=== PATIENT | female | born 1955 | race Caucasian/White ===

== ENCOUNTER 2017-08-21 17:52 | Inpatient (IN) | payer OTHER ==
--- NOTE | 2017-08-21 18:31 | ED ---
General Adult HPI - General Chief complaint: Shortness of Breath Stated complaint: Pneumonia Time Seen by Provider: 08/21/17 17:53 Source: patient, EMS, RN notes reviewed, old records reviewed Mode of arrival: EMS Limitations: no limitations - History of Present Illness Initial comments: This is a 61-year-old female to the ER for evaluation today. This patient presents for evaluation regarding shortness of breath severe shortness of breath cough and congestion positive fever. Patient's transfer from [facility] for admission regarding severe sepsis, pneumonia, COPD and hypoxia - Related Data Home Medications Medication Instructions Recorded Confirmed Allopurinol 300 mg PO DAILY 11/25/15 08/21/17 Ergocalciferol [Vitamin D2 50,000 unit PO FR 11/25/15 08/21/17 (DRISDOL)] Fluticasone/Vilanterol [Breo 1 puff INHALATION RT-DAILY 11/25/15 08/21/17 Ellipta 200-25 Mcg INH] Umeclidinium [place] [Incruse 1 puff INHALATION QAM 11/25/15 08/21/17 Ellipta] Budesonide/Formoterol Fumarate 1 puff INHALATION RT-BID 08/21/17 08/21/17 [Symbicort 160-4.5 Mcg Inhaler] Febuxostat [Uloric] 40 mg PO DAILY 08/21/17 08/21/17 Loratadine [Claritin] 10 mg PO DAILY 08/21/17 08/21/17 Omeprazole [PriLOSEC] 40 mg PO DAILY 08/21/17 08/21/17 Previous Rx's Medication Instructions Recorded oxyCODONE-APAP 10-325MG [Percocet 1 each PO Q4H PRN #42 tab 12/13/15 10-325 mg] Allergies Allergy/AdvReac Type Severity Reaction Status Date / Time No Known Allergies Allergy Verified 08/21/17 18:13 Review of Systems ROS Statement: Those systems with pertinent positive or pertinent negative responses have been documented in the HPI. ROS Other: All systems not noted in ROS Statement are negative. 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 History of Any Multi-Drug Resistant Organisms: None Reported Past Surgical History: Appendectomy, Section, Joint Replacement, Orthopedic Surgery Additional Past Surgical History / Comment(s): 12/09/15 Totoal L hip arthroplasty, anterior approach with cell saver. Other surgical hx: ORIF rt arm-pin later removed Past Anesthesia/Blood Transfusion Reactions: No Reported Reaction Past Psychological History: Anxiety Smoking Status: Current every day smoker Past Alcohol Use History: Occasional Past Drug Use History: None Reported - Past Family History Mother Family Medical History: COPD, Diabetes Mellitus Additional Family Medical History / Comment(s): Mother had heart problems. Father Family Medical History: No Reported History Additional Family Medical History / Comment(s): Father had gout and heart problems. General Exam Limitations: no limitations General appearance: alert, anxious, in distress Head exam: Present: atraumatic, normocephalic, normal inspection Eye exam: Present: normal appearance, PERRL, EOMI. Absent: scleral icterus, conjunctival injection, periorbital swelling ENT exam: Present: normal exam, mucous membranes moist Neck exam: Present: normal inspection. Absent: tenderness, meningismus, lymphadenopathy Respiratory exam: Present: respiratory distress, wheezes, accessory muscle use, decreased breath sounds, prolonged expiratory. Absent: rales, rhonchi, stridor Cardiovascular Exam: Present: regular rate, normal rhythm, tachycardia, normal heart sounds. Absent: systolic murmur, diastolic murmur, rubs, gallop, clicks GI/Abdominal exam: Present: soft, normal bowel sounds. Absent: distended, tenderness, guarding, rebound, rigid Extremities exam: Present: normal inspection, full ROM, normal capillary refill. Absent: tenderness, pedal edema, joint swelling, calf tenderness Back exam: Present: normal inspection Neurological exam: Present: alert, oriented X3, CN II-XII intact Psychiatric exam: Present: normal affect, normal mood Skin exam: Present: warm, dry, intact, normal color. Absent: rash Course Vital Signs 08/21/17 17:59 Temperature 101.7 F H Pulse Rate 100 Respiratory 16 Rate Blood Pressure 137/77 O2 Sat by Pulse 93 L Oximetry - Reevaluation(s) Reevaluation #1: 08/21/17 18:52 Transfer paperwork is thoroughly reviewed EKG Findings - EKG Comments: EKG Findings:: EKG shows sinus tachycardia rate 143, ND 1:30, QRS 78, QTC 50 Medical Decision Making - Medical Decision Making 61 female the ER for evaluation severe shortness of breath severe cough and congestion, chest pain. Patient will be admitted for severe pneumonia, fever 103, severe COPD borderline BiPAP. - Radiology Data Radiology results: report reviewed (Chest x-ray positive for pneumonia) Critical Care Time Critical Care Time: Yes Total Critical Care Time: 31 Disposition Clinical Impression: Community acquired pneumonia, Adult respiratory distress syndrome, Acute exacerbation of chronic obstructive airways disease, Hypoxia Disposition: ADMITTED IP TO THIS HOSP Condition: Critical Referrals: Joana Cox DO [Primary Care Provider] - 1-2 days
[2017-08-21] MEDS ORDERED: methylPREDNISolone SOD SUCCI 125 MG/2 ML VIAL IV STA (18:47)
[2017-08-21] MEDS ORDERED: SODIUM CHLORIDE 0.9% 500 ML IV STA (18:49)
[2017-08-21] MEDS ORDERED: ALBUTEROL NEBULIZED 2.5 MG/3 ML INHALATION STA (18:49)
[2017-08-21] MEDS ORDERED: MORPHINE SULFATE 4 MG/ML SYRINGE IVP STA (18:49)
[2017-08-21] MEDS ORDERED: SODIUM CHLORIDE 0.9% 1,000 ML IV STA (18:49)
[2017-08-21] MEDS ORDERED: LEVOFLOXACIN 750MG-D5W PMX 750 MG in DEXTROSE/WATER 1 150ML.BAG IVPB STA (18:49)
[2017-08-21] MEDS ORDERED: LORazepam 2 MG/ML INJ IV STA (18:49)
[2017-08-21] MEDS ORDERED: IPRATROPIUM 0.5 MG/2.5 ML NEBU INHALATION STA (18:49)
[2017-08-21 19:14] LABS: Basophils % (A) 0 %; Eosinophils # (A) 0.1 k/uL (0-0.7); Eosinophils % (A) 0 %; HCT 46.6 % (34.0-46.0); HGB 15.7 gm/dL (11.4-16.0); Lymphocytes # (A) 0.3 k/uL (1.0-4.8); Lymphocytes % (A) 2 %; MCHC 33.7 g/dL (31.0-37.0); MCV 94.9 fL (80.0-100.0); Mean Platelet Volume 7.8; Monocytes # (A) 0.3 k/uL (0-1.0); Monocytes % (A) 2 %; Neutrophils # (A) 17.6 k/uL (1.3-7.7); Neutrophils % (A) 96 %; Platelet Count 215 k/uL (150-450); RBC 4.91 m/uL (3.80-5.40); WBC 18.4 k/uL (3.8-10.6)
[2017-08-21 19:22] LABS: INR 0.9 (<1.2); Partial Thromboplastin Time 22.9 sec (22.0-30.0); Prothrombin Time 9.4 sec (9.0-12.0)
--- NOTE | 2017-08-21 19:23 | XR ---
EXAMINATION TYPE: XR chest 1V portable DATE OF EXAM: 08/21/2017 COMPARISON: 12/11/2015 HISTORY: Short of breath TECHNIQUE: Single frontal view of the chest is obtained. FINDINGS: There is no heart failure nor confluent pneumonic infiltrate. Costophrenic angles are cinthia r. There are chest leads. Bony thorax is intact. IMPRESSION: No active cardiopulmonary disease. Normal heart. No change.
[2017-08-21 19:28] LABS: ALT 27 U/L (9-52); AST 31 U/L (14-36); Albumin 4.2 g/dL (3.5-5.0); Alkaline Phosphatase 101 U/L (38-126); Anion Gap 20 mmol/L; Blood Urea Nitrogen 11 mg/dL (7-17); Carbon Dioxide 21 mmol/L (22-30); Chloride 97 mmol/L (98-107); Glucose 193 mg/dL (74-99); Magnesium 1.4 mg/dL (1.6-2.3); Potassium 3.6 mmol/L (3.5-5.1); Sodium 138 mmol/L (137-145); Total Bilirubin 0.3 mg/dL (0.2-1.3); Total Protein 6.8 g/dL (6.3-8.2)
[2017-08-21] MEDS: SODIUM CHLORIDE 0.9% 1,000 ML IV SCH (19:45)
[2017-08-21] MEDS: DILTIAZEM 50 MG in SODIUM CHLORIDE 0.9% 40 ML IV ONE ×2 (19:50→20:45)
[2017-08-21 19:52] LABS: Creatine Kinase MB 0.8 ng/mL (0.0-2.4)
[2017-08-21 19:56] LABS: Troponin I 0.043 ng/mL (0.000-0.034)
[2017-08-21] MEDS ORDERED: DILTIAZEM 5 MG/ML 5 ML VIAL IV STA (20:35)
[2017-08-21] MEDS: IPRATROPIUM-ALBUTEROL 3 ML NEB INHALATION SCH (20:49)
[2017-08-21] MEDS: MORPHINE SULFATE 4 MG/ML SYRINGE IVP PRN (22:01)
[2017-08-21] MEDS: methylPREDNISolone SOD SUCCI 125 MG/2 ML VIAL IV SCH (23:35)
[2017-08-22] MEDS: MORPHINE SULFATE 4 MG/ML SYRINGE IVP PRN ×2 (04:38→07:33)
[2017-08-22] MEDS: SODIUM CHLORIDE 0.9% 1,000 ML IV SCH ×2 (04:45→17:16)
[2017-08-22 06:07] LABS: Glucose,Whole Blood 155 mg/dL (75-99)
[2017-08-22] MEDS: methylPREDNISolone SOD SUCCI 125 MG/2 ML VIAL IV SCH ×3 (06:23→17:16)
[2017-08-22] MEDS ORDERED: Magnesium Replacement Protocol 1 EACH MISC MISCELLANE PRN (06:45)
[2017-08-22] MEDS: MAGNESIUM SULFATE-D5W PMX 1 GM in DEXTROSE/WATER 1 100ML.BAG IVPB SCH ×3 (07:06→12:02)
[2017-08-22] MEDS: INSULIN ASPART 100 UNIT/ML 1 ML 10 ML VIAL SQ SCH ×4 (07:06→20:54)
[2017-08-22] MEDS: IPRATROPIUM-ALBUTEROL 3 ML NEB INHALATION SCH ×4 (08:10→20:03)
[2017-08-22] MEDS ORDERED: ENOXAPARIN 40 MG/0.4 ML SYRINGE SQ SCH (09:00)
[2017-08-22] MEDS: NICOTINE 21MG/24HR PATCH TRANSDERM SCH ×2 (09:14→10:13)
[2017-08-22 10:11] LABS: Basophils % (A) 0 %; Eosinophils % (A) 0 %; HCT 39.3 % (34.0-46.0); HGB 13.3 gm/dL (11.4-16.0); Lymphocytes # (A) 0.6 k/uL (1.0-4.8); Lymphocytes % (A) 4 %; MCH 32.7 pg (25.0-35.0); MCHC 33.8 g/dL (31.0-37.0); MCV 96.8 fL (80.0-100.0); Mean Platelet Volume 7.5; Monocytes # (A) 0.2 k/uL (0-1.0); Monocytes % (A) 2 %; Neutrophils % (A) 94 %; Platelet Count 155 k/uL (150-450); RBC 4.06 m/uL (3.80-5.40); RDW 14.1 % (11.5-15.5); WBC 14.9 k/uL (3.8-10.6)
[2017-08-22 10:14] LABS: ALT 25 U/L (9-52); AST 24 U/L (14-36); Albumin 3.5 g/dL (3.5-5.0); Alkaline Phosphatase 71 U/L (38-126); Anion Gap 14 mmol/L; Blood Urea Nitrogen 15 mg/dL (7-17); Calcium 7.9 mg/dL (8.4-10.2); Carbon Dioxide 20 mmol/L (22-30); Chloride 103 mmol/L (98-107); Glucose 170 mg/dL (74-99); Magnesium 2.1 mg/dL (1.6-2.3); Potassium 4.3 mmol/L (3.5-5.1); Sodium 137 mmol/L (137-145); Total Bilirubin 0.2 mg/dL (0.2-1.3); Total Protein 5.8 g/dL (6.3-8.2)
[2017-08-22] MEDS ORDERED: HYDROcodone/APAP 5-325MG 1 EACH TAB PO PRN (10:16)
[2017-08-22] MEDS: MORPHINE ORAL SOLN 10 MG/5 ML CUP PO PRN ×3 (10:38→18:50)
[2017-08-22] MEDS: oxyCODONE-APAP 10-325MG 1 EACH TAB PO PRN ×3 (11:17→22:14)
[2017-08-22 11:30] LABS: Glucose,Whole Blood 167 mg/dL (75-99)
--- NOTE | 2017-08-22 11:58 | ECHOF ---
Referral Reason:Elevated trop MEASUREMENTS -------- HEIGHT: 157.5 cm WEIGHT: 68.5 kg BP: 114/65 RVIDd: 2.3 cm (< 3.3) IVSd: 1.9 cm (0.6 - 1.1) LVIDd: 3.8 cm (3.9 - 5.3) LVPWd: 1.6 cm (0.6 - 1.1) IVSs: 2.2 cm LVIDs: 2.6 cm LVPWs: 2.2 cm Ao Diam: 3.1 cm (2.0 - 3.7) AV Cusp: 1.9 cm (1.5 - 2.6) LA Diam: 4.1 cm (2.7 - 3.8) MV EXCURSION: 15.618 mm (> 18.000) MV EF SLOPE: 81 mm/s (70 - 150) EPSS: 1.0 cm MV E Medardo: 0.93 m/s MV DecT: 266 ms MV A Medardo: 0.98 m/s MV E/A Ratio: 0.96 RAP: 5.00 mmHg RVSP: 14.20 mmHg FINDINGS -------- Sinus rhythm. This was a technically difficult study with suboptimal views. Pt. Very Sob The left ventricular size is normal. There is severe concentric left ventricular hypertrophy. Ove rall left ventricular systolic function is normal with, an EF between 60 - 65 %. The right ventricle is normal in size and function. The left atrium is mildly dilated. The right atrium is normal in size. The aortic valve is trileaflet, and appears structurally normal. No aortic stenosis or regurgitation. There is trace mitral regurgitation. Trace tricuspid regurgitation present. The right ventricular systolic pressure, as measured by Dopp ler, is 14.20mmHg. The pulmonic valve was not well visualized. The aortic root size is normal. There is a small, generalized pericardial effusion present. CONCLUSIONS -------- 1. Sinus rhythm. 2. This was a technically difficult study with suboptimal views. 3. Pt. Very Sob 4. The left ventricular size is normal. 5. There is severe concentric left ventricular hypertrophy. 6. Overall left ventricular systolic function is normal with, an EF between 60 - 65 %. 7. The right ventricle is normal in size and function. 8. The left atrium is mildly dilated. 9. The right atrium is normal in size. 10. The aortic valve is trileaflet, and appears structurally normal. No aortic stenosis or regurgitat ion. 11. There is trace mitral regurgitation. 12. Trace tricuspid regurgitation present. 13. The right ventricular systolic pressure, as measured by Doppler, is 14.20mmHg. 14. The pulmonic valve was not well visualized. 15. The aortic root size is normal. 16. There is a small, generalized pericardial effusion present. [employer]: Jesika Braswell RDCS
[2017-08-22] MEDS: APIXABAN 5 MG TAB PO SCH ×2 (12:02→20:54)
[2017-08-22] MEDS: VERAPAMIL 40 MG TAB PO SCH ×3 (12:04→20:54)
[2017-08-22] MEDS ORDERED: LORazepam 2 MG/ML INJ IV PRN ×2 (12:22)
[2017-08-22] MEDS ORDERED: THIAMINE 100 MG/ML 2 ML VIAL IM STA (12:22)
--- NOTE | 2017-08-22 12:42 | P.HPIM ---
History of Present Illness H&P Date: 08/22/17 Chief Complaint: Worsening shortness of breath This is a 61-year-old female, patient of Dr. Cox. This patient has past medical history of COPD, Khan's palsy, alcoholic pancreatitis, and nicotine dependence. Patient initially presented to [facility] due to worsening shortness of breath and cough. They were concerned about sepsis and pneumonia she was also hypoxic requiring a BiPAP. She was then transferred to [facility] for more extensive care and workup. She's found to be atrial fibrillation with a rapid ventricular response heart rate in the 190s. She required Cardizem drip in the ER. She has converted back to normal sinus rhythm around 4:00 this morning. Both pulmonary service and cardiology have been consulted. Cardiology has added Eliquis for anticoagulation. Case was discussed with pulmonary service. Patient is currently requiring a Ventimask at 98%. Patient reports increased shortness of breath is especially with ambulating. Patient also having productive cough with chest discomfort. She denies any nausea or vomiting. She is requesting pain medications for her chest pains. Patient denies current or active alcohol use. However prior history does reveal alcohol use history as well as alcoholic pancreatitis. Nursing staff has notified me that the patient is becoming more anxious throughout the morning it is starting to having some tremors and shakes. The CIWA protocol has been ordered as well as thiamine and multivitamin. Patient reports having fevers and chills. She had a temp of 103 at home and 101.7 on admission. White count elevated at 18.4 and also tachycardic. Patient also had been antibiotics for possible pneumonia and COPD exacerbation. Patient reports she's been having these symptoms of shortness of breath and cough for about 4 weeks with no improvement with antibiotics. She also reports that she' s had a few episodes of diarrhea. Stool for C. diff has been ordered. 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 History of Any Multi-Drug Resistant Organisms: None Reported Past Surgical History: Appendectomy, Section, Joint Replacement, Orthopedic Surgery Additional Past Surgical History / Comment(s): 12/09/15 Totoal L hip arthroplasty, anterior approach with cell saver. Other surgical hx: ORIF rt arm-pin later removed Past Anesthesia/Blood Transfusion Reactions: No Reported Reaction Past Psychological History: Anxiety Additional Psychological History / Comment(s): Pt states she is currently living with a friend in their basement. She has no assistive device. She does not drive, family/friends take her to appts. Smoking Status: Current every day smoker Past Alcohol Use History: Occasional Additional Past Alcohol Use History / Comment(s): smoked for 40 yrs <1ppd Past Drug Use History: None Reported - Past Family History Mother Family Medical History: COPD, Diabetes Mellitus Additional Family Medical History / Comment(s): Mother had heart problems. Father Family Medical History: No Reported History Additional Family Medical History / Comment(s): Father had gout and heart problems. Brother(s) Additional Family Medical History / Comment(s): gout Medications and Allergies Home Medications Medication Instructions Recorded Confirmed Type Allopurinol 300 mg PO DAILY 11/25/15 08/21/17 History Ergocalciferol [Vitamin D2 50,000 unit PO FR 11/25/15 08/21/17 History (DRISDOL)] Fluticasone/Vilanterol [Breo 1 puff INHALATION RT-DAILY 11/25/15 08/21/17 History Ellipta 200-25 Mcg INH] Umeclidinium [place] [Incruse 1 puff INHALATION QAM 11/25/15 08/21/17 History Ellipta] oxyCODONE-APAP 10-325MG [Percocet 1 each PO Q4H PRN #42 tab 12/13/15 08/21/17 Rx 10-325 mg] Budesonide/Formoterol Fumarate 1 puff INHALATION RT-BID 08/21/17 08/21/17 History [Symbicort 160-4.5 Mcg Inhaler] Febuxostat [Uloric] 40 mg PO DAILY 08/21/17 08/21/17 History Loratadine [Claritin] 10 mg PO DAILY 08/21/17 08/21/17 History Omeprazole [PriLOSEC] 40 mg PO DAILY 08/21/17 08/21/17 History Allergies Allergy/AdvReac Type Severity Reaction Status Date / Time No Known Allergies Allergy Verified 08/21/17 18:13 Physical Exam Vitals: Vital Signs Temp Pulse Pulse Resp BP BP Pulse Ox 08/22/17 11:10 84 08/22/17 08:26 88 08/22/17 08:12 80 98 08/22/17 08:00 98 F 82 18 114/65 93 L 08/22/17 06:48 17 96 08/22/17 04:00 97.8 F 81 18 122/80 100 08/22/17 00:00 96.8 F L 118 H 19 108/67 92 L 08/21/17 22:21 97.8 F 148 H 16 108/65 94 L 08/21/17 21:37 97.1 F L 128 H 16 108/65 97 08/21/17 20:49 153 H 16 120/59 97 08/21/17 20:22 160 H 25 H 104/61 97 08/21/17 19:58 99.1 F 152 H 33 H 120/97 94 L 08/21/17 19:17 104 H 08/21/17 19:02 100 169 H 134/74 92 L 08/21/17 19:00 105 H 08/21/17 17:59 101.7 F H 100 16 137/77 93 L Intake and Output 08/21/17 08/22/17 08/22/17 22:59 06:59 14:59 Intake Total 4.583 550 100 Output Total 300 200 Balance 4.583 250 -100 Intake: Intake, IV Titration 4.583 Amount Diltiazem 50 mg In Sodium 4.583 Chloride 0.9% 40 ml @ 5 MG/HR 5 mls/hr IV .Q10H ONE Rx#:[id number] Oral 550 100 Output: Urine 300 200 Other: Voiding Method Bedside Commode Bedside Commode # Voids 1 # Bowel Movements 0 Weight 65.317 kg 68.9 kg Head normocephalic Neck supple Lungs diminished with expiratory wheezing Heart regular rate and rhythm S1-S2, no rub or gallop Abdomen is soft nontender nondistended positive bowel sounds no hepatosplenomegaly Extremities no edema Neuro alert and orientated to 3 Results CBC & Chem 7: 08/22/17 09:30 08/22/17 09:30 Labs: Abnormal Lab Results - Last 24 Hours (Table) 08/21/17 08/21/17 08/21/17 Range/Units 19:00 19:00 19:00 WBC 18.4 H (3.8-10.6) k/uL Hct 46.6 H (34.0-46.0) % Neutrophils # 17.6 H (1.3-7.7) k/uL Lymphocytes # 0.3 L (1.0-4.8) k/uL Chloride 97 L (98-107) mmol/L Carbon Dioxide 21 L (22-30) mmol/L Glucose 193 H (74-99) mg/dL POC Glucose (mg/dL) (75-99) mg/dL Calcium (8.4-10.2) mg/dL Magnesium 1.4 L (1.6-2.3) mg/dL Troponin I 0.043 H* (0.000-0.034) ng/mL Total Protein (6.3-8.2) g/dL 08/22/17 08/22/17 08/22/17 Range/Units 06:05 09:30 09:30 WBC 14.9 H (3.8-10.6) k/uL Hct (34.0-46.0) % Neutrophils # 14.0 H (1.3-7.7) k/uL Lymphocytes # 0.6 L (1.0-4.8) k/uL Chloride (98-107) mmol/L Carbon Dioxide 20 L (22-30) mmol/L Glucose 170 H (74-99) mg/dL POC Glucose (mg/dL) 155 H (75-99) mg/dL Calcium 7.9 L (8.4-10.2) mg/dL Magnesium (1.6-2.3) mg/dL Troponin I (0.000-0.034) ng/mL Total Protein 5.8 L (6.3-8.2) g/dL 08/22/17 Range/Units 11:28 WBC (3.8-10.6) k/uL Hct (34.0-46.0) % Neutrophils # (1.3-7.7) k/uL Lymphocytes # (1.0-4.8) k/uL Chloride (98-107) mmol/L Carbon Dioxide (22-30) mmol/L Glucose (74-99) mg/dL POC Glucose (mg/dL) 167 H (75-99) mg/dL Calcium (8.4-10.2) mg/dL Magnesium (1.6-2.3) mg/dL Troponin I (0.000-0.034) ng/mL Total Protein (6.3-8.2) g/dL Thrombosis Risk Factor Assmnt - Choose All That Apply Any of the Below Risk Factors Present?: Yes Each Factor Represents 1 point: Abnormal pulmonary function (COPD), Obesity ( BMI >25) Each Risk Factor Represents 2 Points: Age 61-74 years Other congenital or acquired thrombophilia - If yes, enter type in comment: No Thrombosis Risk Factor Assessment Total Risk Factor Score: 4 Thrombosis Risk Factor Assessment Level: Moderate Risk Assessment and Plan Assessment: 1. Acute hypoxic respiratory failure secondary to acute COPD exacerbation, bronchitis and atrial fibrillation with rapid ventricular response. Patient has required BiPAP and is currently on Ventimask 2. Acute COPD exacerbation: Continue IV Solu-Medrol and bronchodilators. Pulmonary service has added Pulmicort and Perforomist nebulizer treatments 3. Acute tracheobronchitis no evidence of pneumonia so far on chest x-ray. Continue with Levaquin 4. Atrial fibrillation with rapid ventricular response present on admission requiring Cardizem drip. Converted to normal sinus rhythm. Cardiology started Eliquis for anticoagulation 5. History of alcohol abuse and evidence of some withdrawal symptoms with anxiety and tremors. CIWA protocol with thiamine and multivitamin ordered 6. Sepsis present on admission likely related to bronchitis 7. Diarrhea check stool for C. diff 8. History of COPD 9. History of Khan's palsy 10. History of alcoholic pancreatitis 11. Nicotine dependence: Patient started on a nicotine patch DVT prophylaxis on Eliquis Time with Patient: Greater than 30 (Greater than 50% of the total time spent in counseling and coordination of care.I performed an examination of the patient and discussed their management with the physician Network Support. I have reviewed the Physician Network Support's notes and agree with the documented findings and plan of care)
[2017-08-22] MEDS: LORazepam 2 MG/ML INJ IV PRN (13:56)
[2017-08-22 14:14] LABS: Hemoglobin A1C 5.3 % (4.0-6.0)
--- NOTE | 2017-08-22 14:29 | P.CRDCN ---
History of Present Illness Consult date: 08/22/17 Requesting physician: Mariama Mantilla Consult reason: atrial fibrillation Chief complaint: Shortness of breath History of present illness: This is a 61-year-old female with known history of COPD, alcoholic pancreatitis, nicotine dependence, prior Khan's palsy. She presented to the hospital with symptoms of shortness of breath and productive cough. Patient was requiring a BiPAP, she was quite hypoxic. Transferred to [facility] because of possible sepsis. Patient was found to be in atrial fibrillation, or atrial tachycardia, requiring Cardizem to decrease the heart rate. We were asked to see the patient because of her arrhythmia and the need for possible anticoagulation. Patient states she does drink alcohol but very minimal amounts , however her history does suggest significant alcohol use and alcoholic pancreatitis. Patient is quite anxious at the time of my examination today, short of breath. Patient did have a temperature prior to going to the hospital of 103, and had a temp of 101 on admission. White blood cell count was also elevated at 18.4. She is currently on antibiotics for possible pneumonia, and treatment for COPD exacerbation. Patient also has had a few episodes of diarrhea and for this reason stool for C. diff was requested. EKG on presentation here showed a sinus tachycardia with frequent PACs and occasional PVCs. Subsequent EKG appears to be in atrial fibrillation with rapid ventricular response. Test x-ray does not reveal any active cardiopulmonary disease. Echocardiogram with Doppler study was performed which revealed an ejection fraction of 60-65%. Small generalized pericardial effusion is present. Temperature on arrival 101.7, blood pressure 137/70, heart rate in the 1 teens, 93% on 4 L of oxygen. Blood pressure this afternoon 114/60 with a heart rate in the 80s, 93% on 4 L of oxygen currently in a normal sinus rhythm. 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 History of Any Multi-Drug Resistant Organisms: None Reported Past Surgical History: Appendectomy, Section, Joint Replacement, Orthopedic Surgery Additional Past Surgical History / Comment(s): 12/09/15 Totoal L hip arthroplasty, anterior approach with cell saver. Other surgical hx: ORIF rt arm-pin later removed Past Anesthesia/Blood Transfusion Reactions: No Reported Reaction Past Psychological History: Anxiety Additional Psychological History / Comment(s): Pt states she is currently living with a friend in their basement. She has no assistive device. She does not drive, family/friends take her to appts. Smoking Status: Current every day smoker Past Alcohol Use History: Occasional Additional Past Alcohol Use History / Comment(s): smoked for 40 yrs <1ppd Past Drug Use History: None Reported - Past Family History Mother Family Medical History: COPD, Diabetes Mellitus Additional Family Medical History / Comment(s): Mother had heart problems. Father Family Medical History: No Reported History Additional Family Medical History / Comment(s): Father had gout and heart problems. Brother(s) Additional Family Medical History / Comment(s): gout Medications and Allergies Home Medications Medication Instructions Recorded Confirmed Type Allopurinol 300 mg PO DAILY 11/25/15 08/21/17 History Ergocalciferol [Vitamin D2 50,000 unit PO FR 11/25/15 08/21/17 History (DRISDOL)] Fluticasone/Vilanterol [Breo 1 puff INHALATION RT-DAILY 11/25/15 08/21/17 History Ellipta 200-25 Mcg INH] Umeclidinium [place] [Incruse 1 puff INHALATION QAM 11/25/15 08/21/17 History Ellipta] oxyCODONE-APAP 10-325MG [Percocet 1 each PO Q4H PRN #42 tab 12/13/15 08/21/17 Rx 10-325 mg] Budesonide/Formoterol Fumarate 1 puff INHALATION RT-BID 08/21/17 08/21/17 History [Symbicort 160-4.5 Mcg Inhaler] Febuxostat [Uloric] 40 mg PO DAILY 08/21/17 08/21/17 History Loratadine [Claritin] 10 mg PO DAILY 08/21/17 08/21/17 History Omeprazole [PriLOSEC] 40 mg PO DAILY 08/21/17 08/21/17 History Allergies Allergy/AdvReac Type Severity Reaction Status Date / Time No Known Allergies Allergy Verified 08/21/17 18:13 Physical Exam Vitals: Vital Signs Temp Pulse Pulse Resp BP BP Pulse Ox 08/22/17 11:10 84 08/22/17 08:26 88 08/22/17 08:12 80 98 08/22/17 08:00 98 F 82 18 114/65 93 L 08/22/17 06:48 17 96 08/22/17 04:00 97.8 F 81 18 122/80 100 08/22/17 00:00 96.8 F L 118 H 19 108/67 92 L 08/21/17 22:21 97.8 F 148 H 16 108/65 94 L 08/21/17 21:37 97.1 F L 128 H 16 108/65 97 08/21/17 20:49 153 H 16 120/59 97 08/21/17 20:22 160 H 25 H 104/61 97 08/21/17 19:58 99.1 F 152 H 33 H 120/97 94 L 08/21/17 19:17 104 H 08/21/17 19:02 100 169 H 134/74 92 L 08/21/17 19:00 105 H 08/21/17 17:59 101.7 F H 100 16 137/77 93 L Intake and Output 08/21/17 08/22/17 08/22/17 22:59 06:59 14:59 Intake Total 4.583 550 100 Output Total 300 200 Balance 4.583 250 -100 Intake: Intake, IV Titration 4.583 Amount Diltiazem 50 mg In Sodium 4.583 Chloride 0.9% 40 ml @ 5 MG/HR 5 mls/hr IV .Q10H ONE Rx#:[id number] Oral 550 100 Output: Urine 300 200 Other: Voiding Method Bedside Commode Bedside Commode # Voids 1 # Bowel Movements 0 Weight 65.317 kg 68.9 kg PHYSICAL EXAMINATION: HEENT: Head is atraumatic, normocephalic. Pupils equal, round. Neck is supple. There is no elevated jugular venous pressure. HEART EXAMINATION: Heart S1, S2 normal. No murmur or gallop heard. CHEST EXAMINATION: His reveal decreased air exchange throughout with scattered expiratory wheezing throughout. ABDOMEN: Soft, nontender. Bowel sounds are heard. No organomegaly noted. EXTREMITIES: 2+ peripheral pulses with no evidence of peripheral edema and no calf tenderness noted. NEUROLOGIC patient is awake, alert and oriented -3. Mildly agitated. . Results 08/22/17 09:30 08/22/17 09:30 Cardiac Enzymes 08/21/17 08/21/17 08/22/17 Range/Units 19:00 19:00 09:30 AST 31 24 (14-36) U/L CK-MB (CK-2) 0.8 (0.0-2.4) ng/mL Troponin I 0.043 H* (0.000-0.034) ng/mL Coagulation 08/21/17 Range/Units 19:00 PT 9.4 (9.0-12.0) sec APTT 22.9 (22.0-30.0) sec CBC 08/21/17 08/22/17 Range/Units 19:00 09:30 WBC 18.4 H 14.9 H (3.8-10.6) k/uL RBC 4.91 4.06 (3.80-5.40) m/uL Hgb 15.7 13.3 (11.4-16.0) gm/dL Hct 46.6 H 39.3 (34.0-46.0) % Plt Count 215 155 (150-450) k/uL Comprehensive Metabolic Panel 08/21/17 08/22/17 Range/Units 19:00 09:30 Sodium 138 137 (137-145) mmol/L Potassium 3.6 4.3 (3.5-5.1) mmol/L Chloride 97 L 103 (98-107) mmol/L Carbon Dioxide 21 L 20 L (22-30) mmol/L BUN 11 15 (7-17) mg/dL Creatinine 0.80 0.64 (0.52-1.04) mg/dL Glucose 193 H 170 H (74-99) mg/dL Calcium 9.0 7.9 L (8.4-10.2) mg/dL AST 31 24 (14-36) U/L ALT 27 25 (9-52) U/L Alkaline Phosphatase 101 71 (38-126) U/L Total Protein 6.8 5.8 L (6.3-8.2) g/dL Albumin 4.2 3.5 (3.5-5.0) g/dL Current Medications Generic Name Dose Route Start Last Admin Trade Name Freq PRN Reason Stop Dose Admin Albuterol/Ipratropium 3 ml 08/21/17 20:00 08/22/17 11:08 Duoneb 0.5 Mg-3 Mg/3 Ml Soln INHALATION 3 ml RT-QID LACEY Administration Apixaban 5 mg 08/22/17 11:45 08/22/17 12:02 Eliquis PO 5 mg BID LACEY Administration Budesonide 1 mg 08/22/17 20:00 Pulmicort INHALATION RT-BID REPLACED BY [facility] Formoterol Fumarate 20 mcg 08/22/17 20:00 Perforomist INHALATION RT-BID REPLACED BY [facility] Guaifenesin/Dextromethorphan 10 ml 08/22/17 10:15 Robitussin Dm PO Q6H PRN Cough Levofloxacin 750 mg/ IV 150 mls @ 100 mls/hr 08/22/17 20:00 Solution IVPB Q24H LACEY Sodium Chloride 1,000 mls @ 100 mls/hr 08/21/17 19:00 08/22/17 04:45 Saline 0.9% IV 100 mls/hr .Q10H LACEY Administration Insulin Aspart 0 unit 08/22/17 07:30 08/22/17 12:11 Novolog SQ 3 unit ACHS LACEY Administration Protocol Lorazepam 1 mg 08/22/17 12:22 08/22/17 13:56 Ativan IV 1 mg Q2HR PRN Administration CIWA 8 or 9 Lorazepam 1 mg 08/22/17 12:22 08/22/17 12:34 Ativan IV 1 mg Q1HR PRN Administration CIWA 10 to 15 Lorazepam 2 mg 08/22/17 12:22 Ativan IV 08/24/17 12:22 Q10M PRN CIWA 16 or higher Methylprednisolone Sodium Succinate 60 mg 08/22/17 00:00 08/22/17 12:04 Solu-Medrol IV 60 mg Q6HR LACEY Administration Miscellaneous Information 1 each 08/22/17 06:45 Magnesium Per Protocol MISCELLANE DAILY PRN Per Protocol Protocol Morphine Sulfate 12 mg 08/22/17 09:09 08/22/17 13:55 Morphine Oral Adrianna 2mg/Ml PO 12 mg Q4HR PRN Administration Severe Pain Multivitamins 1 each 08/23/17 12:00 Theragran PO DAILY@1200 REPLACED BY [facility] Nicotine 1 patch 08/22/17 09:00 08/22/17 10:13 Habitrol 21mg/24hr Patch TRANSDERM Not Given DAILY REPLACED BY [facility] Oxycodone/Acetaminophen 1 each 08/22/17 10:35 08/22/17 11:17 Percocet 10-325 PO 1 each Q6H PRN Administration Pain Thiamine HCl 100 mg 08/22/17 17:00 Vitamin B-1 PO BID@1200,1700 LACEY Verapamil HCl 60 mg 08/22/17 11:45 08/22/17 12:04 Isoptin PO 60 mg TID LACEY Administration Intake and Output 08/21/17 08/22/17 08/22/17 22:59 06:59 14:59 Intake Total 4.583 550 100 Output Total 300 200 Balance 4.583 250 -100 Intake: Intake, IV Titration 4.583 Amount Diltiazem 50 mg In Sodium 4.583 Chloride 0.9% 40 ml @ 5 MG/HR 5 mls/hr IV .Q10H ONE Rx#:[id number] Oral 550 100 Output: Urine 300 200 Other: Voiding Method Bedside Commode Bedside Commode # Voids 1 # Bowel Movements 0 Weight 65.317 kg 68.9 kg 08/22/17 09:30 08/22/17 09:30 EKG Interpretations (text) Initial EKG shows sinus tachycardia with PACs and PVCs subsequent EKG shows atrial fibrillation with rapid ventricular response. EKG today shows normal sinus rhythm. Assessment and Plan Plan: Assessment and plan #1 acute possible respiratory failure secondary to acute COPD exacerbation, bronchitis. #2 possible acute tracheobronchitis, on antibiotics #3 atrial arrhythmia in the form of atrial tachycardia and atrial fibrillation. I did have a discussion with the patient regarding anticoagulation for stroke prevention, we will check on Eliquis. We will also start the patient on verapamil today. #4 history of alcohol abuse and alcoholic pancreatitis # 5 sepsis #6 diarrhea #7 history of COPD #8 history of Khan's palsy #9 nicotine dependence Plan Echocardiogram with Doppler study was performed which revealed a normal left ventricular systolic function. We'll start the patient on verapamil. Also start the patient on Eliquis and check to see if the patient has coverage. Further recommendations to follow. DNP note has been reviewed, I agree with a documented findings and plan of care. Patient was seen and examined.
--- NOTE | 2017-08-22 15:37 | P.CNPUL ---
History of Present Illness Consult date: 08/22/17 Reason for consult: dyspnea, COPD History of present illness: A 61-year-old female patient, a chronic smoker, known history of COPD whereas been a good state of health and she was under the care of her private care physician. She has been a chronic smoker. She has also history of alcoholism and previous history of pancreatitis. The patient presented yesterday to the emergency department at [facility] because of increased dyspnea, recurrent cough, chest wall pain due to vigorous coughing, chest congestion with limited sputum production, bronchospasm and wheeze. In the emergency department the patient was quite short of breath. She was placed on BiPAP. She also had a brief episode of atrial fibrillation with rapid ventricular response where she was placed on Cardizem drip. The patient converted back to normal sinus rhythm at around 4:00 this morning. She is currently off the BiPAP. She is using a simple Ventimask. She is able to complete full sentences. She has however very uncomfortable with breathing and she has frequent coughing episodes pressure when she takes a deep breath. There is a first aspiration for COPD exacerbation. Her chest x-ray is clear and there is no evidence of any acute pulmonary infiltration or pneumonia. No evidence of any pneumothorax. She had a temperature of 103.0 at home and subsequently 11.7 during the time of admission and currently she is afebrile. Her white cell count of 18.4. Clinically better yet not recovered. No hemoptysis. No pleurisy. Some limited diarrhea the patient is being checked for C. diff. Note patient about treatments. No recent antibiotic or steroid treatment. No history of childhood asthma. No history of DVT or pulmonary embolism. No cardiac history. Review of Systems Constitutional: Reports fatigue Eyes: denies blurred vision, denies bulging eye, denies decreased vision Ears: deny: decreased hearing, ear discharge, earache, tinnitus Ears, nose, mouth and throat: Denies headache, Denies sore throat Cardiovascular: Reports chest pain, Reports decreased exercise tolerance, Reports dyspnea on exertion, Reports irregular heart beat, Reports rapid heart beat, Reports shortness of breath Respiratory: Reports cough, Reports cough with sputum, Reports dyspnea, Reports wheezing Gastrointestinal: Denies abdominal pain, Denies diarrhea, Denies nausea, Denies vomiting Genitourinary: Reports as per HPI Menstruation: Reports as per HPI Musculoskeletal: Denies myalgias Musculoskeletal: absent: ankle pain, ankle stiffness, ankle swelling Integumentary: Denies pruritus, Denies rash Neurological: Denies numbness, Denies weakness Psychiatric: Denies anxiety, Denies depression Endocrine: Denies fatigue, Denies weight change Allergic/Immunologic: Reports as per HPI Past Medical History Past Medical History: COPD, GERD/Reflux, Osteoarthritis (OA) Additional Past Medical History / Comment(s): COPD, bells palsy, history of alcoholism and previous history of pancreatitis, 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 History of Any Multi-Drug Resistant Organisms: None Reported Past Surgical History: Appendectomy, Section, Joint Replacement, Orthopedic Surgery Additional Past Surgical History / Comment(s): 12/09/15 Totoal L hip arthroplasty, anterior approach with cell saver. Other surgical hx: ORIF rt arm-pin later removed Past Anesthesia/Blood Transfusion Reactions: No Reported Reaction Past Psychological History: Anxiety Additional Psychological History / Comment(s): Pt states she is currently living with a friend in their basement. She has no assistive device. She does not drive, family[place] [employer] [employer]. Smoking Status: Current every day smoker Past Alcohol Use History: Occasional Additional Past Alcohol Use History / Comment(s): smoked for 40 yrs <1ppd Past Drug Use History: None Reported - Past Family History Mother Family Medical History: COPD, Diabetes Mellitus Additional Family Medical History / Comment(s): Mother had heart problems. Father Family Medical History: No Reported History Additional Family Medical History / Comment(s): Father had gout and heart problems. Brother(s) Additional Family Medical History / Comment(s): gout Medications and Allergies Home Medications Medication Instructions Recorded Confirmed Type Allopurinol 300 mg PO DAILY 11/25/15 08/21/17 History Ergocalciferol [Vitamin D2 50,000 unit PO FR 11/25/15 08/21/17 History (DRISDOL)] Fluticasone/Vilanterol [Breo 1 puff INHALATION RT-DAILY 11/25/15 08/21/17 History Ellipta 200-25 Mcg INH] Umeclidinium [place] [Incruse 1 puff INHALATION QAM 11/25/15 08/21/17 History Ellipta] oxyCODONE-APAP 10-325MG [Percocet 1 each PO Q4H PRN #42 tab 12/13/15 08/21/17 Rx 10-325 mg] Budesonide/Formoterol Fumarate 1 puff INHALATION RT-BID 08/21/17 08/21/17 History [Symbicort 160-4.5 Mcg Inhaler] Febuxostat [Uloric] 40 mg PO DAILY 08/21/17 08/21/17 History Loratadine [Claritin] 10 mg PO DAILY 08/21/17 08/21/17 History Omeprazole [PriLOSEC] 40 mg PO DAILY 08/21/17 08/21/17 History Allergies Allergy/AdvReac Type Severity Reaction Status Date / Time No Known Allergies Allergy Verified 08/21/17 18:13 Physical Exam Vitals: Vital Signs Temp Pulse Pulse Resp BP BP Pulse Ox 08/22/17 11:10 84 08/22/17 08:26 88 08/22/17 08:12 80 98 08/22/17 08:00 98 F 82 18 114/65 93 L 08/22/17 06:48 17 96 08/22/17 04:00 97.8 F 81 18 122/80 100 08/22/17 00:00 96.8 F L 118 H 19 108/67 92 L 08/21/17 22:21 97.8 F 148 H 16 108/65 94 L 08/21/17 21:37 97.1 F L 128 H 16 108/65 97 08/21/17 20:49 153 H 16 120/59 97 08/21/17 20:22 160 H 25 H 104/61 97 08/21/17 19:58 99.1 F 152 H 33 H 120/97 94 L 08/21/17 19:17 104 H 08/21/17 19:02 100 169 H 134/74 92 L 08/21/17 19:00 105 H 08/21/17 17:59 101.7 F H 100 16 137/77 93 L Intake and Output 08/22/17 08/22/17 08/22/17 06:59 14:59 22:59 Intake Total 550 580 Output Total 300 200 Balance 250 380 Intake: Oral 550 580 Output: Urine 300 200 Other: Voiding Method Bedside Commode Bedside Commode # Voids 1 # Bowel Movements 0 Weight 68.9 kg Gen. appearance the patient is quite uncomfortable and she is having frequent coughing episodes. She has labored breathing and she is able to complete full sentences. Head exam was generally normal. There was no scleral icterus or corneal arcus. Mucous membranes were moist. Neck was supple and without jugular venous distension, thyromegaly, or carotid bruits. Carotids were easily palpable bilaterally. There was no adenopathy. Lungs sounds are diminished bilaterally along with prolongation of expiratory phase of breathing and diffuse expiratory wheezes throughout the lung hoffman bilaterally. Cardiac exam revealed the PMI to be normally situated and sized. The rhythm was regular and no extrasystoles were noted during several minutes of auscultation. The first and second heart sounds were normal and physiologic splitting of the second heart sound was noted. There were no murmurs, rubs, clicks, or gallops. Abdomen abdomenAbdominal exam revealed normal bowel sounds. The abdomen was soft , non-tender, and without masses, organomegaly, or appreciable enlargement of the abdominal aorta. Examination of the extremities revealed easily palpable radial, femoral and pedal pulses. There was no cyanosis, clubbing or edema. Examination of the skin revealed no evidence of significant rashes, suspicious appearing nevi or other concerning lesions. Neurologically the patient is awake and alert and there is no focal neurological deficit Results - Laboratory Findings CBC and BMP: 08/22/17 09:30 08/22/17 09:30 PT/INR, D-dimer PT 9.4 sec (9.0-12.0) 08/21/17 19:00 INR 0.9 (<1.2) 08/21/17 19:00 Abnormal lab findings: Abnormal Labs 08/21/17 08/21/17 08/21/17 19:00 19:00 19:00 WBC 18.4 H Hct 46.6 H Neutrophils # 17.6 H Lymphocytes # 0.3 L Chloride 97 L Carbon Dioxide 21 L Glucose 193 H POC Glucose (mg/dL) Calcium Magnesium 1.4 L Troponin I 0.043 H* Total Protein 08/22/17 08/22/17 08/22/17 06:05 09:30 09:30 WBC 14.9 H Hct Neutrophils # 14.0 H Lymphocytes # 0.6 L Chloride Carbon Dioxide 20 L Glucose 170 H POC Glucose (mg/dL) 155 H Calcium 7.9 L Magnesium Troponin I Total Protein 5.8 L 08/22/17 11:28 WBC Hct Neutrophils # Lymphocytes # Chloride Carbon Dioxide Glucose POC Glucose (mg/dL) 167 H Calcium Magnesium Troponin I Total Protein - Diagnostic Findings Chest x-ray: image reviewed Assessment and Plan Plan: Assessment 1 acute COPD exacerbation with secondary shortness of breath. The patient was quite febrile at a time of admission with a temperature of 101.7 and her temperature was as high as 103. Rule out underlying viral tracheal bronchitis. Rule out underlying influenza rest or checked infection. 2 chronic dyspnea related to COPD with interval exacerbation 3 acute febrile illness, currently under investigation 4 skeletal chest wall pain related to cough and 5 smoker 6 atrial fibrillation with rapid ventricular response and current rhythm is back to sinus 7 gout 8 history of alcoholism with previous history of pancreatitis 9 chronic back pain 10 acid reflux Plan Smoking cessation counseling was done. Would optimize COPD exacerbation with a combination of Perforomist and Pulmicort neb last 2 minutes twice a day, DuoNeb the bite seems on the clock, IV Solu-Medrol and would also add no cough or pain control and Robitussin-DM for cough and congestion. Smoking cessation counseling was done. Chest x-ray was reviewed. We'll send influenza screen through a nasal swab. We'll continue to follow. Current rhythm is sinus and the patient is having an echocardiogram to assess LV function. Management of atrial fibrillation per cardiology. May need anticoagulation this will be left to cardiology services. Outpatient pulmonary function test assess severity of her COPD. Nicotine patches for now.
[2017-08-22] MEDS ORDERED: HYDROcodone/APAP 7.5-325MG 1 EACH TAB PO PRN (16:20)
[2017-08-22 16:38] LABS: Glucose,Whole Blood 146 mg/dL (75-99)
[2017-08-22] MEDS: THIAMINE 100 MG TAB PO SCH (17:15)
[2017-08-22] MEDS ORDERED: LEVOFLOXACIN 750MG-D5W PMX 750 MG in DEXTROSE/WATER 1 150ML.BAG IVPB SCH (20:00)
[2017-08-22] MEDS: BUDESONIDE 1 MG/2 ML NEBU INHALATION SCH (20:03)
[2017-08-22] MEDS: FORMOTEROL FUMARATE 20 MCG/2 ML NEBU INHALATION SCH (20:03)
[2017-08-22 20:19] LABS: Glucose,Whole Blood 185 mg/dL (75-99)
[2017-08-23] MEDS: methylPREDNISolone SOD SUCCI 125 MG/2 ML VIAL IV SCH ×4 (00:04→16:39)
[2017-08-23] MEDS: MORPHINE ORAL SOLN 10 MG/5 ML CUP PO PRN ×3 (00:04→16:40)
[2017-08-23] MEDS: SODIUM CHLORIDE 0.9% 1,000 ML IV SCH ×3 (00:20→19:56)
[2017-08-23] MEDS: LORazepam 2 MG/ML INJ IV PRN (03:10)
[2017-08-23] MEDS: oxyCODONE-APAP 10-325MG 1 EACH TAB PO PRN ×4 (03:13→21:02)
[2017-08-23 06:21] LABS: Glucose,Whole Blood 136 mg/dL (75-99)
[2017-08-23] MEDS: INSULIN ASPART 100 UNIT/ML 1 ML 10 ML VIAL SQ SCH ×3 (06:26→18:13)
[2017-08-23 06:45] LABS: Basophils % (A) 0 %; Eosinophils % (A) 0 %; HCT 38.4 % (34.0-46.0); HGB 13.1 gm/dL (11.4-16.0); Lymphocytes # (A) 0.5 k/uL (1.0-4.8); Lymphocytes % (A) 3 %; MCH 33.1 pg (25.0-35.0); MCV 97.4 fL (80.0-100.0); Monocytes # (A) 0.3 k/uL (0-1.0); Monocytes % (A) 2 %; Neutrophils # (A) 17.8 k/uL (1.3-7.7); Neutrophils % (A) 95 %; Platelet Count 171 k/uL (150-450); RBC 3.94 m/uL (3.80-5.40); RDW 13.9 % (11.5-15.5); WBC 18.8 k/uL (3.8-10.6)
[2017-08-23] MEDS: BUDESONIDE 1 MG/2 ML NEBU INHALATION SCH ×2 (06:53→19:41)
[2017-08-23] MEDS: FORMOTEROL FUMARATE 20 MCG/2 ML NEBU INHALATION SCH ×2 (06:53→19:41)
[2017-08-23] MEDS: IPRATROPIUM-ALBUTEROL 3 ML NEB INHALATION SCH ×4 (06:53→19:41)
[2017-08-23 06:56] LABS: ALT 27 U/L (9-52); AST 23 U/L (14-36); Albumin 3.9 g/dL (3.5-5.0); Alkaline Phosphatase 76 U/L (38-126); Anion Gap 15 mmol/L; Blood Urea Nitrogen 20 mg/dL (7-17); Carbon Dioxide 21 mmol/L (22-30); Chloride 102 mmol/L (98-107); Glucose 137 mg/dL (74-99); Magnesium 2.6 mg/dL (1.6-2.3); Potassium 4.2 mmol/L (3.5-5.1); Sodium 138 mmol/L (137-145); Total Bilirubin 0.2 mg/dL (0.2-1.3); Total Protein 6.3 g/dL (6.3-8.2)
[2017-08-23] MEDS: VERAPAMIL 40 MG TAB PO SCH ×3 (07:40→19:52)
[2017-08-23] MEDS: APIXABAN 5 MG TAB PO SCH ×2 (07:40→19:52)
[2017-08-23] MEDS: NICOTINE 21MG/24HR PATCH TRANSDERM SCH (07:48)
[2017-08-23] MEDS: OSELTAMIVIR 75 MG CAP PO SCH ×2 (09:00→19:52)
[2017-08-23] MEDS: THIAMINE 100 MG TAB PO SCH ×2 (11:43→16:40)
[2017-08-23] MEDS: MULTIVITAMINS, THERA 1 EACH TAB PO SCH (11:43)
[2017-08-23 11:59] LABS: Glucose,Whole Blood 192 mg/dL (75-99)
--- NOTE | 2017-08-23 12:44 | P.PN ---
Subjective Progress Note Date: 08/23/17 This is a 61-year-old female, patient of Dr. Cox. This patient has past medical history of COPD, Khan's palsy, alcoholic pancreatitis, and nicotine dependence. Patient initially presented to [facility] due to worsening shortness of breath and cough. They were concerned about sepsis and pneumonia she was also hypoxic requiring a BiPAP. She was then transferred to [facility] for more extensive care and workup. She's found to be atrial fibrillation with a rapid ventricular response heart rate in the 190s. She required Cardizem drip in the ER. She has converted back to normal sinus rhythm around 4:00 this morning. Both pulmonary service and cardiology have been consulted. Cardiology has added Eliquis for anticoagulation. Case was discussed with pulmonary service. Patient is currently requiring a Ventimask at 98%. Patient reports increased shortness of breath is especially with ambulating. Patient also having productive cough with chest discomfort. She denies any nausea or vomiting. She is requesting pain medications for her chest pains. Patient denies current or active alcohol use. However prior history does reveal alcohol use history as well as alcoholic pancreatitis. Nursing staff has notified me that the patient is becoming more anxious throughout the morning it is starting to having some tremors and shakes. The CIWA protocol has been ordered as well as thiamine and multivitamin. Patient reports having fevers and chills. She had a temp of 103 at home and 101.7 on admission. White count elevated at 18.4 and also tachycardic. Patient also had been antibiotics for possible pneumonia and COPD exacerbation. Patient reports she's been having these symptoms of shortness of breath and cough for about 4 weeks with no improvement with antibiotics. She also reports that she' s had a few episodes of diarrhea. Stool for C. diff has been ordered. 08/23/2017 patient is influenza be positive and started on Tamiflu this morning. Cardiology has evaluated patient and added verapamil and Eliquis for her atrial fibrillation. Patient remains in normal sinus rhythm. Oxygen saturation is at 96% on 4 L. Patient is requiring a lot of pain medication due to chest discomfort from her cough. Patient has been educated that we need to cut back on her pain medications due to her respiratory status. Her morphine will be cut down to 6 mg by mouth every 8 hours as needed and she can continue with her Percocets. Patient followed by both pulmonary and cardiology service. Echo shows an EF of 60-65% with severe left ventricle hypertrophy and small pericardial effusion. Objective - Vital Signs Vital signs: Vital Signs Temp 96.9 F L 08/23/17 08:00 Pulse 84 08/23/17 11:23 Resp 18 08/23/17 08:00 BP 118/74 08/23/17 08:00 Pulse Ox 96 08/23/17 08:00 Intake & Output 08/22/17 08/23/17 08/23/17 18:59 06:59 18:59 Intake Total 820 650 222 Output Total 300 400 Balance 520 650 -178 Weight 72.2 kg Intake: IV 650 Levofloxacin 750Mg-D5w 150 Pmx 750 mg In Dextrose/ Water 1 150ml.bag @ 100 mls/hr IVPB Q24H [facility] Rx#: [id number] Sodium Chloride 0.9% 1, 500 000 ml @ 100 mls/hr IV . Q10H [facility] Rx#:[id number] Oral 820 222 Output: Urine 300 400 Other: Voiding Method Bedside Commode Bedside Commode Bedside Commode # Voids 1 1 # Bowel Movements 0 - Exam Head normocephalic Neck supple Lungs rhonchi bilaterally Heart regular rate and rhythm S1-S2, no rub or gallop Abdomen is soft nontender nondistended positive bowel sounds no hepatosplenomegaly Extremities no edema Neuro alert and orientated to 3 - Labs CBC & Chem 7: 08/23/17 06:12 08/23/17 06:12 Labs: Abnormal Lab Results - Last 24 Hours (Table) 08/22/17 08/22/17 08/22/17 Range/Units 16:36 20:17 22:18 WBC (3.8-10.6) k/uL Neutrophils # (1.3-7.7) k/uL Lymphocytes # (1.0-4.8) k/uL Carbon Dioxide (22-30) mmol/L BUN (7-17) mg/dL Glucose (74-99) mg/dL POC Glucose (mg/dL) 146 H 185 H (75-99) mg/dL Magnesium (1.6-2.3) mg/dL Influenza Type B (PCR) Detected H (Not Detectd) 08/23/17 08/23/17 08/23/17 Range/Units 06:12 06:12 06:19 WBC 18.8 H (3.8-10.6) k/uL Neutrophils # 17.8 H (1.3-7.7) k/uL Lymphocytes # 0.5 L (1.0-4.8) k/uL Carbon Dioxide 21 L (22-30) mmol/L BUN 20 H (7-17) mg/dL Glucose 137 H (74-99) mg/dL POC Glucose (mg/dL) 136 H (75-99) mg/dL Magnesium 2.6 H (1.6-2.3) mg/dL Influenza Type B (PCR) (Not Detectd) 08/23/17 Range/Units 11:27 WBC (3.8-10.6) k/uL Neutrophils # (1.3-7.7) k/uL Lymphocytes # (1.0-4.8) k/uL Carbon Dioxide (22-30) mmol/L BUN (7-17) mg/dL Glucose (74-99) mg/dL POC Glucose (mg/dL) 192 H (75-99) mg/dL Magnesium (1.6-2.3) mg/dL Influenza Type B (PCR) (Not Detectd) Microbiology - Last 24 Hours (Table) 08/21/17 19:00 Blood Culture - Preliminary Blood No Growth after 24 hours Assessment and Plan Assessment: 1. Acute hypoxic respiratory failure secondary to acute COPD exacerbation, bronchitis and atrial fibrillation with rapid ventricular response. Patient has required BiPAP and Ventimask. She isn't currently requiring 4 L nasal cannula 2. Acute COPD exacerbation: Continue IV Solu-Medrol and bronchodilators. Pulmonary service has added Pulmicort and Perforomist nebulizer treatments 3. Acute tracheobronchitis no evidence of pneumonia so far on chest x-ray. Continue with Levaquin 4. Atrial fibrillation with rapid ventricular response present on admission requiring Cardizem drip. Converted to normal sinus rhythm. Cardiology started Eliquis for anticoagulation and verapamil. 5. History of alcohol abuse and evidence of some withdrawal symptoms with anxiety and tremors. [facility] protocol with thiamine and multivitamin ordered 6. Sepsis present on admission likely related to bronchitis 7. Diarrhea check stool for C. diff . Diarrhea appears to resolved 8. History of COPD 9. History of Khan's palsy 10. History of alcoholic pancreatitis 11. Nicotine dependence: Patient started on a nicotine patch Pain medications morphine dose has been decreased to 6 mg by mouth every 8 hours as needed. H&H remains on Percocet. We'll continue to taper her off the morphine DVT prophylaxis on Eliquis I performed an examination of the patient and discussed their management with the physician Accredited Legal Secretary. I have reviewed the Physician Accredited Legal Secretary's notes and agree with the documented findings and plan of care
--- NOTE | 2017-08-23 13:58 | CDI ---
Last Revision, March 2017 Documentation Clarification Form Date: 08/23/2017 1:55:00 AM From: Shilpa ArreolaMARIA TERESA, CCDS Admit Date: 08/21/2017 6:47:00 PM Patient Name: Shilpa Hathaway Visit Number: [id number] Discharge Date: ATTENTION: The Clinical Documentation Specialists (CDI) and [facility] Coding Staff appreciate your assistance in clarifying documentation. Please respond to the clarification below the line at the bottom and electronically sign. The CDI & [facility] Coding staff will review the response and follow-up if needed. Please note: Queries are made part of the Legal Health Record. If you have any questions, please contact the author of this message via ITS. Dr. Luis Mary: Atrial fibrillation is documented in the H/P as Atrial fibrillation with RVR and in the Cardiology Consult as: "...atrial arrhythmia in the form of atrial tachycardia and atrial fibrillation." History/Risk Factors: COPD, Nicotine dependence, History of alcohol dependence. Clinical Indicators: Presented to ED with SOB, required BiPAP, pt transferred from [facility] to [facility]. EKG/telemetry: R 143 Sinus tachycardia w/occasional PVCs Treatment: IV Cardizam drip, IV fluid boluses x2, IV Ativan. Cardiology consult , Telemetry. In your professional opinion, can you please clarify the type of atrial fibrillation, if known? Chronic/Permanent Paroxysmal Persistent Other, please specify Unable to determine Please continue to document in your progress notes and discharge summary in order to capture severity of illness and risk of mortality. Include clinical findings that support your diagnosis. MTDD
--- NOTE | 2017-08-23 14:23 | P.PN ---
Subjective Progress Note Date: 08/23/17 Principal diagnosis: A 61-year-old female patient, a chronic smoker, known history of COPD whereas been a good state of health and she was under the care of her private care physician. She has been a chronic smoker. She has also history of alcoholism and previous history of pancreatitis. The patient presented yesterday to the emergency department at [facility] because of increased dyspnea, recurrent cough, chest wall pain due to vigorous coughing, chest congestion with limited sputum production, bronchospasm and wheeze. In the emergency department the patient was quite short of breath. She was placed on BiPAP. She also had a brief episode of atrial fibrillation with rapid ventricular response where she was placed on Cardizem drip. The patient converted back to normal sinus rhythm at around 4:00 this morning. She is currently off the BiPAP. She is using a simple Ventimask. She is able to complete full sentences. She has however very uncomfortable with breathing and she has frequent coughing episodes pressure when she takes a deep breath. There is a first aspiration for COPD exacerbation. Her chest x-ray is clear and there is no evidence of any acute pulmonary infiltration or pneumonia. No evidence of any pneumothorax. She had a temperature of 103.0 at home and subsequently 11.7 during the time of admission and currently she is afebrile. Her white cell count of 18.4. Clinically better yet not recovered. No hemoptysis. No pleurisy. Some limited diarrhea the patient is being checked for C. diff. Note patient about treatments. No recent antibiotic or steroid treatment. No history of childhood asthma. No history of DVT or pulmonary embolism. No cardiac history. On 08/23/2017 the patient is essentially the same condition. Slightly better in terms of her cough and congestion. She is afebrile. She was diagnosed having an influenza be taken bronchitis which was suspected the time of admission and the influenza screen clearly showed that. The patient is is utilizing Percocet for cough and chest pain. The patient is also on Robitussin- DM. She is on bronchodilators and systemic steroids. Tamiflu was also added. No nausea. No vomiting. No altered mentation. No other complaints otherwise for the past 24 hours. Her recovery is essentially slow. She was given a nicotine patch. Objective - Vital Signs Vital signs: Vital Signs Temp 96.9 F L 08/23/17 08:00 Pulse 80 08/23/17 12:00 Resp 18 08/23/17 12:00 BP 118/74 08/23/17 08:00 Pulse Ox 96 08/23/17 08:00 Intake & Output 08/22/17 08/23/17 08/23/17 18:59 06:59 18:59 Intake Total 820 650 222 Output Total 300 400 Balance 520 650 -178 Weight 72.2 kg Intake: IV 650 Levofloxacin 750Mg-D5w 150 Pmx 750 mg In Dextrose/ Water 1 150ml.bag @ 100 mls/hr IVPB Q24H [facility] Rx#: [id number] Sodium Chloride 0.9% 1, 500 000 ml @ 100 mls/hr IV . Q10H [facility] Rx#:[id number] Oral 820 222 Output: Urine 300 400 Other: Voiding Method Bedside Commode Bedside Commode Bedside Commode # Voids 1 1 # Bowel Movements 0 - Exam Gen. appearance the patient is quite uncomfortable and she is having frequent coughing episodes. She has labored breathing and she is able to complete full sentences. Head exam was generally normal. There was no scleral icterus or corneal arcus. Mucous membranes were moist. Neck was supple and without jugular venous distension, thyromegaly, or carotid bruits. Carotids were easily palpable bilaterally. There was no adenopathy. Lungs sounds are diminished bilaterally along with prolongation of expiratory phase of breathing and diffuse expiratory wheezes throughout the lung hoffman bilaterally. Cardiac exam revealed the PMI to be normally situated and sized. The rhythm was regular and no extrasystoles were noted during several minutes of auscultation. The first and second heart sounds were normal and physiologic splitting of the second heart sound was noted. There were no murmurs, rubs, clicks, or gallops. Abdomen abdomenAbdominal exam revealed normal bowel sounds. The abdomen was soft , non-tender, and without masses, organomegaly, or appreciable enlargement of the abdominal aorta. Examination of the extremities revealed easily palpable radial, femoral and pedal pulses. There was no cyanosis, clubbing or edema. Examination of the skin revealed no evidence of significant rashes, suspicious appearing nevi or other concerning lesions. Neurologically the patient is awake and alert and there is no focal neurological deficit - Labs CBC & Chem 7: 08/23/17 06:12 08/23/17 06:12 Labs: Abnormal Lab Results - Last 24 Hours (Table) 08/22/17 08/22/17 08/22/17 Range/Units 16:36 20:17 22:18 WBC (3.8-10.6) k/uL Neutrophils # (1.3-7.7) k/uL Lymphocytes # (1.0-4.8) k/uL Carbon Dioxide (22-30) mmol/L BUN (7-17) mg/dL Glucose (74-99) mg/dL POC Glucose (mg/dL) 146 H 185 H (75-99) mg/dL Magnesium (1.6-2.3) mg/dL Influenza Type B (PCR) Detected H (Not Detectd) 08/23/17 08/23/17 08/23/17 Range/Units 06:12 06:12 06:19 WBC 18.8 H (3.8-10.6) k/uL Neutrophils # 17.8 H (1.3-7.7) k/uL Lymphocytes # 0.5 L (1.0-4.8) k/uL Carbon Dioxide 21 L (22-30) mmol/L BUN 20 H (7-17) mg/dL Glucose 137 H (74-99) mg/dL POC Glucose (mg/dL) 136 H (75-99) mg/dL Magnesium 2.6 H (1.6-2.3) mg/dL Influenza Type B (PCR) (Not Detectd) 08/23/17 Range/Units 11:27 WBC (3.8-10.6) k/uL Neutrophils # (1.3-7.7) k/uL Lymphocytes # (1.0-4.8) k/uL Carbon Dioxide (22-30) mmol/L BUN (7-17) mg/dL Glucose (74-99) mg/dL POC Glucose (mg/dL) 192 H (75-99) mg/dL Magnesium (1.6-2.3) mg/dL Influenza Type B (PCR) (Not Detectd) Microbiology - Last 24 Hours (Table) 08/21/17 19:00 Blood Culture - Preliminary Blood No Growth after 24 hours Assessment and Plan Plan: Assessment 1 acute COPD exacerbation with secondary shortness of breath. The patient had acute tracheal bronchitis that influenza B infection and this was confirmed by an influenza nasal swab screen. Currently she is on Tamiflu. Afebrile over the past 24 hours. 2 chronic dyspnea related to COPD with interval exacerbation 3 acute febrile illness, currently under investigation 4 skeletal chest wall pain related to cough and 5 smoker 6 atrial fibrillation with rapid ventricular response and current rhythm is back to sinus 7 gout 8 history of alcoholism with previous history of pancreatitis 9 chronic back pain 10 acid reflux Plan Diagnosis and this was a be taken bronchitis was confirmed. Continue Tamiflu. Continue bronchodilators. Continue steroids. Improvement is limited and minimal since yesterday. We'll stay the course and will continue with the same treatment for now. We'll follow.
[2017-08-23 16:26] LABS: Glucose,Whole Blood 110 mg/dL (75-99)
[2017-08-23] MEDS: LEVOFLOXACIN 750 MG TAB PO SCH (19:54)
[2017-08-23 21:16] LABS: Glucose,Whole Blood 156 mg/dL (75-99)
[2017-08-24] MEDS: MORPHINE ORAL SOLN 10 MG/5 ML CUP PO PRN ×3 (00:15→15:10)
[2017-08-24] MEDS: methylPREDNISolone SOD SUCCI 125 MG/2 ML VIAL IV SCH ×3 (00:21→12:18)
[2017-08-24] MEDS: INSULIN ASPART 100 UNIT/ML 1 ML 10 ML VIAL SQ SCH ×5 (00:22→21:04)
[2017-08-24] MEDS: oxyCODONE-APAP 10-325MG 1 EACH TAB PO PRN ×4 (02:40→21:40)
[2017-08-24 06:01] LABS: Glucose,Whole Blood 116 mg/dL (75-99)
[2017-08-24 06:29] LABS: Basophils % (A) 0 %; Eosinophils % (A) 0 %; HGB 12.3 gm/dL (11.4-16.0); Lymphocytes # (A) 0.5 k/uL (1.0-4.8); Lymphocytes % (A) 3 %; MCH 32.7 pg (25.0-35.0); MCHC 33.3 g/dL (31.0-37.0); MCV 98.1 fL (80.0-100.0); Monocytes # (A) 0.3 k/uL (0-1.0); Monocytes % (A) 2 %; Neutrophils # (A) 16.5 k/uL (1.3-7.7); Neutrophils % (A) 95 %; Platelet Count 187 k/uL (150-450); RBC 3.77 m/uL (3.80-5.40); RDW 14.2 % (11.5-15.5); WBC 17.5 k/uL (3.8-10.6)
[2017-08-24 06:36] LABS: ALT 36 U/L (9-52); AST 30 U/L (14-36); Albumin 3.5 g/dL (3.5-5.0); Alkaline Phosphatase 63 U/L (38-126); Anion Gap 11 mmol/L; Blood Urea Nitrogen 28 mg/dL (7-17); Calcium 9.7 mg/dL (8.4-10.2); Carbon Dioxide 22 mmol/L (22-30); Chloride 105 mmol/L (98-107); Glucose 119 mg/dL (74-99); Potassium 5.2 mmol/L (3.5-5.1); Sodium 138 mmol/L (137-145); Total Bilirubin 0.2 mg/dL (0.2-1.3); Total Protein 5.9 g/dL (6.3-8.2)
[2017-08-24] MEDS: SODIUM CHLORIDE 0.9% 1,000 ML IV SCH (07:20)
[2017-08-24] MEDS: FORMOTEROL FUMARATE 20 MCG/2 ML NEBU INHALATION SCH ×2 (07:32→20:22)
[2017-08-24] MEDS: BUDESONIDE 1 MG/2 ML NEBU INHALATION SCH ×2 (07:32→20:22)
[2017-08-24] MEDS: IPRATROPIUM-ALBUTEROL 3 ML NEB INHALATION SCH ×4 (07:32→20:26)
[2017-08-24] MEDS: APIXABAN 5 MG TAB PO SCH ×2 (09:35→20:44)
[2017-08-24] MEDS: OSELTAMIVIR 75 MG CAP PO SCH ×2 (09:35→20:44)
[2017-08-24] MEDS: VERAPAMIL 40 MG TAB PO SCH ×3 (09:35→21:04)
[2017-08-24] MEDS: NICOTINE 21MG/24HR PATCH TRANSDERM SCH (09:36)
[2017-08-24 12:05] LABS: Glucose,Whole Blood 151 mg/dL (75-99)
[2017-08-24] MEDS: THIAMINE 100 MG TAB PO SCH ×2 (12:18→15:55)
[2017-08-24] MEDS: PANTOPRAZOLE 40 MG TABLET PO SCH (12:18)
[2017-08-24] MEDS: MULTIVITAMINS, THERA 1 EACH TAB PO SCH (12:19)
--- NOTE | 2017-08-24 13:09 | P.PN ---
Subjective Progress Note Date: 08/24/17 This is a 61-year-old female with known history of COPD, alcoholic pancreatitis, nicotine dependence, prior Khan's palsy. She presented to the hospital with symptoms of shortness of breath and productive cough. Patient was requiring a BiPAP, she was quite hypoxic. Transferred to [facility] because of possible sepsis. Patient was found to be in atrial fibrillation, or atrial tachycardia, requiring Cardizem to decrease the heart rate. We were asked to see the patient because of her arrhythmia and the need for possible anticoagulation. Patient states she does drink alcohol but very minimal amounts , however her history does suggest significant alcohol use and alcoholic pancreatitis. Patient is quite anxious at the time of my examination today, short of breath. Patient did have a temperature prior to going to the hospital of 103, and had a temp of 101 on admission. White blood cell count was also elevated at 18.4. She is currently on antibiotics for possible pneumonia, and treatment for COPD exacerbation. Patient also has had a few episodes of diarrhea and for this reason stool for C. diff was requested. EKG on presentation here showed a sinus tachycardia with frequent PACs and occasional PVCs. Subsequent EKG appears to be in atrial fibrillation with rapid ventricular response. Test x-ray does not reveal any active cardiopulmonary disease. Echocardiogram with Doppler study was performed which revealed an ejection fraction of 60-65%. Small generalized pericardial effusion is present. Temperature on arrival 101.7, blood pressure 137/70, heart rate in the 1 teens, 93% on 4 L of oxygen. Blood pressure this afternoon 114/60 with a heart rate in the 80s, 93% on 4 L of oxygen currently in a normal sinus rhythm. 08/24/2017 Patient was seen and examined this morning, continues to have a nonrebreather on , continues to feel short of breath. In a normal sinus rhythm at this time. She is on Eliquis for anticoagulation. Blood pressure 140/70 with a heart rate in 80s. Objective - Vital Signs Vital signs: Vital Signs Temp 97.5 F L 08/24/17 08:00 Pulse 92 08/24/17 11:28 Resp 18 08/24/17 08:00 BP 140/78 08/24/17 08:00 Pulse Ox 95 08/24/17 08:00 Intake & Output 08/23/17 08/24/17 08/24/17 18:59 06:59 18:59 Intake Total 222 360 Output Total 400 Balance -178 360 Weight 72 kg Intake: Oral 222 360 Output: Urine 400 Other: Voiding Method Bedside Commode Bedside Commode Bedside Commode # Voids 3 1 # Bowel Movements 0 - Exam PHYSICAL EXAMINATION: HEENT: Head is atraumatic, normocephalic. Pupils equal, round. Neck is supple. There is no elevated jugular venous pressure. HEART EXAMINATION: Heart S1, S2 normal. No murmur or gallop heard. CHEST EXAMINATION: His reveal decreased air exchange throughout with scattered expiratory wheezing throughout. ABDOMEN: Soft, nontender. Bowel sounds are heard. No organomegaly noted. EXTREMITIES: 2+ peripheral pulses with no evidence of peripheral edema and no calf tenderness noted. NEUROLOGIC patient is awake, alert and oriented -3. Mildly agitated. - Labs CBC & Chem 7: 08/24/17 05:48 08/24/17 05:48 Labs: Abnormal Lab Results - Last 24 Hours (Table) 08/23/17 08/23/17 08/24/17 Range/Units 16:22 21:14 05:48 WBC 17.5 H (3.8-10.6) k/uL RBC 3.77 L (3.80-5.40) m/uL Neutrophils # 16.5 H (1.3-7.7) k/uL Lymphocytes # 0.5 L (1.0-4.8) k/uL Potassium (3.5-5.1) mmol/L BUN (7-17) mg/dL Glucose (74-99) mg/dL POC Glucose (mg/dL) 110 H 156 H (75-99) mg/dL Total Protein (6.3-8.2) g/dL 08/24/1718 08/24/17 Range/Units 05:48 05:59 12:01 WBC (3.8-10.6) k/uL RBC (3.80-5.40) m/uL Neutrophils # (1.3-7.7) k/uL Lymphocytes # (1.0-4.8) k/uL Potassium 5.2 H (3.5-5.1) mmol/L BUN 28 H (7-17) mg/dL Glucose 119 H (74-99) mg/dL POC Glucose (mg/dL) 116 H 151 H (75-99) mg/dL Total Protein 5.9 L (6.3-8.2) g/dL Microbiology - Last 24 Hours (Table) 08/21/17 19:00 Blood Culture - Preliminary Blood No Growth after 48 hours Assessment and Plan Plan: Assessment and plan #1 acute possible respiratory failure secondary to acute COPD exacerbation, bronchitis. #2 possible acute tracheobronchitis, on antibiotics #3 atrial arrhythmia in the form of atrial tachycardia and atrial fibrillation. I did have a discussion with the patient regarding anticoagulation for stroke prevention, we will check on Eliquis. We will also start the patient on verapamil today. #4 history of alcohol abuse and alcoholic pancreatitis # 5 sepsis #6 diarrhea #7 history of COPD #8 history of Khan's palsy #9 nicotine dependence Plan Echocardiogram with Doppler study was performed which revealed a normal left ventricular systolic function. We'll continue the patient on verapamil along with Eliquis. We will follow this patient with you now on an as-needed basis only, please don't hesitate to call with any questions. DNP note has been reviewed, I agree with a documented findings and plan of care. Patient was seen and examined.
[2017-08-24] MEDS ORDERED: RX INFO: IV CONTRAST WAS GIVEN 1 EACH MISC MISCELLANE PRN (13:18)
--- NOTE | 2017-08-24 13:21 | P.PN ---
Subjective Progress Note Date: 08/24/17 Principal diagnosis: A 61-year-old female patient, a chronic smoker, known history of COPD whereas been a good state of health and she was under the care of her private care physician. She has been a chronic smoker. She has also history of alcoholism and previous history of pancreatitis. The patient presented yesterday to the emergency department at [facility] because of increased dyspnea, recurrent cough, chest wall pain due to vigorous coughing, chest congestion with limited sputum production, bronchospasm and wheeze. In the emergency department the patient was quite short of breath. She was placed on BiPAP. She also had a brief episode of atrial fibrillation with rapid ventricular response where she was placed on Cardizem drip. The patient converted back to normal sinus rhythm at around 4:00 this morning. She is currently off the BiPAP. She is using a simple Ventimask. She is able to complete full sentences. She has however very uncomfortable with breathing and she has frequent coughing episodes pressure when she takes a deep breath. There is a first aspiration for COPD exacerbation. Her chest x-ray is clear and there is no evidence of any acute pulmonary infiltration or pneumonia. No evidence of any pneumothorax. She had a temperature of 103.0 at home and subsequently 11.7 during the time of admission and currently she is afebrile. Her white cell count of 18.4. Clinically better yet not recovered. No hemoptysis. No pleurisy. Some limited diarrhea the patient is being checked for C. diff. Note patient about treatments. No recent antibiotic or steroid treatment. No history of childhood asthma. No history of DVT or pulmonary embolism. No cardiac history. On 08/23/2017 the patient is essentially the same condition. Slightly better in terms of her cough and congestion. She is afebrile. She was diagnosed having an influenza be taken bronchitis which was suspected the time of admission and the influenza screen clearly showed that. The patient is is utilizing Percocet for cough and chest pain. The patient is also on Robitussin- DM. She is on bronchodilators and systemic steroids. Tamiflu was also added. No nausea. No vomiting. No altered mentation. No other complaints otherwise for the past 24 hours. Her recovery is essentially slow. She was given a nicotine patch. On 08/24/2017, the patient is improving slowly. She is less short of breath. Her cough is gradually subsiding. Nevertheless pain is an ongoing issue as the patient is having pain across the right chest area. The right upper quadrant is slightly swollen compared to the left and the area is quite tender especially the rib cage area. I'm concerned of a rib fracture versus a hematoma within the same area. Overlying skin is within normal and there is no ecchymosis of the skin. She is a bit anxious. Her pain level is quite high and the patient is receiving IV morphine 6 g every 8 hours in addition to Percocet. She is also on combination of bronchodilators and steroids and antibiotics. No other complaints otherwise for now. Objective - Vital Signs Vital signs: Vital Signs Temp 97.5 F L 08/24/17 08:00 Pulse 92 08/24/17 11:28 Resp 18 08/24/17 08:00 BP 140/78 08/24/17 08:00 Pulse Ox 95 08/24/17 08:00 Intake & Output 08/23/17 08/24/17 08/24/17 18:59 06:59 18:59 Intake Total 222 360 Output Total 400 Balance -178 360 Weight 72 kg Intake: Oral 222 360 Output: Urine 400 Other: Voiding Method Bedside Commode Bedside Commode Bedside Commode # Voids 3 1 # Bowel Movements 0 - Exam Gen. appearance the patient is quite uncomfortable and she is having frequent coughing episodes. She has labored breathing and she is able to complete full sentences. Head exam was generally normal. There was no scleral icterus or corneal arcus. Mucous membranes were moist. Neck was supple and without jugular venous distension, thyromegaly, or carotid bruits. Carotids were easily palpable bilaterally. There was no adenopathy. Lungs sounds are diminished bilaterally along with prolongation of expiratory phase of breathing and diffuse expiratory wheezes throughout the lung hoffman bilaterally. Cardiac exam revealed the PMI to be normally situated and sized. The rhythm was regular and no extrasystoles were noted during several minutes of auscultation. The first and second heart sounds were normal and physiologic splitting of the second heart sound was noted. There were no murmurs, rubs, clicks, or gallops. Abdomen abdomenAbdominal exam revealed normal bowel sounds. The abdomen was soft , non-tender, and without masses, organomegaly, or appreciable enlargement of the abdominal aorta. Examination of the extremities revealed easily palpable radial, femoral and pedal pulses. There was no cyanosis, clubbing or edema. Examination of the skin revealed no evidence of significant rashes, suspicious appearing nevi or other concerning lesions. Neurologically the patient is awake and alert and there is no focal neurological deficit - Labs CBC & Chem 7: 08/24/17 05:48 08/24/17 05:48 Labs: Abnormal Lab Results - Last 24 Hours (Table) 08/23/17 08/23/17 08/24/17 Range/Units 16:22 21:14 05:48 WBC 17.5 H (3.8-10.6) k/uL RBC 3.77 L (3.80-5.40) m/uL Neutrophils # 16.5 H (1.3-7.7) k/uL Lymphocytes # 0.5 L (1.0-4.8) k/uL Potassium (3.5-5.1) mmol/L BUN (7-17) mg/dL Glucose (74-99) mg/dL POC Glucose (mg/dL) 110 H 156 H (75-99) mg/dL Total Protein (6.3-8.2) g/dL 08/24/17 08/24/17 08/24/17 Range/Units 05:48 05:59 12:01 WBC (3.8-10.6) k/uL RBC (3.80-5.40) m/uL Neutrophils # (1.3-7.7) k/uL Lymphocytes # (1.0-4.8) k/uL Potassium 5.2 H (3.5-5.1) mmol/L BUN 28 H (7-17) mg/dL Glucose 119 H (74-99) mg/dL POC Glucose (mg/dL) 116 H 151 H (75-99) mg/dL Total Protein 5.9 L (6.3-8.2) g/dL Microbiology - Last 24 Hours (Table) 08/21/17 19:00 Blood Culture - Preliminary Blood No Growth after 48 hours Assessment and Plan Plan: Assessment 1 acute COPD exacerbation with secondary shortness of breath. The patient had acute tracheal bronchitis that influenza B infection and this was confirmed by an influenza nasal swab screen. Currently she is on Tamiflu. Afebrile over the past 24 hours. The patient has developed significant amount of chest wall pain in addition to some swelling and bulging within the right lateral chest area. The patient may have an underlying hematoma, likely contusion, rib fractures contributing to her pain. For that reason a CAT scan of the chest will be done. 2 chronic dyspnea related to COPD with interval exacerbation 3 acute febrile illness, currently under investigation 4 skeletal chest wall pain related to cough and 5 smoker 6 atrial fibrillation with rapid ventricular response and current rhythm is back to sinus 7 gout 8 history of alcoholism with previous history of pancreatitis 9 chronic back pain 10 acid reflux Plan Proceed with a CAT scan of the chest with contrast. Continue the antibiotics and bronchodilators and steroids. Continue the Ativan for anxiety. Continue pain control per medicine. We'll continue to follow.
--- NOTE | 2017-08-24 15:01 | P.PN ---
Subjective Progress Note Date: 08/24/17 Patient is complaining of severe abdominal pain mostly concentrated in the right upper quadrant. She is very tender to touch and would not let me examine her abdomen. Her abdomen appeared distended with questionable organomegaly in the right upper quadrant. Patient is jumping out of pain as soon as I touch her abdomen. She does not appear icteric otherwise. Lab work within acceptable range. She is scheduled for a computed tomography scan this afternoon. Objective - Vital Signs Vital signs: Vital Signs Temp 97.5 F L 08/24/17 08:00 Pulse 90 08/24/17 12:00 Resp 16 08/24/17 12:00 BP 155/71 08/24/17 12:00 Pulse Ox 97 08/24/17 12:00 Intake & Output 08/23/17 08/24/17 08/24/17 18:59 06:59 18:59 Intake Total 222 360 Output Total 400 Balance -178 360 Weight 72 kg Intake: Oral 222 360 Output: Urine 400 Other: Voiding Method Bedside Commode Bedside Commode Bedside Commode # Voids 3 1 # Bowel Movements 0 - Exam General: The patient is awake and alert, in no distress Eye: there is normal conjunctiva bilaterally. Neck: The neck is supple, there is no JVD. Cardiovascular: Normal S1-S2, no S3-S4, no murmurs. Respiratory: Lungs clear to auscultation bilaterally Gastrointestinal: Negative to examine her abdomen secondary to severe pain Musculoskeletal: There is no pedal edema. Neurological:. Speech is normal. Skin: Skin is warm and dry - Labs CBC & Chem 7: 08/24/17 05:48 08/24/17 05:48 Labs: Abnormal Lab Results - Last 24 Hours (Table) 08/23/17 08/23/17 08/24/17 Range/Units 16:22 21:14 05:48 WBC 17.5 H (3.8-10.6) k/uL RBC 3.77 L (3.80-5.40) m/uL Neutrophils # 16.5 H (1.3-7.7) k/uL Lymphocytes # 0.5 L (1.0-4.8) k/uL Potassium (3.5-5.1) mmol/L BUN (7-17) mg/dL Glucose (74-99) mg/dL POC Glucose (mg/dL) 110 H 156 H (75-99) mg/dL Total Protein (6.3-8.2) g/dL 08/24/17 08/24/17 08/24/17 Range/Units 05:48 05:59 12:01 WBC (3.8-10.6) k/uL RBC (3.80-5.40) m/uL Neutrophils # (1.3-7.7) k/uL Lymphocytes # (1.0-4.8) k/uL Potassium 5.2 H (3.5-5.1) mmol/L BUN 28 H (7-17) mg/dL Glucose 119 H (74-99) mg/dL POC Glucose (mg/dL) 116 H 151 H (75-99) mg/dL Total Protein 5.9 L (6.3-8.2) g/dL Microbiology - Last 24 Hours (Table) 08/21/17 19:00 Blood Culture - Preliminary Blood No Growth after 48 hours Assessment and Plan Assessment: 1. Acute hypoxic respiratory failure secondary to acute COPD exacerbation, bronchitis and atrial fibrillation with rapid ventricular response. Patient has required BiPAP and Ventimask. She is on oxygen via nasal cannula 2. Acute COPD exacerbation: Continue steroid and bronchodilators. Pulmonary service has added Pulmicort and Perforomist nebulizer treatments 3. Acute tracheobronchitis no evidence of pneumonia so far on chest x-ray. Continue with Levaquin 4. Atrial fibrillation with rapid ventricular response present on admission requiring Cardizem drip. Converted to normal sinus rhythm. Cardiology started Eliquis for anticoagulation and verapamil. 5. History of alcohol abuse and evidence of some withdrawal symptoms with anxiety and tremors. [facility] protocol with thiamine and multivitamin ordered 6. Sepsis present on admission likely related to bronchitis 7. Severe abdominal pain of unclear etiology awaiting computed tomography scan of the abdomen for further evaluation. 8. History of COPD 9. History of Khan's palsy 10. History of alcoholic pancreatitis 11. Nicotine dependence: Patient started on a nicotine patch DVT prophylaxis on Eliquis
--- NOTE | 2017-08-24 15:01 | CT ---
EXAMINATION TYPE: CT chest w con DATE OF EXAM: 08/24/2017 COMPARISON: NONE HISTORY: Hypoxia and chest pain CT DLP: 509.9 mGycm Automated exposure control for dose reduction was used. CONTRAST: CT scan of the chest is performed with IV Contrast, patient injected with 100ml mL of Isovue 300. FINDINGS: : There is patchy groundglass interstitial infiltrate in the periphery of both lungs and more in the lingula left upper lobe. There is no evidence of a pulmonary mass. There is no pleural effusion. The re are some linear density at the lung bases consistent with subsegmental atelectasis. There is no pe ricardial effusion. There is no mediastinal adenopathy. There are no hilar masses. Heart size appears normal. There is spurring in the thoracic spine. IMPRESSION: Subpleural interstitial infiltrates are likely related to pulmonary interstitial fibrosi s. No evidence of a pulmonary mass.
[2017-08-24 17:05] LABS: Glucose,Whole Blood 177 mg/dL (75-99)
[2017-08-24] MEDS: LEVOFLOXACIN 750 MG TAB PO SCH (20:44)
[2017-08-24 20:55] LABS: Glucose,Whole Blood 217 mg/dL (75-99)
[2017-08-25] MEDS: MORPHINE ORAL SOLN 10 MG/5 ML CUP PO PRN ×2 (03:44→11:28)
[2017-08-25 05:38] LABS: Glucose,Whole Blood 137 mg/dL (75-99)
[2017-08-25 06:16] LABS: Basophils % (A) 0 %; Eosinophils % (A) 0 %; HCT 24.7 % (34.0-46.0); HGB 8.5 gm/dL (11.4-16.0); Lymphocytes # (A) 0.8 k/uL (1.0-4.8); Lymphocytes % (A) 5 %; MCH 33.3 pg (25.0-35.0); MCHC 34.5 g/dL (31.0-37.0); MCV 96.6 fL (80.0-100.0); Mean Platelet Volume 7.7; Monocytes # (A) 0.6 k/uL (0-1.0); Monocytes % (A) 4 %; Neutrophils % (A) 89 %; Platelet Count 191 k/uL (150-450); RBC 2.56 m/uL (3.80-5.40); RDW 14.2 % (11.5-15.5); WBC 14.6 k/uL (3.8-10.6)
[2017-08-25 06:22] LABS: ALT 41 U/L (9-52); AST 24 U/L (14-36); Albumin 2.7 g/dL (3.5-5.0); Alkaline Phosphatase 49 U/L (38-126); Anion Gap 8 mmol/L; Blood Urea Nitrogen 30 mg/dL (7-17); Calcium 9.2 mg/dL (8.4-10.2); Carbon Dioxide 26 mmol/L (22-30); Chloride 104 mmol/L (98-107); Glucose 121 mg/dL (74-99); Potassium 5.2 mmol/L (3.5-5.1); Sodium 138 mmol/L (137-145); Total Bilirubin 0.1 mg/dL (0.2-1.3); Total Protein 4.7 g/dL (6.3-8.2)
[2017-08-25] MEDS: INSULIN ASPART 100 UNIT/ML 1 ML 10 ML VIAL SQ SCH ×4 (06:36→21:31)
[2017-08-25] MEDS: PANTOPRAZOLE 40 MG TABLET PO SCH (06:36)
[2017-08-25] MEDS: oxyCODONE-APAP 10-325MG 1 EACH TAB PO PRN ×4 (06:39→20:20)
[2017-08-25] MEDS: predniSONE 20 MG TAB PO SCH (08:30)
[2017-08-25] MEDS: VERAPAMIL 40 MG TAB PO SCH ×3 (08:31→20:19)
[2017-08-25] MEDS: NICOTINE 21MG/24HR PATCH TRANSDERM SCH (08:31)
[2017-08-25] MEDS: APIXABAN 5 MG TAB PO SCH (08:31)
[2017-08-25] MEDS: OSELTAMIVIR 75 MG CAP PO SCH ×2 (08:31→20:19)
[2017-08-25] MEDS: FORMOTEROL FUMARATE 20 MCG/2 ML NEBU INHALATION SCH ×2 (09:23→19:36)
[2017-08-25] MEDS: IPRATROPIUM-ALBUTEROL 3 ML NEB INHALATION SCH ×4 (09:23→19:36)
[2017-08-25] MEDS: BUDESONIDE 1 MG/2 ML NEBU INHALATION SCH ×2 (09:23→19:36)
[2017-08-25] MEDS: THIAMINE 100 MG TAB PO SCH ×2 (11:29→16:46)
[2017-08-25] MEDS: MULTIVITAMINS, THERA 1 EACH TAB PO SCH (11:29)
--- NOTE | 2017-08-25 12:05 | P.PN ---
Subjective Progress Note Date: 08/25/17 This is 62-year-old female with history of pulmonary fibrosis and COPD who was admitted to the hospital with increasing shortness of breath and suspected tracheobronchitis. We are involved for the management of atrial fibrillation. Patient is getting the proper medical. She is in and out of atrial fibrillation but controlled ventricular response. Her computed tomography scan showed evidence of pulmonary fibrosis. From Cardec standpoint we'll continue with verapamil. Prognosis is guarded Objective - Vital Signs Vital signs: Vital Signs Temp 97.1 F L 08/25/17 11:42 Pulse 84 08/25/17 11:44 Resp 16 08/25/17 11:44 BP 137/68 08/25/17 11:42 Pulse Ox 100 08/25/17 11:42 Intake & Output 08/24/17 08/25/17 08/25/17 18:59 06:59 18:59 Intake Total 840 20 Output Total 300 Balance 540 20 Weight 72 kg Intake: IV 20 Sodium Chloride 0.9% 1, 20 000 ml @ 100 mls/hr IV . Q10H LACEY Rx#:[id number] Oral 840 Output: Urine 300 Other: Voiding Method Bedside Commode Bedside Commode Bedside Commode # Voids 1 - Exam GENERAL EXAM: Patient is alert and oriented and doesn't appear to be in any acute distress HEENT: Normocephalic. Normal reaction of pupils, equal size, normal range of extraocular motion. No erythema or exudates in the throat. NECK: No masses, no nuchal rigidity. CHEST: No chest wall deformity. LUNGS: Fine crackles at both bases HEART: Distant heart sounds ABDOMEN: No hepatosplenomegaly, normal bowel sounds, no guarding or rigidity. SKIN: No rashes CENTRAL NERVOUS SYSTEM: No focal deficits. EXTREMITIES: No cyanosis, clubbing or edema. - Labs CBC & Chem 7: 08/25/17 05:24 08/25/17 05:24 Labs: Abnormal Lab Results - Last 24 Hours (Table) 08/24/17 08/24/17 08/24/17 Range/Units 12:01 16:53 20:54 WBC (3.8-10.6) k/uL RBC (3.80-5.40) m/uL Hgb (11.4-16.0) gm/dL Hct (34.0-46.0) % Neutrophils # (1.3-7.7) k/uL Lymphocytes # (1.0-4.8) k/uL Potassium (3.5-5.1) mmol/L BUN (7-17) mg/dL Glucose (74-99) mg/dL POC Glucose (mg/dL) 151 H 177 H 217 H (75-99) mg/dL Total Bilirubin (0.2-1.3) mg/dL Total Protein (6.3-8.2) g/dL Albumin (3.5-5.0) g/dL 08/25/17 08/25/17 08/25/17 Range/Units 05:24 05:24 05:37 WBC 14.6 H (3.8-10.6) k/uL RBC 2.56 L (3.80-5.40) m/uL Hgb 8.5 L D (11.4-16.0) gm/dL Hct 24.7 L (34.0-46.0) % Neutrophils # 13.0 H (1.3-7.7) k/uL Lymphocytes # 0.8 L (1.0-4.8) k/uL Potassium 5.2 H (3.5-5.1) mmol/L BUN 30 H (7-17) mg/dL Glucose 121 H (74-99) mg/dL POC Glucose (mg/dL) 137 H (75-99) mg/dL Total Bilirubin 0.1 L (0.2-1.3) mg/dL Total Protein 4.7 L (6.3-8.2) g/dL Albumin 2.7 L (3.5-5.0) g/dL Microbiology - Last 24 Hours (Table) 08/21/17 19:00 Blood Culture - Preliminary Blood No Growth after 72 hours Assessment and Plan (1) Acute exacerbation of chronic obstructive airways disease Current Visit: Yes Status: Acute Code(s): J44.1 - CHRONIC OBSTRUCTIVE PULMONARY DISEASE W (ACUTE) EXACERBATION SNOMED Code(s): 533207290 (2) Atrial fibrillation with RVR Current Visit: Yes Status: Acute Code(s): I48.91 - UNSPECIFIED ATRIAL FIBRILLATION SNOMED Code(s): 242821492796676 Plan: We will continue with verapamil. Her echocardiogram showed a normal LV function. 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
[2017-08-25 12:07] LABS: Glucose,Whole Blood 145 mg/dL (75-99)
--- NOTE | 2017-08-25 12:24 | P.PN ---
Subjective Progress Note Date: 08/25/17 Principal diagnosis: A 61-year-old female patient, a chronic smoker, known history of COPD whereas been a good state of health and she was under the care of her private care physician. She has been a chronic smoker. She has also history of alcoholism and previous history of pancreatitis. The patient presented yesterday to the emergency department at [facility] because of increased dyspnea, recurrent cough, chest wall pain due to vigorous coughing, chest congestion with limited sputum production, bronchospasm and wheeze. In the emergency department the patient was quite short of breath. She was placed on BiPAP. She also had a brief episode of atrial fibrillation with rapid ventricular response where she was placed on Cardizem drip. The patient converted back to normal sinus rhythm at around 4:00 this morning. She is currently off the BiPAP. She is using a simple Ventimask. She is able to complete full sentences. She has however very uncomfortable with breathing and she has frequent coughing episodes pressure when she takes a deep breath. There is a first aspiration for COPD exacerbation. Her chest x-ray is clear and there is no evidence of any acute pulmonary infiltration or pneumonia. No evidence of any pneumothorax. She had a temperature of 103.0 at home and subsequently 11.7 during the time of admission and currently she is afebrile. Her white cell count of 18.4. Clinically better yet not recovered. No hemoptysis. No pleurisy. Some limited diarrhea the patient is being checked for C. diff. Note patient about treatments. No recent antibiotic or steroid treatment. No history of childhood asthma. No history of DVT or pulmonary embolism. No cardiac history. On 08/23/2017 the patient is essentially the same condition. Slightly better in terms of her cough and congestion. She is afebrile. She was diagnosed having an influenza be taken bronchitis which was suspected the time of admission and the influenza screen clearly showed that. The patient is is utilizing Percocet for cough and chest pain. The patient is also on Robitussin- DM. She is on bronchodilators and systemic steroids. Tamiflu was also added. No nausea. No vomiting. No altered mentation. No other complaints otherwise for the past 24 hours. Her recovery is essentially slow. She was given a nicotine patch. On 08/24/2017, the patient is improving slowly. She is less short of breath. Her cough is gradually subsiding. Nevertheless pain is an ongoing issue as the patient is having pain across the right chest area. The right upper quadrant is slightly swollen compared to the left and the area is quite tender especially the rib cage area. I'm concerned of a rib fracture versus a hematoma within the same area. Overlying skin is within normal and there is no ecchymosis of the skin. She is a bit anxious. Her pain level is quite high and the patient is receiving IV morphine 6 g every 8 hours in addition to Percocet. She is also on combination of bronchodilators and steroids and antibiotics. No other complaints otherwise for now. On 08/25/2017 the patient continues to improve. Her main issue is pain which I think is somewhat exaggerated. She is on a combination of IV morphine and oral Percocet. There was a concern of a skeletal injury to her rib cage and based on that a CAT scan of the chest was ordered and upon review, there is some limited interstitial infiltrates/scarring in lung bases. No evidence of any pulmonary masses or lesions or malignancy. No mediastinal lymphadenopathy. The patient is doing better. She is quite uncomfortable when she coughs and she continues to have pain across the right lateral chest area. She is on a prednisone burst taper. She is on Levaquin. Bronchodilators remain unchanged. Objective - Vital Signs Vital signs: Vital Signs Temp 97.1 F L 08/25/17 11:42 Pulse 84 08/25/17 11:44 Resp 16 08/25/17 11:44 BP 137/68 08/25/17 11:42 Pulse Ox 100 08/25/17 11:42 Intake & Output 08/24/17 08/25/17 08/25/17 18:59 06:59 18:59 Intake Total 840 20 Output Total 300 Balance 540 20 Weight 72 kg Intake: IV 20 Sodium Chloride 0.9% 1, 20 000 ml @ 100 mls/hr IV . Q10H LACEY Rx#:[id number] Oral 840 Output: Urine 300 Other: Voiding Method Bedside Commode Bedside Commode Bedside Commode # Voids 1 - Exam Gen. appearance the patient is quite uncomfortable and she is having frequent coughing episodes. She has labored breathing and she is able to complete full sentences. Head exam was generally normal. There was no scleral icterus or corneal arcus. Mucous membranes were moist. Neck was supple and without jugular venous distension, thyromegaly, or carotid bruits. Carotids were easily palpable bilaterally. There was no adenopathy. Lungs sounds are diminished bilaterally along with prolongation of expiratory phase of breathing and diffuse expiratory wheezes throughout the lung hoffman bilaterally. Cardiac exam revealed the PMI to be normally situated and sized. The rhythm was regular and no extrasystoles were noted during several minutes of auscultation. The first and second heart sounds were normal and physiologic splitting of the second heart sound was noted. There were no murmurs, rubs, clicks, or gallops. Abdomen abdomenAbdominal exam revealed normal bowel sounds. The abdomen was soft , non-tender, and without masses, organomegaly, or appreciable enlargement of the abdominal aorta. Examination of the extremities revealed easily palpable radial, femoral and pedal pulses. There was no cyanosis, clubbing or edema. Examination of the skin revealed no evidence of significant rashes, suspicious appearing nevi or other concerning lesions. Neurologically the patient is awake and alert and there is no focal neurological deficit - Labs CBC & Chem 7: 08/25/17 05:24 08/25/17 05:24 Labs: Abnormal Lab Results - Last 24 Hours (Table) 08/24/17 08/24/17 08/25/17 Range/Units 16:53 20:54 05:24 WBC 14.6 H (3.8-10.6) k/uL RBC 2.56 L (3.80-5.40) m/uL Hgb 8.5 L D (11.4-16.0) gm/dL Hct 24.7 L (34.0-46.0) % Neutrophils # 13.0 H (1.3-7.7) k/uL Lymphocytes # 0.8 L (1.0-4.8) k/uL Potassium (3.5-5.1) mmol/L BUN (7-17) mg/dL Glucose (74-99) mg/dL POC Glucose (mg/dL) 177 H 217 H (75-99) mg/dL Total Bilirubin (0.2-1.3) mg/dL Total Protein (6.3-8.2) g/dL Albumin (3.5-5.0) g/dL 08/25/17 08/25/17 08/25/17 Range/Units 05:24 05:37 12:02 WBC (3.8-10.6) k/uL RBC (3.80-5.40) m/uL Hgb (11.4-16.0) gm/dL Hct (34.0-46.0) % Neutrophils # (1.3-7.7) k/uL Lymphocytes # (1.0-4.8) k/uL Potassium 5.2 H (3.5-5.1) mmol/L BUN 30 H (7-17) mg/dL Glucose 121 H (74-99) mg/dL POC Glucose (mg/dL) 137 H 145 H (75-99) mg/dL Total Bilirubin 0.1 L (0.2-1.3) mg/dL Total Protein 4.7 L (6.3-8.2) g/dL Albumin 2.7 L (3.5-5.0) g/dL Microbiology - Last 24 Hours (Table) 08/21/17 19:00 Blood Culture - Preliminary Blood No Growth after 72 hours Assessment and Plan Plan: Assessment 1 acute COPD exacerbation with secondary shortness of breath. The patient had acute tracheal bronchitis that influenza B infection and this was confirmed by an influenza nasal swab screen. Currently she is on Tamiflu. The patient continues to have extensive skeletal chest for pain for which she is on a combination of morphine and Percocet. CAT scan of the chest showed no evidence of any hematoma or rib fracture. 2 chronic dyspnea related to COPD with interval exacerbation [place] improving and the patient is currently on a prednisone burst taper 3 acute febrile illness, currently under investigation 4 skeletal chest wall pain related to cough and 5 smoker 6 atrial fibrillation with rapid ventricular response and current rhythm is back to sinus 7 gout 8 history of alcoholism with previous history of pancreatitis 9 chronic back pain 10 acid reflux Plan CAT scan of the chest was reviewed and there is no skeletal injuries, rib fracture or evidence of any pulmonary contusion or hematoma. Continue prednisone burst taper. Continue pain control. Continue Tamiflu. Encourage increasing level of activity as tolerated. We'll continue to follow.
--- NOTE | 2017-08-25 14:54 | P.PN ---
Subjective Progress Note Date: 08/25/17 Patient is complaining of severe abdominal pain mostly concentrated in the right upper quadrant. No other issues overnight. She is having normal bowel movement. Objective - Vital Signs Vital signs: Vital Signs Temp 97.1 F L 08/25/17 11:42 Pulse 84 08/25/17 11:44 Resp 16 08/25/17 11:44 BP 137/68 08/25/17 11:42 Pulse Ox 100 08/25/17 11:42 Intake & Output 08/24/17 08/25/17 08/25/17 18:59 06:59 18:59 Intake Total 840 20 360 Output Total 300 Balance 540 20 360 Weight 72 kg Intake: IV 20 Sodium Chloride 0.9% 1, 20 000 ml @ 100 mls/hr IV . Q10H LACEY Rx#:[id number] Oral 840 360 Output: Urine 300 Other: Voiding Method Bedside Commode Bedside Commode Bedside Commode # Voids 1 - Exam General: The patient is awake and alert, in no distress Eye: there is normal conjunctiva bilaterally. Neck: The neck is supple, there is no JVD. Cardiovascular: Normal S1-S2, no S3-S4, no murmurs. Respiratory: Lungs clear to auscultation bilaterally Gastrointestinal: Tenderness to right upper quadrant Musculoskeletal: There is no pedal edema. Neurological:. Speech is normal. Skin: Skin is warm and dry - Labs CBC & Chem 7: 08/25/17 05:24 08/25/17 05:24 Labs: Abnormal Lab Results - Last 24 Hours (Table) 08/24/17 08/24/17 08/25/17 Range/Units 16:53 20:54 05:24 WBC 14.6 H (3.8-10.6) k/uL RBC 2.56 L (3.80-5.40) m/uL Hgb 8.5 L D (11.4-16.0) gm/dL Hct 24.7 L (34.0-46.0) % Neutrophils # 13.0 H (1.3-7.7) k/uL Lymphocytes # 0.8 L (1.0-4.8) k/uL Potassium (3.5-5.1) mmol/L BUN (7-17) mg/dL Glucose (74-99) mg/dL POC Glucose (mg/dL) 177 H 217 H (75-99) mg/dL Total Bilirubin (0.2-1.3) mg/dL Total Protein (6.3-8.2) g/dL Albumin (3.5-5.0) g/dL 08/25/17 08/25/17 08/25/17 Range/Units 05:24 05:37 12:02 WBC (3.8-10.6) k/uL RBC (3.80-5.40) m/uL Hgb (11.4-16.0) gm/dL Hct (34.0-46.0) % Neutrophils # (1.3-7.7) k/uL Lymphocytes # (1.0-4.8) k/uL Potassium 5.2 H (3.5-5.1) mmol/L BUN 30 H (7-17) mg/dL Glucose 121 H (74-99) mg/dL POC Glucose (mg/dL) 137 H 145 H (75-99) mg/dL Total Bilirubin 0.1 L (0.2-1.3) mg/dL Total Protein 4.7 L (6.3-8.2) g/dL Albumin 2.7 L (3.5-5.0) g/dL Microbiology - Last 24 Hours (Table) 08/21/17 19:00 Blood Culture - Preliminary Blood No Growth after 72 hours Assessment and Plan Assessment: 1. Acute hypoxic respiratory failure secondary to acute COPD exacerbation, bronchitis and atrial fibrillation with rapid ventricular response. Patient has required BiPAP and Ventimask. She is on oxygen via nasal cannula 2. Acute COPD exacerbation: Continue steroid and bronchodilators. Pulmonary service has added Pulmicort and Perforomist nebulizer treatments 3. Acute tracheobronchitis no evidence of pneumonia so far on chest x-ray. Continue with Levaquin. 4. Atrial fibrillation with rapid ventricular response present on admission requiring Cardizem drip. Converted to normal sinus rhythm. Cardiology started Eliquis for anticoagulation and verapamil. 5. History of alcohol abuse and evidence of some withdrawal symptoms with anxiety and tremors. [facility] protocol with thiamine and multivitamin ordered 6. Sepsis present on admission likely related to bronchitis 7. Severe abdominal pain of unclear etiology awaiting computed tomography scan of the abdomen for further evaluation. 8. History of COPD 9. History of Khan's palsy 10. History of alcoholic pancreatitis 11. Nicotine dependence: Patient started on a nicotine patch DVT prophylaxis on Eliquis
--- NOTE | 2017-08-25 16:03 | CT ---
EXAMINATION TYPE: CT abdomen wo con DATE OF EXAM: 08/25/2017 COMPARISON: NONE HISTORY: RUQ abd pain CT DLP: 636.9 mGycm Automated exposure control for dose reduction was used. TECHNIQUE: Helical acquisition of images was performed from the lung bases through the top of iliac crest to include entire abdomen. CONTRAST: Performed without Oral Contrast and without IV contrast. FINDINGS: LUNG BASES: There is bibasilar subsegmental atelectasis. LIVER/GB: No significant abnormality is appreciated within the liver. Gallbladder is contracted and s uboptimally evaluated. PANCREAS: Unenhanced pancreas is of unremarkable morphology although shifted to the left of midline. SPLEEN: Unremarkable morphology ADRENALS: No significant abnormality is seen. KIDNEYS: No nephrolithiasis or hydronephrosis BOWEL: No dilation of the visualized bowel. LYMPH NODES: No gross evidence of greater than 1 cm short axis lymph node within the abdomen. OSSEOUS STRUCTURES: Mild multilevel degenerative change of the visualized thoracic spine. OTHER: There is a large mixed density right intramuscular heterogenous mass measuring at least 11.2 x 7.0 x 13.0 cm involving the rectus abdominis and right flank abdominal musculature with extensive fa t stranding in the subcutaneous soft tissues and thickening of the abdominal wall musculature up to 5 .5 cm in thickness as opposed to 1.4 cm the left. No foci of punctate hyperintensity are seen to [place] [facility] site of active hemorrhage. There is impression upon the intra-abdominal structures. Changes exte nd from the inferior chest wall to the most inferior aspect of the [id number] and the entirety of the structure is not imaged. IMPRESSION: LARGE ABDOMINAL WALL INTRAMUSCULAR HETEROGENOUS MASS WITHIN THE RECTUS ABDOMINIS EXTENDING INTO THE R IGHT FLANK MUSCULATURE MEASURING AT LEAST 11.2 X 7.0 X 13.0 CM WITH SUBCUTANEOUS INFLAMMATORY FAT STR ANDING, INCOMPLETELY VISUALIZED IN CRANIOCAUDAL DIMENSION. CONSIDERATIONS ARE FOR LARGE RECTUS SHEATH HEMATOMA, INFECTED HEMATOMA/EARLY ABSCESS, OR LESS LIKELY ABDOMINAL WALL NEOPLASM GIVEN THE INFLAMMA TORY FAT STRANDING. Findings were communicated to the ordering physician Dr. Santo by Dr. Leary at 1559 on 08/25/17.
[2017-08-25 17:11] LABS: Glucose,Whole Blood 147 mg/dL (75-99)
[2017-08-25] MEDS: LEVOFLOXACIN 750 MG TAB PO SCH (20:19)
[2017-08-25 20:39] LABS: Glucose,Whole Blood 128 mg/dL (75-99)
[2017-08-26] MEDS: oxyCODONE-APAP 10-325MG 1 EACH TAB PO PRN ×6 (00:22→22:07)
[2017-08-26 06:04] LABS: Glucose,Whole Blood 127 mg/dL (75-99)
[2017-08-26] MEDS: INSULIN ASPART 100 UNIT/ML 1 ML 10 ML VIAL SQ SCH ×4 (06:30→21:22)
[2017-08-26] MEDS: PANTOPRAZOLE 40 MG TABLET PO SCH (06:30)
[2017-08-26 07:05] LABS: Basophils % (A) 0 %; Eosinophils % (A) 0 %; Lymphocytes # (A) 1.3 k/uL (1.0-4.8); Lymphocytes % (A) 10 %; MCH 32.9 pg (25.0-35.0); MCHC 34.3 g/dL (31.0-37.0); MCV 95.8 fL (80.0-100.0); Mean Platelet Volume 7.9; Monocytes % (A) 7 %; Neutrophils # (A) 11.4 k/uL (1.3-7.7); Neutrophils % (A) 82 %; Platelet Count 248 k/uL (150-450); RBC 1.99 m/uL (3.80-5.40); RDW 14.3 % (11.5-15.5)
[2017-08-26 07:15] LABS: Albumin 2.9 g/dL (3.5-5.0); Potassium 5.1 mmol/L (3.5-5.1); Total Bilirubin 0.2 mg/dL (0.2-1.3); Total Protein 4.8 g/dL (6.3-8.2)
[2017-08-26 07:27] LABS: HGB 6.6 gm/dL (11.4-16.0)
[2017-08-26 07:29] LABS: HCT 19.1 % (34.0-46.0)
[2017-08-26] MEDS: NICOTINE 21MG/24HR PATCH TRANSDERM SCH (08:38)
[2017-08-26] MEDS: THIAMINE 100 MG TAB PO SCH ×2 (08:39→16:35)
[2017-08-26] MEDS: VERAPAMIL 40 MG TAB PO SCH ×3 (08:39→19:43)
[2017-08-26] MEDS: MULTIVITAMINS, THERA 1 EACH TAB PO SCH (08:39)
[2017-08-26] MEDS: OSELTAMIVIR 75 MG CAP PO SCH (08:39)
[2017-08-26] MEDS: predniSONE 20 MG TAB PO SCH (08:39)
[2017-08-26] MEDS: IPRATROPIUM-ALBUTEROL 3 ML NEB INHALATION SCH ×4 (08:42→19:29)
[2017-08-26] MEDS: BUDESONIDE 1 MG/2 ML NEBU INHALATION SCH ×2 (08:42→19:29)
[2017-08-26] MEDS: FORMOTEROL FUMARATE 20 MCG/2 ML NEBU INHALATION SCH ×2 (08:42→19:29)
[2017-08-26 09:59] LABS: Prothrombin Time 10.2 sec (9.0-12.0)
[2017-08-26 10:13] LABS: Partial Thromboplastin Time 18.2 sec (22.0-30.0)
--- NOTE | 2017-08-26 10:55 | P.GSCN ---
History of Present Illness Consult date: 08/26/17 Reason for Consult: Anemia, abdominal wall hematoma History of present illness: The patient is a 62 year old female admitted with respiratory complaints. She is found to be influenza positive. She's been complaining of some pain in the right upper quadrant that's getting progressively worse. She had a CT scan showing a hematoma. She has been on Eliquis. Denies any falling or fractured ribs on the right side. She has been coughing very hard. 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 History of Any Multi-Drug Resistant Organisms: None Reported Past Surgical History: Appendectomy, Section, Joint Replacement, Orthopedic Surgery Additional Past Surgical History / Comment(s): 12/09/15 Totoal L hip arthroplasty, anterior approach with cell saver. Other surgical hx: ORIF rt arm-pin later removed Past Anesthesia/Blood Transfusion Reactions: No Reported Reaction Past Psychological History: Anxiety Additional Psychological History / Comment(s): Pt states she is currently living with a friend in their basement. She has no assistive device. She does not drive, family/friends take her to [employer]. Smoking Status: Current every day smoker Past Alcohol Use History: Occasional Additional Past Alcohol Use History / Comment(s): smoked for 40 yrs <1ppd Past Drug Use History: None Reported - Past Family History Mother Family Medical History: COPD, Diabetes Mellitus Additional Family Medical History / Comment(s): Mother had heart problems. Father Family Medical History: No Reported History Additional Family Medical History / Comment(s): Father had gout and heart problems. Brother(s) Additional Family Medical History / Comment(s): gout Medications and Allergies Home Medications Medication Instructions Recorded Confirmed Type Allopurinol 300 mg PO DAILY 11/25/15 08/21/17 History Ergocalciferol [Vitamin D2 50,000 unit PO FR 11/25/15 08/21/17 History (DRISDOL)] Fluticasone/Vilanterol [Breo 1 puff INHALATION RT-DAILY 11/25/15 08/21/17 History Ellipta 200-25 Mcg INH] Umeclidinium [place] [Incruse 1 puff INHALATION QAM 11/25/15 08/21/17 History Ellipta] oxyCODONE-APAP 10-325MG [Percocet 1 each PO Q4H PRN #42 tab 12/13/15 08/21/17 Rx 10-325 mg] Budesonide/Formoterol Fumarate 1 puff INHALATION RT-BID 08/21/17 08/21/17 History [Symbicort 160-4.5 Mcg Inhaler] Febuxostat [Uloric] 40 mg PO DAILY 08/21/17 08/21/17 History Loratadine [Claritin] 10 mg PO DAILY 08/21/17 08/21/17 History Omeprazole [PriLOSEC] 40 mg PO DAILY 08/21/17 08/21/17 History Allergies Allergy/AdvReac Type Severity Reaction Status Date / Time No Known Allergies Allergy Verified 08/21/17 18:13 Surgical - Exam Osteopathic Statement: *. No significant issues noted on an osteopathic structural exam other than those noted in the History and Physical/Consult. Vital Signs Temp Pulse Resp BP Pulse Ox 101.7 F H 100 16 137/77 93 L 08/21/17 17:59 08/21/17 17:59 08/21/17 17:59 08/21/17 17:59 08/21/17 17:59 - General Mild distress, moves slowly with some mild dyspnea well developed, well nourished - Eyes normal ocular movement - ENT normal mucosa - Neck trachea midline - Respiratory normal expansion, clear to auscultation, other (Little dyspneic with some occasional rhonchi) - Cardiovascular Rhythm: regular - Abdomen A little ecchymosis in the mid abdomen Abdomen: tender (Right upper quadrant tenderness and voluntary guarding.), bowel sounds Results - Labs 08/26/17 06:30 08/26/17 06:30 Abnormal Lab Results - Last 24 Hours (Table) 08/25/17 08/25/17 08/25/17 Range/Units 12:02 17:05 20:37 WBC (3.8-10.6) k/uL RBC (3.80-5.40) m/uL Hgb (11.4-16.0) gm/dL Hct (34.0-46.0) % Neutrophils # (1.3-7.7) k/uL APTT (22.0-30.0) sec BUN (7-17) mg/dL Glucose (74-99) mg/dL POC Glucose (mg/dL) 145 H 147 H 128 H (75-99) mg/dL Total Protein (6.3-8.2) g/dL Albumin (3.5-5.0) g/dL Crossmatch 08/26/17 08/26/17 08/26/17 Range/Units 06:02 06:30 06:30 WBC 14.0 H (3.8-10.6) k/uL RBC 1.99 L (3.80-5.40) m/uL Hgb 6.6 L* D (11.4-16.0) gm/dL Hct 19.1 L* (34.0-46.0) % Neutrophils # 11.4 H (1.3-7.7) k/uL APTT (22.0-30.0) sec BUN 41 H (7-17) mg/dL Glucose 103 H (74-99) mg/dL POC Glucose (mg/dL) 127 H (75-99) mg/dL Total Protein 4.8 L (6.3-8.2) g/dL Albumin 2.9 L (3.5-5.0) g/dL Crossmatch 08/26/17 08/26/17 Range/Units 09:30 09:30 WBC (3.8-10.6) k/uL RBC (3.80-5.40) m/uL Hgb (11.4-16.0) gm/dL Hct (34.0-46.0) % Neutrophils # (1.3-7.7) k/uL APTT 18.2 L (22.0-30.0) sec BUN (7-17) mg/dL Glucose (74-99) mg/dL POC Glucose (mg/dL) (75-99) mg/dL Total Protein (6.3-8.2) g/dL Albumin (3.5-5.0) g/dL Crossmatch See Detail Microbiology - Last 24 Hours (Table) 08/21/17 19:00 Blood Culture - Preliminary Blood No Growth after 96 hours Diabetes panel 08/26/17 Range/Units 06:30 Sodium 139 (137-145) mmol/L Potassium 5.1 (3.5-5.1) mmol/L Chloride 103 (98-107) mmol/L Carbon Dioxide 28 (22-30) mmol/L BUN 41 H (7-17) mg/dL Creatinine 0.84 (0.52-1.04) mg/dL Glucose 103 H (74-99) mg/dL Calcium 9.0 (8.4-10.2) mg/dL AST 30 (14-36) U/L ALT 49 (9-52) U/L Alkaline Phosphatase 44 (38-126) U/L Total Protein 4.8 L (6.3-8.2) g/dL Albumin 2.9 L (3.5-5.0) g/dL Calcium panel 08/26/17 Range/Units 06:30 Calcium 9.0 (8.4-10.2) mg/dL Albumin 2.9 L (3.5-5.0) g/dL Pituitary panel 08/26/17 Range/Units 06:30 Sodium 139 (137-145) mmol/L Potassium 5.1 (3.5-5.1) mmol/L Chloride 103 (98-107) mmol/L Carbon Dioxide 28 (22-30) mmol/L BUN 41 H (7-17) mg/dL Creatinine 0.84 (0.52-1.04) mg/dL Glucose 103 H (74-99) mg/dL Calcium 9.0 (8.4-10.2) mg/dL Adrenal panel 08/26/17 Range/Units 06:30 Sodium 139 (137-145) mmol/L Potassium 5.1 (3.5-5.1) mmol/L Chloride 103 (98-107) mmol/L Carbon Dioxide 28 (22-30) mmol/L BUN 41 H (7-17) mg/dL Creatinine 0.84 (0.52-1.04) mg/dL Glucose 103 H (74-99) mg/dL Calcium 9.0 (8.4-10.2) mg/dL Total Bilirubin 0.2 (0.2-1.3) mg/dL AST 30 (14-36) U/L ALT 49 (9-52) U/L Alkaline Phosphatase 44 (38-126) U/L Total Protein 4.8 L (6.3-8.2) g/dL Albumin 2.9 L (3.5-5.0) g/dL - Imaging CT scan - abdomen: report reviewed, image reviewed (Rectus sheath hematoma is seen.) CT scan - chest: report reviewed, image reviewed (The rectus sheath hematoma on the right side is seen on this exam however it's not reported by the radiologist ) Assessment and Plan (1) Rectus sheath hematoma Current Visit: Yes Status: Acute Code(s): S30.1XXA - CONTUSION OF ABDOMINAL WALL, INITIAL ENCOUNTER SNOMED Code(s): 608136852 (2) Acute blood loss anemia Current Visit: Yes Status: Acute Code(s): D62 - ACUTE POSTHEMORRHAGIC ANEMIA SNOMED Code(s): 373731834 (3) Adult respiratory distress syndrome Current Visit: Yes Status: Acute Code(s): J80 - ACUTE RESPIRATORY DISTRESS SYNDROME SNOMED Code(s): 12239862 (4) Atrial fibrillation with RVR Current Visit: Yes Status: Acute Code(s): I48.91 - UNSPECIFIED ATRIAL FIBRILLATION SNOMED Code(s): 660763842257865 (5) Hypoxia Current Visit: Yes Status: Acute Code(s): R09.02 - HYPOXEMIA SNOMED Code(s ): 557241156 Plan: A PT and PTT were ordered. These are within normal limits. The Eliquis was just discontinued. The patient is being transfused due to the anemia. I spoke with primary service and recommended a dual-lumen Henry due to difficulty with blood draws and continued need for IV fluids. Warm pack or ice can be used for discomfort in the right upper quadrant. Typically these hematomas do not require surgery. The hematomas typically occur due to some rubbing of the muscle and the rectus sheath. The Eliquis will need to be held due to the active bleeding.
--- NOTE | 2017-08-26 11:18 | P.PN ---
Subjective Progress Note Date: 08/26/17 This is a 61-year-old female, patient of Dr. Cox. This patient has past medical history of COPD, Khan's palsy, alcoholic pancreatitis, and nicotine dependence. Patient initially presented to [facility] due to worsening shortness of breath and cough. They were concerned about sepsis and pneumonia she was also hypoxic requiring a BiPAP. She was then transferred to [facility] for more extensive care and workup. She's found to be atrial fibrillation with a rapid ventricular response heart rate in the 190s. She required Cardizem drip in the ER. She has converted back to normal sinus rhythm around 4:00 this morning. Both pulmonary service and cardiology have been consulted. Cardiology has added Eliquis for anticoagulation. Case was discussed with pulmonary service. Patient is currently requiring a Ventimask at 98%. Patient reports increased shortness of breath is especially with ambulating. Patient also having productive cough with chest discomfort. She denies any nausea or vomiting. She is requesting pain medications for her chest pains. Patient denies current or active alcohol use. However prior history does reveal alcohol use history as well as alcoholic pancreatitis. Nursing staff has notified me that the patient is becoming more anxious throughout the morning it is starting to having some tremors and shakes. The [facility] protocol has been ordered as well as thiamine and multivitamin. Patient reports having fevers and chills. She had a temp of 103 at home and 101.7 on admission. White count elevated at 18.4 and also tachycardic. Patient also had been antibiotics for possible pneumonia and COPD exacerbation. Patient reports she's been having these symptoms of shortness of breath and cough for about 4 weeks with no improvement with antibiotics. She also reports that she' s had a few episodes of diarrhea. Stool for C. diff has been ordered. 08/23/2017 patient is influenza be positive and started on Tamiflu this morning. Cardiology has evaluated patient and added verapamil and Eliquis for her atrial fibrillation. Patient remains in normal sinus rhythm. Oxygen saturation is at 96% on 4 L. Patient is requiring a lot of pain medication due to chest discomfort from her cough. Patient has been educated that we need to cut back on her pain medications due to her respiratory status. Her morphine will be cut down to 6 mg by mouth every 8 hours as needed and she can continue with her Percocets. Patient followed by both pulmonary and cardiology service. Echo shows an EF of 60-65% with severe left ventricle hypertrophy and small pericardial effusion. 08/26/2017 patient is still complaining of some shortness of breath and not feeling well. She had a drop in her hemoglobin from 8.5-6.6. Eliquis was discontinued over the weekend due to an initial drop in hemoglobin from 12 to around 8. She had a computed tomography scan of the abdomen and pelvis completed. Results show large abdominal wall intramuscular heterogenous mass within the rectus abdominis extending into the right flank musculature measuring at least 11.2 x 7.0 x 13.0 cm. Radiologist reports considerations are for a large rectus sheath hematoma, infected hematoma/early abscess. Hemoglobin 6.6 to receive 1 unit of blood. Surgical service has been notified and infectious disease has been consulted. Objective - Vital Signs Vital signs: Vital Signs Temp 97.6 F 08/26/17 08:43 Pulse 91 08/26/17 08:43 Resp 18 08/26/17 08:43 BP 131/62 08/26/17 08:43 Pulse Ox 99 08/26/17 08:43 Intake & Output 08/25/17 08/26/17 08/26/17 18:59 06:59 18:59 Intake Total 480 0 Output Total 302 1 Balance 480 -302 -1 Weight 72.4 kg Intake: Oral 480 0 Output: Urine 300 Stool 2 1 Other: Voiding Method Bedside Commode Bedside Commode Bedside Commode # Voids 1 2 - Exam Head normocephalic Neck supple Lungs rhonchi and coarse breath sounds Heart regular rate and rhythm S1-S2, no rub or gallop Abdomen is more firm with palpation along the right side of the abdomen and right flank. No discoloration. Positive bowel sounds Extremities no edema Neuro alert and orientated to 3 - Labs CBC & Chem 7: 08/26/17 06:30 08/26/17 06:30 Labs: Abnormal Lab Results - Last 24 Hours (Table) 08/25/17 08/25/17 08/25/17 Range/Units 12:02 17:05 20:37 WBC (3.8-10.6) k/uL RBC (3.80-5.40) m/uL Hgb (11.4-16.0) gm/dL Hct (34.0-46.0) % Neutrophils # (1.3-7.7) k/uL APTT (22.0-30.0) sec BUN (7-17) mg/dL Glucose (74-99) mg/dL POC Glucose (mg/dL) 145 H 147 H 128 H (75-99) mg/dL Total Protein (6.3-8.2) g/dL Albumin (3.5-5.0) g/dL Crossmatch 08/26/17 08/26/17 08/26/17 Range/Units 06:02 06:30 06:30 WBC 14.0 H (3.8-10.6) k/uL RBC 1.99 L (3.80-5.40) m/uL Hgb 6.6 L* D (11.4-16.0) gm/dL Hct 19.1 L* (34.0-46.0) % Neutrophils # 11.4 H (1.3-7.7) k/uL APTT (22.0-30.0) sec BUN 41 H (7-17) mg/dL Glucose 103 H (74-99) mg/dL POC Glucose (mg/dL) 127 H (75-99) mg/dL Total Protein 4.8 L (6.3-8.2) g/dL Albumin 2.9 L (3.5-5.0) g/dL Crossmatch 08/26/17 08/26/17 Range/Units 09:30 09:30 WBC (3.8-10.6) k/uL RBC (3.80-5.40) m/uL Hgb (11.4-16.0) gm/dL Hct (34.0-46.0) % Neutrophils # (1.3-7.7) k/uL APTT 18.2 L (22.0-30.0) sec BUN (7-17) mg/dL Glucose (74-99) mg/dL POC Glucose (mg/dL) (75-99) mg/dL Total Protein (6.3-8.2) g/dL Albumin (3.5-5.0) g/dL Crossmatch See Detail Microbiology - Last 24 Hours (Table) 08/21/17 19:00 Blood Culture - Preliminary Blood No Growth after 96 hours Assessment and Plan Assessment: 1. Acute hypoxic respiratory failure secondary to acute COPD exacerbation, bronchitis and atrial fibrillation with rapid ventricular response. Patient has required BiPAP and Ventimask. She is on 2 L oxygen 2. Acute COPD exacerbation: Patient started on prednisone over the weekend. Continue nebulizer treatments 3. Acute tracheobronchitis no evidence of pneumonia so far on chest x-ray. Continue with Levaquin 4. Atrial fibrillation with rapid ventricular response present on admission requiring Cardizem drip. Converted to normal sinus rhythm. Cardiology started Eliquis for anticoagulation and verapamil. Eliquis discontinued due to rectus sheath hematoma 5. History of alcohol abuse and evidence of some withdrawal symptoms with anxiety and tremors. [facility] protocol with thiamine and multivitamin ordered 6. Sepsis present on admission likely related to bronchitis 7. Diarrhea check stool for C. diff . Diarrhea appears to resolved 8. History of COPD 9. History of Khan's palsy 10. History of alcoholic pancreatitis 11. Nicotine dependence: Patient started on a nicotine patch 12. Rectus sheath hematoma with acute blood loss anemia. Hemoglobin 6.6. She will receive a unit of blood. Case discussed with surgical service. No surgical intervention. Possibly hematoma due to Eliquis and coughing. Also note concerns for possible infected hematoma or early abscess. Infectious disease will be consulted Consult physical therapy DVT prophylaxis SCDs I performed an examination of the patient and discussed their management with the physician Sanitation Director. I have reviewed the Physician Sanitation Director's notes and agree with the documented findings and plan of care
[2017-08-26 11:35] LABS: Glucose,Whole Blood 151 mg/dL (75-99)
--- NOTE | 2017-08-26 11:46 | P.PN ---
Subjective Progress Note Date: 08/26/17 Principal diagnosis: Acute exacerbation of chronic obstructive pulmonary disease, complicated by acute tracheobronchitis with influenza B infection. A 61-year-old female patient, a chronic smoker, known history of COPD whereas been a good state of health and she was under the care of her private care physician. She has been a chronic smoker. She has also history of alcoholism and previous history of pancreatitis. The patient presented yesterday to the emergency department at [facility] because of increased dyspnea, recurrent cough, chest wall pain due to vigorous coughing, chest congestion with limited sputum production, bronchospasm and wheeze. In the emergency department the patient was quite short of breath. She was placed on BiPAP. She also had a brief episode of atrial fibrillation with rapid ventricular response where she was placed on Cardizem drip. The patient converted back to normal sinus rhythm at around 4:00 this morning. She is currently off the BiPAP. She is using a simple Ventimask. She is able to complete full sentences. She has however very uncomfortable with breathing and she has frequent coughing episodes pressure when she takes a deep breath. There is a first aspiration for COPD exacerbation. Her chest x-ray is clear and there is no evidence of any acute pulmonary infiltration or pneumonia. No evidence of any pneumothorax. She had a temperature of 103.0 at home and subsequently 11.7 during the time of admission and currently she is afebrile. Her white cell count of 18.4. Clinically better yet not recovered. No hemoptysis. No pleurisy. Some limited diarrhea the patient is being checked for C. diff. Note patient about treatments. No recent antibiotic or steroid treatment. No history of childhood asthma. No history of DVT or pulmonary embolism. No cardiac history. On 08/23/2017 the patient is essentially the same condition. Slightly better in terms of her cough and congestion. She is afebrile. She was diagnosed having an influenza be taken bronchitis which was suspected the time of admission and the influenza screen clearly showed that. The patient is is utilizing Percocet for cough and chest pain. The patient is also on Robitussin- DM. She is on bronchodilators and systemic steroids. Tamiflu was also added. No nausea. No vomiting. No altered mentation. No other complaints otherwise for the past 24 hours. Her recovery is essentially slow. She was given a nicotine patch. On 08/24/2017, the patient is improving slowly. She is less short of breath. Her cough is gradually subsiding. Nevertheless pain is an ongoing issue as the patient is having pain across the right chest area. The right upper quadrant is slightly swollen compared to the left and the area is quite tender especially the rib cage area. I'm concerned of a rib fracture versus a hematoma within the same area. Overlying skin is within normal and there is no ecchymosis of the skin. She is a bit anxious. Her pain level is quite high and the patient is receiving IV morphine 6 g every 8 hours in addition to Percocet. She is also on combination of bronchodilators and steroids and antibiotics. No other complaints otherwise for now. On 08/25/2017 the patient continues to improve. Her main issue is pain which I think is somewhat exaggerated. She is on a combination of IV morphine and oral Percocet. There was a concern of a skeletal injury to her rib cage and based on that a CAT scan of the chest was ordered and upon review, there is some limited interstitial infiltrates/scarring in lung bases. No evidence of any pulmonary masses or lesions or malignancy. No mediastinal lymphadenopathy. The patient is doing better. She is quite uncomfortable when she coughs and she continues to have pain across the right lateral chest area. She is on a prednisone burst taper. She is on Levaquin. Bronchodilators remain unchanged. The patient is seen again today 08/26/2017 in follow-up on the selective care unit. She is awake and alert in no acute distress. She is breathing easier today as compared to yesterday. She is maintaining good O2 saturations in the 90s on 2 L/m per nasal cannula. She's been afebrile. Computed tomography scan of the abdomen did reveal a large abdominal wall intramuscular heterogenous mass within the rectus abdominis extending into the right flank musculature measuring at least 11.2 x 7.0 x 13.0 cm width subcutaneous inflammatory fat stranding. Considerations are for large rectus sheath hematoma, infected hematoma/early abscess or less likely abdominal wall neoplasm based on the inflammatory fat stranding. She has had a further drop in hemoglobin to 6.6 today. surgical services have been consulted.the patient's Eliquis is on hold. Receiving packed red blood cell transfusion. No plans for surgical intervention at this point. Objective - Vital Signs Vital signs: Vital Signs Temp 98.8 F 08/26/17 11:21 Pulse 91 08/26/17 11:21 Resp 16 08/26/17 11:21 BP 125/62 08/26/17 11:21 Pulse Ox 97 08/26/17 11:21 Intake & Output 08/25/17 08/26/17 08/26/17 18:59 06:59 18:59 Intake Total 480 0 0 Output Total 302 1 Balance 480 -302 -1 Weight 72.4 kg Intake: Oral 480 0 Blood Product 0 Rc As-1 Unit 0 [id number] Output: Urine 300 Stool 2 1 Other: Voiding Method Bedside Commode Bedside Commode Bedside Commode # Voids 1 2 - Exam Gen. appearance the patient is quite uncomfortable and she is having frequent coughing episodes. She has labored breathing and she is able to complete full sentences. Head exam was generally normal. There was no scleral icterus or corneal arcus. Mucous membranes were moist. Neck was supple and without jugular venous distension, thyromegaly, or carotid bruits. Carotids were easily palpable bilaterally. There was no adenopathy. Lungs sounds are diminished bilaterally along with prolongation of expiratory phase of breathing and diffuse expiratory wheezes throughout the lung hoffman bilaterally. Cardiac exam revealed the PMI to be normally situated and sized. The rhythm was regular and no extrasystoles were noted during several minutes of auscultation. The first and second heart sounds were normal and physiologic splitting of the second heart sound was noted. There were no murmurs, rubs, clicks, or gallops. Abdominal exam revealed normal bowel sounds. The abdomen is tender right upper quadrant, palpable mass, ecchymosis. Large rectus abdominis hematoma per computed tomography scan Examination of the extremities revealed easily palpable radial, femoral and pedal pulses. There was no cyanosis, clubbing or edema. Examination of the skin revealed no evidence of significant rashes, suspicious appearing nevi or other concerning lesions. Neurologically the patient is awake and alert and there is no focal neurological deficit - Labs CBC & Chem 7: 08/26/17 06:30 08/26/17 06:30 Labs: Abnormal Lab Results - Last 24 Hours (Table) 08/25/17 08/25/17 08/25/17 Range/Units 12:02 17:05 20:37 WBC (3.8-10.6) k/uL RBC (3.80-5.40) m/uL Hgb (11.4-16.0) gm/dL Hct (34.0-46.0) % Neutrophils # (1.3-7.7) k/uL APTT (22.0-30.0) sec BUN (7-17) mg/dL Glucose (74-99) mg/dL POC Glucose (mg/dL) 145 H 147 H 128 H (75-99) mg/dL Total Protein (6.3-8.2) g/dL Albumin (3.5-5.0) g/dL Crossmatch 08/26/17 08/26/17 08/26/17 Range/Units 06:02 06:30 06:30 WBC 14.0 H (3.8-10.6) k/uL RBC 1.99 L (3.80-5.40) m/uL Hgb 6.6 L* D (11.4-16.0) gm/dL Hct 19.1 L* (34.0-46.0) % Neutrophils # 11.4 H (1.3-7.7) k/uL APTT (22.0-30.0) sec BUN 41 H (7-17) mg/dL Glucose 103 H (74-99) mg/dL POC Glucose (mg/dL) 127 H (75-99) mg/dL Total Protein 4.8 L (6.3-8.2) g/dL Albumin 2.9 L (3.5-5.0) g/dL Crossmatch 08/26/17 08/26/17 Range/Units 09:30 09:30 WBC (3.8-10.6) k/uL RBC (3.80-5.40) m/uL Hgb (11.4-16.0) gm/dL Hct (34.0-46.0) % Neutrophils # (1.3-7.7) k/uL APTT 18.2 L (22.0-30.0) sec BUN (7-17) mg/dL Glucose (74-99) mg/dL POC Glucose (mg/dL) (75-99) mg/dL Total Protein (6.3-8.2) g/dL Albumin (3.5-5.0) g/dL Crossmatch See Detail Microbiology - Last 24 Hours (Table) 08/21/17 19:00 Blood Culture - Preliminary Blood No Growth after 96 hours Assessment and Plan Assessment: Assessment 1 acute COPD exacerbation with secondary shortness of breath. The patient had acute tracheal bronchitis that influenza B infection and this was confirmed by an influenza nasal swab screen. Currently she is on Tamiflu. The patient continues to have extensive skeletal chest for pain for which she is on a combination of morphine and Percocet. CAT scan of the chest showed no evidence of any hematoma or rib fracture. 2 chronic dyspnea related to COPD with interval exacerbation VT improving and the patient is currently on a prednisone burst taper 3 acute febrile illness, currently under investigation 4 right upper quadrant pain and tenderness found to have a large rectus abdominis hematoma. Eliquis is on hold. 5 acute anemia secondary to blood loss into rectus abdominis. Hemoglobin 6.6. One unit packed red blood cells initiated. 6 atrial fibrillation with rapid ventricular response and current rhythm is back to sinus 7 gout 8 history of alcoholism with previous history of pancreatitis 9 chronic back pain 10 acid reflux 11 smoker Plan: The patient was seen and evaluated by Dr. Barnes. she is currently stable from the pulmonary standpoint. She remains on a prednisone taper. She is again educated regarding the process importance of complete smoking cessation. Habitrol patch remains in place. Continue Tamiflu. She is receiving 1 unit of packed red blood cell transfusion for hemoglobin was 6.6. Large rectus abdominis hematoma noted. Eliquis is on hold. No surgical intervention planned per surgical services. We will continue to follow and make further recommendations based on her clinical status. I, the cosigning physician, performed a history & physical examination of the patient. Lungs sounds with faint crackles in the bilateral posterior bases. Diminished. Maintaining good O2 saturations in the 90s on 2 L/m per nasal cannula. I discussed the assessment and plan of care with my nurse practitioner , Libby Toledo. I attest to the above note as dictated by her.
--- NOTE | 2017-08-26 13:09 | PN ---
PROGRESS NOTE This patient is admitted with acute respiratory distress and the patient was having intermittent episodes of supraventricular tachycardia and atrial fibrillation. She is doing fairly well. Respiratory distress has improved. Blood pressure is 130/80 mmHg. First and second heart sounds are normal. Lungs are clinically clear to auscultation and percussion, bilateral diminished air entry. We will continue the current medications. MMODL / IJN: [id number] /
[2017-08-26] MEDS: MORPHINE SULFATE 4 MG/ML SYRINGE IVP PRN ×2 (14:26→19:41)
--- NOTE | 2017-08-26 15:36 | P.PN ---
Progress Note - Text Progress Note Date: 08/26/17 This is an addendum to the cardiology progress note dictated. Patient has paroxysmal atrial fibrillation DNP note has been reviewed, I agree with a documented findings and plan of care. Patient was seen and examined.
[2017-08-26 16:42] LABS: Glucose,Whole Blood 168 mg/dL (75-99)
[2017-08-26] MEDS: OSELTAMIVIR 60 MG/10 ML ORAL SYRINGE PO SCH (19:42)
[2017-08-26] MEDS: LEVOFLOXACIN 750 MG TAB PO SCH (19:43)
[2017-08-26 20:46] LABS: Glucose,Whole Blood 138 mg/dL (75-99)
[2017-08-27] MEDS: MORPHINE SULFATE 4 MG/ML SYRINGE IVP PRN ×6 (00:08→21:30)
[2017-08-27] MEDS: oxyCODONE-APAP 10-325MG 1 EACH TAB PO PRN ×5 (02:53→19:44)
[2017-08-27] MEDS: INSULIN ASPART 100 UNIT/ML 1 ML 10 ML VIAL SQ SCH ×4 (05:47→21:32)
[2017-08-27 05:51] LABS: Glucose,Whole Blood 100 mg/dL (75-99)
[2017-08-27] MEDS: PANTOPRAZOLE 40 MG TABLET PO SCH (06:32)
[2017-08-27 06:47] LABS: ALT 38 U/L (9-52); AST 23 U/L (14-36); Albumin 2.8 g/dL (3.5-5.0); Alkaline Phosphatase 42 U/L (38-126); Anion Gap 9 mmol/L; Blood Urea Nitrogen 29 mg/dL (7-17); Calcium 8.9 mg/dL (8.4-10.2); Carbon Dioxide 29 mmol/L (22-30); Chloride 100 mmol/L (98-107); Glucose 84 mg/dL (74-99); Potassium 4.4 mmol/L (3.5-5.1); Sodium 138 mmol/L (137-145); Total Bilirubin 0.3 mg/dL (0.2-1.3); Total Protein 4.7 g/dL (6.3-8.2)
[2017-08-27 07:10] LABS: Basophils # (A) 0.1 k/uL (0-0.2); Basophils % (A) 1 %; Eosinophils % (A) 0 %; Lymphocytes % (A) 15 %; MCH 32.7 pg (25.0-35.0); MCHC 33.8 g/dL (31.0-37.0); MCV 96.7 fL (80.0-100.0); Mean Platelet Volume 7.3; Monocytes # (A) 0.8 k/uL (0-1.0); Monocytes % (A) 6 %; Neutrophils # (A) 9.8 k/uL (1.3-7.7); Neutrophils % (A) 77 %; Platelet Count 223 k/uL (150-450); RBC 2.06 m/uL (3.80-5.40); RDW 14.6 % (11.5-15.5); WBC 12.8 k/uL (3.8-10.6)
[2017-08-27 07:11] LABS: HCT 19.9 % (34.0-46.0); HGB 6.7 gm/dL (11.4-16.0)
--- NOTE | 2017-08-27 07:30 | CONS ---
CONSULTATION DATE OF SERVICE: 08/26/2017. REASON FOR CONSULTATION: Abdominal wall hematoma versus abscess. HISTORY OF PRESENT ILLNESS: The patient is a 62-year-old female who presented to the [facility] ER on 08/21/2017 with chief complaint of increasing shortness of breath. Her symptoms have been going on for a few days prior to presentation to hospital. The patient initially presented to [facility] where she was diagnosed with possible severe sepsis, pneumonia, hypoxemia. On arrival to the ER, the patient did have a fever of 101.7 degrees Fahrenheit. The patient did have elevated white count 18.4. The chest x-ray on admission did show no acute cardiopulmonary disease and no acute change. Patient did have influenza B serology positive diagnosed with acute influenza B and has been treated with Tamiflu. The patient's fever subsequently has resolved; however, over the last few days the patient was having pain in the right lower abdominal area. The pain described to be throbbing with intensity of 7 to 8/10 and no radiation. There is no overall swelling or any redness. The patient did not recall receiving any heparin shots or any other intravascular injection of the abdominal wall. The patient did have a CT of abdomen and pelvis, which did show large abdominal wall intramuscular heterogenous mass within the rectus abdominis extending into the right flank musculature measuring 11.2 x7 x 13 cm with some subcutaneous inflammatory fat stranding. Also a large rectus sheath hematoma, infected hematoma or early abscess or less likely abdominal wall neoplasm. Hence, I was asked to see the patient for further recommendation and possible use of antibiotic therapy. The patient has been afebrile for the last 4 to 5 days and her breathing has improved. The patient continued to have cough, but not bringing up any sputum. No diarrhea. REVIEW OF SYSTEMS: CONSTITUTIONAL: Positive for weakness and a fever that since has resolved. EYES: No complaint. ENT: No complaint. RESPIRATORY: As per HPI. CARDIOVASCULAR: No complaint. GENITOURINARY: No complaint. GASTROINTESTINAL: As per HPI. MUSCULOSKELETAL: No complaint. INTEGUMENTARY: No complaint. PSYCHOLOGICAL: No complaint. ENDOCRINE: No complaint. NEUROLOGIC: No complaint. PAST MEDICAL HISTORY: COPD, gastroesophageal reflux disease, osteoarthritis, pancreatitis, gout, Khan's palsy, chronic back pain. PAST SURGICAL HISTORY: Appendectomy, , joint total left hip replacement, anterior approach, ORIF right arm pin which was later removed. SOCIAL HISTORY: Current everyday smoker. Rarely drinks. No drug use. FAMILY HISTORY: Mother with history of COPD, diabetes mellitus. Father had heart problem. ALLERGIES: No known drug allergies. MEDICATIONS: Medications include the patient is currently on Ativan, morphine sulfate, Theragran, nicotine patch, Tamiflu 30 mg p.o. 12 hours, Percocet Protonix, prednisone vitamin B1, verapamil, Levaquin, NovoLog, Robitussin, Pulmicort. PHYSICAL EXAMINATION: On examination, blood pressure 136/69, pulse of 89, temperature of 98.4. She is 93% on 2 L nasal cannula. General description is a middle aged female lying in bed in no distress. No tachypnea or accessory muscle of respiration use. HEENT examination shows pallor, no scleral icterus. Oral mucous membrane is moist with evidence of oral thrush. NECK: Trachea is central. No thyromegaly. LUNGS: Unlabored breathing, decreased breath sounds. No wheeze or crackle. HEART: S1, S2. Regular rate and rhythm. ABDOMEN: Soft. No swelling, redness or discomfort abdominal wall, however, the patient tender on the right side of the abdominal area with slight guarding and no rigidity. EXTREMITIES: No edema of feet. SKIN EXAMINATION: No rash or mass palpable. NEUROLOGICAL: Patient is awake, alert, oriented x3. Mood and affect normal. LABS: Hemoglobin 6.6, white count 14,000 with a BUN of 41, creatinine 0.84. Electrolytes have been normal. Liver enzymes are normal. The patient did have blood culture that has been negative so far. No sputum collected during this admission. DIAGNOSTIC IMPRESSION AND PLAN: 1. Patient admitted to hospital with increasing shortness of breath, did have a cough diagnosed with acute influenza B with a CT suggestive of some infiltrate in the left lingula with question of possible secondary pneumonia could be more likely community-acquired as the patient's fever responded to the Levaquin. 2. Patient with abdominal pain. The patient noticed to have significant drop in hemoglobin from 15 to 6.6 during this admission likely suspicion for large abdominal wall/rectus sheath hematoma. Clinically doubt abscess in a patient currently with no fever, no redness was noticed on the abdominal wall and patient does not look toxic. PLAN: 1. The patient will continue Tamiflu, to finish a 5-day course of therapy for influenza B. 2. The patient to continue with Levaquin for underlying possible community-acquired pneumonia. 3. No need for any systemic antibiotic therapy for abdominal wall hematoma as clinically doubt abscess. However, the patient hemoglobin and the area of induration needs to be monitored closely for signs and symptoms of worsening hematoma that may need surgical drainage. 4. We will follow up on the clinical condition to further adjust medication if needed. Thank you for this consultation. Will follow this patient along with you. MMODL / IJN: [id number] /
--- NOTE | 2017-08-27 08:24 | P.PN ---
Subjective Progress Note Date: 08/27/17 Principal diagnosis: Rectus sheath hematoma and influenza The patient states she just does not feel well. Continues to have pain in the right upper quadrant. No nausea or vomiting. Objective - Vital Signs Vital signs: Vital Signs Temp 98.3 F 08/27/17 04:00 Pulse 92 08/27/17 04:00 Resp 18 08/27/17 04:00 BP 139/66 08/27/17 04:00 Pulse Ox 93 L 08/27/17 04:00 Intake & Output 08/26/17 08/27/17 08/27/17 18:59 06:59 18:59 Intake Total 600 240 Output Total 3 3 Balance 597 237 Weight 73.4 kg Intake: Oral 290 240 Blood Product 310 Rc As-1 Unit 310 [id number] Output: Stool 3 3 Other: Voiding Method Bedside Commode Bedside Commode # Voids 3 2 1 # Bowel Movements 1 - Constitutional General appearance: Present: cooperative - Gastrointestinal Localized gastrointestinal: mass: RUQ (She has right upper quadrant fullness and tenderness consistent with a hematoma. Minimal ecchymosis on the abdominal wall at present) - Labs CBC & Chem 7: 08/27/17 06:08 08/27/17 06:08 Labs: Abnormal Lab Results - Last 24 Hours (Table) 08/26/17 08/26/17 08/26/17 Range/Units 09:30 09:30 11:30 WBC (3.8-10.6) k/uL RBC (3.80-5.40) m/uL Hgb (11.4-16.0) gm/dL Hct (34.0-46.0) % Neutrophils # (1.3-7.7) k/uL APTT 18.2 L (22.0-30.0) sec BUN (7-17) mg/dL POC Glucose (mg/dL) 151 H (75-99) mg/dL Total Protein (6.3-8.2) g/dL Albumin (3.5-5.0) g/dL Crossmatch See Detail 08/26/17 08/26/17 08/27/17 Range/Units 16:39 20:44 05:46 WBC (3.8-10.6) k/uL RBC (3.80-5.40) m/uL Hgb (11.4-16.0) gm/dL Hct (34.0-46.0) % Neutrophils # (1.3-7.7) k/uL APTT (22.0-30.0) sec BUN (7-17) mg/dL POC Glucose (mg/dL) 168 H 138 H 100 H (75-99) mg/dL Total Protein (6.3-8.2) g/dL Albumin (3.5-5.0) g/dL Crossmatch 08/27/17 08/27/17 Range/Units 06:08 06:08 WBC 12.8 H (3.8-10.6) k/uL RBC 2.06 L (3.80-5.40) m/uL Hgb 6.7 L* (11.4-16.0) gm/dL Hct 19.9 L* (34.0-46.0) % Neutrophils # 9.8 H (1.3-7.7) k/uL APTT (22.0-30.0) sec BUN 29 H (7-17) mg/dL POC Glucose (mg/dL) (75-99) mg/dL Total Protein 4.7 L (6.3-8.2) g/dL Albumin 2.8 L (3.5-5.0) g/dL Crossmatch Microbiology - Last 24 Hours (Table) 08/21/17 19:00 Blood Culture - Preliminary Blood No Growth after 120 hours Assessment and Plan (1) Rectus sheath hematoma Current Visit: Yes Status: Acute Code(s): S30.1XXA - CONTUSION OF ABDOMINAL WALL, INITIAL ENCOUNTER SNOMED Code(s): 968974012 (2) Acute blood loss anemia Current Visit: Yes Status: Acute Code(s): D62 - ACUTE POSTHEMORRHAGIC ANEMIA SNOMED Code(s): 494917996 (3) Adult respiratory distress syndrome Current Visit: Yes Status: Acute Code(s): J80 - ACUTE RESPIRATORY DISTRESS SYNDROME SNOMED Code(s): 86101233 (4) Atrial fibrillation with RVR Current Visit: Yes Status: Acute Code(s): I48.91 - UNSPECIFIED ATRIAL FIBRILLATION SNOMED Code(s): 833465094212342 (5) Hypoxia Current Visit: Yes Status: Acute Code(s): R09.02 - HYPOXEMIA SNOMED Code(s ): 032648408 Plan: Her hemoglobin did not significantly increase with 1 unit of packed red blood cells. We'll give her another unit. Continue to monitor her. Hold anticoagulants and antiplatelet agents. Currently nonsurgical
[2017-08-27] MEDS: BUDESONIDE 1 MG/2 ML NEBU INHALATION SCH ×2 (08:56→20:08)
[2017-08-27] MEDS: FORMOTEROL FUMARATE 20 MCG/2 ML NEBU INHALATION SCH ×2 (08:56→20:08)
[2017-08-27] MEDS: IPRATROPIUM-ALBUTEROL 3 ML NEB INHALATION SCH ×4 (08:56→20:08)
[2017-08-27] MEDS: NICOTINE 21MG/24HR PATCH TRANSDERM SCH (09:05)
[2017-08-27] MEDS: predniSONE 20 MG TAB PO SCH (09:07)
[2017-08-27] MEDS: VERAPAMIL 40 MG TAB PO SCH ×3 (09:07→21:31)
[2017-08-27] MEDS ORDERED: FUROSEMIDE 10 MG/ML 2 ML VIAL IV ONE (09:11)
--- NOTE | 2017-08-27 10:05 | P.PN ---
Subjective Progress Note Date: 08/27/17 This is a 61-year-old female, patient of Dr. Cox. This patient has past medical history of COPD, Khan's palsy, alcoholic pancreatitis, and nicotine dependence. Patient initially presented to [facility] due to worsening shortness of breath and cough. They were concerned about sepsis and pneumonia she was also hypoxic requiring a BiPAP. She was then transferred to [facility] for more extensive care and workup. She's found to be atrial fibrillation with a rapid ventricular response heart rate in the 190s. She required Cardizem drip in the ER. She has converted back to normal sinus rhythm around 4:00 this morning. Both pulmonary service and cardiology have been consulted. Cardiology has added Eliquis for anticoagulation. Case was discussed with pulmonary service. Patient is currently requiring a Ventimask at 98%. Patient reports increased shortness of breath is especially with ambulating. Patient also having productive cough with chest discomfort. She denies any nausea or vomiting. She is requesting pain medications for her chest pains. Patient denies current or active alcohol use. However prior history does reveal alcohol use history as well as alcoholic pancreatitis. Nursing staff has notified me that the patient is becoming more anxious throughout the morning it is starting to having some tremors and shakes. The CIWA protocol has been ordered as well as thiamine and multivitamin. Patient reports having fevers and chills. She had a temp of 103 at home and 101.7 on admission. White count elevated at 18.4 and also tachycardic. Patient also had been antibiotics for possible pneumonia and COPD exacerbation. Patient reports she's been having these symptoms of shortness of breath and cough for about 4 weeks with no improvement with antibiotics. She also reports that she' s had a few episodes of diarrhea. Stool for C. diff has been ordered. 08/23/2017 patient is influenza be positive and started on Tamiflu this morning. Cardiology has evaluated patient and added verapamil and Eliquis for her atrial fibrillation. Patient remains in normal sinus rhythm. Oxygen saturation is at 96% on 4 L. Patient is requiring a lot of pain medication due to chest discomfort from her cough. Patient has been educated that we need to cut back on her pain medications due to her respiratory status. Her morphine will be cut down to 6 mg by mouth every 8 hours as needed and she can continue with her Percocets. Patient followed by both pulmonary and cardiology service. Echo shows an EF of 60-65% with severe left ventricle hypertrophy and small pericardial effusion. 08/26/2017 patient is still complaining of some shortness of breath and not feeling well. She had a drop in her hemoglobin from 8.5-6.6. Eliquis was discontinued over the weekend due to an initial drop in hemoglobin from 12 to around 8. She had a computed tomography scan of the abdomen and pelvis completed. Results show large abdominal wall intramuscular heterogenous mass within the rectus abdominis extending into the right flank musculature measuring at least 11.2 x 7.0 x 13.0 cm. Radiologist reports considerations are for a large rectus sheath hematoma, infected hematoma/early abscess. Hemoglobin 6.6 to receive 1 unit of blood. Surgical service has been notified and infectious disease has been consulted. 08/27/2017 patient is complaining of right-sided abdominal pain. She is now having some bruising around the umbilicus and her right side. Hemoglobin is 6.7 even after 1 unit of blood. She'll receive another unit of blood today. She's followed by surgical service. They are able to draw her blood without difficulty at this time. She denies any chest pain. Shortness of breath and cough are showing improvement. Denies any nausea or vomiting. Reports having bowel movements. Denies any blood in the stool or urine Objective - Vital Signs Vital signs: Vital Signs Temp 98.3 F 08/27/17 04:00 Pulse 92 08/27/17 04:00 Resp 18 08/27/17 04:00 BP 139/66 08/27/17 04:00 Pulse Ox 93 L 08/27/17 04:00 Intake & Output 08/26/17 08/27/17 08/27/17 18:59 06:59 18:59 Intake Total 600 240 Output Total 3 3 Balance 597 237 Weight 73.4 kg Intake: Oral 290 240 Blood Product 310 Rc As-1 Unit 310 [id number] Output: Stool 3 3 Other: Voiding Method Bedside Commode Bedside Commode # Voids 3 2 1 # Bowel Movements 1 - Exam Head normocephalic Neck supple Lungs rhonchi and coarse breath sounds Heart regular rate and rhythm S1-S2, no rub or gallop Abdomen is more firm with palpation along the right side of the abdomen and right flank. Patient now having bruising along the right flank and around the umbilicus a dark blue color Extremities +1 edema bilaterally Neuro alert and orientated to 3 - Labs CBC & Chem 7: 08/27/17 06:08 08/27/17 06:08 Labs: Abnormal Lab Results - Last 24 Hours (Table) 08/26/17 08/26/17 08/26/17 Range/Units 09:30 09:30 11:30 WBC (3.8-10.6) k/uL RBC (3.80-5.40) m/uL Hgb (11.4-16.0) gm/dL Hct (34.0-46.0) % Neutrophils # (1.3-7.7) k/uL APTT 18.2 L (22.0-30.0) sec BUN (7-17) mg/dL POC Glucose (mg/dL) 151 H (75-99) mg/dL Total Protein (6.3-8.2) g/dL Albumin (3.5-5.0) g/dL Crossmatch See Detail 08/26/17 08/26/17 08/27/17 Range/Units 16:39 20:44 05:46 WBC (3.8-10.6) k/uL RBC (3.80-5.40) m/uL Hgb (11.4-16.0) gm/dL Hct (34.0-46.0) % Neutrophils # (1.3-7.7) k/uL APTT (22.0-30.0) sec BUN (7-17) mg/dL POC Glucose (mg/dL) 168 H 138 H 100 H (75-99) mg/dL Total Protein (6.3-8.2) g/dL Albumin (3.5-5.0) g/dL Crossmatch 08/27/17 08/27/17 Range/Units 06:08 06:08 WBC 12.8 H (3.8-10.6) k/uL RBC 2.06 L (3.80-5.40) m/uL Hgb 6.7 L* (11.4-16.0) gm/dL Hct 19.9 L* (34.0-46.0) % Neutrophils # 9.8 H (1.3-7.7) k/uL APTT (22.0-30.0) sec BUN 29 H (7-17) mg/dL POC Glucose (mg/dL) (75-99) mg/dL Total Protein 4.7 L (6.3-8.2) g/dL Albumin 2.8 L (3.5-5.0) g/dL Crossmatch Microbiology - Last 24 Hours (Table) 08/21/17 19:00 Blood Culture - Preliminary Blood No Growth after 120 hours Assessment and Plan Assessment: 1. Acute hypoxic respiratory failure secondary to acute COPD exacerbation, bronchitis and atrial fibrillation with rapid ventricular response. Patient has required BiPAP and Ventimask. She is now off of oxygen and on room air 2. Acute COPD exacerbation: Patient started on prednisone over the weekend. Continue nebulizer treatments 3. Acute tracheobronchitis with possible community-acquired pneumonia per infectious disease. Continue with Levaquin. 4. Atrial fibrillation with rapid ventricular response present on admission requiring Cardizem drip. Converted to normal sinus rhythm. Cardiology started Eliquis for anticoagulation and verapamil. Eliquis discontinued due to rectus sheath hematoma 5. History of alcohol abuse and evidence of some withdrawal symptoms with anxiety and tremors. [facility] protocol with thiamine and multivitamin ordered 6. Sepsis present on admission likely related to bronchitis 7. Diarrhea check stool for C. diff . Diarrhea appears to resolved 8. History of COPD 9. History of Khan's palsy 10. History of alcoholic pancreatitis 11. Nicotine dependence: Patient started on a nicotine patch 12. Rectus sheath hematoma with acute blood loss anemia. Case discussed with surgical service. No surgical intervention. Possibly hematoma due to Eliquis and coughing. Patient's is followed by surgical service. Also seen by infectious disease and they doubted that there is an abscess. Hemoglobin is only at 6.7 after a unit of blood. Patient will receive another unit of blood with Lasix 20 mg IV push after Consult physical therapy DVT prophylaxis SCDs I performed an examination of the patient and discussed their management with the physician Test Clerk. I have reviewed the Physician Test Clerk's notes and agree with the documented findings and plan of care
[2017-08-27] MEDS: OSELTAMIVIR 60 MG/10 ML ORAL SYRINGE PO SCH (10:23)
[2017-08-27 11:48] LABS: Glucose,Whole Blood 137 mg/dL (75-99)
[2017-08-27] MEDS: THIAMINE 100 MG TAB PO SCH ×2 (12:03→17:22)
[2017-08-27] MEDS: MULTIVITAMINS, THERA 1 EACH TAB PO SCH (12:03)
--- NOTE | 2017-08-27 13:13 | P.PN ---
Subjective Progress Note Date: 08/27/17 Principal diagnosis: Acute exacerbation of chronic obstructive pulmonary disease, complicated by acute tracheobronchitis with influenza B infection. A 61-year-old female patient, a chronic smoker, known history of COPD whereas been a good state of health and she was under the care of her private care physician. She has been a chronic smoker. She has also history of alcoholism and previous history of pancreatitis. The patient presented yesterday to the emergency department at [facility] because of increased dyspnea, recurrent cough, chest wall pain due to vigorous coughing, chest congestion with limited sputum production, bronchospasm and wheeze. In the emergency department the patient was quite short of breath. She was placed on BiPAP. She also had a brief episode of atrial fibrillation with rapid ventricular response where she was placed on Cardizem drip. The patient converted back to normal sinus rhythm at around 4:00 this morning. She is currently off the BiPAP. She is using a simple Ventimask. She is able to complete full sentences. She has however very uncomfortable with breathing and she has frequent coughing episodes pressure when she takes a deep breath. There is a first aspiration for COPD exacerbation. Her chest x-ray is clear and there is no evidence of any acute pulmonary infiltration or pneumonia. No evidence of any pneumothorax. She had a temperature of 103.0 at home and subsequently 11.7 during the time of admission and currently she is afebrile. Her white cell count of 18.4. Clinically better yet not recovered. No hemoptysis. No pleurisy. Some limited diarrhea the patient is being checked for C. diff. Note patient about treatments. No recent antibiotic or steroid treatment. No history of childhood asthma. No history of DVT or pulmonary embolism. No cardiac history. On 08/23/2017 the patient is essentially the same condition. Slightly better in terms of her cough and congestion. She is afebrile. She was diagnosed having an influenza be taken bronchitis which was suspected the time of admission and the influenza screen clearly showed that. The patient is is utilizing Percocet for cough and chest pain. The patient is also on Robitussin- DM. She is on bronchodilators and systemic steroids. Tamiflu was also added. No nausea. No vomiting. No altered mentation. No other complaints otherwise for the past 24 hours. Her recovery is essentially slow. She was given a nicotine patch. On 08/24/2017, the patient is improving slowly. She is less short of breath. Her cough is gradually subsiding. Nevertheless pain is an ongoing issue as the patient is having pain across the right chest area. The right upper quadrant is slightly swollen compared to the left and the area is quite tender especially the rib cage area. I'm concerned of a rib fracture versus a hematoma within the same area. Overlying skin is within normal and there is no ecchymosis of the skin. She is a bit anxious. Her pain level is quite high and the patient is receiving IV morphine 6 g every 8 hours in addition to Percocet. She is also on combination of bronchodilators and steroids and antibiotics. No other complaints otherwise for now. On 08/25/2017 the patient continues to improve. Her main issue is pain which I think is somewhat exaggerated. She is on a combination of IV morphine and oral Percocet. There was a concern of a skeletal injury to her rib cage and based on that a CAT scan of the chest was ordered and upon review, there is some limited interstitial infiltrates/scarring in lung bases. No evidence of any pulmonary masses or lesions or malignancy. No mediastinal lymphadenopathy. The patient is doing better. She is quite uncomfortable when she coughs and she continues to have pain across the right lateral chest area. She is on a prednisone burst taper. She is on Levaquin. Bronchodilators remain unchanged. The patient is seen again today 08/26/2017 in follow-up on the selective care unit. She is awake and alert in no acute distress. She is breathing easier today as compared to yesterday. She is maintaining good O2 saturations in the 90s on 2 L/m per nasal cannula. She's been afebrile. Computed tomography scan of the abdomen did reveal a large abdominal wall intramuscular heterogenous mass within the rectus abdominis extending into the right flank musculature measuring at least 11.2 x 7.0 x 13.0 cm width subcutaneous inflammatory fat stranding. Considerations are for large rectus sheath hematoma, infected hematoma/early abscess or less likely abdominal wall neoplasm based on the inflammatory fat stranding. She has had a further drop in hemoglobin to 6.6 today. surgical services have been consulted.the patient's Eliquis is on hold. Receiving packed red blood cell transfusion. No plans for surgical intervention at this point. The patient is seen again today 08/27/2017 in follow-up on the selective care unit. She is sitting up and at the bedside. Her pain is fairly well controlled. She has ongoing issues with the right-sided abdominal hematoma. The area has been marked. No significant change. However the patient did drop her hemoglobin again to 6.7 is receiving a second unit of packed red blood cells. She denies any worsening shortness of breath, cough or congestion. Her breathing is improved. No tachypnea. She's been afebrile. Hemodynamically stable. Objective - Vital Signs Vital signs: Vital Signs Temp 97.7 F 08/27/17 11:50 Pulse 82 08/27/17 11:50 Resp 18 08/27/17 11:50 BP 121/62 08/27/17 11:50 Pulse Ox 98 08/27/17 11:50 Intake & Output 08/26/17 08/27/17 08/27/17 18:59 06:59 18:59 Intake Total 600 240 50 Output Total 3 3 Balance 597 237 50 Weight 73.4 kg Intake: Oral 290 240 50 Blood Product 310 0 Rc As-1 Unit 310 [id number] Rc As-3 Unit 0 [id number] Output: Stool 3 3 Other: Voiding Method Bedside Commode Bedside Commode # Voids 3 2 1 # Bowel Movements 1 - Exam Gen. appearance the patient is quite uncomfortable and she is having frequent coughing episodes. She has labored breathing and she is able to complete full sentences. Head exam was generally normal. There was no scleral icterus or corneal arcus. Mucous membranes were moist. Neck was supple and without jugular venous distension, thyromegaly, or carotid bruits. Carotids were easily palpable bilaterally. There was no adenopathy. Lungs sounds are diminished bilaterally along with prolongation of expiratory phase of breathing and diffuse expiratory wheezes throughout the lung hoffman bilaterally. Cardiac exam revealed the PMI to be normally situated and sized. The rhythm was regular and no extrasystoles were noted during several minutes of auscultation. The first and second heart sounds were normal and physiologic splitting of the second heart sound was noted. There were no murmurs, rubs, clicks, or gallops. Abdominal exam revealed normal bowel sounds. The abdomen is tender right upper quadrant, palpable hematoma, ecchymosis. Large rectus abdominis hematoma per computed tomography scan Examination of the extremities revealed easily palpable radial, femoral and pedal pulses. There was no cyanosis, clubbing or edema. Examination of the skin revealed no evidence of significant rashes, suspicious appearing nevi or other concerning lesions. Neurologically the patient is awake and alert and there is no focal neurological deficit - Labs CBC & Chem 7: 08/27/17 06:08 08/27/17 06:08 Labs: Abnormal Lab Results - Last 24 Hours (Table) 08/26/17 08/26/17 08/26/17 Range/Units 09:30 16:39 20:44 WBC (3.8-10.6) k/uL RBC (3.80-5.40) m/uL Hgb (11.4-16.0) gm/dL Hct (34.0-46.0) % Neutrophils # (1.3-7.7) k/uL BUN (7-17) mg/dL POC Glucose (mg/dL) 168 H 138 H (75-99) mg/dL Total Protein (6.3-8.2) g/dL Albumin (3.5-5.0) g/dL Crossmatch See Detail 08/27/17 08/27/17 08/27/17 Range/Units 05:46 06:08 06:08 WBC 12.8 H (3.8-10.6) k/uL RBC 2.06 L (3.80-5.40) m/uL Hgb 6.7 L* (11.4-16.0) gm/dL Hct 19.9 L* (34.0-46.0) % Neutrophils # 9.8 H (1.3-7.7) k/uL BUN 29 H (7-17) mg/dL POC Glucose (mg/dL) 100 H (75-99) mg/dL Total Protein 4.7 L (6.3-8.2) g/dL Albumin 2.8 L (3.5-5.0) g/dL Crossmatch 08/27/17 Range/Units 11:40 WBC (3.8-10.6) k/uL RBC (3.80-5.40) m/uL Hgb (11.4-16.0) gm/dL Hct (34.0-46.0) % Neutrophils # (1.3-7.7) k/uL BUN (7-17) mg/dL POC Glucose (mg/dL) 137 H (75-99) mg/dL Total Protein (6.3-8.2) g/dL Albumin (3.5-5.0) g/dL Crossmatch Microbiology - Last 24 Hours (Table) 08/21/17 19:00 Blood Culture - Preliminary Blood No Growth after 120 hours Assessment and Plan Assessment: Assessment 1 acute COPD exacerbation with secondary shortness of breath. The patient had acute tracheal bronchitis that influenza B infection and this was confirmed by an influenza nasal swab screen. Currently she is on Tamiflu. The patient continues to have extensive skeletal chest for pain for which she is on a combination of morphine and Percocet. CAT scan of the chest showed no evidence of any hematoma or rib fracture. Abdominal CT revealed evidence of a large rectus abdominis hematoma. Eliquis remains on hold. 2 chronic dyspnea related to COPD with interval exacerbation MN improving and the patient is currently on a prednisone burst taper 3 acute febrile illness, currently under investigation 4 right upper quadrant pain and tenderness found to have a large rectus abdominis hematoma. Eliquis is on hold. 5 acute anemia secondary to blood loss into rectus abdominis. Hemoglobin 6.6. One unit packed red blood cells initiated. 6 atrial fibrillation with rapid ventricular response and current rhythm is back to sinus 7 gout 8 history of alcoholism with previous history of pancreatitis 9 chronic back pain 10 acid reflux 11 smoker Plan: The patient was seen and evaluated by Dr. Barnes. she is currently stable from the pulmonary standpoint. She remains on a prednisone taper. She is again educated regarding the process importance of complete smoking cessation. Habitrol patch remains in place. Continue Tamiflu. She is receiving a second unit of packed red blood cell transfusion for hemoglobin was 6.7 again today. Large rectus abdominis hematoma noted. Eliquis is on hold. No surgical intervention planned per surgical services. We will continue to follow and make further recommendations based on her clinical status. I, the cosigning physician, performed a history & physical examination of the patient. Lungs sounds with faint crackles in the bilateral posterior bases. Diminished. Maintaining good O2 saturations in the 90s on 2 L/m per nasal cannula. I discussed the assessment and plan of care with my nurse practitioner , Libby Toledo. I attest to the above note as dictated by her.
[2017-08-27] MEDS: guaiFENesin-DM 100-10MG/5ML 10 ML CUP PO PRN (15:30)
--- NOTE | 2017-08-27 15:49 | PN ---
PROGRESS NOTE DATE OF SERVICE: 08/27/2017. REASON FOR FOLLOWUP: 1. Acute influenza B. 2. Right rectus sheath hematoma. INTERVAL HISTORY: The patient is afebrile. She is complaining of significant pain to the right lower abdominal area. Some relief with pain medication. No nausea, vomiting. No diarrhea. EXAMINATION: Blood pressure 132/68 with a pulse of 95, temperature 98.2. She is 95% on room air. General description is a middle-aged female up in the bed in no distress. Respiratory system unlabored breathing, decreased intensity of breath sounds. No wheeze. Heart S1, S2. Regular rate and rhythm. ABDOMEN: Soft. She is tender right lower quadrant area with bruise formation, but no redness. LABS: Hemoglobin 6.7, despite 1 L of blood transfusion yesterday. White count of 12.8. BUN of 29, creatinine 0.70. DIAGNOSTIC IMPRESSION AND PLAN: 1. Patient with acute influenza for which the patient continue on to finish a 5- day course of therapy. 2. Patient with right rectus sheath hematoma, need to monitored closely for persistent bleeding as the patient did have a drop in hemoglobin. Clinically doubt cellulitis. No need for systemic antibiotic therapy. Continue supportive care. MMODL / IJN: [id number] /
[2017-08-27 16:59] LABS: Glucose,Whole Blood 182 mg/dL (75-99)
[2017-08-27] MEDS: ALPRAZolam 0.25 MG TAB PO PRN (19:07)
[2017-08-27 21:01] LABS: Glucose,Whole Blood 173 mg/dL (75-99)
[2017-08-27] MEDS: LEVOFLOXACIN 750 MG TAB PO SCH (21:32)
[2017-08-27] MEDS: OSELTAMIVIR 75 MG CAP PO SCH (21:32)
[2017-08-27 23:05] LABS: Glucose,Whole Blood 147 mg/dL (75-99)
[2017-08-28] MEDS: oxyCODONE-APAP 10-325MG 1 EACH TAB PO PRN ×5 (00:02→22:49)
[2017-08-28] MEDS: MORPHINE SULFATE 4 MG/ML SYRINGE IVP PRN ×6 (01:01→21:15)
[2017-08-28] MEDS: IPRATROPIUM-ALBUTEROL 3 ML NEB INHALATION SCH ×4 (07:22→19:17)
[2017-08-28] MEDS: FORMOTEROL FUMARATE 20 MCG/2 ML NEBU INHALATION SCH ×2 (07:22→19:17)
[2017-08-28] MEDS: BUDESONIDE 1 MG/2 ML NEBU INHALATION SCH ×2 (07:22→19:17)
[2017-08-28 07:30] LABS: Glucose,Whole Blood 95 mg/dL (75-99)
[2017-08-28 07:44] LABS: Anisocytosis Slight; Basophils # (A) 0.1 k/uL (0-0.2); Basophils % (A) 0 %; Eosinophils % (A) 0 %; HCT 23.2 % (34.0-46.0); Lymphocytes # (A) 1.9 k/uL (1.0-4.8); Lymphocytes % (A) 15 %; MCH 32.8 pg (25.0-35.0); MCHC 34.4 g/dL (31.0-37.0); MCV 95.6 fL (80.0-100.0); Mean Platelet Volume 7.4; Monocytes # (A) 0.7 k/uL (0-1.0); Monocytes % (A) 6 %; Neutrophils # (A) 9.7 k/uL (1.3-7.7); Neutrophils % (A) 77 %; Platelet Count 247 k/uL (150-450); RBC 2.42 m/uL (3.80-5.40); WBC 12.6 k/uL (3.8-10.6)
[2017-08-28 07:46] LABS: ALT 35 U/L (9-52); AST 25 U/L (14-36); Albumin 3.1 g/dL (3.5-5.0); Alkaline Phosphatase 41 U/L (38-126); Anion Gap 8 mmol/L; Blood Urea Nitrogen 30 mg/dL (7-17); Carbon Dioxide 31 mmol/L (22-30); Chloride 99 mmol/L (98-107); Glucose 84 mg/dL (74-99); Potassium 4.6 mmol/L (3.5-5.1); Sodium 138 mmol/L (137-145); Total Bilirubin 0.5 mg/dL (0.2-1.3); Total Protein 5.1 g/dL (6.3-8.2)
[2017-08-28] MEDS: INSULIN ASPART 100 UNIT/ML 1 ML 10 ML VIAL SQ SCH ×4 (07:48→21:14)
[2017-08-28] MEDS: PANTOPRAZOLE 40 MG TABLET PO SCH (08:27)
[2017-08-28] MEDS: VERAPAMIL 40 MG TAB PO SCH ×3 (08:27→21:16)
[2017-08-28] MEDS: predniSONE 20 MG TAB PO SCH (08:27)
[2017-08-28] MEDS: NICOTINE 21MG/24HR PATCH TRANSDERM SCH (08:27)
[2017-08-28] MEDS: OSELTAMIVIR 75 MG CAP PO SCH (08:27)
--- NOTE | 2017-08-28 10:22 | P.PN ---
Subjective Progress Note Date: 08/28/17 This is a 61-year-old female, patient of Dr. Cox. This patient has past medical history of COPD, Khan's palsy, alcoholic pancreatitis, and nicotine dependence. Patient initially presented to [facility] due to worsening shortness of breath and cough. They were concerned about sepsis and pneumonia she was also hypoxic requiring a BiPAP. She was then transferred to [facility] for more extensive care and workup. She's found to be atrial fibrillation with a rapid ventricular response heart rate in the 190s. She required Cardizem drip in the ER. She has converted back to normal sinus rhythm around 4:00 this morning. Both pulmonary service and cardiology have been consulted. Cardiology has added Eliquis for anticoagulation. Case was discussed with pulmonary service. Patient is currently requiring a Ventimask at 98%. Patient reports increased shortness of breath is especially with ambulating. Patient also having productive cough with chest discomfort. She denies any nausea or vomiting. She is requesting pain medications for her chest pains. Patient denies current or active alcohol use. However prior history does reveal alcohol use history as well as alcoholic pancreatitis. Nursing staff has notified me that the patient is becoming more anxious throughout the morning it is starting to having some tremors and shakes. The CIWA protocol has been ordered as well as thiamine and multivitamin. Patient reports having fevers and chills. She had a temp of 103 at home and 101.7 on admission. White count elevated at 18.4 and also tachycardic. Patient also had been antibiotics for possible pneumonia and COPD exacerbation. Patient reports she's been having these symptoms of shortness of breath and cough for about 4 weeks with no improvement with antibiotics. She also reports that she' s had a few episodes of diarrhea. Stool for C. diff has been ordered. 08/23/2017 patient is influenza be positive and started on Tamiflu this morning. Cardiology has evaluated patient and added verapamil and Eliquis for her atrial fibrillation. Patient remains in normal sinus rhythm. Oxygen saturation is at 96% on 4 L. Patient is requiring a lot of pain medication due to chest discomfort from her cough. Patient has been educated that we need to cut back on her pain medications due to her respiratory status. Her morphine will be cut down to 6 mg by mouth every 8 hours as needed and she can continue with her Percocets. Patient followed by both pulmonary and cardiology service. Echo shows an EF of 60-65% with severe left ventricle hypertrophy and small pericardial effusion. 08/26/2017 patient is still complaining of some shortness of breath and not feeling well. She had a drop in her hemoglobin from 8.5-6.6. Eliquis was discontinued over the weekend due to an initial drop in hemoglobin from 12 to around 8. She had a computed tomography scan of the abdomen and pelvis completed. Results show large abdominal wall intramuscular heterogenous mass within the rectus abdominis extending into the right flank musculature measuring at least 11.2 x 7.0 x 13.0 cm. Radiologist reports considerations are for a large rectus sheath hematoma, infected hematoma/early abscess. Hemoglobin 6.6 to receive 1 unit of blood. Surgical service has been notified and infectious disease has been consulted. 08/27/2017 patient is complaining of right-sided abdominal pain. She is now having some bruising around the umbilicus and her right side. Hemoglobin is 6.7 even after 1 unit of blood. She'll receive another unit of blood today. She's followed by surgical service. They are able to draw her blood without difficulty at this time. She denies any chest pain. Shortness of breath and cough are showing improvement. Denies any nausea or vomiting. Reports having bowel movements. Denies any blood in the stool or urine. On 08/28/2017 patient is alert and oriented 3 she is complaining of right sided abdominal pain site of large hematoma and bruising, she is continuously asking about pain medications, hemoglobin is stable up to 8.0 today. Patient is off liquids and there is no evidence of any further bleeding. Patient is having severe debility she is only able to walk a few steps with assistance, she will need to be transferred to a skilled nursing for rehab when medically cleared. Objective - Vital Signs Vital signs: Vital Signs Temp 97.1 F L 08/28/17 07:29 Pulse 80 08/28/17 07:43 Resp 16 08/28/17 07:29 BP 138/77 08/28/17 07:29 Pulse Ox 99 08/28/17 07:29 Intake & Output 08/27/17 08/28/17 08/28/17 18:59 06:59 18:59 Intake Total 410 1200 Output Total 1250 1 Balance -840 1199 Intake: Oral 410 1200 Blood Product 0 Rc As-3 Unit 0 [id number] Output: Urine 1250 Stool 1 Other: Voiding Method Bedside Commode Toilet # Voids 1 1 - Exam Head normocephalic and atraumatic Neck supple no JVD no goiter Lungs rhonchi and coarse breath sounds Heart regular rate and rhythm S1-S2, no rub or gallop Abdomen is more firm with palpation along the right side of the abdomen and right flank. Patient now having bruising along the right flank and around the umbilicus a dark blue color Extremities +1 edema bilaterally Neuro alert and orientated to 3 - Labs CBC & Chem 7: 08/28/17 07:09 08/28/17 07:09 Labs: Abnormal Lab Results - Last 24 Hours (Table) 08/26/17 08/27/17 08/27/17 Range/Units 09:30 11:40 16:54 WBC (3.8-10.6) k/uL RBC (3.80-5.40) m/uL Hgb (11.4-16.0) gm/dL Hct (34.0-46.0) % RDW (11.5-15.5) % Neutrophils # (1.3-7.7) k/uL Carbon Dioxide (22-30) mmol/L BUN (7-17) mg/dL POC Glucose (mg/dL) 137 H 182 H (75-99) mg/dL Total Protein (6.3-8.2) g/dL Albumin (3.5-5.0) g/dL Crossmatch See Detail 08/27/17 08/27/17 08/28/17 Range/Units 20:59 23:04 07:09 WBC 12.6 H (3.8-10.6) k/uL RBC 2.42 L (3.80-5.40) m/uL Hgb 8.0 L (11.4-16.0) gm/dL Hct 23.2 L (34.0-46.0) % RDW 17.0 H (11.5-15.5) % Neutrophils # 9.7 H (1.3-7.7) k/uL Carbon Dioxide (22-30) mmol/L BUN (7-17) mg/dL POC Glucose (mg/dL) 173 H 147 H (75-99) mg/dL Total Protein (6.3-8.2) g/dL Albumin (3.5-5.0) g/dL Crossmatch 08/28/17 Range/Units 07:09 WBC (3.8-10.6) k/uL RBC (3.80-5.40) m/uL Hgb (11.4-16.0) gm/dL Hct (34.0-46.0) % RDW (11.5-15.5) % Neutrophils # (1.3-7.7) k/uL Carbon Dioxide 31 H (22-30) mmol/L BUN 30 H (7-17) mg/dL POC Glucose (mg/dL) (75-99) mg/dL Total Protein 5.1 L (6.3-8.2) g/dL Albumin 3.1 L (3.5-5.0) g/dL Crossmatch Microbiology - Last 24 Hours (Table) 08/21/17 19:00 Blood Culture - Final Blood No Growth after 144 hours Assessment and Plan Plan: 1. Acute hypoxic respiratory failure secondary to acute COPD exacerbation, bronchitis and atrial fibrillation with rapid ventricular response. Patient has required BiPAP and Ventimask. She is now off of oxygen and on room air 2. Acute COPD exacerbation: Patient started on prednisone over the weekend. Continue nebulizer treatments 3. Acute tracheobronchitis with possible community-acquired pneumonia per infectious disease. Discontinue Levaquin, patient received 6 doses of Levaquin 750 mg by mouth, no need for antibiotics per infectious disease. 4. Atrial fibrillation with rapid ventricular response present on admission requiring Cardizem drip. Converted to normal sinus rhythm. Cardiology started Eliquis for anticoagulation and verapamil. Eliquis discontinued due to rectus sheath hematoma 5. History of alcohol abuse and evidence of some withdrawal symptoms with anxiety and tremors. [facility] protocol with thiamine and multivitamin ordered 6. Sepsis present on admission likely related to bronchitis 7. Diarrhea check stool for C. diff . Diarrhea appears to resolved 8. History of COPD 9. History of Khan's palsy 10. History of alcoholic pancreatitis 11. Nicotine dependence: Patient started on a nicotine patch 12. Rectus sheath hematoma with acute blood loss anemia. Case discussed with surgical service. No surgical intervention. Possibly hematoma due to Eliquis and coughing. Patient's is followed by surgical service. Also seen by infectious disease and they doubted that there is an abscess. Hemoglobin is only at 6.7 after a unit of blood. Patient will receive another unit of blood with Lasix 20 mg IV push after. 13. Acute on chronic pain, patient was maintained on Percocet 4 times daily, IV morphine was added to her regimen due to severe pain related to her hematoma , at this time will decrease IV morphine dose to 1 mg every 4 hours when necessary continue was Percocet, hopefully tomorrow we can discontinue IV morphine. 14. Physical debility patient needs assistance to walk a few steps she will need to go to a skilled nursing for rehab. Consult physical therapy DVT prophylaxis SCDs
[2017-08-28 10:46] VITALS: BMI 29.5
--- NOTE | 2017-08-28 11:35 | P.PN ---
Subjective Progress Note Date: 08/28/17 Principal diagnosis: Acute exacerbation of chronic obstructive pulmonary disease, complicated by acute tracheobronchitis with influenza B infection. A 61-year-old female patient, a chronic smoker, known history of COPD whereas been a good state of health and she was under the care of her private care physician. She has been a chronic smoker. She has also history of alcoholism and previous history of pancreatitis. The patient presented yesterday to the emergency department at [facility] because of increased dyspnea, recurrent cough, chest wall pain due to vigorous coughing, chest congestion with limited sputum production, bronchospasm and wheeze. In the emergency department the patient was quite short of breath. She was placed on BiPAP. She also had a brief episode of atrial fibrillation with rapid ventricular response where she was placed on Cardizem drip. The patient converted back to normal sinus rhythm at around 4:00 this morning. She is currently off the BiPAP. She is using a simple Ventimask. She is able to complete full sentences. She has however very uncomfortable with breathing and she has frequent coughing episodes pressure when she takes a deep breath. There is a first aspiration for COPD exacerbation. Her chest x-ray is clear and there is no evidence of any acute pulmonary infiltration or pneumonia. No evidence of any pneumothorax. She had a temperature of 103.0 at home and subsequently 11.7 during the time of admission and currently she is afebrile. Her white cell count of 18.4. Clinically better yet not recovered. No hemoptysis. No pleurisy. Some limited diarrhea the patient is being checked for C. diff. Note patient about treatments. No recent antibiotic or steroid treatment. No history of childhood asthma. No history of DVT or pulmonary embolism. No cardiac history. On 08/23/2017 the patient is essentially the same condition. Slightly better in terms of her cough and congestion. She is afebrile. She was diagnosed having an influenza be taken bronchitis which was suspected the time of admission and the influenza screen clearly showed that. The patient is is utilizing Percocet for cough and chest pain. The patient is also on Robitussin- DM. She is on bronchodilators and systemic steroids. Tamiflu was also added. No nausea. No vomiting. No altered mentation. No other complaints otherwise for the past 24 hours. Her recovery is essentially slow. She was given a nicotine patch. On 08/24/2017, the patient is improving slowly. She is less short of breath. Her cough is gradually subsiding. Nevertheless pain is an ongoing issue as the patient is having pain across the right chest area. The right upper quadrant is slightly swollen compared to the left and the area is quite tender especially the rib cage area. I'm concerned of a rib fracture versus a hematoma within the same area. Overlying skin is within normal and there is no ecchymosis of the skin. She is a bit anxious. Her pain level is quite high and the patient is receiving IV morphine 6 g every 8 hours in addition to Percocet. She is also on combination of bronchodilators and steroids and antibiotics. No other complaints otherwise for now. On 08/25/2017 the patient continues to improve. Her main issue is pain which I think is somewhat exaggerated. She is on a combination of IV morphine and oral Percocet. There was a concern of a skeletal injury to her rib cage and based on that a CAT scan of the chest was ordered and upon review, there is some limited interstitial infiltrates/scarring in lung bases. No evidence of any pulmonary masses or lesions or malignancy. No mediastinal lymphadenopathy. The patient is doing better. She is quite uncomfortable when she coughs and she continues to have pain across the right lateral chest area. She is on a prednisone burst taper. She is on Levaquin. Bronchodilators remain unchanged. The patient is seen again today 08/26/2017 in follow-up on the selective care unit. She is awake and alert in no acute distress. She is breathing easier today as compared to yesterday. She is maintaining good O2 saturations in the 90s on 2 L/m per nasal cannula. She's been afebrile. Computed tomography scan of the abdomen did reveal a large abdominal wall intramuscular heterogenous mass within the rectus abdominis extending into the right flank musculature measuring at least 11.2 x 7.0 x 13.0 cm width subcutaneous inflammatory fat stranding. Considerations are for large rectus sheath hematoma, infected hematoma/early abscess or less likely abdominal wall neoplasm based on the inflammatory fat stranding. She has had a further drop in hemoglobin to 6.6 today. surgical services have been consulted.the patient's Eliquis is on hold. Receiving packed red blood cell transfusion. No plans for surgical intervention at this point. The patient is seen again today 08/27/2017 in follow-up on the selective care unit. She is sitting up and at the bedside. Her pain is fairly well controlled. She has ongoing issues with the right-sided abdominal hematoma. The area has been marked. No significant change. However the patient did drop her hemoglobin again to 6.7 is receiving a second unit of packed red blood cells. She denies any worsening shortness of breath, cough or congestion. Her breathing is improved. No tachypnea. She's been afebrile. Hemodynamically stable. The patient is seen again today 08/28/2017 in follow-up on the regular medical floor. She is currently awake and alert in no acute distress. She is breathing easier today as compared to yesterday. She has a loose nonproductive cough currently. She is maintaining good O2 saturations in the 90s on room air. She's been afebrile. Right-sided abdominal hematoma reveals no further extension outside of marked areas. Hemoglobin stable today at 8.0. Hemodynamically stable. Objective - Vital Signs Vital signs: Vital Signs Temp 97.1 F L 08/28/17 07:29 Pulse 76 08/28/17 11:23 Resp 16 08/28/17 07:29 BP 138/77 08/28/17 07:29 Pulse Ox 99 08/28/17 07:29 Intake & Output 08/27/17 08/28/17 08/28/17 18:59 06:59 18:59 Intake Total 410 1200 Output Total 1250 1 Balance -840 1199 Weight 73.4 kg Intake: Oral 410 1200 Blood Product 0 Rc As-3 Unit 0 [id number] Output: Urine 1250 Stool 1 Other: Voiding Method Bedside Commode Toilet # Voids 1 1 - Exam Gen. appearance the patient is quite uncomfortable and she is having frequent coughing episodes. She has labored breathing and she is able to complete full sentences. Head exam was generally normal. There was no scleral icterus or corneal arcus. Mucous membranes were moist. Neck was supple and without jugular venous distension, thyromegaly, or carotid bruits. Carotids were easily palpable bilaterally. There was no adenopathy. Lungs sounds are diminished bilaterally along with prolongation of expiratory phase of breathing and diffuse expiratory wheezes throughout the lung hoffman bilaterally. Cardiac exam revealed the PMI to be normally situated and sized. The rhythm was regular and no extrasystoles were noted during several minutes of auscultation. The first and second heart sounds were normal and physiologic splitting of the second heart sound was noted. There were no murmurs, rubs, clicks, or gallops. Abdominal exam revealed normal bowel sounds. The abdomen is tender right upper quadrant, palpable hematoma, ecchymosis. Large rectus abdominis hematoma per computed tomography scan Examination of the extremities revealed easily palpable radial, femoral and pedal pulses. There was no cyanosis, clubbing or edema. Examination of the skin revealed no evidence of significant rashes, suspicious appearing nevi or other concerning lesions. Neurologically the patient is awake and alert and there is no focal neurological deficit - Labs CBC & Chem 7: 08/28/17 07:09 08/28/17 07:09 Labs: Abnormal Lab Results - Last 24 Hours (Table) 08/26/17 08/27/17 08/27/17 Range/Units 09:30 11:40 16:54 WBC (3.8-10.6) k/uL RBC (3.80-5.40) m/uL Hgb (11.4-16.0) gm/dL Hct (34.0-46.0) % RDW (11.5-15.5) % Neutrophils # (1.3-7.7) k/uL Carbon Dioxide (22-30) mmol/L BUN (7-17) mg/dL POC Glucose (mg/dL) 137 H 182 H (75-99) mg/dL Total Protein (6.3-8.2) g/dL Albumin (3.5-5.0) g/dL Crossmatch See Detail 08/27/17 08/27/17 08/28/17 Range/Units 20:59 23:04 07:09 WBC 12.6 H (3.8-10.6) k/uL RBC 2.42 L (3.80-5.40) m/uL Hgb 8.0 L (11.4-16.0) gm/dL Hct 23.2 L (34.0-46.0) % RDW 17.0 H (11.5-15.5) % Neutrophils # 9.7 H (1.3-7.7) k/uL Carbon Dioxide (22-30) mmol/L BUN (7-17) mg/dL POC Glucose (mg/dL) 173 H 147 H (75-99) mg/dL Total Protein (6.3-8.2) g/dL Albumin (3.5-5.0) g/dL Crossmatch 08/28/17 Range/Units 07:09 WBC (3.8-10.6) k/uL RBC (3.80-5.40) m/uL Hgb (11.4-16.0) gm/dL Hct (34.0-46.0) % RDW (11.5-15.5) % Neutrophils # (1.3-7.7) k/uL Carbon Dioxide 31 H (22-30) mmol/L BUN 30 H (7-17) mg/dL POC Glucose (mg/dL) (75-99) mg/dL Total Protein 5.1 L (6.3-8.2) g/dL Albumin 3.1 L (3.5-5.0) g/dL Crossmatch Microbiology - Last 24 Hours (Table) 08/21/17 19:00 Blood Culture - Final Blood No Growth after 144 hours Assessment and Plan Assessment: Assessment 1 acute COPD exacerbation with secondary shortness of breath. The patient had acute tracheal bronchitis that influenza B infection and this was confirmed by an influenza nasal swab screen. Completed Tamiflu. CAT scan of the chest showed no evidence of any hematoma or rib fracture. Abdominal CT revealed evidence of a large rectus abdominis hematoma. Eliquis remains on hold. 2 chronic dyspnea related to COPD with interval exacerbation ID improving and the patient is currently on a prednisone burst taper 3 acute febrile illness, currently under investigation 4 right upper quadrant pain and tenderness found to have a large rectus abdominis hematoma. Eliquis is on hold. 5 acute anemia secondary to blood loss into rectus abdominis. Hemoglobin 6.6. One unit packed red blood cells initiated. 6 atrial fibrillation with rapid ventricular response and current rhythm is back to sinus 7 gout 8 history of alcoholism with previous history of pancreatitis 9 chronic back pain 10 acid reflux 11 smoker Plan: The patient was seen and evaluated by Dr. Barnes. Hemoglobin stable today. No further blood transfusions required. Eliquis is on hold. She is stable from the pulmonary standpoint. She remains on a prednisone taper. She is again educated regarding the process importance of complete smoking cessation. Habitrol patch remains in place. We will continue to follow and make further recommendations based on her clinical status. I, the cosigning physician, performed a history & physical examination of the patient. Lungs sounds with faint crackles in the bilateral posterior bases. Diminished. Maintaining good O2 saturations in the 90s on 2 L/m per nasal cannula. I discussed the assessment and plan of care with my nurse practitioner , Libby Toledo. I attest to the above note as dictated by her.
[2017-08-28 11:36] LABS: Glucose,Whole Blood 130 mg/dL (75-99)
[2017-08-28] MEDS: MULTIVITAMINS, THERA 1 EACH TAB PO SCH (12:22)
[2017-08-28] MEDS: THIAMINE 100 MG TAB PO SCH ×2 (12:22→17:54)
[2017-08-28] MEDS: ALPRAZolam 0.25 MG TAB PO PRN (14:49)
[2017-08-28 17:01] LABS: Glucose,Whole Blood 204 mg/dL (75-99)
[2017-08-28 20:01] LABS: Glucose,Whole Blood 180 mg/dL (75-99)
--- NOTE | 2017-08-28 21:38 | PN ---
PROGRESS NOTE DATE OF SERVICE: 08/28/2017 REASON FOR FOLLOWUP: 1. Acute influenza B. 2. Possible pneumonia. 3. Abdominal wall hematoma. INTERVAL HISTORY: The patient is afebrile. She is breathing slightly comfortably. Denies having any chest pain. Minimal cough, just drainage. Still complaining of abdominal pain with a bruise more evident now. No redness. Denies having any diarrhea. EXAMINATION: Her blood pressure is 152/80 with a pulse of 73, temperature 97.9. She is 92% on room air. General description is a middle-aged female up in the bed in no distress. HEENT: Oral thrush. LUNGS: Unlabored breathing. Decreased breath sounds. No wheeze. HEART: S1, S2. Regular rate and rhythm. ABDOMEN: Soft. She did have a bruise yesterday. LABS: Hemoglobin 8 with a white count of 12.6. BUN of 30, creatinine 0.57. DIAGNOSTIC IMPRESSION AND PLAN: 1. Patient with abdominal wall bruise, likely a rectus sheath hematoma. Clinically doubt cellulitis. No need for any systemic antibiotic therapy. 2. Oral thrush. We will add nystatin swish and swallow. 3. Acute influenza B for which the patient has completed her 5-day course of Tamiflu. MMODL / IJN: [id number] /
[2017-08-29] MEDS: oxyCODONE-APAP 10-325MG 1 EACH TAB PO PRN ×5 (03:42→21:29)
[2017-08-29] MEDS: MORPHINE SULFATE 4 MG/ML SYRINGE IVP PRN ×3 (03:43→11:46)
[2017-08-29 06:58] LABS: Glucose,Whole Blood 105 mg/dL (75-99)
[2017-08-29] MEDS: INSULIN ASPART 100 UNIT/ML 1 ML 10 ML VIAL SQ SCH ×4 (06:59→19:56)
[2017-08-29] MEDS: BUDESONIDE 1 MG/2 ML NEBU INHALATION SCH ×2 (07:23→19:11)
[2017-08-29] MEDS: IPRATROPIUM-ALBUTEROL 3 ML NEB INHALATION SCH ×4 (07:26→19:10)
[2017-08-29] MEDS: FORMOTEROL FUMARATE 20 MCG/2 ML NEBU INHALATION SCH ×2 (07:26→19:10)
[2017-08-29] MEDS: NICOTINE 21MG/24HR PATCH TRANSDERM SCH (07:56)
[2017-08-29] MEDS: VERAPAMIL 40 MG TAB PO SCH ×3 (07:57→21:30)
[2017-08-29] MEDS: PANTOPRAZOLE 40 MG TABLET PO SCH (07:58)
[2017-08-29] MEDS: predniSONE 20 MG TAB PO SCH (07:58)
[2017-08-29 08:44] LABS: Anisocytosis Slight; Basophils # (A) 0.1 k/uL (0-0.2); Basophils % (A) 0 %; Eosinophils % (A) 0 %; HCT 23.6 % (34.0-46.0); Lymphocytes # (A) 1.9 k/uL (1.0-4.8); Lymphocytes % (A) 14 %; MCH 32.2 pg (25.0-35.0); MCV 94.7 fL (80.0-100.0); Mean Platelet Volume 9.3; Monocytes # (A) 0.6 k/uL (0-1.0); Monocytes % (A) 5 %; Neutrophils # (A) 10.5 k/uL (1.3-7.7); Neutrophils % (A) 80 %; Platelet Count 239 k/uL (150-450); RBC 2.49 m/uL (3.80-5.40); RDW 16.7 % (11.5-15.5); WBC 13.3 k/uL (3.8-10.6)
[2017-08-29 08:50] LABS: ALT 37 U/L (9-52); AST 31 U/L (14-36); Albumin 3.2 g/dL (3.5-5.0); Alkaline Phosphatase 46 U/L (38-126); Anion Gap 9 mmol/L; Blood Urea Nitrogen 29 mg/dL (7-17); Calcium 9.4 mg/dL (8.4-10.2); Carbon Dioxide 33 mmol/L (22-30); Chloride 99 mmol/L (98-107); Glucose 87 mg/dL (74-99); Sodium 141 mmol/L (137-145); Total Bilirubin 0.7 mg/dL (0.2-1.3); Total Protein 5.4 g/dL (6.3-8.2)
--- NOTE | 2017-08-29 10:35 | P.PN ---
Subjective Progress Note Date: 08/29/17 Principal diagnosis: Acute exacerbation of chronic obstructive pulmonary disease, complicated by acute tracheobronchitis with influenza B infection. A 61-year-old female patient, a chronic smoker, known history of COPD whereas been a good state of health and she was under the care of her private care physician. She has been a chronic smoker. She has also history of alcoholism and previous history of pancreatitis. The patient presented yesterday to the emergency department at [facility] because of increased dyspnea, recurrent cough, chest wall pain due to vigorous coughing, chest congestion with limited sputum production, bronchospasm and wheeze. In the emergency department the patient was quite short of breath. She was placed on BiPAP. She also had a brief episode of atrial fibrillation with rapid ventricular response where she was placed on Cardizem drip. The patient converted back to normal sinus rhythm at around 4:00 this morning. She is currently off the BiPAP. She is using a simple Ventimask. She is able to complete full sentences. She has however very uncomfortable with breathing and she has frequent coughing episodes pressure when she takes a deep breath. There is a first aspiration for COPD exacerbation. Her chest x-ray is clear and there is no evidence of any acute pulmonary infiltration or pneumonia. No evidence of any pneumothorax. She had a temperature of 103.0 at home and subsequently 11.7 during the time of admission and currently she is afebrile. Her white cell count of 18.4. Clinically better yet not recovered. No hemoptysis. No pleurisy. Some limited diarrhea the patient is being checked for C. diff. Note patient about treatments. No recent antibiotic or steroid treatment. No history of childhood asthma. No history of DVT or pulmonary embolism. No cardiac history. On 08/23/2017 the patient is essentially the same condition. Slightly better in terms of her cough and congestion. She is afebrile. She was diagnosed having an influenza be taken bronchitis which was suspected the time of admission and the influenza screen clearly showed that. The patient is is utilizing Percocet for cough and chest pain. The patient is also on Robitussin- DM. She is on bronchodilators and systemic steroids. Tamiflu was also added. No nausea. No vomiting. No altered mentation. No other complaints otherwise for the past 24 hours. Her recovery is essentially slow. She was given a nicotine patch. On 08/24/2017, the patient is improving slowly. She is less short of breath. Her cough is gradually subsiding. Nevertheless pain is an ongoing issue as the patient is having pain across the right chest area. The right upper quadrant is slightly swollen compared to the left and the area is quite tender especially the rib cage area. I'm concerned of a rib fracture versus a hematoma within the same area. Overlying skin is within normal and there is no ecchymosis of the skin. She is a bit anxious. Her pain level is quite high and the patient is receiving IV morphine 6 g every 8 hours in addition to Percocet. She is also on combination of bronchodilators and steroids and antibiotics. No other complaints otherwise for now. On 08/25/2017 the patient continues to improve. Her main issue is pain which I think is somewhat exaggerated. She is on a combination of IV morphine and oral Percocet. There was a concern of a skeletal injury to her rib cage and based on that a CAT scan of the chest was ordered and upon review, there is some limited interstitial infiltrates/scarring in lung bases. No evidence of any pulmonary masses or lesions or malignancy. No mediastinal lymphadenopathy. The patient is doing better. She is quite uncomfortable when she coughs and she continues to have pain across the right lateral chest area. She is on a prednisone burst taper. She is on Levaquin. Bronchodilators remain unchanged. The patient is seen again today 08/26/2017 in follow-up on the selective care unit. She is awake and alert in no acute distress. She is breathing easier today as compared to yesterday. She is maintaining good O2 saturations in the 90s on 2 L/m per nasal cannula. She's been afebrile. Computed tomography scan of the abdomen did reveal a large abdominal wall intramuscular heterogenous mass within the rectus abdominis extending into the right flank musculature measuring at least 11.2 x 7.0 x 13.0 cm width subcutaneous inflammatory fat stranding. Considerations are for large rectus sheath hematoma, infected hematoma/early abscess or less likely abdominal wall neoplasm based on the inflammatory fat stranding. She has had a further drop in hemoglobin to 6.6 today. surgical services have been consulted.the patient's Eliquis is on hold. Receiving packed red blood cell transfusion. No plans for surgical intervention at this point. The patient is seen again today 08/27/2017 in follow-up on the selective care unit. She is sitting up and at the bedside. Her pain is fairly well controlled. She has ongoing issues with the right-sided abdominal hematoma. The area has been marked. No significant change. However the patient did drop her hemoglobin again to 6.7 is receiving a second unit of packed red blood cells. She denies any worsening shortness of breath, cough or congestion. Her breathing is improved. No tachypnea. She's been afebrile. Hemodynamically stable. The patient is seen again today 08/28/2017 in follow-up on the regular medical floor. She is currently awake and alert in no acute distress. She is breathing easier today as compared to yesterday. She has a loose nonproductive cough currently. She is maintaining good O2 saturations in the 90s on room air. She's been afebrile. Right-sided abdominal hematoma reveals no further extension outside of marked areas. Hemoglobin stable today at 8.0. Hemodynamically stable. Patient is seen again today 08/29/2017 in follow-up on the regular medical floor. She is awake and alert in no acute distress. She denies any worsening shortness of breath, cough or congestion. Continues to maintain good O2 saturations in the 90s on room air. Hemoglobin remain stable at 8.0. Less pain in the right flank area. The plan is for transfer to [facility] today. Objective - Vital Signs Vital signs: Vital Signs Temp 98.8 F 08/29/17 07:24 Pulse 95 08/29/17 08:00 Resp 16 08/29/17 08:00 BP 132/62 08/29/17 07:24 Pulse Ox 100 08/29/17 07:26 Intake & Output 08/28/17 08/29/17 08/29/17 18:59 06:59 18:59 Intake Total 480 Output Total 1 1 Balance -1 479 Weight 73.4 kg 73.4 kg Intake: Oral 480 Output: Stool 1 1 Other: Voiding Method Toilet Toilet Toilet # Voids 4 2 1 - Exam Gen. appearance the patient is quite uncomfortable and she is having frequent coughing episodes. She has labored breathing and she is able to complete full sentences. Head exam was generally normal. There was no scleral icterus or corneal arcus. Mucous membranes were moist. Neck was supple and without jugular venous distension, thyromegaly, or carotid bruits. Carotids were easily palpable bilaterally. There was no adenopathy. Lungs sounds are diminished bilaterally along with prolongation of expiratory phase of breathing and diffuse expiratory wheezes throughout the lung hoffman bilaterally. Cardiac exam revealed the PMI to be normally situated and sized. The rhythm was regular and no extrasystoles were noted during several minutes of auscultation. The first and second heart sounds were normal and physiologic splitting of the second heart sound was noted. There were no murmurs, rubs, clicks, or gallops. Abdominal exam revealed normal bowel sounds. The abdomen is tender right upper quadrant, palpable hematoma, ecchymosis. Large rectus abdominis hematoma per computed tomography scan Examination of the extremities revealed easily palpable radial, femoral and pedal pulses. There was no cyanosis, clubbing or edema. Examination of the skin revealed no evidence of significant rashes, suspicious appearing nevi or other concerning lesions. Neurologically the patient is awake and alert and there is no focal neurological deficit - Labs CBC & Chem 7: 08/29/17 07:02 08/29/17 07:02 Labs: Abnormal Lab Results - Last 24 Hours (Table) 08/28/17 08/28/17 08/28/17 Range/Units 11:32 16:59 20:00 WBC (3.8-10.6) k/uL RBC (3.80-5.40) m/uL Hgb (11.4-16.0) gm/dL Hct (34.0-46.0) % RDW (11.5-15.5) % Neutrophils # (1.3-7.7) k/uL Carbon Dioxide (22-30) mmol/L BUN (7-17) mg/dL POC Glucose (mg/dL) 130 H 204 H 180 H (75-99) mg/dL Total Protein (6.3-8.2) g/dL Albumin (3.5-5.0) g/dL 08/29/17 08/29/17 08/29/17 Range/Units 06:56 07:02 07:02 WBC 13.3 H (3.8-10.6) k/uL RBC 2.49 L (3.80-5.40) m/uL Hgb 8.0 L (11.4-16.0) gm/dL Hct 23.6 L (34.0-46.0) % RDW 16.7 H (11.5-15.5) % Neutrophils # 10.5 H (1.3-7.7) k/uL Carbon Dioxide 33 H (22-30) mmol/L BUN 29 H (7-17) mg/dL POC Glucose (mg/dL) 105 H (75-99) mg/dL Total Protein 5.4 L (6.3-8.2) g/dL Albumin 3.2 L (3.5-5.0) g/dL Assessment and Plan Assessment: Assessment 1 acute COPD exacerbation with secondary shortness of breath. The patient had acute tracheal bronchitis that influenza B infection and this was confirmed by an influenza nasal swab screen. Completed Tamiflu. CAT scan of the chest showed no evidence of any hematoma or rib fracture. Abdominal CT revealed evidence of a large rectus abdominis hematoma. 2 chronic dyspnea related to COPD with interval exacerbation RI improving and the patient is currently on a prednisone burst taper 3 acute febrile illness, currently under investigation 4 right upper quadrant pain and tenderness found to have a large rectus abdominis hematoma. Eliquis is on hold. 5 acute anemia secondary to blood loss into rectus abdominis. Hemoglobin 8.0. Status post 2 units packed red blood cells. 6 atrial fibrillation with rapid ventricular response and current rhythm is back to sinus. Eliquis on hold. 7 gout 8 history of alcoholism with previous history of pancreatitis 9 chronic back pain 10 acid reflux 11 smoker Plan: The patient was seen and evaluated by Dr. Barnes. Hemoglobin stable today. No further blood transfusions required. She is stable from the pulmonary standpoint. She remains on a prednisone taper. She is again educated regarding the process importance of complete smoking cessation. Habitrol patch remains in place. She could follow-up in our office in 1-2 weeks' time. I, the cosigning physician, performed a history & physical examination of the patient. Lungs sounds clear.. Diminished. Maintaining good O2 saturations in the 90s on 2 L/m per nasal cannula. I discussed the assessment and plan of care with my nurse practitioner, Libby Toledo. I attest to the above note as dictated by her.
--- NOTE | 2017-08-29 11:31 | P.PN ---
Subjective Progress Note Date: 08/29/17 Principal diagnosis: Rectus sheath hematoma and influenza The patient seen on rounds. She continues to have some right-sided abdominal pain. Breathing is improved. Objective - Vital Signs Vital signs: Vital Signs Temp 98.8 F 08/29/17 07:24 Pulse 84 08/29/17 11:15 Resp 16 08/29/17 08:00 BP 132/62 08/29/17 07:24 Pulse Ox 100 08/29/17 07:26 Intake & Output 08/28/17 08/29/17 08/29/17 18:59 06:59 18:59 Intake Total 480 Output Total 1 1 Balance -1 479 Weight 73.4 kg 73.4 kg Intake: Oral 480 Output: Stool 1 1 Other: Voiding Method Toilet Toilet Toilet # Voids 4 2 1 - Constitutional General appearance: Present: cooperative, no acute distress - Gastrointestinal Gastrointestinal Comment(s): Continues to have pain and discomfort on the right side of the abdomen. The ecchymosis is increasing. No cellulitis. - Labs CBC & Chem 7: 08/29/17 07:02 08/29/17 07:02 Labs: Abnormal Lab Results - Last 24 Hours (Table) 08/28/17 08/28/17 08/28/17 Range/Units 11:32 16:59 20:00 WBC (3.8-10.6) k/uL RBC (3.80-5.40) m/uL Hgb (11.4-16.0) gm/dL Hct (34.0-46.0) % RDW (11.5-15.5) % Neutrophils # (1.3-7.7) k/uL Carbon Dioxide (22-30) mmol/L BUN (7-17) mg/dL POC Glucose (mg/dL) 130 H 204 H 180 H (75-99) mg/dL Total Protein (6.3-8.2) g/dL Albumin (3.5-5.0) g/dL 08/29/17 08/29/17 08/29/17 Range/Units 06:56 07:02 07:02 WBC 13.3 H (3.8-10.6) k/uL RBC 2.49 L (3.80-5.40) m/uL Hgb 8.0 L (11.4-16.0) gm/dL Hct 23.6 L (34.0-46.0) % RDW 16.7 H (11.5-15.5) % Neutrophils # 10.5 H (1.3-7.7) k/uL Carbon Dioxide 33 H (22-30) mmol/L BUN 29 H (7-17) mg/dL POC Glucose (mg/dL) 105 H (75-99) mg/dL Total Protein 5.4 L (6.3-8.2) g/dL Albumin 3.2 L (3.5-5.0) g/dL Assessment and Plan (1) Rectus sheath hematoma Current Visit: Yes Status: Acute Code(s): S30.1XXA - CONTUSION OF ABDOMINAL WALL, INITIAL ENCOUNTER SNOMED Code(s): 629860144 (2) Acute blood loss anemia Current Visit: Yes Status: Acute Code(s): D62 - ACUTE POSTHEMORRHAGIC ANEMIA SNOMED Code(s): 069504065 (3) Adult respiratory distress syndrome Current Visit: Yes Status: Acute Code(s): J80 - ACUTE RESPIRATORY DISTRESS SYNDROME SNOMED Code(s): 06337987 (4) Atrial fibrillation with RVR Current Visit: Yes Status: Acute Code(s): I48.91 - UNSPECIFIED ATRIAL FIBRILLATION SNOMED Code(s): 540332359440324 (5) Hypoxia Current Visit: Yes Status: Acute Code(s): R09.02 - HYPOXEMIA SNOMED Code(s ): 746956979 Plan: Surgically she stable. The bleeding has discontinued. The Superficial ecchymosis will continue to progress and may go down to her lower abdomen and thigh. Her body should resorb this without difficulty. Although unlikely watch for development of infected hematoma which would present as high fevers or worsening pain in the right upper quadrant. We'll follow up as needed.
[2017-08-29 11:33] LABS: Glucose,Whole Blood 137 mg/dL (75-99)
[2017-08-29] MEDS: MULTIVITAMINS, THERA 1 EACH TAB PO SCH (11:48)
[2017-08-29] MEDS: THIAMINE 100 MG TAB PO SCH ×2 (11:48→17:38)
--- NOTE | 2017-08-29 14:18 | PN ---
PROGRESS NOTE DATE OF SERVICE: 08/29/2017. REASON FOR FOLLOWUP: 1. Abdominal wall hematoma, no cellulitis. 2. Acute influenza B adequately treated. INTERVAL HISTORY: The patient is afebrile. She is feeling slightly better, breathing comfortably. Abdominal pain has slightly improved. No nausea, vomiting, or any diarrhea. EXAMINATION: Blood pressure 132/62 with a pulse of 83, temperature 98.8. She is 99% on room air. General description is a middle-aged female up in the bed in no distress. Respiratory system: Unlabored breathing. Clear to auscultation. No wheeze. Heart is S1, S2. Regular rate and rhythm. Abdomen soft. No guarding or rigidity. LABS: Hemoglobin 8, white count 13.3, BUN of 29, creatinine 0.52. DIAGNOSTIC IMPRESSION AND PLAN: 1. Patient acute influenza B adequately treated. 2. Abdominal wall hematoma. No evidence of any cellulitis. No need for any systemic antibiotic therapy on discharge. Continue supportive care. MMODL / IJN: [id number] /
--- NOTE | 2017-08-29 14:21 | P.PN ---
Subjective Progress Note Date: 08/29/17 This is a 61-year-old female, patient of Dr. Cox. This patient has past medical history of COPD, Khan's palsy, alcoholic pancreatitis, and nicotine dependence. Patient initially presented to [facility] due to worsening shortness of breath and cough. They were concerned about sepsis and pneumonia she was also hypoxic requiring a BiPAP. She was then transferred to [facility] for more extensive care and workup. She's found to be atrial fibrillation with a rapid ventricular response heart rate in the 190s. She required Cardizem drip in the ER. She has converted back to normal sinus rhythm around 4:00 this morning. Both pulmonary service and cardiology have been consulted. Cardiology has added Eliquis for anticoagulation. Case was discussed with pulmonary service. Patient is currently requiring a Ventimask at 98%. Patient reports increased shortness of breath is especially with ambulating. Patient also having productive cough with chest discomfort. She denies any nausea or vomiting. She is requesting pain medications for her chest pains. Patient denies current or active alcohol use. However prior history does reveal alcohol use history as well as alcoholic pancreatitis. Nursing staff has notified me that the patient is becoming more anxious throughout the morning it is starting to having some tremors and shakes. The CIWA protocol has been ordered as well as thiamine and multivitamin. Patient reports having fevers and chills. She had a temp of 103 at home and 101.7 on admission. White count elevated at 18.4 and also tachycardic. Patient also had been antibiotics for possible pneumonia and COPD exacerbation. Patient reports she's been having these symptoms of shortness of breath and cough for about 4 weeks with no improvement with antibiotics. She also reports that she' s had a few episodes of diarrhea. Stool for C. diff has been ordered. 08/23/2017 patient is influenza be positive and started on Tamiflu this morning. Cardiology has evaluated patient and added verapamil and Eliquis for her atrial fibrillation. Patient remains in normal sinus rhythm. Oxygen saturation is at 96% on 4 L. Patient is requiring a lot of pain medication due to chest discomfort from her cough. Patient has been educated that we need to cut back on her pain medications due to her respiratory status. Her morphine will be cut down to 6 mg by mouth every 8 hours as needed and she can continue with her Percocets. Patient followed by both pulmonary and cardiology service. Echo shows an EF of 60-65% with severe left ventricle hypertrophy and small pericardial effusion. 08/26/2017 patient is still complaining of some shortness of breath and not feeling well. She had a drop in her hemoglobin from 8.5-6.6. Eliquis was discontinued over the weekend due to an initial drop in hemoglobin from 12 to around 8. She had a computed tomography scan of the abdomen and pelvis completed. Results show large abdominal wall intramuscular heterogenous mass within the rectus abdominis extending into the right flank musculature measuring at least 11.2 x 7.0 x 13.0 cm. Radiologist reports considerations are for a large rectus sheath hematoma, infected hematoma/early abscess. Hemoglobin 6.6 to receive 1 unit of blood. Surgical service has been notified and infectious disease has been consulted. 08/27/2017 patient is complaining of right-sided abdominal pain. She is now having some bruising around the umbilicus and her right side. Hemoglobin is 6.7 even after 1 unit of blood. She'll receive another unit of blood today. She's followed by surgical service. They are able to draw her blood without difficulty at this time. She denies any chest pain. Shortness of breath and cough are showing improvement. Denies any nausea or vomiting. Reports having bowel movements. Denies any blood in the stool or urine 08/29/2017 patient is still complaining of right-sided abdominal pain. It is tolerable with current pain medications. She denies any chest pain. Shortness of breath has improved cough is improving. She completed the Tamiflu treatment. Consulting physicians have cleared her for discharge. Patient will be discharged to [facility]. We are awaiting insurance authorization Objective - Vital Signs Vital signs: Vital Signs Temp 98.8 F 08/29/17 07:24 Pulse 84 08/29/17 11:15 Resp 16 08/29/17 08:00 BP 132/62 08/29/17 07:24 Pulse Ox 100 08/29/17 07:26 Intake & Output 08/28/17 08/29/17 08/29/17 18:59 06:59 18:59 Intake Total 480 Output Total 1 1 Balance -1 479 Weight 73.4 kg 73.4 kg Intake: Oral 480 Output: Stool 1 1 Other: Voiding Method Toilet Toilet Toilet # Voids 4 2 1 - Exam Head normocephalic Neck supple Lungs slightly diminished with some coarse breath sounds Heart regular rate and rhythm S1-S2, no rub or gallop Abdomen is more firm with palpation along the right side of the abdomen and right flank. Patient has had increase in her bruising along the right abdominal wall and umbilicus Extremities +1 edema bilaterally Neuro alert and orientated to 3 - Labs CBC & Chem 7: 08/29/17 07:02 08/29/17 07:02 Labs: Abnormal Lab Results - Last 24 Hours (Table) 08/28/17 08/28/17 08/29/17 Range/Units 16:59 20:00 06:56 WBC (3.8-10.6) k/uL RBC (3.80-5.40) m/uL Hgb (11.4-16.0) gm/dL Hct (34.0-46.0) % RDW (11.5-15.5) % Neutrophils # (1.3-7.7) k/uL Carbon Dioxide (22-30) mmol/L BUN (7-17) mg/dL POC Glucose (mg/dL) 204 H 180 H 105 H (75-99) mg/dL Total Protein (6.3-8.2) g/dL Albumin (3.5-5.0) g/dL 08/29/17 08/29/17 08/29/17 Range/Units 07:02 07:02 11:32 WBC 13.3 H (3.8-10.6) k/uL RBC 2.49 L (3.80-5.40) m/uL Hgb 8.0 L (11.4-16.0) gm/dL Hct 23.6 L (34.0-46.0) % RDW 16.7 H (11.5-15.5) % Neutrophils # 10.5 H (1.3-7.7) k/uL Carbon Dioxide 33 H (22-30) mmol/L BUN 29 H (7-17) mg/dL POC Glucose (mg/dL) 137 H (75-99) mg/dL Total Protein 5.4 L (6.3-8.2) g/dL Albumin 3.2 L (3.5-5.0) g/dL Assessment and Plan Assessment: 1. Acute hypoxic respiratory failure secondary to acute COPD exacerbation, bronchitis and atrial fibrillation with rapid ventricular response. Patient has required BiPAP and Ventimask. She is now off of oxygen and on room air 2. Acute COPD exacerbation: Patient started on prednisone over the weekend. Continue nebulizer treatments 3. Acute tracheobronchitis with possible community-acquired pneumonia per infectious disease. Currently off of antibiotics. Patient completed antibiotic treatment during her hospitalization 4. Atrial fibrillation with rapid ventricular response present on admission requiring Cardizem drip. Converted to normal sinus rhythm. Cardiology started Eliquis for anticoagulation and verapamil. Eliquis discontinued due to rectus sheath hematoma 5. History of alcohol abuse and evidence of some withdrawal symptoms with anxiety and tremors. CINE protocol with thiamine and multivitamin ordered 6. Sepsis present on admission likely related to bronchitis 7. Diarrhea check stool for C. diff . Diarrhea appears to resolved 8. History of COPD 9. History of Khan's palsy 10. History of alcoholic pancreatitis 11. Nicotine dependence: Patient started on a nicotine patch 12. Rectus sheath hematoma with acute blood loss anemia. Case discussed with surgical service. No surgical intervention. Possibly hematoma due to Eliquis and coughing. Patient's is followed by surgical service. Also seen by infectious disease and they doubted that there is an abscess. Hemoglobin 8 again today. Surgical service has cleared patient for discharge. Appreciate their input Consult physical therapy DVT prophylaxis SCDs Patient is medically stable for discharge. She will be discharged to [facility]. We are awaiting insurance authorization. I performed an examination of the patient and discussed their management with the physician [employer] Process Operator. I have reviewed the Physician Al[employer] Process Operator's notes and agree with the documented findings and plan of care
[2017-08-29] MEDS: NYSTATIN 100,000 UNIT/ML SUSP 500,000 UNIT/5 ML CUP PO SCH ×3 (14:36→21:29)
[2017-08-29] MEDS: MORPHINE ORAL SOLN 10 MG/5 ML CUP PO PRN ×2 (15:37→19:52)
[2017-08-29 17:26] LABS: Glucose,Whole Blood 175 mg/dL (75-99)
[2017-08-29] MEDS: ALPRAZolam 0.25 MG TAB PO PRN (19:52)
[2017-08-29 19:56] LABS: Glucose,Whole Blood 128 mg/dL (75-99)
[2017-08-29] MEDS: guaiFENesin-DM 100-10MG/5ML 10 ML CUP PO PRN (21:30)
[2017-08-30] MEDS: MORPHINE ORAL SOLN 10 MG/5 ML CUP PO PRN ×3 (00:17→09:32)
[2017-08-30] MEDS: oxyCODONE-APAP 10-325MG 1 EACH TAB PO PRN ×4 (02:44→15:20)
[2017-08-30] MEDS: ALPRAZolam 0.25 MG TAB PO PRN ×2 (04:50→11:49)
[2017-08-30] MEDS: BUDESONIDE 1 MG/2 ML NEBU INHALATION SCH (07:27)
[2017-08-30] MEDS: FORMOTEROL FUMARATE 20 MCG/2 ML NEBU INHALATION SCH (07:27)
[2017-08-30] MEDS: IPRATROPIUM-ALBUTEROL 3 ML NEB INHALATION SCH ×3 (07:29→15:55)
[2017-08-30] MEDS: PANTOPRAZOLE 40 MG TABLET PO SCH (07:31)
[2017-08-30] MEDS: INSULIN ASPART 100 UNIT/ML 1 ML 10 ML VIAL SQ SCH ×2 (07:32→12:03)
[2017-08-30] MEDS: NICOTINE 21MG/24HR PATCH TRANSDERM SCH (07:32)
[2017-08-30 08:00] LABS: Glucose,Whole Blood 125 mg/dL (75-99)
[2017-08-30 08:12] LABS: Albumin 3.3 g/dL (3.5-5.0); Calcium 9.5 mg/dL (8.4-10.2); Potassium 4.8 mmol/L (3.5-5.1); Total Bilirubin 0.7 mg/dL (0.2-1.3); Total Protein 5.3 g/dL (6.3-8.2)
[2017-08-30 08:16] LABS: Anisocytosis Slight; Basophils # (A) 0.1 k/uL (0-0.2); Basophils % (A) 0 %; Eosinophils % (A) 0 %; HCT 25.1 % (34.0-46.0); HGB 7.7 gm/dL (11.4-16.0); Lymphocytes # (A) 2.1 k/uL (1.0-4.8); Lymphocytes % (A) 13 %; MCH 31.1 pg (25.0-35.0); MCHC 30.7 g/dL (31.0-37.0); Macrocytosis Slight; Mean Platelet Volume 7.2; Monocytes # (A) 0.4 k/uL (0-1.0); Monocytes % (A) 3 %; Neutrophils % (A) 82 %; Platelet Count 287 k/uL (150-450); RBC 2.48 m/uL (3.80-5.40); RDW 17.3 % (11.5-15.5); WBC 15.8 k/uL (3.8-10.6)
[2017-08-30 08:20] LABS: MCV 101.3 fL (80.0-100.0)
[2017-08-30 08:30] VITALS: RESP 16
[2017-08-30] MEDS: predniSONE 20 MG TAB PO SCH (09:33)
[2017-08-30] MEDS: VERAPAMIL 40 MG TAB PO SCH (09:33)
[2017-08-30] MEDS: NYSTATIN 100,000 UNIT/ML SUSP 500,000 UNIT/5 ML CUP PO SCH ×2 (09:33→12:37)
[2017-08-30] MEDS ORDERED: FUROSEMIDE 10 MG/ML 2 ML VIAL IV ONE (11:23)
--- NOTE | 2017-08-30 11:26 | P.PN ---
Subjective Progress Note Date: 08/30/17 This is a 61-year-old female, patient of Dr. Cox. This patient has past medical history of COPD, Khan's palsy, alcoholic pancreatitis, and nicotine dependence. Patient initially presented to [facility] due to worsening shortness of breath and cough. They were concerned about sepsis and pneumonia she was also hypoxic requiring a BiPAP. She was then transferred to [facility] for more extensive care and workup. She's found to be atrial fibrillation with a rapid ventricular response heart rate in the 190s. She required Cardizem drip in the ER. She has converted back to normal sinus rhythm around 4:00 this morning. Both pulmonary service and cardiology have been consulted. Cardiology has added Eliquis for anticoagulation. Case was discussed with pulmonary service. Patient is currently requiring a Ventimask at 98%. Patient reports increased shortness of breath is especially with ambulating. Patient also having productive cough with chest discomfort. She denies any nausea or vomiting. She is requesting pain medications for her chest pains. Patient denies current or active alcohol use. However prior history does reveal alcohol use history as well as alcoholic pancreatitis. Nursing staff has notified me that the patient is becoming more anxious throughout the morning it is starting to having some tremors and shakes. The CIWA protocol has been ordered as well as thiamine and multivitamin. Patient reports having fevers and chills. She had a temp of 103 at home and 101.7 on admission. White count elevated at 18.4 and also tachycardic. Patient also had been antibiotics for possible pneumonia and COPD exacerbation. Patient reports she's been having these symptoms of shortness of breath and cough for about 4 weeks with no improvement with antibiotics. She also reports that she' s had a few episodes of diarrhea. Stool for C. diff has been ordered. 08/23/2017 patient is influenza be positive and started on Tamiflu this morning. Cardiology has evaluated patient and added verapamil and Eliquis for her atrial fibrillation. Patient remains in normal sinus rhythm. Oxygen saturation is at 96% on 4 L. Patient is requiring a lot of pain medication due to chest discomfort from her cough. Patient has been educated that we need to cut back on her pain medications due to her respiratory status. Her morphine will be cut down to 6 mg by mouth every 8 hours as needed and she can continue with her Percocets. Patient followed by both pulmonary and cardiology service. Echo shows an EF of 60-65% with severe left ventricle hypertrophy and small pericardial effusion. 08/26/2017 patient is still complaining of some shortness of breath and not feeling well. She had a drop in her hemoglobin from 8.5-6.6. Eliquis was discontinued over the weekend due to an initial drop in hemoglobin from 12 to around 8. She had a computed tomography scan of the abdomen and pelvis completed. Results show large abdominal wall intramuscular heterogenous mass within the rectus abdominis extending into the right flank musculature measuring at least 11.2 x 7.0 x 13.0 cm. Radiologist reports considerations are for a large rectus sheath hematoma, infected hematoma/early abscess. Hemoglobin 6.6 to receive 1 unit of blood. Surgical service has been notified and infectious disease has been consulted. 08/27/2017 patient is complaining of right-sided abdominal pain. She is now having some bruising around the umbilicus and her right side. Hemoglobin is 6.7 even after 1 unit of blood. She'll receive another unit of blood today. She's followed by surgical service. They are able to draw her blood without difficulty at this time. She denies any chest pain. Shortness of breath and cough are showing improvement. Denies any nausea or vomiting. Reports having bowel movements. Denies any blood in the stool or urine 08/29/2017 patient is still complaining of right-sided abdominal pain. It is tolerable with current pain medications. She denies any chest pain. Shortness of breath has improved cough is improving. She completed the Tamiflu treatment. Consulting physicians have cleared her for discharge. Patient will be discharged to [facility]. We are awaiting insurance authorization 08/30/2017 patient still complaining of right-sided abdominal pain. I insurance has given authorization for transfer to [facility]. Unfortunately patient's hemoglobin has dropped again to 7.7 likely related to her hematoma. I will patient will receive a unit of blood. CBC will be ordered in the morning Objective - Vital Signs Vital signs: Vital Signs Temp 98.3 F 08/30/17 07:41 Pulse 92 08/30/17 11:21 Resp 16 08/30/17 08:00 BP 133/70 08/30/17 07:41 Pulse Ox 98 08/30/17 07:41 Intake & Output 08/29/17 08/30/17 08/30/17 18:59 06:59 18:59 Intake Total 980 120 Output Total 3 1 1 Balance 977 119 -1 Weight 73.4 kg Intake: Oral 980 120 Output: Stool 3 1 1 Other: Voiding Method Toilet Toilet Toilet # Voids 2 1 - Exam Head normocephalic Neck supple Lungs slightly diminished with some coarse breath sounds Heart regular rate and rhythm S1-S2, no rub or gallop Abdomen is more firm with palpation along the right side of the abdomen and right flank. Patient has had increase in her bruising along the right abdominal wall and umbilicus Extremities +1 edema bilaterally Neuro alert and orientated to 3 - Labs CBC & Chem 7: 08/30/17 07:12 08/30/17 07:12 Labs: Abnormal Lab Results - Last 24 Hours (Table) 08/29/17 08/29/17 08/29/17 Range/Units 11:32 17:25 19:55 WBC (3.8-10.6) k/uL RBC (3.80-5.40) m/uL Hgb (11.4-16.0) gm/dL Hct (34.0-46.0) % MCV (80.0-100.0) fL MCHC (31.0-37.0) g/dL RDW (11.5-15.5) % Neutrophils # (1.3-7.7) k/uL BUN (7-17) mg/dL POC Glucose (mg/dL) 137 H 175 H 128 H (75-99) mg/dL Total Protein (6.3-8.2) g/dL Albumin (3.5-5.0) g/dL 08/30/17 08/30/17 08/30/17 Range/Units 07:12 07:12 07:40 WBC 15.8 H (3.8-10.6) k/uL RBC 2.48 L (3.80-5.40) m/uL Hgb 7.7 L (11.4-16.0) gm/dL Hct 25.1 L (34.0-46.0) % MCV 101.3 H D (80.0-100.0) fL MCHC 30.7 L (31.0-37.0) g/dL RDW 17.3 H (11.5-15.5) % Neutrophils # 13.0 H (1.3-7.7) k/uL BUN 34 H (7-17) mg/dL POC Glucose (mg/dL) 125 H (75-99) mg/dL Total Protein 5.3 L (6.3-8.2) g/dL Albumin 3.3 L (3.5-5.0) g/dL Assessment and Plan Assessment: 1. Acute hypoxic respiratory failure secondary to acute COPD exacerbation, bronchitis and atrial fibrillation with rapid ventricular response. Patient has required BiPAP and Ventimask. She is now off of oxygen and on room air 2. Acute COPD exacerbation: Patient started on prednisone over the weekend. Continue nebulizer treatments 3. Acute tracheobronchitis with possible community-acquired pneumonia per infectious disease. Currently off of antibiotics. Patient completed antibiotic treatment during her hospitalization 4. Atrial fibrillation with rapid ventricular response present on admission requiring Cardizem drip. Converted to normal sinus rhythm. Cardiology started Eliquis for anticoagulation and verapamil. Eliquis discontinued due to rectus sheath hematoma 5. History of alcohol abuse and evidence of some withdrawal symptoms with anxiety and tremors. CIWA protocol with thiamine and multivitamin ordered 6. Sepsis present on admission likely related to bronchitis 7. Diarrhea check stool for C. diff . Diarrhea appears to resolved 8. History of COPD 9. History of Khan's palsy 10. History of alcoholic pancreatitis 11. Nicotine dependence: Patient started on a nicotine patch 12. Rectus sheath hematoma with acute blood loss anemia. Case discussed with surgical service. No surgical intervention. Possibly hematoma due to Eliquis and coughing. Patient's is followed by surgical service. Also seen by infectious disease and they doubted that there is an abscess. Hemoglobin 8 again today. Surgical service has cleared patient for discharge. Appreciate their input Patient's discharge will be held today due to a drop in her hemoglobin down to 7.7. She will receive a unit of blood due to her acute blood loss anemia from her hematoma. Repeat CBC in a.m. Consult physical therapy DVT prophylaxis SCDs Possible discharge to [facility] tomorrow I performed an examination of the patient and discussed their management with the physician Dermatology Physician Assistant. I have reviewed the Physician Dermatology Physician Assistant's notes and agree with the documented findings and plan of care
[2017-08-30 12:01] LABS: Glucose,Whole Blood 114 mg/dL (75-99)
--- NOTE | 2017-08-30 12:15 | P.DS ---
Providers Date of admission: 08/21/17 18:47 Expected date of discharge: 08/30/17 Attending physician: Mariama Mantilla Consults: 08/21/17 18:47 Consult Physician Routine Consulting Provider: Simone Pulliam Consult Reason/Comments: hypoxia Do you want consulting provider notified?: Yes 08/22/17 06:44 Consult Physician Routine Consulting Provider: Zulema Galo Consult Reason/Comments: afib RVR Do you want consulting provider notified?: Yes, Notify in am 08/25/17 16:54 Consult Physician Routine Consulting Provider: Val Deng Consult Reason/Comments: Large right abdominal hematoma Do you want consulting provider notified?: Yes 08/26/17 08:42 Consult Physician Routine Consulting Provider: Charli Martinez Consult Reason/Comments: possible abdominal abscess/hematoma Do you want consulting provider notified?: Yes Primary care physician: [facility] Course: Discharge diagnosis 1. Acute hypoxic respiratory failure secondary to acute COPD exacerbation, bronchitis and atrial fibrillation with rapid ventricular response. Patient has required BiPAP and Ventimask. She is now off of oxygen and on room air 2. Acute COPD exacerbation: Continue prednisone taper. Resume patient's inhalers 3. Acute tracheobronchitis with possible community-acquired pneumonia per infectious disease. Currently off of antibiotics. Patient completed antibiotic treatment during her hospitalization 4. Atrial fibrillation with rapid ventricular response present on admission requiring Cardizem drip. Converted to normal sinus rhythm. Cardiology started Eliquis for anticoagulation and verapamil. Eliquis discontinued due to rectus sheath hematoma 5. History of alcohol abuse and evidence of some withdrawal symptoms with anxiety and tremors. [place] protocol with thiamine and multivitamin ordered 6. Sepsis present on admission likely related to bronchitis 7. Diarrhea check stool for C. diff . Diarrhea appears to resolved 8. History of COPD 9. History of Khan's palsy 10. History of alcoholic pancreatitis 11. Nicotine dependence: Patient started on a nicotine patch 12. Influenza B completed Tamiflu treatment 12. Rectus sheath hematoma with acute blood loss anemia. Case discussed with surgical service. No surgical intervention. Possibly hematoma due to Eliquis and coughing. Patient's is followed by surgical service. Also seen by infectious disease and they doubted that there is an abscess. Hemoglobin 8 again today. Surgical service has cleared patient for discharge. Appreciate their input Patient had drop in hemoglobin to 7.7 this is likely related to her rectus sheath hematoma. She'll receive a unit of blood today and then be transferred over to [facility]. Hospital course This is a 61-year-old female, patient of Dr. Cox. This patient has past medical history of COPD, Khan's palsy, alcoholic pancreatitis, and nicotine dependence. Patient initially presented to [facility] due to worsening shortness of breath and cough. They were concerned about sepsis and pneumonia she was also hypoxic requiring a BiPAP. She was then transferred to [facility] for more extensive care and workup. She's found to be atrial fibrillation with a rapid ventricular response heart rate in the 190s. She required Cardizem drip in the ER. She has converted back to normal sinus rhythm around 4:00 this morning. Both pulmonary service and cardiology have been consulted. Cardiology has added Eliquis for anticoagulation. Case was discussed with pulmonary service. Patient is currently requiring a Ventimask at 98%. Patient reports increased shortness of breath is especially with ambulating. Patient also having productive cough with chest discomfort. She denies any nausea or vomiting. She is requesting pain medications for her chest pains. Patient denies current or active alcohol use. However prior history does reveal alcohol use history as well as alcoholic pancreatitis. Nursing staff has notified me that the patient is becoming more anxious throughout the morning it is starting to having some tremors and shakes. The CIWA protocol has been ordered as well as thiamine and multivitamin. Patient reports having fevers and chills. She had a temp of 103 at home and 101.7 on admission. White count elevated at 18.4 and also tachycardic. Patient also had been antibiotics for possible pneumonia and COPD exacerbation. Patient reports she's been having these symptoms of shortness of breath and cough for about 4 weeks with no improvement with antibiotics. She also reports that she' s had a few episodes of diarrhea. Stool for C. diff has been ordered. 08/23/2017 patient is influenza be positive and started on Tamiflu this morning. Cardiology has evaluated patient and added verapamil and Eliquis for her atrial fibrillation. Patient remains in normal sinus rhythm. Oxygen saturation is at 96% on 4 L. Patient is requiring a lot of pain medication due to chest discomfort from her cough. Patient has been educated that we need to cut back on her pain medications due to her respiratory status. Her morphine will be cut down to 6 mg by mouth every 8 hours as needed and she can continue with her Percocets. Patient followed by both pulmonary and cardiology service. Echo shows an EF of 60-65% with severe left ventricle hypertrophy and small pericardial effusion. 08/26/2017 patient is still complaining of some shortness of breath and not feeling well. She had a drop in her hemoglobin from 8.5-6.6. Eliquis was discontinued over the weekend due to an initial drop in hemoglobin from 12 to around 8. She had a computed tomography scan of the abdomen and pelvis completed. Results show large abdominal wall intramuscular heterogenous mass within the rectus abdominis extending into the right flank musculature measuring at least 11.2 x 7.0 x 13.0 cm. Radiologist reports considerations are for a large rectus sheath hematoma, infected hematoma/early abscess. Hemoglobin 6.6 to receive 1 unit of blood. Surgical service has been notified and infectious disease has been consulted. 08/27/2017 patient is complaining of right-sided abdominal pain. She is now having some bruising around the umbilicus and her right side. Hemoglobin is 6.7 even after 1 unit of blood. She'll receive another unit of blood today. She's followed by surgical service. They are able to draw her blood without difficulty at this time. She denies any chest pain. Shortness of breath and cough are showing improvement. Denies any nausea or vomiting. Reports having bowel movements. Denies any blood in the stool or urine 08/29/2017 patient is still complaining of right-sided abdominal pain. It is tolerable with current pain medications. She denies any chest pain. Shortness of breath has improved cough is improving. She completed the Tamiflu treatment. Consulting physicians have cleared her for discharge. Patient will be discharged to [facility]. We are awaiting insurance authorization Patient's hemoglobin is 7.7. She'll receive a unit of blood and then be stable for transfer over to [facility]. Patient has completed treatment for her bronchitis and possible pneumonia and influenza. Patient is medically stable for discharge. She did have episode of atrial fibrillation with rapid ventricular response has been placed on anticoagulation which need to be discontinued due to the rectus sheath hematoma. She was seen by surgical service no surgical intervention required. Would recommend to continue monitoring her CBC closely. We'll check a CBC on Saturday. Patient is medically stable for discharge. She has been cleared by remediation consultant physicians. I performed an examination of the patient and discussed their management with the physician Shearing Shed Worker. I have reviewed the Physician Shearing Shed Worker's notes and agree with the documented findings and plan of care Patient Condition at Discharge: Stable Plan - Discharge Summary New Discharge Prescriptions: New ALPRAZolam [Xanax] 0.25 mg PO BID PRN #6 tab PRN Reason: Anxiety Multivitamins, Thera [Multivitamin (formulary)] 1 each PO DAILY@1200 tab Nicotine 21Mg/24Hr Patch [Habitrol] 1 patch TRANSDERM DAILY patch Nystatin 100,000 Unit/ml Susp [Mycostatin Oral Susp] 500,000 unit PO QID 2 Days cup predniSONE 10 mg PO DIRECTED #12 tab Thiamine [Vitamin B-1] 100 mg PO BID@1200,1700 tab Verapamil [Isoptin] 60 mg PO TID tab Continue Fluticasone/Vilanterol [Breo Ellipta 200-25 Mcg INH] 1 puff INHALATION RT- DAILY Ergocalciferol [Vitamin D2 (DRISDOL)] 50,000 unit PO FR Allopurinol 300 mg PO DAILY Umeclidinium [place] [Incruse Ellipta] 1 puff INHALATION QAM Omeprazole [PriLOSEC] 40 mg PO DAILY Budesonide/Formoterol Fumarate [Symbicort 160-4.5 Mcg Inhaler] 1 puff INHALATION RT-BID Loratadine [Claritin] 10 mg PO DAILY Febuxostat [Uloric] 40 mg PO DAILY oxyCODONE-APAP 10-325MG [Percocet 10-325 mg] 1 each PO Q4H PRN #18 tab PRN Reason: Pain Discharge Medication List Allopurinol 300 mg PO DAILY 11/25/15 [History] Ergocalciferol [Vitamin D2 (DRISDOL)] 50,000 unit PO FR 11/25/15 [History] Fluticasone/Vilanterol [Breo Ellipta 200-25 Mcg INH] 1 puff INHALATION RT-DAILY 11/25/15 [History] Umeclidinium [place] [Incruse Ellipta] 1 puff INHALATION QAM 11/25/15 [History] Budesonide/Formoterol Fumarate [Symbicort 160-4.5 Mcg Inhaler] 1 puff INHALATION RT-BID 08/21/17 [History] Febuxostat [Uloric] 40 mg PO DAILY 08/21/17 [History] Loratadine [Claritin] 10 mg PO DAILY 08/21/17 [History] Omeprazole [PriLOSEC] 40 mg PO DAILY 08/21/17 [History] ALPRAZolam [Xanax] 0.25 mg PO BID PRN #6 tab 08/30/17 [Rx] Multivitamins, Thera [Multivitamin (formulary)] 1 each PO DAILY@1200 tab [Rx] Nicotine 21Mg/24Hr Patch [Habitrol] 1 patch TRANSDERM DAILY patch 08/30/17 [Rx] Nystatin 100,000 Unit/ml Susp [Mycostatin Oral Susp] 500,000 unit PO QID 2 Days cup 08/30/17 [Rx] Thiamine [Vitamin B-1] 100 mg PO BID@1200,1700 tab 08/30/17 [Rx] Verapamil [Isoptin] 60 mg PO TID tab 08/30/17 [Rx] oxyCODONE-APAP 10-325MG [Percocet 10-325 mg] 1 each PO Q4H PRN #18 tab 08/30/17 [Rx] predniSONE 10 mg PO DIRECTED #12 tab 08/30/17 [Rx] Follow up Appointment(s)/Referral(s): Celina Barnes MD [STAFF PHYSICIAN] - 1 Week Joana Cox DO [Primary Care Provider] - 1 Week Activity/Diet/Wound Care/Special Instructions: Diet: regular Activity: as tolerated ok to transfer to [facility] check CBC on Saturday Discharge Disposition: TRANSFER TO SNF/ECF
[2017-08-30] MEDS: guaiFENesin-DM 100-10MG/5ML 10 ML CUP PO PRN (12:36)
[2017-08-30] MEDS: THIAMINE 100 MG TAB PO SCH (12:37)
[2017-08-30] MEDS: MULTIVITAMINS, THERA 1 EACH TAB PO SCH (12:37)
--- NOTE | 2017-08-30 13:58 | PN ---
PROGRESS NOTE DATE OF SERVICE: 08/30/2017 REASON FOR FOLLOWUP VISIT: 1. Acute Influenza B, adequately treated. 2. Abdominal wall hematoma, no cellulitis or abscess. INTERVAL HISTORY: The patient is afebrile. She is complaining of abdominal pain, though no worsening and wanted some extra pain medication between the scheduled pain medication she is currently on. Denies having any chest pain or shortness of breath. Continues to have some cough but not bringing up any sputum and no diarrhea. PHYSICAL EXAMINATION: Blood pressure 133/70 with a pulse of 81, temperature 98.3. She is 98% on room air. General description is a middle-aged female up in the bed in no distress. RESPIRATORY SYSTEM: Unlabored breathing. Decreased breath sounds at the base, no wheeze. HEART: S1, S2. Regular rate and rhythm. The abdominal wall pain with bruise have extended from the line that was placed on the flank area. LABS: Hemoglobin 7.7, white count of 15.2, BUN of 34, creatinine 0.87. DIAGNOSTIC IMPRESSION AND PLAN: 1. Patient with acute influenza B, adequately treated. 2. Patient with abdominal wall hematoma, rectus sheath. Clinically doubt abscess. No need for any systemic antibiotic on discharge. Continue supportive care. MMODL / IJN: [id number] /
--- NOTE | 2017-08-30 14:05 | P.PN ---
Subjective Progress Note Date: 08/30/17 Principal diagnosis: Acute exacerbation of chronic obstructive pulmonary disease with influenza B tracheobronchitis A 61-year-old female patient, a chronic smoker, known history of COPD whereas been a good state of health and she was under the care of her private care physician. She has been a chronic smoker. She has also history of alcoholism and previous history of pancreatitis. The patient presented yesterday to the emergency department at [facility] because of increased dyspnea, recurrent cough, chest wall pain due to vigorous coughing, chest congestion with limited sputum production, bronchospasm and wheeze. In the emergency department the patient was quite short of breath. She was placed on BiPAP. She also had a brief episode of atrial fibrillation with rapid ventricular response where she was placed on Cardizem drip. The patient converted back to normal sinus rhythm at around 4:00 this morning. She is currently off the BiPAP. She is using a simple Ventimask. She is able to complete full sentences. She has however very uncomfortable with breathing and she has frequent coughing episodes pressure when she takes a deep breath. There is a first aspiration for COPD exacerbation. Her chest x-ray is clear and there is no evidence of any acute pulmonary infiltration or pneumonia. No evidence of any pneumothorax. She had a temperature of 103.0 at home and subsequently 11.7 during the time of admission and currently she is afebrile. Her white cell count of 18.4. Clinically better yet not recovered. No hemoptysis. No pleurisy. Some limited diarrhea the patient is being checked for C. diff. Note patient about treatments. No recent antibiotic or steroid treatment. No history of childhood asthma. No history of DVT or pulmonary embolism. No cardiac history. On 08/23/2017 the patient is essentially the same condition. Slightly better in terms of her cough and congestion. She is afebrile. She was diagnosed having an influenza be taken bronchitis which was suspected the time of admission and the influenza screen clearly showed that. The patient is is utilizing Percocet for cough and chest pain. The patient is also on Robitussin- DM. She is on bronchodilators and systemic steroids. Tamiflu was also added. No nausea. No vomiting. No altered mentation. No other complaints otherwise for the past 24 hours. Her recovery is essentially slow. She was given a nicotine patch. On 08/24/2017, the patient is improving slowly. She is less short of breath. Her cough is gradually subsiding. Nevertheless pain is an ongoing issue as the patient is having pain across the right chest area. The right upper quadrant is slightly swollen compared to the left and the area is quite tender especially the rib cage area. I'm concerned of a rib fracture versus a hematoma within the same area. Overlying skin is within normal and there is no ecchymosis of the skin. She is a bit anxious. Her pain level is quite high and the patient is receiving IV morphine 6 g every 8 hours in addition to Percocet. She is also on combination of bronchodilators and steroids and antibiotics. No other complaints otherwise for now. On 08/25/2017 the patient continues to improve. Her main issue is pain which I think is somewhat exaggerated. She is on a combination of IV morphine and oral Percocet. There was a concern of a skeletal injury to her rib cage and based on that a CAT scan of the chest was ordered and upon review, there is some limited interstitial infiltrates/scarring in lung bases. No evidence of any pulmonary masses or lesions or malignancy. No mediastinal lymphadenopathy. The patient is doing better. She is quite uncomfortable when she coughs and she continues to have pain across the right lateral chest area. She is on a prednisone burst taper. She is on Levaquin. Bronchodilators remain unchanged. The patient is seen again today 08/26/2017 in follow-up on the selective care unit. She is awake and alert in no acute distress. She is breathing easier today as compared to yesterday. She is maintaining good O2 saturations in the 90s on 2 L/m per nasal cannula. She's been afebrile. Computed tomography scan of the abdomen did reveal a large abdominal wall intramuscular heterogenous mass within the rectus abdominis extending into the right flank musculature measuring at least 11.2 x 7.0 x 13.0 cm width subcutaneous inflammatory fat stranding. Considerations are for large rectus sheath hematoma, infected hematoma/early abscess or less likely abdominal wall neoplasm based on the inflammatory fat stranding. She has had a further drop in hemoglobin to 6.6 today. surgical services have been consulted.the patient's Eliquis is on hold. Receiving packed red blood cell transfusion. No plans for surgical intervention at this point. The patient is seen again today 08/27/2017 in follow-up on the selective care unit. She is sitting up and at the bedside. Her pain is fairly well controlled. She has ongoing issues with the right-sided abdominal hematoma. The area has been marked. No significant change. However the patient did drop her hemoglobin again to 6.7 is receiving a second unit of packed red blood cells. She denies any worsening shortness of breath, cough or congestion. Her breathing is improved. No tachypnea. She's been afebrile. Hemodynamically stable. The patient is seen again today 08/28/2017 in follow-up on the regular medical floor. She is currently awake and alert in no acute distress. She is breathing easier today as compared to yesterday. She has a loose nonproductive cough currently. She is maintaining good O2 saturations in the 90s on room air. She's been afebrile. Right-sided abdominal hematoma reveals no further extension outside of marked areas. Hemoglobin stable today at 8.0. Hemodynamically stable. Patient is seen again today 08/29/2017 in follow-up on the regular medical floor. She is awake and alert in no acute distress. She denies any worsening shortness of breath, cough or congestion. Continues to maintain good O2 saturations in the 90s on room air. Hemoglobin remain stable at 8.0. Less pain in the right flank area. The plan is for transfer to [facility] today. On 08/30/2017 patient seen in follow-up. Denies to improve, denies any distress , lung sounds are clear to auscultation, no chest congestion, no wheezing, fever or chills. No signs remain stable, patient is still complaining of right abdominal tenderness, she was seen by surgery, and no surgical intervention is indicated at this time. From the pulmonary standpoint she is stable, she has completed her course of Tamiflu, no acute issues overnight. He shouldn't has been ambulating, tolerating it well. Before discharge to the [facility] today Objective - Vital Signs Vital signs: Vital Signs Temp 98.4 F 08/30/17 13:36 Pulse 90 08/30/17 13:36 Resp 16 08/30/17 13:36 BP 124/59 08/30/17 13:36 Pulse Ox 98 08/30/17 07:41 Intake & Output 08/29/17 08/30/1718 18:59 06:59 18:59 Intake Total 149 235 7794 Output Total 3 1 1 Balance 020 709 0428 Weight 73.4 kg Intake: Oral 828 177 8568 Blood Product 0 Rc As-1 Unit 0 [id number] Output: Stool 3 1 1 Other: Voiding Method Toilet Toilet Toilet # Voids 2 1 - Exam Gen. appearance the patient is quite uncomfortable and she is having frequent coughing episodes. She has labored breathing and she is able to complete full sentences. Head exam was generally normal. There was no scleral icterus or corneal arcus. Mucous membranes were moist. Neck was supple and without jugular venous distension, thyromegaly, or carotid bruits. Carotids were easily palpable bilaterally. There was no adenopathy. Lungs sounds are clear Cardiac exam revealed the PMI to be normally situated and sized. The rhythm was regular and no extrasystoles were noted during several minutes of auscultation. The first and second heart sounds were normal and physiologic splitting of the second heart sound was noted. There were no murmurs, rubs, clicks, or gallops. Abdominal exam revealed normal bowel sounds. The abdomen is tender right upper quadrant, palpable hematoma, ecchymosis. Large rectus abdominis hematoma per computed tomography scan Examination of the extremities revealed easily palpable radial, femoral and pedal pulses. There was no cyanosis, clubbing or edema. Examination of the skin revealed no evidence of significant rashes, suspicious appearing nevi or other concerning lesions. Neurologically the patient is awake and alert and there is no focal neurological deficit - Labs CBC & Chem 7: 08/30/17 07:12 08/30/17 07:12 Labs: Abnormal Lab Results - Last 24 Hours (Table) 08/29/17 08/29/17 08/30/17 Range/Units 17:25 19:55 07:12 WBC 15.8 H (3.8-10.6) k/uL RBC 2.48 L (3.80-5.40) m/uL Hgb 7.7 L (11.4-16.0) gm/dL Hct 25.1 L (34.0-46.0) % MCV 101.3 H D (80.0-100.0) fL MCHC 30.7 L (31.0-37.0) g/dL RDW 17.3 H (11.5-15.5) % Neutrophils # 13.0 H (1.3-7.7) k/uL BUN (7-17) mg/dL POC Glucose (mg/dL) 175 H 128 H (75-99) mg/dL Total Protein (6.3-8.2) g/dL Albumin (3.5-5.0) g/dL Crossmatch 08/30/17 08/30/17 08/30/17 Range/Units 07:12 07:40 11:49 WBC (3.8-10.6) k/uL RBC (3.80-5.40) m/uL Hgb (11.4-16.0) gm/dL Hct (34.0-46.0) % MCV (80.0-100.0) fL MCHC (31.0-37.0) g/dL RDW (11.5-15.5) % Neutrophils # (1.3-7.7) k/uL BUN 34 H (7-17) mg/dL POC Glucose (mg/dL) 125 H 114 H (75-99) mg/dL Total Protein 5.3 L (6.3-8.2) g/dL Albumin 3.3 L (3.5-5.0) g/dL Crossmatch 08/30/17 Range/Units 12:13 WBC (3.8-10.6) k/uL RBC (3.80-5.40) m/uL Hgb (11.4-16.0) gm/dL Hct (34.0-46.0) % MCV (80.0-100.0) fL MCHC (31.0-37.0) g/dL RDW (11.5-15.5) % Neutrophils # (1.3-7.7) k/uL BUN (7-17) mg/dL POC Glucose (mg/dL) (75-99) mg/dL Total Protein (6.3-8.2) g/dL Albumin (3.5-5.0) g/dL Crossmatch See Detail Assessment and Plan Plan: Assessment: 1 acute COPD exacerbation with secondary shortness of breath. The patient had acute tracheal bronchitis that influenza B infection and this was confirmed by an influenza nasal swab screen. Completed Tamiflu. CAT scan of the chest showed no evidence of any hematoma or rib fracture. Abdominal CT revealed evidence of a large rectus abdominis hematoma. 2 chronic dyspnea related to COPD with interval exacerbation ME improving and the patient is currently on a prednisone burst taper 3 acute febrile illness, currently under investigation 4 right upper quadrant pain and tenderness found to have a large rectus abdominis hematoma. Eliquis is on hold. 5 acute anemia secondary to blood loss into rectus abdominis. Hemoglobin 8.0. Status post 2 units packed red blood cells. 6 atrial fibrillation with rapid ventricular response and current rhythm is back to sinus. Eliquis on hold. 7 gout 8 history of alcoholism with previous history of pancreatitis 9 chronic back pain 10 acid reflux 11 smoker Plan: Patient remains stable from pulmonary standpoint, continues to improve. No pulmonary issues at this time, no chest pain, no dyspnea. She has recovered quite nicely from her influenza B tracheobronchitis. She has completed her course of Tamiflu. Patient is stable for discharge to the [facility] today, follow-up with Dr. Pulliam in the office in 7-10 days. I performed a history & physical examination of the patient and discussed their management with my nurse practitioner, Nasreen Oneil. I reviewed the nurse practitioner's note and agree with the documented findings and plan of care. Lung sounds are clear to auscultation. The findings and the impression was discussed with the patient. I attest to the documentation by the nurse practitioner. Time with Patient: Less than 30
[2017-08-30 15:11] VITALS: BP 122/61; PULSE 84; TEMP 98.5
== END 2017-08-30 15:40 | DRG 871 ==
LOC: EC 17:52 → 6SEL 18:47 → 5MS5E 08-27 22:09
PROVIDERS: ADMIT Internal Medicine; ATTEND Internal Medicine
DX: A41.9 Sepsis, unspecified organism (principal); J96.01 Acute respiratory failure with hypoxia; J44.1 Chronic obstructive pulmonary disease with (acute) exacerbation; F10.231 Alcohol dependence with withdrawal delirium; D62 Acute posthemorrhagic anemia; I31.3 Pericardial effusion (noninflammatory); B37.0 Candidal stomatitis; I47.1 Supraventricular tachycardia; J44.0 Chronic obstructive pulmonary disease with (acute) lower respiratory infection; K21.9 Gastro-esophageal reflux disease without esophagitis; M19.90 Unspecified osteoarthritis, unspecified site; G51.0 Bell's palsy; M10.9 Gout, unspecified; G89.29 Other chronic pain; M54.9 Dorsalgia, unspecified; H53.2 Diplopia; Z96.642 Presence of left artificial hip joint; F17.210 Nicotine dependence, cigarettes, uncomplicated; F41.9 Anxiety disorder, unspecified; J20.9 Acute bronchitis, unspecified; E66.9 Obesity, unspecified; R19.7 Diarrhea, unspecified; S30.1XXA Contusion of abdominal wall, initial encounter; J10.1 Influenza due to other identified influenza virus with other respiratory manifestations; I48.0 Paroxysmal atrial fibrillation; I51.7 Cardiomegaly; I49.3 Ventricular premature depolarization; J84.10 Pulmonary fibrosis, unspecified; H26.9 Unspecified cataract; Z90.89 Acquired absence of other organs; Z83.3 Family history of diabetes mellitus; Z79.51 Long term (current) use of inhaled steroids; Z68.29 Body mass index [BMI] 29.0-29.9, adult; Z79.01 Long term (current) use of anticoagulants; Z79.891 Long term (current) use of opiate analgesic; Z79.899 Other long term (current) drug therapy; Z82.5 Family history of asthma and other chronic lower respiratory diseases
CPT/HCPCS: 36415; 71045; 71260; 74150; 80053; 82550; 82553; 83036; 83735; 83880; 84484; 85025; 85610; 85730; 86850; 86900; 86901; 86920; 87040; 87502; 93005; 93306; 94640; 94644; 94660; 94760; 96365; 96366; 96375; 96376; 99291

== ENCOUNTER 2019-01-26 10:12 | Inpatient (IN) | payer MEDICARE, OTHER ==
[2019-01-26] MEDS ORDERED: KETOROLAC 30 MG/ML 1 ML VIAL IVP STA (11:12)
[2019-01-26] MEDS ORDERED: IPRATROPIUM-ALBUTEROL 3 ML NEB INHALATION STA (11:12)
[2019-01-26] MEDS ORDERED: methylPREDNISolone SOD SUCCI 125 MG/2 ML VIAL IV STA (11:12)
--- NOTE | 2019-01-26 11:13 | ED ---
General Adult HPI - General Source: patient, RN notes reviewed Mode of arrival: wheelchair Limitations: no limitations <Jak Kang - Last Filed: 01/26/19 13:00> <Karen Cuello - Last Filed: 01/31/19 20:09> - General Chief complaint: Recheck/Abnormal Lab/Rx Stated complaint: miko, pain Time Seen by Provider: 01/26/19 10:46 - History of Present Illness Initial comments: 63-year-old female presents emergency Department chief complaint cough, congestion, shortness breath times one week. Patient states her symptoms are progressively worsening. She states initially started with some cold-like symptoms but has worsened. She is a daily smoker. Does have underlying asthma, COPD. Patient complains of achy pain diffusely. Patient states that she took some Motrin yesterday along with Mucinex. Patient denies any current chest pain. She states she has pain diffusely. Patient denies any nausea, vomiting, diarrhea constipation (Jak Kang) - Related Data Home Medications Medication Instructions Recorded Confirmed Allopurinol 300 mg PO DAILY 11/25/15 01/26/19 Ergocalciferol [Vitamin D2 50,000 unit PO FR 11/25/15 01/26/19 (DRISDOL)] Loratadine [Claritin] 10 mg PO DAILY 08/21/17 01/26/19 Omeprazole [PriLOSEC] 40 mg PO DAILY 08/21/17 01/26/19 Fluticasone/Salmeterol 1 puff INHALATION RT-BID 01/26/19 01/26/19 [Fluticasone-Salmeterol 232-14] Metoprolol Succinate [Toprol XL] 50 mg PO DAILY 01/26/19 01/26/19 Montelukast [Singulair] 10 mg PO HS 01/26/19 01/26/19 oxyCODONE-APAP 10-325MG [Percocet 1 tab PO QID 01/26/19 01/26/19 10-325 mg] Allergies Allergy/AdvReac Type Severity Reaction Status Date / Time No Known Allergies Allergy Verified 01/26/19 13:30 Review of Systems ROS Other: All systems not noted in ROS Statement are negative. <Jak Kang - Last Filed: 01/26/19 13:00> ROS Other: All systems not noted in ROS Statement are negative. <Karen Cuello A - Last Filed: 01/31/19 20:09> ROS Statement: Those systems with pertinent positive or pertinent negative responses have been documented in the HPI. Past Medical History Past Medical History: COPD, GERD/Reflux, Osteoarthritis (OA) Additional Past Medical History / Comment(s): COPD, bells palsy, history of alcoholism and previous history of pancreatitis, gout in toes, chronic back pain, tinnitis R ear, occasional double vision R eye, cataracts bilaterally. History of Any Multi-Drug Resistant Organisms: None Reported Past Surgical History: Appendectomy, Section, Joint Replacement, Orthopedic Surgery Additional Past Surgical History / Comment(s): 12/09/15 Totoal L hip arthroplasty, anterior approach with cell saver. Other surgical hx: ORIF rt arm-pin later removed Past Anesthesia/Blood Transfusion Reactions: No Reported Reaction Past Psychological History: Anxiety Smoking Status: Current every day smoker Past Alcohol Use History: None Reported Past Drug Use History: None Reported - Past Family History Mother Family Medical History: COPD, Diabetes Mellitus Additional Family Medical History / Comment(s): Mother had heart problems. Father Family Medical History: No Reported History Additional Family Medical History / Comment(s): Father had gout and heart problems. Brother(s) Additional Family Medical History / Comment(s): gout <Jak Kang - Last Filed: 01/26/19 13:00> General Exam Limitations: no limitations General appearance: alert, in no apparent distress Head exam: Present: atraumatic, normocephalic, normal inspection Eye exam: Present: normal appearance, PERRL, EOMI. Absent: scleral icterus, conjunctival injection, periorbital swelling ENT exam: Present: normal exam, normal oropharynx, mucous membranes moist Neck exam: Present: normal inspection, full ROM. Absent: tenderness, meningismus, lymphadenopathy Respiratory exam: Present: respiratory distress (Mild), wheezes, rhonchi. Absent: normal lung sounds bilaterally, rales, stridor Cardiovascular Exam: Present: regular rate, normal rhythm, normal heart sounds. Absent: systolic murmur, diastolic murmur, rubs, gallop, clicks Neurological exam: Present: alert, oriented X3, CN II-XII intact Skin exam: Present: warm, dry, intact, normal color. Absent: rash <Jak Kang - Last Filed: 01/26/19 13:00> Course Vital Signs 01/26/19 01/26/19 01/26/19 10:18 11:33 11:45 Temperature 97.8 F Pulse Rate 77 75 84 Respiratory 18 Rate Blood Pressure 177/84 O2 Sat by Pulse 98 Oximetry 01/26/19 01/26/19 01/26/19 12:21 12:30 12:50 Temperature Pulse Rate 80 80 86 Respiratory 20 22 19 Rate Blood Pressure 160/94 147/96 O2 Sat by Pulse 96 96 97 Oximetry 01/26/19 01/26/19 01/26/19 13:20 13:30 13:54 Temperature Pulse Rate 86 81 86 Respiratory 19 16 Rate Blood Pressure 127/112 127/112 O2 Sat by Pulse Oximetry 01/26/19 01/26/19 01/26/19 14:00 14:06 14:24 Temperature 98.5 F Pulse Rate 82 86 Respiratory 20 Rate Blood Pressure 164/90 O2 Sat by Pulse 99 Oximetry EKG Findings - EKG Comments: EKG Findings:: EKG performed at 10:57 sinus rhythm with a rate of 81 [place] 156 QRS 92 QT/QTC 372/432 - EKG Results: EKG: interpreted by ERMD <Jak Kang - Last Filed: 01/26/19 13:00> Medical Decision Making - Lab Data Result diagrams: 01/26/19 11:10 01/26/19 11:10 <Jak Kang - Last Filed: 01/26/19 13:00> - Lab Data Result diagrams: 01/31/19 05:49 01/31/19 05:49 <Karen Cuello - Last Filed: 01/31/19 20:09> - Medical Decision Making Patient had labs, EKG and chest x-ray. Patient had minimal improvement after 22 treatments in emergency department. Additional treatment was ordered. Patient is still dyspneic having trouble holding a conversation. Patient will be admitted for IV antibiotics, steroids. (Jak Kang) I was available for consultation in the emergency department. The history and physical exam were done by the midlevel provider. I was consulted for this patients care. I reviewed the case with the midlevel provider and based on their presentation of the patient, I agree with the assessment, medical decision making and plan of care as documented. Correction to chart - patient received "2" treatments in the ED and remained dyspneic. Chart should not state 22 treatments. Chart was dictated using [employer] dictation software. Attempts were made to correct any dictation errors however some typographical errors may persist. (Karen Cuello) - Lab Data Lab Results 01/26/19 01/26/19 01/26/19 Range/Units 11:10 11:10 11:10 WBC 10.1 (3.8-10.6) k/uL RBC 4.70 (3.80-5.40) m/uL Hgb 15.5 (11.4-16.0) gm/dL Hct 46.3 H (34.0-46.0) % MCV 98.5 (80.0-100.0) fL MCH 32.9 (25.0-35.0) pg MCHC 33.4 (31.0-37.0) g/dL RDW 14.0 (11.5-15.5) % Plt Count 319 (150-450) k/uL Neutrophils % 85 % Lymphocytes % 12 % Monocytes % 2 % Eosinophils % 0 % Basophils % 0 % Neutrophils # 8.6 H (1.3-7.7) k/uL Lymphocytes # 1.2 (1.0-4.8) k/uL Monocytes # 0.2 (0-1.0) k/uL Eosinophils # 0.0 (0-0.7) k/uL Basophils # 0.0 (0-0.2) k/uL PT (9.0-12.0) sec INR (<1.2) APTT (22.0-30.0) sec Sodium 141 (137-145) mmol/L Potassium 4.1 (3.5-5.1) mmol/L Chloride 106 (98-107) mmol/L Carbon Dioxide 27 (22-30) mmol/L Anion Gap 8 mmol/L BUN 17 (7-17) mg/dL Creatinine 0.56 (0.52-1.04) mg/dL Est GFR (CKD-EPI)AfAm >90 (>60 ml/min/1.73 sqM) Est GFR (CKD-EPI)NonAf >90 (>60 ml/min/1.73 sqM) Glucose 123 H (74-99) mg/dL Calcium 9.7 (8.4-10.2) mg/dL Total Bilirubin 0.4 (0.2-1.3) mg/dL AST 16 (14-36) U/L ALT 22 (9-52) U/L Alkaline Phosphatase 75 (38-126) U/L Troponin I (0.000-0.034) ng/mL NT-Pro-B Natriuret Pep 110 pg/mL Total Protein 7.1 (6.3-8.2) g/dL Albumin 4.1 (3.5-5.0) g/dL Influenza Type A RNA (Not Detectd) Influenza Type B (PCR) (Not Detectd) 01/26/19 01/26/19 01/26/19 Range/Units 11:10 11:10 11:30 WBC (3.8-10.6) k/uL RBC (3.80-5.40) m/uL Hgb (11.4-16.0) gm/dL Hct (34.0-46.0) % MCV (80.0-100.0) fL MCH (25.0-35.0) pg MCHC (31.0-37.0) g/dL RDW (11.5-15.5) % Plt Count (150-450) k/uL Neutrophils % % Lymphocytes % % Monocytes % % Eosinophils % % Basophils % % Neutrophils # (1.3-7.7) k/uL Lymphocytes # (1.0-4.8) k/uL Monocytes # (0-1.0) k/uL Eosinophils # (0-0.7) k/uL Basophils # (0-0.2) k/uL PT 9.6 (9.0-12.0) sec INR 0.9 (<1.2) APTT 22.6 (22.0-30.0) sec Sodium (137-145) mmol/L Potassium (3.5-5.1) mmol/L Chloride (98-107) mmol/L Carbon Dioxide (22-30) mmol/L Anion Gap mmol/L BUN (7-17) mg/dL Creatinine (0.52-1.04) mg/dL Est GFR (CKD-EPI)AfAm (>60 ml/min/1.73 sqM) Est GFR (CKD-EPI)NonAf (>60 ml/min/1.73 sqM) Glucose (74-99) mg/dL Calcium (8.4-10.2) mg/dL Total Bilirubin (0.2-1.3) mg/dL AST (14-36) U/L ALT (9-52) U/L Alkaline Phosphatase (38-126) U/L Troponin I <0.012 (0.000-0.034) ng/mL NT-Pro-B Natriuret Pep pg/mL Total Protein (6.3-8.2) g/dL Albumin (3.5-5.0) g/dL Influenza Type A RNA Not Detected (Not Detectd) Influenza Type B (PCR) Not Detected (Not Detectd) Disposition <Jak Kang - Last Filed: 01/26/19 13:00> <Karen Cuello - Last Filed: 01/31/19 20:09> Clinical Impression: Acute exacerbation of chronic obstructive airways disease, Pulmonary nodule Disposition: ADMITTED IP TO THIS HOSP Condition: Fair
[2019-01-26 11:25] LABS: Basophils % (A) 0 %; Eosinophils % (A) 0 %; HCT 46.3 % (34.0-46.0); HGB 15.5 gm/dL (11.4-16.0); Lymphocytes # (A) 1.2 k/uL (1.0-4.8); Lymphocytes % (A) 12 %; MCH 32.9 pg (25.0-35.0); MCHC 33.4 g/dL (31.0-37.0); MCV 98.5 fL (80.0-100.0); Mean Platelet Volume 6.9; Monocytes # (A) 0.2 k/uL (0-1.0); Monocytes % (A) 2 %; Neutrophils # (A) 8.6 k/uL (1.3-7.7); Neutrophils % (A) 85 %; Platelet Count 319 k/uL (150-450); WBC 10.1 k/uL (3.8-10.6)
[2019-01-26] MEDS ORDERED: MORPHINE SULFATE 4 MG/ML SYRINGE IVP STA (11:35)
[2019-01-26 11:38] LABS: ALT 22 U/L (9-52); AST 16 U/L (14-36); African American GFR (CKD) >90 (>60 ml/min/1.73 sqM); Albumin 4.1 g/dL (3.5-5.0); Alkaline Phosphatase 75 U/L (38-126); Anion Gap 8 mmol/L; Blood Urea Nitrogen 17 mg/dL (7-17); Calcium 9.7 mg/dL (8.4-10.2); Carbon Dioxide 27 mmol/L (22-30); Chloride 106 mmol/L (98-107); Glucose 123 mg/dL (74-99); Non-African American GFR(CKD) >90 (>60 ml/min/1.73 sqM); Potassium 4.1 mmol/L (3.5-5.1); Sodium 141 mmol/L (137-145); Total Bilirubin 0.4 mg/dL (0.2-1.3); Total Protein 7.1 g/dL (6.3-8.2)
[2019-01-26 11:42] LABS: INR 0.9 (<1.2); Partial Thromboplastin Time 22.6 sec (22.0-30.0); Prothrombin Time 9.6 sec (9.0-12.0)
--- NOTE | 2019-01-26 12:33 | XR ---
EXAMINATION TYPE: XR chest 2V DATE OF EXAM: 01/26/2019 COMPARISON: 09/13/2017 TECHNIQUE: PA and lateral views submitted. HISTORY: Cough FINDINGS: The lungs are clear and there is no pneumothorax, pleural effusion, or focal pneumonia. Lobulation left hemidiaphragm is stable from previous exams. There is a 7 mm density in the apex of the right jesenia ng. No overt failure. Degenerative change of the spine. Hyperinflation suggests COPD. IMPRESSION: 1. 7 mm density right apex may relate to the anterior margin the right first rib. No acute infiltrate . Correlate clinically and if warranted CT scan of the chest is obtained.
[2019-01-26] MEDS ORDERED: ALBUTEROL NEBULIZED 2.5 MG/3 ML INHALATION PRN (13:02)
[2019-01-26] MEDS ORDERED: cefTRIAXone IN SWFI 1,000 MG/10 ML SYRINGE IVP STA (13:05)
[2019-01-26] MEDS ORDERED: AZITHROMYCIN 500 MG in SODIUM CHLORIDE 0.9% 250 ML IVPB STA (13:05)
[2019-01-26] MEDS ORDERED: ALBUTEROL NEBULIZED 2.5 MG/3 ML INHALATION STA (13:13)
[2019-01-26] MEDS ORDERED: IPRATROPIUM-ALBUTEROL 3 ML NEB INHALATION PRN (13:28)
--- NOTE | 2019-01-26 13:47 | P.HPIM ---
History of Present Illness H&P Date: 01/26/19 This is a 63-year-old female patient who presented with complaints of difficulty breathing and shortness of breath and cough for 1 week. Patient has a known past medical history of COPD and asthma. Patient is also a current every day smoker. Patient reports that she has had hot and cold flashes at home but does not specifically recall having a fever. Patient does state she has a sputum production. Patient states she has tried [id number] without much relief. Patient reports that she is also having aching pain throughout. Additional medical history includes GERD, osteoarthritis, Khan's palsy, history of EtOH, pancreatitis, gout, chronic back pain, appendectomy, , anxiety and current every day smoker. Chest x-ray completed showing a 7 mm density right apex may relate to the anterior margin of the right first rib no acute infiltrate. Correlate with computed tomography scan of the chest is obtained. Influenza negative. At this time pulmonary services will be consulted. He started on Solu-Medrol. Patient also started on Rocephin and azithromycin for antibiotics and culture ordered. Continue DuoNeb breathing treatments. Patient denies chest pain. Patient denies nausea vomiting or diarrhea. Patient denies urinary burning or frequency Review of Systems Please refer to HPI otherwise unremarkable Past Medical History Past Medical History: COPD, GERD/Reflux, Osteoarthritis (OA) Additional Past Medical History / Comment(s): COPD, bells palsy, history of alcoholism and previous history of pancreatitis, gout in toes, chronic back pain, tinnitis R ear, occasional double vision R eye, cataracts bilaterally. History of Any Multi-Drug Resistant Organisms: None Reported Past Surgical History: Appendectomy, Section, Joint Replacement, Orthopedic Surgery Additional Past Surgical History / Comment(s): 12/09/15 Totoal L hip arthroplasty, anterior approach with cell saver. Other surgical hx: ORIF rt arm-pin later removed Past Anesthesia/Blood Transfusion Reactions: No Reported Reaction Past Psychological History: Anxiety Smoking Status: Current every day smoker Past Alcohol Use History: None Reported Past Drug Use History: None Reported - Past Family History Mother Family Medical History: COPD, Diabetes Mellitus Additional Family Medical History / Comment(s): Mother had heart problems. Father Family Medical History: No Reported History Additional Family Medical History / Comment(s): Father had gout and heart problems. Brother(s) Additional Family Medical History / Comment(s): gout Medications and Allergies Home Medications Medication Instructions Recorded Confirmed Type Allopurinol 300 mg PO DAILY 11/25/15 08/21/17 History Ergocalciferol [Vitamin D2 50,000 unit PO FR 11/25/15 08/21/17 History (DRISDOL)] Fluticasone/Vilanterol [Breo 1 puff INHALATION RT-DAILY 11/25/15 08/21/17 History Ellipta 200-25 Mcg INH] Umeclidinium [place] [Incruse 1 puff INHALATION QAM 11/25/15 08/21/17 History Ellipta] Budesonide/Formoterol Fumarate 1 puff INHALATION RT-BID 08/21/17 08/21/17 History [Symbicort 160-4.5 Mcg Inhaler] Febuxostat [Uloric] 40 mg PO DAILY 08/21/17 08/21/17 History Loratadine [Claritin] 10 mg PO DAILY 08/21/17 08/21/17 History Omeprazole [PriLOSEC] 40 mg PO DAILY 08/21/17 08/21/17 History ALPRAZolam [Xanax] 0.25 mg PO BID PRN #6 tab 08/30/17 Rx Multivitamins, Thera [Multivitamin 1 each PO DAILY@1200 tab 08/30/17 Rx (formulary)] Nicotine 21Mg/24Hr Patch [Habitrol] 1 patch TRANSDERM DAILY patch 08/30/17 Rx Nystatin 100,000 Unit/ml Susp 500,000 unit PO QID 2 Days cup 08/30/17 Rx [Mycostatin Oral Susp] Thiamine [Vitamin B-1] 100 mg PO BID@1200,1700 tab 08/30/17 Rx Verapamil [Isoptin] 60 mg PO TID tab 08/30/17 Rx oxyCODONE-APAP 10-325MG [Percocet 1 each PO Q4H PRN #18 tab 08/30/17 Rx 10-325 mg] predniSONE 10 mg PO DIRECTED #12 tab 08/30/17 Rx Allergies Allergy/AdvReac Type Severity Reaction Status Date / Time No Known Allergies Allergy Verified 01/26/19 10:21 Physical Exam Vitals: Vital Signs Temp Pulse Resp BP Pulse Ox 01/26/19 11:45 84 10/14/19 11:33 75 01/26/19 10:18 97.8 F 77 18 177/84 98 Intake and Output 01/25/19 01/26/19 01/26/19 22:59 06:59 14:59 Other: Weight 68.039 kg Head normocephalic Neck supple Lungs diminished bilaterally with expiratory wheezing and bilateral rhonchi Heart regular rate and rhythm S1-S2, no rub or gallop Abdomen is soft nontender nondistended positive bowel sounds no hepatosplenomegaly Extremities no edema Neuro alert and orientated to 3 Results CBC & Chem 7: 01/26/19 11:10 01/26/19 11:10 Labs: Abnormal Lab Results - Last 24 Hours (Table) 01/26/19 01/26/19 Range/Units 11:10 11:10 Hct 46.3 H (34.0-46.0) % Neutrophils # 8.6 H (1.3-7.7) k/uL Glucose 123 H (74-99) mg/dL Assessment and Plan Assessment: 1. Increased shortness of breath related to COPD exacerbation. Pulmonary services have been consulted. Patient started on Solu-Medrol, DuoNeb breathing treatments, azithromycin and Rocephin. Sputum culture has been ordered. 2. Questionable nodule seen on chest x-ray. Pulmonary services have been consulted 3. History of COPD 4. History of asthma 5. Nicotine dependence. Patient educated longer than 3 minutes on smoking sensation. Patient declines nicotine patch 6. History of Khan's palsy 7. History of GERD 8. osteoarthritis with total left hip replacement DVT prophylaxis heparin. GI prophylaxis pepcid Time with Patient: Greater than 30 (Greater than 60% of the total time spent in counseling and coordination of care. I performed an examination of the patient and discussed their management with the Nurse Practitioner. I have reviewed the Nurse Practitioner's notes and agree with the documented findings and plan of care)
[2019-01-26] MEDS: MORPHINE SULFATE 2 MG/ML SYRINGE IVP PRN ×2 (15:07→18:59)
[2019-01-26] MEDS: IPRATROPIUM-ALBUTEROL 3 ML NEB INHALATION SCH ×2 (15:51→19:51)
[2019-01-26] MEDS ORDERED: IPRATROPIUM-ALBUTEROL 3 ML NEB INHALATION SCH (16:00)
[2019-01-26 17:07] LABS: Glucose,Whole Blood 236 mg/dL (75-99)
[2019-01-26] MEDS: methylPREDNISolone SOD SUCCI 125 MG/2 ML VIAL IV SCH ×2 (17:44→23:30)
[2019-01-26] MEDS: oxyCODONE-APAP 10-325MG 1 EACH TAB PO SCH ×2 (17:44→21:38)
[2019-01-26] MEDS: INSULIN ASPART (NovoLOG) 100 UNIT/ML VIAL SQ SCH ×2 (17:44→20:30)
[2019-01-26] MEDS: SYMBICORT 160-4.5 MCG INHALER INHALATION SCH (19:51)
[2019-01-26 20:19] LABS: Glucose,Whole Blood 197 mg/dL (75-99)
[2019-01-26] MEDS: HEPARIN SODIUM,PORCINE 5,000 UNIT/ML 1 ML VIAL SQ SCH (20:30)
[2019-01-26] MEDS: MONTELUKAST 10 MG TAB PO SCH (20:31)
[2019-01-26] MEDS: guaiFENesin-Coden 100-10MG/5ML 10 ML CUP PO PRN (21:38)
[2019-01-27] MEDS: MORPHINE SULFATE 2 MG/ML SYRINGE IVP PRN ×5 (00:53→19:40)
[2019-01-27] MEDS: methylPREDNISolone SOD SUCCI 125 MG/2 ML VIAL IV SCH ×3 (05:24→17:50)
[2019-01-27 06:56] LABS: Glucose,Whole Blood 153 mg/dL (75-99)
[2019-01-27 07:50] LABS: Basophils % (A) 0 %; Eosinophils % (A) 0 %; HCT 42.9 % (34.0-46.0); Lymphocytes % (A) 8 %; MCH 32.6 pg (25.0-35.0); MCHC 32.7 g/dL (31.0-37.0); MCV 99.6 fL (80.0-100.0); Monocytes # (A) 0.2 k/uL (0-1.0); Monocytes % (A) 2 %; Neutrophils # (A) 11.6 k/uL (1.3-7.7); Neutrophils % (A) 90 %; Platelet Count 308 k/uL (150-450); RBC 4.31 m/uL (3.80-5.40); WBC 12.9 k/uL (3.8-10.6)
[2019-01-27] MEDS: INSULIN ASPART (NovoLOG) 100 UNIT/ML VIAL SQ SCH ×4 (07:57→20:22)
[2019-01-27 08:00] LABS: ALT 15 U/L (9-52); AST 14 U/L (14-36); African American GFR (CKD) >90 (>60 ml/min/1.73 sqM); Albumin 3.9 g/dL (3.5-5.0); Alkaline Phosphatase 63 U/L (38-126); Anion Gap 6 mmol/L; Blood Urea Nitrogen 28 mg/dL (7-17); Calcium 10.1 mg/dL (8.4-10.2); Carbon Dioxide 29 mmol/L (22-30); Chloride 105 mmol/L (98-107); Glucose 141 mg/dL (74-99); Non-African American GFR(CKD) >90 (>60 ml/min/1.73 sqM); Potassium 4.5 mmol/L (3.5-5.1); Sodium 140 mmol/L (137-145); Total Bilirubin 0.3 mg/dL (0.2-1.3); Total Protein 6.5 g/dL (6.3-8.2)
[2019-01-27] MEDS: SYMBICORT 160-4.5 MCG INHALER INHALATION SCH ×2 (08:09→19:20)
[2019-01-27] MEDS: IPRATROPIUM-ALBUTEROL 3 ML NEB INHALATION SCH ×4 (08:09→19:20)
--- NOTE | 2019-01-27 08:36 | P.CNPUL ---
History of Present Illness Consult date: 01/27/19 Reason for consult: dyspnea, COPD History of present illness: 63-year-old female patient with known history of advanced emphysema with poor compliance, came in yesterday because of increased difficulty breathing, cough, chest tightness, wheezing, shortness of breath and extreme limitation of exercise capacity. The patient had difficulty breathing and she was having hard time completing full sentences. She was still smoking about 1 pack of cigarettes a day and she carries more than [id number] smoking history. She has seen us in the office in the past under the care of Dr. Barnes, and the patient has been given Airduo one inhalation twice a day. She also has a nebulizer which she doesn't use it on a regular basis. She is currently moved in with her sister and Ghulam Hernandez. No fever. No chills. No pleurisy. No hemoptysis. Influenza screen was done and it was negative. Pulmonary consultation was requested. Chest x-ray shows hyperinflation. There is a questionable 7 mm right apical scar. Her previous CAT scan of the chest from last year did not show any evidence of lung masses. There was some chronic interstitial areas of scarring. No altered mentation. She claims that she hasn't drank alcohol for the past 6 months. Her FEV1 is measured to be at 59% of predicted based on a spirometer this was done back in September 2017. Review of Systems Constitutional: Reports fatigue, Reports weakness Eyes: denies blurred vision, denies bulging eye, denies decreased vision Ears: deny: decreased hearing, ear discharge, earache, tinnitus Ears, nose, mouth and throat: Denies headache, Denies sore throat Breasts: absent: as per HPI, change in shape, gynecomastia, masses, nipple discharge, pain, skin changes, swelling Cardiovascular: Reports decreased exercise tolerance, Reports dyspnea on exertion, Reports shortness of breath Respiratory: Reports cough, Reports dyspnea, Reports wheezing Genitourinary: Denies dysuria, Denies hematuria Musculoskeletal: Reports as per HPI Musculoskeletal: absent: ankle pain, ankle stiffness, ankle swelling, as per HPI, elbow pain, elbow stiffness, elbow swelling, foot pain, foot stiffness, foot swelling, hand pain, hand stiffness, hand swelling, hip pain, hip stiffness, hip swelling, knee pain, knee stiffness, knee swelling, shoulder pain, shoulder stiffness, shoulder swelling, wrist pain, wrist stiffness, wrist swelling Neurological: Reports as per HPI Psychiatric: Reports as per HPI Endocrine: Reports as per HPI, Reports fatigue Hematologic/Lymphatic: Reports as per HPI Past Medical History Past Medical History: Atrial Fibrillation, COPD, Eye Disorder, GERD/Reflux, Hearing Disorder / Deafness, Osteoarthritis (OA) Additional Past Medical History / Comment(s): Afib RVR, bronchitis with sepsis, acute hypoxic respiratory failure with bipap/ventimask, rectus sheath hematoma thought d/t coughing, previous pancreatitis x 2, denies ETOH abuse/withdrawals, recinos's palsy, gout bilateral feet/toes, R ear tinnitis, occasional R eye double vision, cataracts bilaterally History of Any Multi-Drug Resistant Organisms: None Reported Past Surgical History: Appendectomy, Section, Joint Replacement, Orthopedic Surgery Additional Past Surgical History / Comment(s): Total L hip arthroplasty, ORIF R arm with pin now removed, R side surgery d/t trauma, colonoscopy with benign polyps Past Anesthesia/Blood Transfusion Reactions: No Reported Reaction Smoking Status: Current every day smoker (40 [id number] smoking history) Past Alcohol Use History: Abuse (Used to abuse alcohol in the past heavily and she claims that she hasn't drank for the past 6 months.) - Past Family History Mother Family Medical History: COPD, Diabetes Mellitus Additional Family Medical History / Comment(s): Mother had heart problems. Father Family Medical History: No Reported History Additional Family Medical History / Comment(s): Father had gout and heart problems. Brother(s) Additional Family Medical History / Comment(s): gout Medications and Allergies Home Medications Medication Instructions Recorded Confirmed Type Allopurinol 300 mg PO DAILY 11/25/15 01/26/19 History Ergocalciferol [Vitamin D2 50,000 unit PO FR 11/25/15 01/26/19 History (DRISDOL)] Loratadine [Claritin] 10 mg PO DAILY 08/21/17 01/26/19 History Omeprazole [PriLOSEC] 40 mg PO DAILY 08/21/17 01/26/19 History Fluticasone/Salmeterol 1 puff INHALATION RT-BID 01/26/19 01/26/19 History [Fluticasone-Salmeterol -] Metoprolol Succinate [Toprol XL] 50 mg PO DAILY 01/26/19 01/26/19 History Montelukast [Singulair] 10 mg PO HS 01/26/19 01/26/19 History oxyCODONE-APAP 10-325MG [Percocet 1 tab PO QID 01/26/19 01/26/19 History 10-325 mg] Allergies Allergy/AdvReac Type Severity Reaction Status Date / Time No Known Allergies Allergy Verified 01/26/19 13:30 Physical Exam Vitals: Vital Signs Temp Pulse Pulse Resp BP BP Pulse Ox 01/27/19 08:12 88 01/27/19 07:38 98.2 F 84 20 154/77 86 L 01/27/19 04:22 98.2 F 79 18 124/68 98 01/26/19 21:00 98.2 F 92 20 118/68 90 L 01/26/19 20:09 80 01/26/19 19:51 86 89 L 01/26/19 17:51 90 L 01/26/19 17:50 88 L 01/26/19 16:04 88 01/26/19 15:52 88 01/26/19 14:52 98.8 F 89 17 150/70 97 01/26/19 14:24 98.5 F 01/26/19 14:06 86 01/26/19 14:00 82 20 164/90 99 01/26/19 13:54 86 01/26/19 13:30 81 16 127/112 01/26/19 13:20 86 19 127/112 01/26/19 12:50 86 19 147/96 97 01/26/19 12:30 80 22 160/94 96 01/26/19 12:21 80 20 96 01/26/19 11:45 84 01/26/19 11:33 75 01/26/19 10:18 97.8 F 77 18 177/84 98 Intake and Output 01/26/19 01/27/19 01/27/19 22:59 06:59 14:59 Other: # Voids 1 2 Gen. appearance, slightly anxious. She seems to be mild degree of respiratory distress. Head exam was generally normal. There was no scleral icterus or corneal arcus. Mucous membranes were moist. Neck was supple and without jugular venous distension, thyromegaly, or carotid bruits. Carotids were easily palpable bilaterally. There was no adenopathy. Lungs sounds are diminished bilaterally along with diffuse expiratory wheezes throughout the lung hoffman. Air entry is markedly diminished in lung bases. She has a barrel chest. Heart sounds are distant.Cardiac exam revealed the PMI to be normally situated and sized. The rhythm was regular and no extrasystoles were noted during several minutes of auscultation. The first and second heart sounds were normal and physiologic splitting of the second heart sound was noted. There were no murmurs, rubs, clicks, or gallops. Abdominal exam revealed normal bowel sounds. The abdomen was soft, non-tender, and without masses, organomegaly, or appreciable enlargement of the abdominal aorta. Examination of the extremities revealed easily palpable radial, femoral and pedal pulses. There was no cyanosis, clubbing or edema. Examination of the skin revealed no evidence of significant rashes, suspicious appearing nevi or other concerning lesions. Neurologic patient is awake and alert. No focal neurological deficits. Results - Laboratory Findings CBC and BMP: 01/27/19 07:35 01/27/19 07:35 PT/INR, D-dimer PT 9.6 sec (9.0-12.0) 01/26/19 11:10 INR 0.9 (<1.2) 01/26/19 11:10 Abnormal lab findings: Abnormal Labs 01/26/19 01/26/19 01/26/19 11:10 11:10 17:06 WBC Hct 46.3 H Neutrophils # 8.6 H BUN Glucose 123 H POC Glucose (mg/dL) 236 H 01/26/19 01/27/19 01/27/19 20:18 06:54 07:35 WBC 12.9 H Hct Neutrophils # 11.6 H BUN Glucose POC Glucose (mg/dL) 197 H 153 H 01/27/19 07:35 WBC Hct Neutrophils # BUN 28 H Glucose 141 H POC Glucose (mg/dL) - Diagnostic Findings Chest x-ray: image reviewed Assessment and Plan Plan: 1 acute COPD exacerbation with secondary shortness of breath. Influenza screen is negative. No evidence of an acute pneumonia. The chest x-rays showing some chronic interstitial scarring. Nevertheless, the predominant pathology his acute COPD exacerbation. She has a moderately severe COPD based on the previous spirometry that was done in our office in FEV1 was in the order of 59% of predicted. She is a chronic smoker. The chest x-ray showing a 7 mm scar in the right apical area. Malignancy is doubtful. CAT scan of the chest on I did not for any lung masses. 2 chronic dyspnea related to COPD with interval exacerbation 3 chronic smoker 4 skeletal chest wall pain related to cough 5 smoker 6 history of atrial fibrillation back to sinus 7 gout 8 history of alcoholism with previous history of pancreatitis 9 chronic back pain 10 acid reflux Plan We'll discontinue Symbicort and will put the patient on a combination of Pulmicort and Perforomist and last treatment. We'll continue the DuoNeb nebuli zed treatments 4 times a day [id number]. Continue Zithromax and Rocephin. IV Solu-Medrol. Percocet for pain control. Robitussin-AC for cough and congestion. Smoking cessation counseling was done. We'll continue to follow. May need a follow-up CAT scan once her condition is more stable to evaluate this right upper lobe apical abnormality which is most likely a scar, 7 mm.
[2019-01-27] MEDS: oxyCODONE-APAP 10-325MG 1 EACH TAB PO SCH ×4 (09:38→21:46)
--- NOTE | 2019-01-27 09:45 | P.PN ---
Subjective Progress Note Date: 01/27/19 This is a 63-year-old female patient who presented with complaints of difficulty breathing and shortness of breath and cough for 1 week. Patient has a known past medical history of COPD and asthma. Patient is also a current every day smoker. Patient reports that she has had hot and cold flashes at home but does not specifically recall having a fever. Patient does state she has a sputum production. Patient states she has tried [id number]'s without much relief. Patient reports that she is also having aching pain throughout. Additional medical history includes GERD, osteoarthritis, Khan's palsy, history of EtOH, pancreatitis, gout, chronic back pain, appendectomy, , anxiety and current every day smoker. Chest x-ray completed showing a 7 mm density right apex may relate to the anterior margin of the right first rib no acute infiltrate. Correlate with computed tomography scan of the chest is obtained. Influenza negative. At this time pulmonary services will be consulted. He started on Solu-Medrol. Patient also started on Rocephin and azithromycin for antibiotics and culture ordered. Continue DuoNeb breathing treatments. Patient denies chest pain. Patient denies nausea vomiting or diarrhea. Patient denies urinary burning or frequency On 01/27/2019 patient's alert and oriented 3. Patient is still having significant wheezing with shortness of breath. Patient was evaluated by pulmonary services Pulmicort added. Patient remains on IV antibiotics and IV st eroids. At this time patient denies chest pain. Patient denies nausea vomiting or diarrhea. Patient denies any urinary burning frequency. Objective - Vital Signs Vital signs: Vital Signs Temp 98.2 F 01/27/19 07:38 Pulse 88 01/27/19 08:23 Resp 20 01/27/19 07:38 BP 154/77 01/27/19 07:38 Pulse Ox 86 L 01/27/19 07:38 Intake & Output 01/26/19 01/27/19 01/27/19 18:59 06:59 18:59 Weight 68.039 kg Other: # Voids 2 - Exam Head normocephalic Neck supple Lungs diminished bilaterally with expiratory wheezing and bilateral rhonchi Heart regular rate and rhythm S1-S2, no rub or gallop Abdomen is soft nontender nondistended positive bowel sounds no hepato splenomegaly Extremities no edema Neuro alert and orientated to 3 - Labs CBC & Chem 7: 01/27/19 07:35 01/27/19 07:35 Labs: Abnormal Lab Results - Last 24 Hours (Table) 01/26/19 01/26/19 01/26/19 Range/Units 11:10 11:10 17:06 WBC (3.8-10.6) k/uL Hct 46.3 H (34.0-46.0) % Neutrophils # 8.6 H (1.3-7.7) k/uL BUN (7-17) mg/dL Glucose 123 H (74-99) mg/dL POC Glucose (mg/dL) 236 H (75-99) mg/dL 01/26/19 01/27/19 01/27/19 Range/Units 20:18 06:54 07:35 WBC 12.9 H (3.8-10.6) k/uL Hct (34.0-46.0) % Neutrophils # 11.6 H (1.3-7.7) k/uL BUN (7-17) mg/dL Glucose (74-99) mg/dL POC Glucose (mg/dL) 197 H 153 H (75-99) mg/dL 01/27/19 Range/Units 07:35 WBC (3.8-10.6) k/uL Hct (34.0-46.0) % Neutrophils # (1.3-7.7) k/uL BUN 28 H (7-17) mg/dL Glucose 141 H (74-99) mg/dL POC Glucose (mg/dL) (75-99) mg/dL Microbiology - Last 24 Hours (Table) 01/26/19 16:00 Gram Stain - Preliminary Sputum Sputum Culture - Preliminary Assessment and Plan Assessment: 1. Increased shortness of breath related to COPD exacerbation. Pulmonary services have been consulted. Patient started on Solu-Medrol, DuoNeb breathing treatments, azithromycin and Rocephin. Sputum culture has been ordered. Pulmonary services are following. Has been added. Pulmicort added. Continue current IV antibiotics IV steroids and DuoNeb breathing treatments 2. Questionable nodule seen on chest x-ray. Her pulmonary doubt malignancy patient may need follow-up CAT scan once her condition is more stable to evaluate right upper lobe abnormality 3. History of COPD 4. History of asthma 5. Nicotine dependence. Patient educated longer than 3 minutes on smoking sensation. Patient declines nicotine patch 6. History of Khan's palsy 7. History of GERD 8. osteoarthritis with total left hip replacement DVT prophylaxis heparin. GI prophylaxis Protonix Continue IV antibiotics and steroids and DuoNeb breathing treatment Sputum culture pending Pulmonary services following I performed an examination of the patient and discussed their management with the Nurse Practitioner. I have reviewed the Nurse Practitioner's notes and agree with the documented findings and plan of care
[2019-01-27] MEDS: PANTOPRAZOLE 40 MG TABLET PO SCH (10:34)
[2019-01-27] MEDS: ALLOPURINOL 300 MG TAB PO SCH (10:49)
[2019-01-27] MEDS: HEPARIN SODIUM,PORCINE 5,000 UNIT/ML 1 ML VIAL SQ SCH ×2 (10:50→20:22)
[2019-01-27] MEDS: LORATADINE 10 MG TAB PO SCH (10:51)
[2019-01-27] MEDS: METOPROLOL SUCCINATE (ER) 50 MG TAB.ER.24H PO SCH (10:55)
[2019-01-27 11:26] LABS: Glucose,Whole Blood 171 mg/dL (75-99)
[2019-01-27] MEDS: AZITHROMYCIN 500 MG in SODIUM CHLORIDE 0.9% 250 ML IVPB SCH (11:31)
--- NOTE | 2019-01-27 13:17 | CDI ---
Documentation Clarification Form Date: 01/27/2019 1:12:44 PM From: Latricia Patel RN, CCDS Admit Date: 01/26/2019 1:09:00 PM Patient Name: Shilpa Hathaway Visit Number: [id number] ATTENTION: The Clinical Documentation Specialists (CDI) and [facility] Coding Staff appreciate your assistance in clarifying documentation. Please respond to the clarification below the line at the bottom and electronically sign. The CDI & [facility] Coding staff will review the response and follow-up if needed. Please note: Queries are made part of the Legal Health Record. If you have any questions, please contact the author of this message via ITS. Dr. Simone Pulliam Atrial Fibrillation is documented in the Pulmonary Consult and requires further specifity. History/Risk Factors: Atrial Fib, COPD, Asthma, GERD Clinical Indicators: 01/27 Pulmonary Consult "history of atrial fibrillation back to sinus." Treatment: Toprol XL 50 mg PO QD In your professional opinion, can you please clarify the type of Atrial Fibrillation, if known? Chronic/Permanent Paroxysmal Other, please specify Unable to determine (Last Revision: July 2017) Paroxysmal MTDD
--- NOTE | 2019-01-27 13:30 | CDI ---
Documentation Clarification Form Date: 01/27/2019 1:18:21 PM From: Latricia Patel RN, CCDS Admit Date: 01/26/2019 1:09:00 PM Patient Name: Shilpa Hathaway Visit Number: [id number] ATTENTION: The Clinical Documentation Specialists (CDI) and [facility] Coding Staff appreciate your assistance in clarifying documentation. Please respond to the clarification below the line at the bottom and electronically sign. The CDI & [facility] Coding staff will review the response and follow-up if needed. Please note: Queries are made part of the Legal Health Record. If you have any questions, please contact the author of this message via ITS. Dr. Simone Pulliam Asthma is documented in the H&P and Progress Notes and requires further specificity. History/risk factors: Asthma, Nicotine dependence, COPD, anxiety Clinical Indicators: 01/27 Attending progress Note: "Patient is still having significant wheezing with shortness of breath. Increased shortness of breath related to COPD exacerbation. Pulmonary services have been consulted. Patient started on Solu- Medrol, DuoNeb breathing treatments, azithromycin and Rocephin. Sputum culture has been ordered. Pulmonary services are following. Has been added. Pulmicort added. Continue current IV antibiotics IV steroids and DuoNeb breathing treatments." 01/26 CXR: "7 mm density right apex may relate to the anterior margin the right first rib. No acute infiltrate. Correlate clinically and if warranted CT scan of the chest." Vital Signs: Temp 97.8, hr 77, RR 18, B/P 177/84, spo2 98% ra 01/27 Pulmonary Lung Assessment: "Lungs sounds are diminished bilaterally along with diffuse expiratory wheezes throughout the lung hoffman. Air entry is markedly diminished in lung bases. She has a barrel chest." Treatment: Medication: Duoneb QID and Q 2 hrs SOB, Symbicort INH BID, Claritin 40 mg PO QD, Singulair 10 mg PO Q HS Consults: Pulmonary In your professional opinion, can you please further specify the following, if known? With Acute Exacerbation Status asthmaticus Acute lower respiratory infection COPD (specify with or without exacerbation) Chronic obstructive bronchitis Other, please specify ___ Unable to determine Severity Mild intermittent Mild persistent Moderate persistent Severe persistent Other, please specify ____ Unable to determine Form or Type Cough variant Childhood Exercise induced bronchospasm Extrinsic allergic Idiosyncratic Intrinsic nonallergic Late-onset Mixed Other, please specify____ Unable to determine (Last Revision: July 2017) COPD exacerbation MTDD
[2019-01-27] MEDS: BENZOCAINE/MENTHOL LOZENG 1 EACH LOZENGE MUCOUS MEM PRN ×2 (14:44→20:23)
[2019-01-27 17:02] LABS: Glucose,Whole Blood 143 mg/dL (75-99)
[2019-01-27 19:48] LABS: Glucose,Whole Blood 172 mg/dL (75-99)
[2019-01-27] MEDS: MONTELUKAST 10 MG TAB PO SCH (20:22)
[2019-01-27] MEDS: guaiFENesin-Coden 100-10MG/5ML 10 ML CUP PO PRN (20:23)
[2019-01-27] MEDS: ZOLPIDEM 5 MG TAB PO PRN (21:46)
[2019-01-27] MEDS ORDERED: MORPHINE SULFATE 2 MG/ML SYRINGE ONE (23:41)
[2019-01-27] MEDS ORDERED: IPRATROPIUM-ALBUTEROL 3 ML NEB ONE (23:41)
[2019-01-28] MEDS ORDERED: methylPREDNISolone SOD SUCCI 125 MG/2 ML VIAL ONE ×2
[2019-01-28] MEDS ORDERED: MORPHINE SULFATE 2 MG/ML SYRINGE ONE
[2019-01-28] MEDS ORDERED: BENZOCAINE/MENTHOL LOZENG 1 EACH LOZENGE MUCOUS MEM ONE
[2019-01-28 07:19] LABS: Glucose,Whole Blood 128 mg/dL (75-99)
[2019-01-28] MEDS: methylPREDNISolone SOD SUCCI 125 MG/2 ML VIAL IV SCH ×5 (07:58→23:28)
[2019-01-28] MEDS: PANTOPRAZOLE 40 MG TABLET PO SCH (08:21)
[2019-01-28] MEDS: ALLOPURINOL 300 MG TAB PO SCH (08:22)
[2019-01-28] MEDS: HEPARIN SODIUM,PORCINE 5,000 UNIT/ML 1 ML VIAL SQ SCH ×2 (08:23→20:54)
[2019-01-28] MEDS: METOPROLOL SUCCINATE (ER) 50 MG TAB.ER.24H PO SCH (08:24)
[2019-01-28] MEDS: LORATADINE 10 MG TAB PO SCH (08:24)
[2019-01-28] MEDS: oxyCODONE-APAP 10-325MG 1 EACH TAB PO SCH ×4 (08:25→22:13)
[2019-01-28 08:36] LABS: ALT 18 U/L (9-52); AST 15 U/L (14-36); African American GFR (CKD) >90 (>60 ml/min/1.73 sqM); Albumin 3.7 g/dL (3.5-5.0); Alkaline Phosphatase 53 U/L (38-126); Anion Gap 8 mmol/L; Blood Urea Nitrogen 35 mg/dL (7-17); Carbon Dioxide 30 mmol/L (22-30); Chloride 103 mmol/L (98-107); Glucose 126 mg/dL (74-99); Non-African American GFR(CKD) >90 (>60 ml/min/1.73 sqM); Potassium 4.7 mmol/L (3.5-5.1); Sodium 141 mmol/L (137-145); Total Bilirubin 0.2 mg/dL (0.2-1.3); Total Protein 6.2 g/dL (6.3-8.2)
[2019-01-28 08:38] LABS: Basophils % (A) 0 %; Eosinophils % (A) 0 %; HCT 41.9 % (34.0-46.0); HGB 12.8 gm/dL (11.4-16.0); Lymphocytes # (A) 0.8 k/uL (1.0-4.8); Lymphocytes % (A) 5 %; MCH 31.2 pg (25.0-35.0); MCHC 30.5 g/dL (31.0-37.0); MCV 102.5 fL (80.0-100.0); Macrocytosis Slight; Monocytes # (A) 0.3 k/uL (0-1.0); Monocytes % (A) 2 %; Neutrophils # (A) 15.9 k/uL (1.3-7.7); Neutrophils % (A) 93 %; Platelet Count 278 k/uL (150-450); RBC 4.09 m/uL (3.80-5.40); RDW 14.1 % (11.5-15.5); WBC 17.2 k/uL (3.8-10.6)
[2019-01-28] MEDS: INSULIN ASPART (NovoLOG) 100 UNIT/ML VIAL SQ SCH ×4 (08:38→20:54)
[2019-01-28] MEDS: SYMBICORT 160-4.5 MCG INHALER INHALATION SCH (08:58)
[2019-01-28] MEDS: IPRATROPIUM-ALBUTEROL 3 ML NEB INHALATION SCH ×4 (08:58→19:24)
[2019-01-28] MEDS: AZITHROMYCIN 500 MG in SODIUM CHLORIDE 0.9% 250 ML IVPB SCH (09:23)
[2019-01-28] MEDS: MORPHINE SULFATE 2 MG/ML SYRINGE IVP PRN ×4 (09:25→23:27)
--- NOTE | 2019-01-28 10:39 | P.PN ---
Subjective Progress Note Date: 01/28/19 63-year-old female patient with known history of advanced emphysema with poor compliance, came in yesterday because of increased difficulty breathing, cough, chest tightness, wheezing, shortness of breath and extreme limitation of exercise capacity. The patient had difficulty breathing and she was having hard time completing full sentences. She was still smoking about 1 pack of cigarettes a day and she carries more than [id number] smoking history. She has seen us in the office in the past under the care of Dr. Barnes, and the patient has been given Airduo one inhalation twice a day. She also has a nebulizer which she doesn't use it on a regular basis. She is currently moved in with her sister and Ghulam Hernandez. No fever. No chills. No pleurisy. No hemoptysis. Influenza screen was done and it was negative. Pulmonary consultation was requested. Chest x-ray shows hyperinflation. There is a questionable 7 mm right apical scar. Her previous CAT scan of the chest from last year did not show any evidence of lung masses. There was some chronic interstitial areas of scarring. No altered mentation. She claims that she hasn't drank alcohol for the past 6 months. Her FEV1 is measured to be at 59% of predicted based on a spirometer this was done back in September 2017. His evaluation on seeing this patient for a follow-up. The patient is being seen in follow-up on 01/28/2019. Still short of breath and bronchospastic and wheezy although somewhat improved compared to yesterday. She is on a combination of Rocephin and Zithromax. She is on IV Solu-Medrol. She is on DuoNeb nebulized treatments around the clock. She is also receiving combination of Pulmicort and Perforomist nebulized treatments twice a day. No pleurisy. Chest is sore with coughing. Breath sounds are quite diminished in the lung bilaterally although somewhat improved compared to yesterday. No nausea. No vomiting. No emesis. No other new complaints otherwise. No fever or chills. Altered mentation. Objective - Vital Signs Vital signs: Vital Signs Temp 98.2 F 01/27/19 20:46 Pulse 88 01/28/19 09:13 Resp 20 01/27/19 22:54 BP 140/65 01/27/19 20:46 Pulse Ox 92 L 01/27/19 20:46 Intake & Output 01/27/19 01/28/19 01/28/19 18:59 06:59 18:59 Other: Voiding Method Toilet Toilet # Voids 3 2 - Exam Gen. appearance, slightly anxious. She seems to be mild degree of respiratory distress. Head exam was generally normal. There was no scleral icterus or corneal arcus. Mucous membranes were moist. Neck was supple and without jugular venous distension, thyromegaly, or carotid bruits. Carotids were easily palpable bilaterally. There was no adenopathy. Lungs sounds are diminished bilaterally along with diffuse expiratory wheezes throughout the lung hoffman. Air entry is markedly diminished in lung bases. She has a barrel chest. Heart sounds are distant.Cardiac exam revealed the PMI to be normally situated and sized. The rhythm was regular and no extrasystoles were noted during several minutes of auscultation. The first and second heart sounds were normal and physiologic splitting of the second heart sound was noted. There were no murmurs, rubs, clicks, or gallops. Abdominal exam revealed normal bowel sounds. The abdomen was soft, non-tender, and without masses, organomegaly, or appreciable enlargement of the abdominal aorta. Examination of the extremities revealed easily palpable radial, femoral and pedal pulses. There was no cyanosis, clubbing or edema. Examination of the skin revealed no evidence of significant rashes, suspicious appearing nevi or other concerning lesions. Neurologic patient is awake and alert. No focal neurological deficits. - Labs CBC & Chem 7: 01/28/19 07:20 01/28/19 07:20 Labs: Abnormal Lab Results - Last 24 Hours (Table) 01/27/19 01/27/19 01/27/19 Range/Units 11:25 17:01 19:45 WBC (3.8-10.6) k/uL MCV (80.0-100.0) fL MCHC (31.0-37.0) g/dL Neutrophils # (1.3-7.7) k/uL Lymphocytes # (1.0-4.8) k/uL BUN (7-17) mg/dL Glucose (74-99) mg/dL POC Glucose (mg/dL) 171 H 143 H 172 H (75-99) mg/dL Total Protein (6.3-8.2) g/dL 01/28/19 01/28/19 01/28/19 Range/Units 06:55 07:20 07:20 WBC 17.2 H (3.8-10.6) k/uL MCV 102.5 H (80.0-100.0) fL MCHC 30.5 L (31.0-37.0) g/dL Neutrophils # 15.9 H (1.3-7.7) k/uL Lymphocytes # 0.8 L (1.0-4.8) k/uL BUN 35 H (7-17) mg/dL Glucose 126 H (74-99) mg/dL POC Glucose (mg/dL) 128 H (75-99) mg/dL Total Protein 6.2 L (6.3-8.2) g/dL Microbiology - Last 24 Hours (Table) 01/26/19 13:07 Blood Culture - Preliminary Blood No Growth after 24 hours Assessment and Plan Plan: 1 acute COPD exacerbation with secondary shortness of breath. Influenza screen is negative. No evidence of an acute pneumonia. The chest x-rays showing some chronic interstitial scarring. Nevertheless, the predominant pathology his acute COPD exacerbation. She has a moderately severe COPD based on the previous spirometry that was done in our office in FEV1 was in the order of 59% of predicted. She is a chronic smoker. The chest x-ray showing a 7 mm scar in the right apical area. Malignancy is doubtful. CAT scan of the chest on I did not for any lung masses. Some limited improvement in shortness of breath since yesterday. The patient is still struggling. The patient is still having cough and congestion and wheeze. 2 chronic dyspnea related to COPD with interval exacerbation 3 chronic smoker 4 skeletal chest wall pain related to cough 5 smoker 6 history of atrial fibrillation back to sinus 7 gout 8 history of alcoholism with previous history of pancreatitis 9 chronic back pain 10 acid reflux Plan Same treatment. The patient is quite symptomatic and the patient is still short of breath bronchospastic and wheezy. There was improvement since yesterday and for that reason we'll continue with the high-dose Solu-Medrol and the rest of the bronchodilators and antibiotics. Anticipate some further improvement over the next 24 hours.
--- NOTE | 2019-01-28 11:17 | P.PN ---
Subjective Progress Note Date: 01/28/19 This is a 63-year-old female patient who presented with complaints of difficulty breathing and shortness of breath and cough for 1 week. Patient has a known past medical history of COPD and asthma. Patient is also a current every day smoker. Patient reports that she has had hot and cold flashes at home but does not specifically recall having a fever. Patient does state she has a sputum production. Patient states she has tried [id number] without much relief. Patient reports that she is also having aching pain throughout. Additional medical history includes GERD, osteoarthritis, Khan's palsy, history of EtOH, pancreatitis, gout, chronic back pain, appendectomy, , anxiety and current every day smoker. Chest x-ray completed showing a 7 mm density right apex may relate to the anterior margin of the right first rib no acute infiltrate. Correlate with computed tomography scan of the chest is obtained. Influenza negative. At this time pulmonary services will be consulted. He started on Solu-Medrol. Patient also started on Rocephin and azithromycin for antibiotics and culture ordered. Continue DuoNeb breathing treatments. Patient denies chest pain. Patient denies nausea vomiting or diarrhea. Patient denies urinary burning or frequency On 01/27/2019 patient's alert and oriented 3. Patient is still having significant wheezing with shortness of breath. Patient was evaluated by pulmonary services Pulmicort added. Patient remains on IV antibiotics and IV st eroids. At this time patient denies chest pain. Patient denies nausea vomiting or diarrhea. Patient denies any urinary burning frequency. On 01/28/2019 patient is alert and oriented 3. She patient states she is not feeling well. Patient denies shortness of breath. No audible wheezing heard from patient. Patient remains on IV antibiotics and IV steroids. At this time patient denies chest pain. Patient reports cough with no sputum production. Patient denies nausea vomiting or diarrhea. Patient denies any urinary burning or frequency. Patient states her appetite is well. Patient remains on DuoNeb, and Pulmicort. Objective - Vital Signs Vital signs: Vital Signs Temp 98.2 F 01/27/19 20:46 Pulse 88 01/28/19 09:13 Resp 20 01/27/19 22:54 BP 140/65 01/27/19 20:46 Pulse Ox 92 L 01/27/19 20:46 Intake & Output 01/27/19 01/28/19 01/28/19 18:59 06:59 18:59 Other: Voiding Method Toilet Toilet # Voids 3 2 - Exam Head normocephalic Neck supple Lungs diminished bilaterally and bilateral rhonchi Heart regular rate and rhythm S1-S2, no rub or gallop Abdomen is soft nontender nondistended positive bowel sounds no hepatosplenomegaly Extremities no edema Neuro alert and orientated to 3 - Labs CBC & Chem 7: 01/28/19 07:20 01/28/19 07:20 Labs: Abnormal Lab Results - Last 24 Hours (Table) 01/27/19 01/27/19 01/27/19 Range/Units 11:25 17:01 19:45 WBC (3.8-10.6) k/uL MCV (80.0-100.0) fL MCHC (31.0-37.0) g/dL Neutrophils # (1.3-7.7) k/uL Lymphocytes # (1.0-4.8) k/uL BUN (7-17) mg/dL Glucose (74-99) mg/dL POC Glucose (mg/dL) 171 H 143 H 172 H (75-99) mg/dL Total Protein (6.3-8.2) g/dL 01/28/19 01/28/19 01/28/19 Range/Units 06:55 07:20 07:20 WBC 17.2 H (3.8-10.6) k/uL MCV 102.5 H (80.0-100.0) fL MCHC 30.5 L (31.0-37.0) g/dL Neutrophils # 15.9 H (1.3-7.7) k/uL Lymphocytes # 0.8 L (1.0-4.8) k/uL BUN 35 H (7-17) mg/dL Glucose 126 H (74-99) mg/dL POC Glucose (mg/dL) 128 H (75-99) mg/dL Total Protein 6.2 L (6.3-8.2) g/dL Microbiology - Last 24 Hours (Table) 01/26/19 13:07 Blood Culture - Preliminary Blood No Growth after 24 hours Assessment and Plan Assessment: 1. Increased shortness of breath related to COPD exacerbation. Pulmonary ser vices have been consulted. Patient started on Solu-Medrol, DuoNeb breathing treatments, azithromycin and Rocephin. Sputum culture preliminary report reveals gram-positive cocci. Pulmonary services are following. Has been added. Pulmicort added. Continue current IV antibiotics IV steroids and DuoNeb breathing treatments 2. Questionable nodule seen on chest x-ray. Per pulmonology malignancy is doubtful and 7 mm scar in right apical area of chest CT. Pulmonary services following 3. History of COPD 4. History of asthma 5. Nicotine dependence. Patient educated longer than 3 minutes on smoking sensation. Patient declines nicotine patch 6. History of Khan's palsy 7. History of GERD 8. osteoarthritis with total left hip replacement DVT prophylaxis heparin. GI prophylaxis Protonix Continue IV antibiotics and steroids and DuoNeb breathing treatment Sputum culture pending Pulmonary services following I performed an examination of the patient and discussed their management with the Nurse Practitioner. I have reviewed the Nurse Practitioner's notes and agree with the documented findings and plan of care Time with Patient: Greater than 30 (Greater than 60% of the total time spent in counseling and coordination of care. I performed an examination of the patient and discussed their management with the Nurse Practitioner. I have reviewed the Nurse Practitioner's notes and agree with the documented findings and plan of care)
[2019-01-28 11:29] LABS: Glucose,Whole Blood 182 mg/dL (75-99)
[2019-01-28 16:52] LABS: Glucose,Whole Blood 142 mg/dL (75-99)
[2019-01-28] MEDS: BUDESONIDE 0.5 MG/2 ML NEBU INHALATION SCH (19:24)
[2019-01-28] MEDS: FORMOTEROL FUMARATE 20 MCG/2 ML NEBU INHALATION SCH (19:24)
[2019-01-28 20:50] LABS: Glucose,Whole Blood 183 mg/dL (75-99)
[2019-01-28] MEDS: MONTELUKAST 10 MG TAB PO SCH (20:54)
[2019-01-28] MEDS: ZOLPIDEM 5 MG TAB PO PRN (22:56)
[2019-01-29] MEDS: MORPHINE SULFATE 2 MG/ML SYRINGE IVP PRN ×4 (04:21→19:20)
[2019-01-29] MEDS: methylPREDNISolone SOD SUCCI 125 MG/2 ML VIAL IV SCH ×4 (05:44→23:36)
[2019-01-29 07:01] LABS: Glucose,Whole Blood 174 mg/dL (75-99)
[2019-01-29] MEDS: FORMOTEROL FUMARATE 20 MCG/2 ML NEBU INHALATION SCH ×2 (07:06→21:23)
[2019-01-29] MEDS: IPRATROPIUM-ALBUTEROL 3 ML NEB INHALATION SCH ×4 (07:06→21:23)
[2019-01-29] MEDS: BUDESONIDE 0.5 MG/2 ML NEBU INHALATION SCH ×2 (07:06→21:23)
[2019-01-29] MEDS: ALLOPURINOL 300 MG TAB PO SCH (08:42)
[2019-01-29] MEDS: PANTOPRAZOLE 40 MG TABLET PO SCH (08:42)
[2019-01-29] MEDS: LORATADINE 10 MG TAB PO SCH (08:43)
[2019-01-29] MEDS: oxyCODONE-APAP 10-325MG 1 EACH TAB PO SCH ×4 (08:43→21:43)
[2019-01-29] MEDS: INSULIN ASPART (NovoLOG) 100 UNIT/ML VIAL SQ SCH ×4 (08:45→21:45)
[2019-01-29 09:17] LABS: Basophils # (A) 0.1 k/uL (0-0.2); Basophils % (A) 1 %; Eosinophils % (A) 0 %; HCT 41.2 % (34.0-46.0); HGB 13.6 gm/dL (11.4-16.0); Lymphocytes # (A) 0.6 k/uL (1.0-4.8); Lymphocytes % (A) 4 %; MCH 33.2 pg (25.0-35.0); MCV 100.6 fL (80.0-100.0); Macrocytosis Slight; Mean Platelet Volume 7.4; Monocytes # (A) 0.2 k/uL (0-1.0); Monocytes % (A) 1 %; Neutrophils # (A) 14.9 k/uL (1.3-7.7); Neutrophils % (A) 94 %; Platelet Count 294 k/uL (150-450); RDW 13.9 % (11.5-15.5); WBC 15.9 k/uL (3.8-10.6)
[2019-01-29 09:31] LABS: ALT 33 U/L (9-52); AST 23 U/L (14-36); African American GFR (CKD) >90 (>60 ml/min/1.73 sqM); Albumin 3.9 g/dL (3.5-5.0); Alkaline Phosphatase 58 U/L (38-126); Anion Gap 6 mmol/L; Blood Urea Nitrogen 35 mg/dL (7-17); Calcium 9.7 mg/dL (8.4-10.2); Carbon Dioxide 28 mmol/L (22-30); Chloride 105 mmol/L (98-107); Glucose 154 mg/dL (74-99); Non-African American GFR(CKD) >90 (>60 ml/min/1.73 sqM); Sodium 139 mmol/L (137-145); Total Bilirubin 0.2 mg/dL (0.2-1.3); Total Protein 6.4 g/dL (6.3-8.2)
[2019-01-29] MEDS: AZITHROMYCIN 500 MG in SODIUM CHLORIDE 0.9% 250 ML IVPB SCH (10:01)
[2019-01-29] MEDS: HEPARIN SODIUM,PORCINE 5,000 UNIT/ML 1 ML VIAL SQ SCH (10:10)
[2019-01-29] MEDS: METOPROLOL SUCCINATE (ER) 50 MG TAB.ER.24H PO SCH (10:38)
[2019-01-29 11:03] LABS: Glucose,Whole Blood 125 mg/dL (75-99)
--- NOTE | 2019-01-29 12:26 | P.PN ---
Subjective Progress Note Date: 01/29/19 This is a 63-year-old female patient who presented with complaints of difficulty breathing and shortness of breath and cough for 1 week. Patient has a known past medical history of COPD and asthma. Patient is also a current every day smoker. Patient reports that she has had hot and cold flashes at home but does not specifically recall having a fever. Patient does state she has a sputum production. Patient states she has tried [id number]'s without much relief. Patient reports that she is also having aching pain throughout. Additional medical history includes GERD, osteoarthritis, Khan's palsy, history of EtOH, pancreatitis, gout, chronic back pain, appendectomy, , anxiety and current every day smoker. Chest x-ray completed showing a 7 mm density right apex may relate to the anterior margin of the right first rib no acute infiltrate. Correlate with computed tomography scan of the chest is obtained. Influenza negative. At this time pulmonary services will be consulted. He started on Solu-Medrol. Patient also started on Rocephin and azithromycin for antibiotics and culture ordered. Continue DuoNeb breathing treatments. Patient denies chest pain. Patient denies nausea vomiting or diarrhea. Patient denies urinary burning or frequency On 01/27/2019 patient's alert and oriented 3. Patient is still having significant wheezing with shortness of breath. Patient was evaluated by pulmonary services Pulmicort added. Patient remains on IV antibiotics and IV st eroids. At this time patient denies chest pain. Patient denies nausea vomiting or diarrhea. Patient denies any urinary burning frequency. On 01/28/2019 patient is alert and oriented 3. She patient states she is not feeling well. Patient denies shortness of breath. No audible wheezing heard from patient. Patient remains on IV antibiotics and IV steroids. At this time patient denies chest pain. Patient reports cough with no sputum production. Patient denies nausea vomiting or diarrhea. Patient denies any urinary burning or frequency. Patient states her appetite is well. Patient remains on DuoNeb, and Pulmicort. On 01/29/2019 patient's alert and oriented 3. Patient showing minimal improvement. Patient remains on excellent medical therapy. Patient is being followed by pulmonary services remains on IV steroids DuoNeb breathing treatments and IV antibiotics. Patient denies chest pain. Patient denies nausea vomiting or diarrhea. Patient denies any urinary burning or frequency Objective - Vital Signs Vital signs: Vital Signs Temp 97.9 F 01/29/19 11:20 Pulse 88 01/29/19 11:20 Resp 22 01/29/19 11:20 BP 160/80 01/29/19 11:20 Pulse Ox 96 01/29/19 11:20 Intake & Output 01/28/19 01/29/19 01/29/19 18:59 06:59 18:59 Intake Total 1860 150 Balance 1860 150 Intake: Intake, IV Titration 300 Amount Azithromycin 500 mg In 250 Sodium Chloride 0.9% 250 ml @ 250 mls/hr IVPB DAILY [facility] Rx#:[id number] cefTRIAXone 1 gm In 50 Sodium Chloride 0.9% 50 ml @ 100 mls/hr IVPB Q24HR [facility] Rx#:[id number] Oral 1560 150 Other: Voiding Method Toilet Toilet Toilet # Voids 4 2 1 - Exam Head normocephalic Neck supple Lungs diminished bilaterally and bilateral rhonchi Heart regular rate and rhythm S1-S2, no rub or gallop Abdomen is soft nontender nondistended positive bowel sounds no hepatosplenomegaly Extremities no edema Neuro alert and orientated to 3 - Labs CBC & Chem 7: 01/29/19 08:05 01/29/19 08:05 Labs: Abnormal Lab Results - Last 24 Hours (Table) 01/28/19 01/28/19 01/29/19 Range/Units 16:50 20:47 06:56 WBC (3.8-10.6) k/uL MCV (80.0-100.0) fL Neutrophils # (1.3-7.7) k/uL Lymphocytes # (1.0-4.8) k/uL BUN (7-17) mg/dL Glucose (74-99) mg/dL POC Glucose (mg/dL) 142 H 183 H 174 H (75-99) mg/dL 01/29/19 01/29/19 01/29/19 Range/Units 08:05 08:05 11:02 WBC 15.9 H (3.8-10.6) k/uL MCV 100.6 H (80.0-100.0) fL Neutrophils # 14.9 H (1.3-7.7) k/uL Lymphocytes # 0.6 L (1.0-4.8) k/uL BUN 35 H (7-17) mg/dL Glucose 154 H (74-99) mg/dL POC Glucose (mg/dL) 125 H (75-99) mg/dL Microbiology - Last 24 Hours (Table) 01/26/19 13:07 Blood Culture - Preliminary Blood No Growth after 48 hours 01/26/19 16:00 Gram Stain - Final Sputum Sputum Culture - Final Assessment and Plan Assessment: 1. Increased shortness of breath related to COPD exacerbation. Pulmonary services have been consulted. Patient started on Solu-Medrol, DuoNeb breathing treatments, azithromycin and Rocephin. Sputum culture preliminary report reveals gram-positive cocci. Pulmonary services are following. Has been added. Pulmicort added. Continue current IV antibiotics IV steroids and DuoNeb breathing treatments 2. Questionable nodule seen on chest x-ray. Per pulmonology malignancy is doubtful and 7 mm scar in right apical area of chest CT. Pulmonary services following 3. History of COPD 4. History of asthma 5. Nicotine dependence. Patient educated longer than 3 minutes on smoking sensation. Patient declines nicotine patch 6. History of Khan's palsy 7. History of GERD 8. osteoarthritis with total left hip replacement DVT prophylaxis heparin. GI prophylaxis Protonix Continue IV antibiotics and steroids and DuoNeb breathing treatment Sputum culture pending Pulmonary services following I performed an examination of the patient and discussed their management with the Nurse Practitioner. I have reviewed the Nurse Practitioner's notes and agree with the documented findings and plan of care
--- NOTE | 2019-01-29 14:16 | P.PN ---
Subjective Progress Note Date: 01/29/19 Principal diagnosis: Acute exacerbation of chronic obstructive pulmonary disease 63-year-old female patient with known history of advanced emphysema with poor compliance, came in yesterday because of increased difficulty breathing, cough, chest tightness, wheezing, shortness of breath and extreme limitation of exercise capacity. The patient had difficulty breathing and she was having hard time completing full sentences. She was still smoking about 1 pack of cigarettes a day and she carries more than [id number] smoking history. She has seen us in the office in the past under the care of Dr. Barnes, and the patient has been given Airduo one inhalation twice a day. She also has a nebulizer which she doesn't use it on a regular basis. She is currently moved in with her sister and Ghulam Hernandez. No fever. No chills. No pleurisy. No hemoptysis. Influenza screen was done and it was negative. Pulmonary consultation was requested. Chest x-ray shows hyperinflation. There is a questionable 7 mm right apical scar. Her previous CAT scan of the chest from last year did not show any evidence of lung masses. There was some chronic interstitial areas of scarring. No altered mentation. She claims that she hasn't drank alcohol for the past 6 months. Her FEV1 is measured to be at 59% of predicted based on a spirometer this was done back in September 2017. His evaluation on seeing this patient for a follow-up. The patient is being seen in follow-up on 01/28/2019. Still short of breath and bronchospastic and wheezy although somewhat improved compared to yesterday. She is on a combination of Rocephin and Zithromax. She is on IV Solu-Medrol. She is on DuoNeb nebulized treatments around the clock. She is also receiving combination of Pulmicort and Perforomist nebulized treatments twice a day. No pleurisy. Chest is sore with coughing. Breath sounds are quite diminished in the lung bilaterally although somewhat improved compared to yesterday. No nausea. No vomiting. No emesis. No other new complaints otherwise. No fever or chills. Altered mentation. The patient is seen today 01/29/2019 in follow-up on the regular medical floor. She is currently sitting up at the bedside. Awake and alert in no acute distress. She is still somewhat bronchospastic and wheezy. Still not back to her baseline. Breathing a bit easier today as compared to yesterday. Maintaining O2 saturations in the mid 90s on 3 L/m per nasal cannula. She's been afebrile. Blood and sputum cultures reveal no growth. She is continued on DuoNeb inhalations, Pulmicort and Perforomist inhalations, IV Solu-Medrol. Antibiotics in the form of ceftriaxone and azithromycin. Objective - Vital Signs Vital signs: Vital Signs Temp 97.9 F 01/29/19 11:20 Pulse 88 01/29/19 11:20 Resp 22 01/29/19 11:20 BP 160/80 01/29/19 11:20 Pulse Ox 96 01/29/19 11:20 Intake & Output 01/28/19 01/29/19 01/29/19 18:59 06:59 18:59 Intake Total 8458 025 5629 Balance 9126 645 5579 Intake: Intake, IV Titration 300 Amount Azithromycin 500 mg In 250 Sodium Chloride 0.9% 250 ml @ 250 mls/hr IVPB DAILY [facility] Rx#:[id number] cefTRIAXone 1 gm In 50 Sodium Chloride 0.9% 50 ml @ 100 mls/hr IVPB Q24HR [facility] Rx#:[id number] Oral [id number] [id number] Other: Voiding Method Toilet Toilet Toilet # Voids 4 2 4 - Exam GENERAL EXAM: Alert, pleasant 63-year-old female patient, on 3 L nasal cannula, comfortable in no apparent distress. HEAD: Normocephalic. EYES: Normal reaction of pupils, equal size. NOSE: Clear with pink turbinates. THROAT: No erythema or exudates. NECK: No masses, no JVD. CHEST: No chest wall deformity. LUNGS: Equal air entry with bilateral end expiratory wheeze, diminished CVS: S1 and S2 normal with no audible murmur, regular rhythm. ABDOMEN: No hepatosplenomegaly, normal bowel sounds, no guarding or rigidity. SPINE: No scoliosis or deformity SKIN: No rashes CENTRAL NERVOUS SYSTEM: No focal deficits, tone is normal in all 4 extremities. EXTREMITIES: There is no peripheral edema. No clubbing, no cyanosis. Peripheral pulses are intact. - Labs CBC & Chem 7: 01/29/19 08:05 01/29/19 08:05 Labs: Abnormal Lab Results - Last 24 Hours (Table) 01/28/19 01/28/19 01/29/19 Range/Units 16:50 20:47 06:56 WBC (3.8-10.6) k/uL MCV (80.0-100.0) fL Neutrophils # (1.3-7.7) k/uL Lymphocytes # (1.0-4.8) k/uL BUN (7-17) mg/dL Glucose (74-99) mg/dL POC Glucose (mg/dL) 142 H 183 H 174 H (75-99) mg/dL 01/29/19 01/29/19 01/29/19 Range/Units 08:05 08:05 11:02 WBC 15.9 H (3.8-10.6) k/uL MCV 100.6 H (80.0-100.0) fL Neutrophils # 14.9 H (1.3-7.7) k/uL Lymphocytes # 0.6 L (1.0-4.8) k/uL BUN 35 H (7-17) mg/dL Glucose 154 H (74-99) mg/dL POC Glucose (mg/dL) 125 H (75-99) mg/dL Microbiology - Last 24 Hours (Table) 01/26/19 13:07 Blood Culture - Preliminary Blood No Growth after 48 hours 01/26/19 16:00 Gram Stain - Final Sputum Sputum Culture - Final Assessment and Plan Assessment: Impression: 1 acute COPD exacerbation with secondary shortness of breath. Influenza screen is negative. No evidence of an acute pneumonia. The chest x-rays showing some chronic interstitial scarring. Nevertheless, the predominant pathology his acute COPD exacerbation. She has a moderately severe COPD based on the previous spirometry that was done in our office in FEV1 was in the order of 59% of predicted. She is a chronic smoker. The chest x-ray showing a 7 mm scar in the right apical area. Malignancy is doubtful. The patient is still having cough and congestion and wheeze. 2 chronic dyspnea related to COPD with interval exacerbation 3 chronic smoker 4 skeletal chest wall pain related to cough 5 smoker 6 history of atrial fibrillation back to sinus 7 gout 8 history of alcoholism with previous history of pancreatitis 9 chronic back pain 10 acid reflux Plan: The patient was seen and evaluated by Dr. Pulliam. She is currently stable from the pulmonary standpoint but not quite back to her baseline. We'll continue with the current therapy. Increase her activity as tolerated. Possibly home in the a.m. I, the cosigning physician, performed a history & physical examination of the patient. Lungs sounds with bilateral end expiratory wheeze, diminished. Ma intaining good O2 saturations in the 90s on 3 L/m per nasal cannula I discussed the assessment and plan of care with my nurse practitioner, Libby Toledo. I attest to the above note as dictated by her.
[2019-01-29 17:31] LABS: Glucose,Whole Blood 135 mg/dL (75-99)
[2019-01-29 21:42] LABS: Glucose,Whole Blood 157 mg/dL (75-99)
[2019-01-29] MEDS: ENOXAPARIN 60 MG/0.6 ML SYRINGE SQ SCH (21:43)
[2019-01-29] MEDS: MONTELUKAST 10 MG TAB PO SCH (21:44)
[2019-01-30] MEDS: ZOLPIDEM 5 MG TAB PO PRN ×2 (00:41→22:06)
[2019-01-30] MEDS: MORPHINE SULFATE 2 MG/ML SYRINGE IVP PRN ×4 (03:32→19:55)
[2019-01-30 06:23] LABS: Glucose,Whole Blood 179 mg/dL (75-99)
[2019-01-30] MEDS: PANTOPRAZOLE 40 MG TABLET PO SCH (06:31)
[2019-01-30] MEDS: INSULIN ASPART (NovoLOG) 100 UNIT/ML VIAL SQ SCH ×4 (06:32→22:07)
[2019-01-30] MEDS: methylPREDNISolone SOD SUCCI 125 MG/2 ML VIAL IV SCH ×3 (06:32→17:32)
[2019-01-30 06:44] LABS: Basophils # (A) 0.1 k/uL (0-0.2); Basophils % (A) 1 %; Eosinophils # (A) 0.1 k/uL (0-0.7); Eosinophils % (A) 1 %; HCT 40.9 % (34.0-46.0); HGB 12.8 gm/dL (11.4-16.0); Lymphocytes # (A) 0.6 k/uL (1.0-4.8); Lymphocytes % (A) 5 %; MCHC 31.3 g/dL (31.0-37.0); MCV 102.5 fL (80.0-100.0); Macrocytosis Slight; Mean Platelet Volume 7.7; Monocytes # (A) 0.2 k/uL (0-1.0); Monocytes % (A) 2 %; Neutrophils # (A) 11.9 k/uL (1.3-7.7); Neutrophils % (A) 92 %; Platelet Count 279 k/uL (150-450); RBC 3.99 m/uL (3.80-5.40); RDW 14.2 % (11.5-15.5)
[2019-01-30 06:53] LABS: ALT 36 U/L (9-52); AST 20 U/L (14-36); African American GFR (CKD) >90 (>60 ml/min/1.73 sqM); Albumin 3.4 g/dL (3.5-5.0); Alkaline Phosphatase 48 U/L (38-126); Anion Gap 6 mmol/L; Blood Urea Nitrogen 35 mg/dL (7-17); Calcium 9.5 mg/dL (8.4-10.2); Carbon Dioxide 29 mmol/L (22-30); Chloride 104 mmol/L (98-107); Glucose 161 mg/dL (74-99); Non-African American GFR(CKD) >90 (>60 ml/min/1.73 sqM); Potassium 4.2 mmol/L (3.5-5.1); Sodium 139 mmol/L (137-145); Total Bilirubin 0.3 mg/dL (0.2-1.3); Total Protein 5.8 g/dL (6.3-8.2)
[2019-01-30] MEDS: oxyCODONE-APAP 10-325MG 1 EACH TAB PO SCH ×4 (08:15→22:06)
[2019-01-30] MEDS: METOPROLOL SUCCINATE (ER) 50 MG TAB.ER.24H PO SCH (08:25)
[2019-01-30] MEDS: AZITHROMYCIN 500 MG TAB PO SCH (08:25)
[2019-01-30] MEDS: ERGOCALCIFEROL 50,000 UNIT CAP PO SCH (08:25)
[2019-01-30] MEDS: ALLOPURINOL 300 MG TAB PO SCH (08:25)
[2019-01-30] MEDS: LORATADINE 10 MG TAB PO SCH (08:25)
[2019-01-30] MEDS: BUDESONIDE 0.5 MG/2 ML NEBU INHALATION SCH ×2 (08:47→19:19)
[2019-01-30] MEDS: FORMOTEROL FUMARATE 20 MCG/2 ML NEBU INHALATION SCH ×2 (08:47→19:19)
[2019-01-30] MEDS: IPRATROPIUM-ALBUTEROL 3 ML NEB INHALATION SCH ×4 (08:47→19:19)
[2019-01-30] MEDS: ENOXAPARIN 60 MG/0.6 ML SYRINGE SQ SCH ×2 (08:52→19:55)
--- NOTE | 2019-01-30 10:59 | P.PN ---
Subjective Progress Note Date: 01/30/19 This is a 63-year-old female patient who presented with complaints of difficulty breathing and shortness of breath and cough for 1 week. Patient has a known past medical history of COPD and asthma. Patient is also a current every day smoker. Patient reports that she has had hot and cold flashes at home but does not specifically recall having a fever. Patient does state she has a sputum production. Patient states she has tried [id number]'s without much relief. Patient reports that she is also having aching pain throughout. Additional medical history includes GERD, osteoarthritis, Khan's palsy, history of EtOH, pancreatitis, gout, chronic back pain, appendectomy, , anxiety and current every day smoker. Chest x-ray completed showing a 7 mm density right apex may relate to the anterior margin of the right first rib no acute infiltrate. Correlate with computed tomography scan of the chest is obtained. Influenza negative. At this time pulmonary services will be consulted. He started on Solu-Medrol. Patient also started on Rocephin and azithromycin for antibiotics and culture ordered. Continue DuoNeb breathing treatments. Patient denies chest pain. Patient denies nausea vomiting or diarrhea. Patient denies urinary burning or frequency On 01/27/2019 patient's alert and oriented 3. Patient is still having significant wheezing with shortness of breath. Patient was evaluated by pulmonary services Pulmicort added. Patient remains on IV antibiotics and IV st eroids. At this time patient denies chest pain. Patient denies nausea vomiting or diarrhea. Patient denies any urinary burning frequency. On 01/28/2019 patient is alert and oriented 3. She patient states she is not feeling well. Patient denies shortness of breath. No audible wheezing heard from patient. Patient remains on IV antibiotics and IV steroids. At this time patient denies chest pain. Patient reports cough with no sputum production. Patient denies nausea vomiting or diarrhea. Patient denies any urinary burning or frequency. Patient states her appetite is well. Patient remains on DuoNeb, and Pulmicort. On 01/29/2019 patient's alert and oriented 3. Patient showing minimal improvement. Patient remains on excellent medical therapy. Patient is being followed by pulmonary services remains on IV steroids DuoNeb breathing treatments and IV antibiotics. Patient denies chest pain. Patient denies nausea vomiting or diarrhea. Patient denies any urinary burning or frequency On 01/30/2019 patient is alert oriented 3. Patient reports minimal improvement with shortness of breath. Clinically, mild improvement. Patient will remain on IV antibiotics and IV steroids, plus DuoNeb breathing treatments. Overnight patient had episode of atrial fibrillation with rapid ventricular response. Patient denies any notice to this episode. She denied feeling dizziness chest pain. Stat EKG obtained, patient was transferred to cardiology unit for increased monitoring. Cardizem drip ordered but was never started due to patient converting back into sinus rhythm. Subcu heparin was DC'd subcu Lovenox 1mg/kg BID started. Cardiology consulted, will wait for their recommendations. Patient denies fevers, nausea vomiting or diarrhea. Patient denies any urinary burning or frequency. Objective - Vital Signs Vital signs: Vital Signs Temp 97.3 F L 01/30/19 08:00 Pulse 92 01/30/19 09:10 Resp 16 01/30/19 08:00 BP 137/69 01/30/19 08:00 Pulse Ox 98 01/30/19 08:00 Intake & Output 01/29/19 01/30/19 01/30/19 18:59 06:59 18:59 Intake Total 1320 300 Balance 1320 300 Weight 75.2 kg Intake: Oral 1320 300 Other: Voiding Method Toilet Toilet # Voids 4 2 - Exam Head normocephalic Neck supple Lungs diminished bilaterally and bilateral high pitched wheezes, inspiratory and expiratory. Heart regular rate and rhythm S1-S2, no rub or gallop Abdomen is soft nontender nondistended positive bowel sounds no hepatosp lenomegaly Extremities no edema Neuro alert and orientated to 3 - Labs CBC & Chem 7: 01/30/19 06:19 01/30/19 06:19 Labs: Abnormal Lab Results - Last 24 Hours (Table) 01/29/19 01/29/19 01/29/19 Range/Units 11:02 17:30 21:40 WBC (3.8-10.6) k/uL MCV (80.0-100.0) fL Neutrophils # (1.3-7.7) k/uL Lymphocytes # (1.0-4.8) k/uL BUN (7-17) mg/dL Glucose (74-99) mg/dL POC Glucose (mg/dL) 125 H 135 H 157 H (75-99) mg/dL Total Protein (6.3-8.2) g/dL Albumin (3.5-5.0) g/dL 01/30/19 01/30/19 01/30/19 Range/Units 06:19 06:19 06:22 WBC 13.0 H (3.8-10.6) k/uL MCV 102.5 H (80.0-100.0) fL Neutrophils # 11.9 H (1.3-7.7) k/uL Lymphocytes # 0.6 L (1.0-4.8) k/uL BUN 35 H (7-17) mg/dL Glucose 161 H (74-99) mg/dL POC Glucose (mg/dL) 179 H (75-99) mg/dL Total Protein 5.8 L (6.3-8.2) g/dL Albumin 3.4 L (3.5-5.0) g/dL Microbiology - Last 24 Hours (Table) 01/26/19 13:07 Blood Culture - Preliminary Blood No Growth after 72 hours Assessment and Plan Assessment: 1. Increased shortness of breath related to COPD exacerbation. Pulmonary services have been consulted. Patient started on Solu-Medrol, DuoNeb breathing treatments as well as Pulmicort and Perforomist nebulized treatments, azithromycin and Rocephin. Sputum culture preliminary report reveals gram- positive cocci. Pulmonary services are following. Continue current IV antibiotics IV steroids and DuoNeb breathing treatments 2. Questionable nodule seen on chest x-ray. Per pulmonology malignancy is doubtful and 7 mm scar in right apical area of chest CT. Pulmonary services following 3. Acute episode of A. fib patient transferred to telemetry patient back to sinus rhythm cardiology services consult 4. History of atrial fibrillation. Discovered in August 2017 during hospital visit. At which time cardiology was consulted, an echocardiogram was completed and recommendations were to start patient on eliquis. Eliquis was discontinued during this admission due to a rectus sheath hematoma. 5. History of COPD 6. History of asthma 7. Nicotine dependence. Patient educated longer than 3 minutes on smoking sensation. Patient declines nicotine patch 8. History of Khan's palsy 9. History of GERD 10. osteoarthritis with total left hip replacement DVT prophylaxis heparin. GI prophylaxis Protonix Continue IV antibiotics and steroids and DuoNeb breathing treatment Pulmonary services following I performed an examination of the patient and discussed their management with the Nurse Practitioner. I have reviewed the Nurse Practitioner's notes and agree with the documented findings and plan of care
[2019-01-30 11:38] LABS: Glucose,Whole Blood 169 mg/dL (75-99)
--- NOTE | 2019-01-30 14:24 | P.CRDCN ---
History of Present Illness History of present illness: This is Amy Marc PA-C dictating a consult on this patient The patient was interviewed and examined by me as well as by Dr. Nazario Case discussed with Dr. Nazario and he agrees with the plan of care IMPRESSION / ASSESSMENT: Shortness of breath secondary to COPD exacerbation paroxysmal atrial fibrillation, unclear why she is not on anticoagulation Hypertension PLAN: Obtain 2-D echo and Doppler CHADS VASC score is at least 3 due to HTN, age, and female, anticoagulation w ould be indicated Will discuss issue of anticoagulation with the patient and if she does not have any contraindications and we will start anticoagulation HPI Patient is a 63-year-old female with a past medical history of COPD and paroxysmal atrial fibrillation who presented with complaints of shortness of breath. States she has been more short of breath for the last few weeks. She also has some pleuritic chest discomfort, states it hurts when she coughs and takes a deep breath. She has a dry cough. No fevers. Denies any history of any heart problems. She has also had chronic orthopnea and has slept in a recliner for the last 10 years. She presented to the emergency department for further evaluation. EKG showed sinus mechanism with no acute ST or T-wave abnormalities. Chest x-ray showed 7 mm density at the apex of the right lung, hyperinflation. We were consulted for A. fib with RVR however I do not see any evidence of A. fib during this admission. Telemetry strips reveal a few episodes of nonsustained atrial tachycardia. She does have atrial fibrillation with RVR documented on an EKG in August 2017. it is unclear why she is not on anticoagulation. Patient seen and examined resting comfortably in bed. States she is still short of breath. No chest pain, dizziness, lightheadedness, palpitations or syncope. ROS: No fevers, positive chills Positive cough no nausea, vomiting or diarrhea, no hematuria, dysuria, Positive for back pain no strokes or seizures, no skin lesions. EXAMINATION: Temperature is afebrile, pulse 82, respirations 16, blood pressure 165/76, o xygen saturation 92% on 3 L nasal cannula Patient seen and examined sitting in bed in bed, in no acute distress Lungs are diminished bilaterally with rhonchi and wheezing throughout Heart is regular, normal S1-S2, no murmurs noted No elevated JVD No lower extremity edema REVIEW OF LABS, ECG & MEDICAL DATA WBC 13, hemoglobin 12.8, platelets 279, potassium 4.2, BUN 35, creatinine 0.52 Past Medical History Past Medical History: Atrial Fibrillation, COPD, Eye Disorder, GERD/Reflux, Hearing Disorder / Deafness, Osteoarthritis (OA) Additional Past Medical History / Comment(s): Afib RVR, bronchitis with sepsis, acute hypoxic respiratory failure with bipap/ventimask, rectus sheath hematoma thought d/t coughing, previous pancreatitis x 2, denies ETOH abuse/withdrawals, recinos's palsy, gout bilateral feet/toes, R ear tinnitis, occasional R eye double vision, cataracts bilaterally History of Any Multi-Drug Resistant Organisms: None Reported Past Surgical History: Appendectomy, Section, Joint Replacement, Orthopedic Surgery Additional Past Surgical History / Comment(s): Total L hip arthroplasty, ORIF R arm with pin now removed, R side surgery d/t trauma, colonoscopy with benign polyps Past Anesthesia/Blood Transfusion Reactions: No Reported Reaction Smoking Status: Current every day smoker (40 [id number] smoking history) Past Alcohol Use History: Abuse (Used to abuse alcohol in the past heavily and she claims that she hasn't drank for the past 6 months.) - Past Family History Mother Family Medical History: COPD, Diabetes Mellitus Additional Family Medical History / Comment(s): Mother had heart problems. Father Family Medical History: No Reported History Additional Family Medical History / Comment(s): Father had gout and heart problems. Brother(s) Additional Family Medical History / Comment(s): gout Medications and Allergies Home Medications Medication Instructions Recorded Confirmed Type Allopurinol 300 mg PO DAILY 11/25/15 01/26/19 History Ergocalciferol [Vitamin D2 50,000 unit PO FR 11/25/15 01/26/19 History (DRISDOL)] Loratadine [Claritin] 10 mg PO DAILY 08/21/17 01/26/19 History Omeprazole [PriLOSEC] 40 mg PO DAILY 08/21/17 01/26/19 History Fluticasone/Salmeterol 1 puff INHALATION RT-BID 01/26/19 01/26/19 History [Fluticasone-Salmeterol -] Metoprolol Succinate [Toprol XL] 50 mg PO DAILY 01/26/19 01/26/19 History Montelukast [Singulair] 10 mg PO HS 01/26/19 01/26/19 History oxyCODONE-APAP 10-325MG [Percocet 1 tab PO QID 01/26/19 01/26/19 History 10-325 mg] Allergies Allergy/AdvReac Type Severity Reaction Status Date / Time No Known Allergies Allergy Verified 01/26/19 13:30 Physical Exam Vitals: Vital Signs Temp Pulse Pulse Resp BP BP Pulse Ox 01/30/19 12:00 82 16 165/76 92 L 01/30/19 11:50 88 01/30/19 11:40 88 01/30/19 11:22 16 01/30/19 09:10 92 01/30/19 09:02 88 01/30/19 08:50 80 01/30/19 08:00 97.3 F L 86 16 137/69 98 01/30/19 03:43 97.7 F 66 18 160/78 92 L 01/29/19 23:57 98.5 F 70 20 149/67 93 L 01/29/19 21:43 84 01/29/19 21:33 80 01/29/19 21:23 84 01/29/19 21:00 98 F 78 22 151/78 95 01/29/19 16:00 82 22 01/29/19 15:27 83 01/29/19 15:15 80 Intake and Output 01/29/19 01/30/19 01/30/19 22:59 06:59 14:59 Intake Total 240 300 Balance 240 300 Intake: Oral 240 300 Other: Voiding Method Toilet Toilet Toilet # Voids 1 2 2 Weight 75.2 kg Results 01/30/19 06:19 01/30/19 06:19 Cardiac Enzymes 01/30/19 Range/Units 06:19 AST 20 (14-36) U/L CBC 01/30/19 Range/Units 06:19 WBC 13.0 H (3.8-10.6) k/uL RBC 3.99 (3.80-5.40) m/uL Hgb 12.8 (11.4-16.0) gm/dL Hct 40.9 (34.0-46.0) % Plt Count 279 (150-450) k/uL Comprehensive Metabolic Panel 01/30/19 Range/Units 06:19 Sodium 139 (137-145) mmol/L Potassium 4.2 (3.5-5.1) mmol/L Chloride 104 (98-107) mmol/L Carbon Dioxide 29 (22-30) mmol/L BUN 35 H (7-17) mg/dL Creatinine 0.52 (0.52-1.04) mg/dL Glucose 161 H (74-99) mg/dL Calcium 9.5 (8.4-10.2) mg/dL AST 20 (14-36) U/L ALT 36 (9-52) U/L Alkaline Phosphatase 48 (38-126) U/L Total Protein 5.8 L (6.3-8.2) g/dL Albumin 3.4 L (3.5-5.0) g/dL Current Medications Generic Name Dose Route Start Last Admin Trade Name Freq PRN Reason Stop Dose Admin Albuterol/Ipratropium 3 ml 01/26/19 16:00 01/30/19 11:40 Duoneb 0.5 Mg-3 Mg/3 Ml Soln INHALATION 3 ml RT-QID LACEY Administration Albuterol/Ipratropium 3 ml 01/26/19 13:28 Duoneb 0.5 Mg-3 Mg/3 Ml Soln INHALATION RT-Q2H PRN Shortness Of Breath Or Wheezing Allopurinol 300 mg 01/27/19 09:00 01/30/19 08:25 Zyloprim PO 300 mg DAILY LACEY Administration Azithromycin 500 mg 01/30/19 09:00 01/30/19 08:25 Zithromax PO 500 mg DAILY LACEY Administration Benzocaine/Menthol 1 each 01/27/19 09:40 01/27/19 20:23 Cepacol Lozenge MUCOUS MEM 1 each Q4HR PRN Administration Sore Throat Budesonide 0.5 mg 01/28/19 20:00 01/30/19 08:47 Pulmicort INHALATION 0.5 mg RT-BID LACEY Administration Enoxaparin Sodium 60 mg 01/29/19 21:00 01/30/19 08:52 Lovenox SQ 60 mg Q12HR LACEY Administration Ergocalciferol 50,000 unit 01/30/19 09:00 01/30/19 08:25 Vitamin D2 PO 50,000 unit FR LACEY Administration Formoterol Fumarate 20 mcg 01/28/19 20:00 01/30/19 08:47 Perforomist INHALATION 20 mcg RT-BID LACEY Administration Guaifenesin/Codeine Phosphate 5 ml 01/26/19 20:57 01/27/19 20:23 Robitussin Ac PO 5 ml Q6H PRN Administration Cough Ceftriaxone Sodium 1 gm/ 50 mls @ 100 mls/hr 01/27/19 09:00 01/30/19 08:25 Sodium Chloride IVPB 100 mls/hr Q24HR LACEY Administration Insulin Aspart 0 unit 01/26/19 17:30 01/30/19 12:20 Novolog SQ 2 unit ACHS LACEY Administration Protocol Loratadine 10 mg 01/27/19 09:00 01/30/19 08:25 Claritin PO 10 mg DAILY LACEY Administration Methylprednisolone Sodium Succinate 60 mg 01/26/19 18:00 01/30/19 12:21 Solu-Medrol IV 60 mg Q6HR LACEY Administration Metoprolol Succinate 50 mg 01/27/19 09:00 01/30/19 08:25 Toprol Xl PO 50 mg DAILY LACEY Administration Montelukast Sodium 10 mg 01/26/19 21:00 01/29/19 21:44 Singulair PO 10 mg HS LACEY Administration Morphine Sulfate 2 mg 01/26/19 13:29 01/30/19 08:24 Morphine Sulfate (Inj) IVP 2 mg Q4H PRN Administration Pain/Discomfort Oxycodone/Acetaminophen 1 each 01/26/19 18:00 01/30/19 12:19 Percocet 10-325 PO 1 each QID LACEY Administration Pantoprazole Sodium 40 mg 01/27/19 07:30 01/30/19 06:31 Protonix PO 40 mg [id number] LACEY Administration Zolpidem Tartrate 5 mg 01/26/19 20:57 01/30/19 00:41 Ambien PO 5 mg HS PRN Administration Insomnia Intake and Output 01/29/19 01/30/19 01/30/19 22:59 06:59 14:59 Intake Total 240 300 Balance 240 300 Intake: Oral 240 300 Other: Voiding Method Toilet Toilet Toilet # Voids 1 2 2 Weight 75.2 kg 01/30/19 06:19 01/30/19 06:19
--- NOTE | 2019-01-30 15:12 | P.PN ---
Subjective Progress Note Date: 01/30/19 Principal diagnosis: Acute exacerbation of chronic obstructive pulmonary disease 63-year-old female patient with known history of advanced emphysema with poor compliance, came in yesterday because of increased difficulty breathing, cough, chest tightness, wheezing, shortness of breath and extreme limitation of exercise capacity. The patient had difficulty breathing and she was having hard time completing full sentences. She was still smoking about 1 pack of cigarettes a day and she carries more than [id number] smoking history. She has seen us in the office in the past under the care of Dr. Barnes, and the patient has been given Airduo one inhalation twice a day. She also has a nebulizer which she doesn't use it on a regular basis. She is currently moved in with her sister and Ghulam Hernandez. No fever. No chills. No pleurisy. No hemoptysis. Influenza screen was done and it was negative. Pulmonary consultation was requested. Chest x-ray shows hyperinflation. There is a questionable 7 mm right apical scar. Her previous CAT scan of the chest from last year did not show any evidence of lung masses. There was some chronic interstitial areas of scarring. No altered mentation. She claims that she hasn't drank alcohol for the past 6 months. Her FEV1 is measured to be at 59% of predicted based on a spirometer this was done back in September 2017. His evaluation on seeing this patient for a follow-up. The patient is being seen in follow-up on 01/28/2019. Still short of breath and bronchospastic and wheezy although somewhat improved compared to yesterday. She is on a combination of Rocephin and Zithromax. She is on IV Solu-Medrol. She is on DuoNeb nebulized treatments around the clock. She is also receiving combination of Pulmicort and Perforomist nebulized treatments twice a day. No pleurisy. Chest is sore with coughing. Breath sounds are quite diminished in the lung bilaterally although somewhat improved compared to yesterday. No nausea. No vomiting. No emesis. No other new complaints otherwise. No fever or chills. Altered mentation. The patient is seen today 01/29/2019 in follow-up on the regular medical floor. She is currently sitting up at the bedside. Awake and alert in no acute distress. She is still somewhat bronchospastic and wheezy. Still not back to her baseline. Breathing a bit easier today as compared to yesterday. Maintaining O2 saturations in the mid 90s on 3 L/m per nasal cannula. She's been afebrile. Blood and sputum cultures reveal no growth. She is continued on DuoNeb inhalations, Pulmicort and Perforomist inhalations, IV Solu-Medrol. Antibiotics in the form of ceftriaxone and azithromycin. The patient is seen today 01/30/2019 in follow-up on the selective care unit. She had a brief episode of atrial fibrillation with rapid ventricular response and was transferred here to be initiated on Cardizem drip. She had spontaneous converted into normal sinus rhythm prior to any treatment. She was initiated on Lovenox 60 mg subcu every 12 hours. She is currently awake and alert in no acute distress. She denies any worsening shortness of breath. Continues with dyspnea on exertion. Nonproductive cough. Some end expiratory wheeze. No chest pain currently. No palpitations. Blood culture reveals no growth. Sputum culture reveals no growth. White count 13.0. Hemoglobin 12.8. Creatinine 0.52. She remains on DuoNeb inhalations, ceftriaxone and azithromycin, IV Solu-Medrol. Objective - Vital Signs Vital signs: Vital Signs Temp 97.3 F L 01/30/19 08:00 Pulse 82 01/30/19 12:00 Resp 16 01/30/19 12:00 BP 165/76 01/30/19 12:00 Pulse Ox 92 L 01/30/19 12:00 Intake & Output 01/29/19 01/30/19 01/30/19 18:59 06:59 18:59 Intake Total 1320 540 Output Total 500 Balance 1320 40 Weight 75.2 kg Intake: Oral 1320 540 Output: Urine 500 Other: Voiding Method Toilet Toilet Toilet # Voids 4 2 2 - Exam GENERAL EXAM: Alert, pleasant 63-year-old female patient, on 3 L nasal cannula, comfortable in no apparent distress. HEAD: Normocephalic. EYES: Normal reaction of pupils, equal size. NOSE: Clear with pink turbinates. THROAT: No erythema or exudates. NECK: No masses, no JVD. CHEST: No chest wall deformity. LUNGS: Equal air entry with bilateral end expiratory wheeze, diminished CVS: S1 and S2 normal with no audible murmur, regular rhythm. ABDOMEN: No hepatosplenomegaly, normal bowel sounds, no guarding or rigidity. SPINE: No scoliosis or deformity SKIN: No rashes CENTRAL NERVOUS SYSTEM: No focal deficits, tone is normal in all 4 extremities. EXTREMITIES: There is no peripheral edema. No clubbing, no cyanosis. Peripheral pulses are intact. - Labs CBC & Chem 7: 01/30/19 06:19 01/30/19 06:19 Labs: Abnormal Lab Results - Last 24 Hours (Table) 01/29/19 01/29/19 01/30/19 Range/Units 17:30 21:40 06:19 WBC 13.0 H (3.8-10.6) k/uL MCV 102.5 H (80.0-100.0) fL Neutrophils # 11.9 H (1.3-7.7) k/uL Lymphocytes # 0.6 L (1.0-4.8) k/uL BUN (7-17) mg/dL Glucose (74-99) mg/dL POC Glucose (mg/dL) 135 H 157 H (75-99) mg/dL Total Protein (6.3-8.2) g/dL Albumin (3.5-5.0) g/dL 01/30/19 01/30/19 01/30/19 Range/Units 06:19 06:22 11:36 WBC (3.8-10.6) k/uL MCV (80.0-100.0) fL Neutrophils # (1.3-7.7) k/uL Lymphocytes # (1.0-4.8) k/uL BUN 35 H (7-17) mg/dL Glucose 161 H (74-99) mg/dL POC Glucose (mg/dL) 179 H 169 H (75-99) mg/dL Total Protein 5.8 L (6.3-8.2) g/dL Albumin 3.4 L (3.5-5.0) g/dL Microbiology - Last 24 Hours (Table) 01/26/19 13:07 Blood Culture - Preliminary Blood No Growth after 72 hours Assessment and Plan Assessment: Impression: 1 acute COPD exacerbation with secondary shortness of breath. Influenza screen is negative. No evidence of an acute pneumonia. The chest x-rays showing some chronic interstitial scarring. Nevertheless, the predominant pathology his acute COPD exacerbation. She has a moderately severe COPD based on the previous spirometry that was done in our office in FEV1 was in the order of 59% of predicted. She is a chronic smoker. The chest x-ray showing a 7 mm scar in the right apical area. Malignancy is doubtful. The patient is still having cough and congestion and wheeze. 2 chronic dyspnea related to COPD with interval exacerbation 3 brief onset of atrial fibrillation on 01/29/2019, converted to sinus rhythm. 4 skeletal chest wall pain related to cough 5 smoker 6 history of atrial fibrillation back to sinus 7 gout 8 history of alcoholism with previous history of pancreatitis 9 chronic back pain 10 acid reflux Plan: The patient was seen and evaluated by Dr. Pulliam. She was transferred to the selective care unit for brief episode of atrial fibrillation. Currently in sinus rhythm. She is currently stable from the pulmonary standpoint but not quite back to her baseline. We'll continue with the current therapy. Increase her activity as tolerated. We will continue to follow and make further recommendations based on her clinical status. I, the cosigning physician, performed a history & physical examination of the patient. Lungs sounds with bilateral end expiratory wheeze, diminished. Maintaining good O2 saturations in the 90s on 3 L/m per nasal cannula I discussed the assessment and plan of care with my nurse practitioner, Libby Toledo. I attest to the above note as dictated by her.
[2019-01-30 16:50] LABS: Glucose,Whole Blood 143 mg/dL (75-99)
--- NOTE | 2019-01-30 17:31 | ECHOF ---
Referral Reason:sob MEASUREMENTS -------- HEIGHT: 152.4 cm WEIGHT: 81.6 kg BP: RVIDd: 3.3 cm (< 3.3) IVSd: 1.2 cm (0.6 - 1.1) LVIDd: 4.3 cm (3.9 - 5.3) LVPWd: 1.3 cm (0.6 - 1.1) IVSs: 1.4 cm LVIDs: 3.2 cm LVPWs: 1.5 cm LA Diam: 4.4 cm (2.7 - 3.8) LAESV Index (A-L): 36.14 ml/m Ao Diam: 3.1 cm (2.0 - 3.7) AV Cusp: 1.6 cm (1.5 - 2.6) LA Diam: 4.0 cm (2.7 - 3.8) MV EXCURSION: 15.618 mm (> 18.000) MV EF SLOPE: 74 mm/s (70 - 150) EPSS: 0.4 cm MV E Medardo: 0.83 m/s MV DecT: 170 ms MV A Medardo: 0.93 m/s MV E/A Ratio: 0.89 RAP: 5.00 mmHg RVSP: 34.94 mmHg FINDINGS -------- Sinus rhythm. This was a technically good study. The left ventricular size is normal. There is mild concentric left ventricular hypertrophy. Overa ll left ventricular systolic function is normal with, an EF between 55 - 60 %. The diastolic fillin g pattern is normal for the age of the patient 10.73. The right ventricle is normal in size. The left atrium is moderately dilated. LA is moderately dilated 34-39 ml/m2 The right atrial size is normal. Lipomatous Hypertrophy of the atrial septum is present There is mild aortic valve sclerosis. There is no evidence of aortic regurgitation. Mild mitral annular calcification present. Mild mitral regurgitation is present. Mild tricuspid regurgitation present. There is mild pulmonary hypertension. The right ventricular systolic pressure, as measured by Doppler, is 34.94mmHg. There is no pulmonic regurgitation present. The aortic root size is normal. There is no pericardial effusion. CONCLUSIONS -------- 1. Sinus rhythm. 2. This was a technically good study. 3. The left ventricular size is normal. 4. There is mild concentric left ventricular hypertrophy. 5. Overall left ventricular systolic function is normal with, an EF between 55 - 60 %. 6. The diastolic filling pattern is normal for the age of the patient 10.73 7. The left atrium is moderately dilated. 8. Lipomatous Hypertrophy of the atrial septum is present 9. There is mild aortic valve sclerosis. 10. Mild mitral annular calcification present. 11. Mild mitral regurgitation is present. 12. Mild tricuspid regurgitation present. 13. There is mild pulmonary hypertension. 14. There is no pulmonic regurgitation present. 15. The aortic root size is normal. 16. There is no pericardial effusion. [employer]INE MECHANIC: Jenny Duran RDCS
[2019-01-30] MEDS: MONTELUKAST 10 MG TAB PO SCH (19:55)
[2019-01-30 20:11] LABS: Glucose,Whole Blood 184 mg/dL (75-99)
[2019-01-31] MEDS: MORPHINE SULFATE 2 MG/ML SYRINGE IVP PRN ×6 (00:11→20:16)
[2019-01-31] MEDS: methylPREDNISolone SOD SUCCI 125 MG/2 ML VIAL IV SCH ×4 (01:54→17:12)
[2019-01-31 06:20] LABS: Glucose,Whole Blood 143 mg/dL (75-99)
[2019-01-31] MEDS: PANTOPRAZOLE 40 MG TABLET PO SCH (06:45)
[2019-01-31] MEDS: INSULIN ASPART (NovoLOG) 100 UNIT/ML VIAL SQ SCH ×4 (06:46→20:15)
[2019-01-31 07:27] LABS: Basophils # (A) 0.1 k/uL (0-0.2); Basophils % (A) 1 %; Eosinophils % (A) 0 %; HCT 43.3 % (34.0-46.0); HGB 13.5 gm/dL (11.4-16.0); Lymphocytes # (A) 0.7 k/uL (1.0-4.8); Lymphocytes % (A) 6 %; MCH 31.9 pg (25.0-35.0); MCHC 31.2 g/dL (31.0-37.0); Macrocytosis Slight; Mean Platelet Volume 8.1; Monocytes # (A) 0.3 k/uL (0-1.0); Monocytes % (A) 2 %; Neutrophils # (A) 11.9 k/uL (1.3-7.7); Neutrophils % (A) 91 %; Platelet Count 286 k/uL (150-450); RBC 4.25 m/uL (3.80-5.40); RDW 14.2 % (11.5-15.5); WBC 13.1 k/uL (3.8-10.6)
[2019-01-31] MEDS: AZITHROMYCIN 500 MG TAB PO SCH (08:01)
[2019-01-31] MEDS: LORATADINE 10 MG TAB PO SCH (08:01)
[2019-01-31] MEDS: ALLOPURINOL 300 MG TAB PO SCH (08:01)
[2019-01-31 08:17] LABS: ALT 45 U/L (9-52); AST 25 U/L (14-36); African American GFR (CKD) >90 (>60 ml/min/1.73 sqM); Albumin 3.8 g/dL (3.5-5.0); Alkaline Phosphatase 53 U/L (38-126); Anion Gap 9 mmol/L; Blood Urea Nitrogen 37 mg/dL (7-17); Calcium 9.8 mg/dL (8.4-10.2); Carbon Dioxide 29 mmol/L (22-30); Chloride 102 mmol/L (98-107); Glucose 137 mg/dL (74-99); Non-African American GFR(CKD) >90 (>60 ml/min/1.73 sqM); Potassium 4.4 mmol/L (3.5-5.1); Sodium 140 mmol/L (137-145); Total Bilirubin 0.4 mg/dL (0.2-1.3); Total Protein 6.2 g/dL (6.3-8.2)
[2019-01-31] MEDS: ENOXAPARIN 60 MG/0.6 ML SYRINGE SQ SCH (08:21)
[2019-01-31] MEDS: METOPROLOL SUCCINATE (ER) 50 MG TAB.ER.24H PO SCH (08:23)
[2019-01-31] MEDS: BUDESONIDE 0.5 MG/2 ML NEBU INHALATION SCH ×2 (09:02→19:26)
[2019-01-31] MEDS: IPRATROPIUM-ALBUTEROL 3 ML NEB INHALATION SCH ×4 (09:02→19:26)
[2019-01-31] MEDS: FORMOTEROL FUMARATE 20 MCG/2 ML NEBU INHALATION SCH ×2 (09:02→19:39)
[2019-01-31] MEDS: oxyCODONE-APAP 10-325MG 1 EACH TAB PO SCH ×4 (09:20→22:13)
[2019-01-31] MEDS ORDERED: METOPROLOL SUCCINATE (ER) 50 MG TAB.ER.24H PO STA (09:52)
--- NOTE | 2019-01-31 11:02 | P.PN ---
Subjective This is Amy Marc PA-C dictating a progress note on this patient The patient was interviewed and examined by me as well as by Dr. Nazario Case discussed with Dr. Nazario and he agrees with the plan of care IMPRESSION / ASSESSMENT: Shortness of breath secondary to acute COPD exacerbation, pulmonology following Paroxysmal Atrial fibrillation with RVR, rate up to the 130s on telemetry, currently on Lovenox Hypertension, blood pressure has been elevated in the 150s to 170s Recent echo shows normal LV systolic function PLAN: Increase metoprolol to 100 mg daily for rate control Start amlodipine 5 mg daily for blood pressure control CHADS VASC score 3, Start anticoagulation with eliquis 5 mg twice a day HPI/interval history Patient is a 63-year-old female with a history of COPD and paroxysmal atrial fibrillation who presented with complaints of shortness of breath. She was admitted for treatment of COPD exacerbation. She went into A. fib with RVR and her rates have been going up to the 130s on telemetry. It is unclear why she was not on anticoagulation. 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 Spoke with her sister on the phone who states that she did have anemia on the past and required 2-3 blood transfusion about a year ago. There was never a source of bleeding found. Her hemoglobin is stable on this admission. She has history of GI bleeding per the sister, and the patient denies any hemoptysis, black stool or dark tarry stool. Patient seen and examined sitting at the side of the bed. She continues to have shortness of breath, breathing is about the same. She occasionally gets palpitations. Has been walking around and denies any dizziness. No chest pain. EXAMINATION Temperature 97.9F, pulse 76, respirations 19, blood pressure 178/86, oxygen saturation 94% on 3 L nasal cannula Patient seen and examined sitting up at the side of the bed, talking on the phone, in no acute distress Lungs are diminished with rhonchi and wheezing bilaterally Heart is irregular, tachycardic No elevated JVD or lower extremity edema REVIEW OF LABS, ECG WBC 13.1, hemoglobin 13.5, platelets 286, potassium 4.4, BUN 37, creatinine 0.51 Echo shows EF 55-60% Objective - Vital Signs Vital signs: Vital Signs Temp 98.2 F 01/31/19 07:53 Pulse 96 01/31/19 09:20 Resp 18 01/31/19 07:53 BP 169/78 01/31/19 07:53 Pulse Ox 95 01/31/19 07:53 Intake & Output 01/30/19 01/31/19 01/31/19 18:59 06:59 18:59 Intake Total 780 180 240 Output Total 500 Balance 280 180 240 Weight 75.8 kg Intake: Oral 780 180 240 Output: Urine 500 Other: Voiding Method Toilet Toilet # Voids 2 1 - Labs CBC & Chem 7: 01/31/19 05:49 01/31/19 05:49 Labs: Abnormal Lab Results - Last 24 Hours (Table) 01/30/19 01/30/19 01/30/19 Range/Units 11:36 16:49 20:10 WBC (3.8-10.6) k/uL MCV (80.0-100.0) fL Neutrophils # (1.3-7.7) k/uL Lymphocytes # (1.0-4.8) k/uL BUN (7-17) mg/dL Creatinine (0.52-1.04) mg/dL Glucose (74-99) mg/dL POC Glucose (mg/dL) 169 H 143 H 184 H (75-99) mg/dL Total Protein (6.3-8.2) g/dL 01/31/19 01/31/19 01/31/19 Range/Units 05:49 05:49 06:19 WBC 13.1 H (3.8-10.6) k/uL MCV 102.0 H (80.0-100.0) fL Neutrophils # 11.9 H (1.3-7.7) k/uL Lymphocytes # 0.7 L (1.0-4.8) k/uL BUN 37 H (7-17) mg/dL Creatinine 0.51 L (0.52-1.04) mg/dL Glucose 137 H (74-99) mg/dL POC Glucose (mg/dL) 143 H (75-99) mg/dL Total Protein 6.2 L (6.3-8.2) g/dL Microbiology - Last 24 Hours (Table) 01/26/19 13:07 Blood Culture - Preliminary Blood No Growth after 96 hours
--- NOTE | 2019-01-31 11:34 | P.PN ---
Subjective Progress Note Date: 01/31/19 On today's evaluation of 01/31/2019 of seeing this patient for a follow-up. She is currently on telemetry unit. We are still monitoring her cardiac rhythm. His activity, the patient developed episodes of shortness on atrial fibrillation with heart rate was up to 170. Currently she is in normal sinus rhythm. Cardiology evaluated there and put the patient on Toprol 100 mg by mouth once a day. She is still being treated for an acute COPD exacerbation and she is on a combination of Perforomist and Pulmicort twice a day, DuoNeb nebulized seems on the clock and IV Solu-Medrol. Her cough is still congested.Echo was done yesterday and showed an ejection fraction of 55-60% and there is no significant abnormalities noted. No swelling lower extremities. No nausea. No vomiting. No chest pain. Her COPD is moderate to severe with an FEV1 of 59% of predicted from September 2018. She is a smoker 1 pack of cigarettes a day she carries more than [id number] smoking history. Objective - Vital Signs Vital signs: Vital Signs Temp 98.2 F 01/31/19 07:53 Pulse 96 01/31/19 09:20 Resp 18 01/31/19 07:53 BP 169/78 01/31/19 07:53 Pulse Ox 95 01/31/19 07:53 Intake & Output 01/30/19 01/31/19 01/31/19 18:59 06:59 18:59 Intake Total 780 180 240 Output Total 500 Balance 280 180 240 Weight 75.8 kg Intake: Oral 780 180 240 Output: Urine 500 Other: Voiding Method Toilet Toilet # Voids 2 1 - Exam Gen. appearance, slightly anxious. She seems to be mild degree of respiratory distress. Head exam was generally normal. There was no scleral icterus or corneal arcus. Mucous membranes were moist. Neck was supple and without jugular venous distension, thyromegaly, or carotid bruits. Carotids were easily palpable bilaterally. There was no adenopathy. Lungs sounds are diminished bilaterally along with diffuse expiratory wheezes throughout the lung hoffman. Air entry is markedly diminished in lung bases. She has a barrel chest. Heart sounds are distant.Cardiac exam revealed the PMI to be normally situated and sized. The rhythm was regular and no extrasystoles were noted during several minutes of auscultation. The first and second heart sounds were normal and physiologic splitting of the second heart sound was noted. There were no murmurs, rubs, clicks, or gallops. Abdominal exam revealed normal bowel sounds. The abdomen was soft, non-tender, and without masses, organomegaly, or appreciable enlargement of the abdominal aorta. Examination of the extremities revealed easily palpable radial, femoral and pedal pulses. There was no cyanosis, clubbing or edema. Examination of the skin revealed no evidence of significant rashes, suspicious appearing nevi or other concerning lesions. Neurologic patient is awake and alert. No focal neurological deficits. - Labs CBC & Chem 7: 01/31/19 05:49 01/31/19 05:49 Labs: Abnormal Lab Results - Last 24 Hours (Table) 01/30/19 01/30/19 01/30/19 Range/Units 11:36 16:49 20:10 WBC (3.8-10.6) k/uL MCV (80.0-100.0) fL Neutrophils # (1.3-7.7) k/uL Lymphocytes # (1.0-4.8) k/uL BUN (7-17) mg/dL Creatinine (0.52-1.04) mg/dL Glucose (74-99) mg/dL POC Glucose (mg/dL) 169 H 143 H 184 H (75-99) mg/dL Total Protein (6.3-8.2) g/dL 01/31/19 01/31/19 01/31/19 Range/Units 05:49 05:49 06:19 WBC 13.1 H (3.8-10.6) k/uL MCV 102.0 H (80.0-100.0) fL Neutrophils # 11.9 H (1.3-7.7) k/uL Lymphocytes # 0.7 L (1.0-4.8) k/uL BUN 37 H (7-17) mg/dL Creatinine 0.51 L (0.52-1.04) mg/dL Glucose 137 H (74-99) mg/dL POC Glucose (mg/dL) 143 H (75-99) mg/dL Total Protein 6.2 L (6.3-8.2) g/dL Microbiology - Last 24 Hours (Table) 01/26/19 13:07 Blood Culture - Preliminary Blood No Growth after 96 hours Assessment and Plan Plan: 1 acute COPD exacerbation with secondary shortness of breath. Influenza screen is negative. No evidence of an acute pneumonia. The chest x-rays showing some chronic interstitial scarring. Nevertheless, the predominant pathology his acute COPD exacerbation. She has a moderately severe COPD based on the previous spirometry that was done in our office in FEV1 was in the order of 59% of predicted. She is a chronic smoker. The chest x-ray showing a 7 mm scar in the right apical area. Malignancy is doubtful. CAT scan of the chest on I did not for any lung masses. Some limited improvement in shortness of breath since yesterday. The patient is still struggling. The patient is still having cough and congestion and wheeze. 2 chronic dyspnea related to COPD with interval exacerbation 3 chronic smoker 4 skeletal chest wall pain related to cough 5 smoker 6 history of atrial fibrillation back to sinus 7 gout 8 history of alcoholism with previous history of pancreatitis 9 chronic back pain 10 acid reflux 11 Paroxysmal atrial fibrillation with rapid ventricular response him a currently still back in normal sinus rhythm. The patient is on of going into nature fibrillation special with exertion. Plan Continue COPD treatment with a combination of doing otherwise units [id number], IV Solu-Medrol and she is also on Zithromax 5 mg by mouth in addition to IV Rocephin. She is receiving Robitussin-DM for cough and congestion. We'll monitor the cardiac rhythm. She is in sinus. However the A. fib is concerning. This is probably due to cardiac stress induced from her COPD and bronchodilators. We'll check a baseline thyroid function tests. Agree on Eliquis for long-term anticoagulation. Echo was within normal limits. Continue beta blockers. We'll continue to follow.
[2019-01-31 11:50] LABS: Glucose,Whole Blood 179 mg/dL (75-99)
--- NOTE | 2019-01-31 15:05 | P.PN ---
Subjective Progress Note Date: 01/31/19 This is a 63-year-old female patient who presented with complaints of difficulty breathing and shortness of breath and cough for 1 week. Patient has a known past medical history of COPD and asthma. Patient is also a current every day smoker. Patient reports that she has had hot and cold flashes at home but does not specifically recall having a fever. Patient does state she has a sputum production. Patient states she has tried [id number] without much relief. Patient reports that she is also having aching pain throughout. Additional medical history includes GERD, osteoarthritis, Khan's palsy, history of EtOH, pancreatitis, gout, chronic back pain, appendectomy, , anxiety and current every day smoker. Chest x-ray completed showing a 7 mm density right apex may relate to the anterior margin of the right first rib no acute infiltrate. Correlate with computed tomography scan of the chest is obtained. Influenza negative. At this time pulmonary services will be consulted. He started on Solu-Medrol. Patient also started on Rocephin and azithromycin for antibiotics and culture ordered. Continue DuoNeb breathing treatments. Patient denies chest pain. Patient denies nausea vomiting or diarrhea. Patient denies urinary burning or frequency On 01/27/2019 patient's alert and oriented 3. Patient is still having significant wheezing with shortness of breath. Patient was evaluated by pulmonary services Pulmicort added. Patient remains on IV antibiotics and IV s teroids. At this time patient denies chest pain. Patient denies nausea vomiting or diarrhea. Patient denies any urinary burning frequency. On 01/28/2019 patient is alert and oriented 3. She patient states she is not feeling well. Patient denies shortness of breath. No audible wheezing heard from patient. Patient remains on IV antibiotics and IV steroids. At this time patient denies chest pain. Patient reports cough with no sputum production. Patient denies nausea vomiting or diarrhea. Patient denies any urinary burning or frequency. Patient states her appetite is well. Patient remains on DuoNeb, and Pulmicort. On 01/29/2019 patient's alert and oriented 3. Patient showing minimal improvement. Patient remains on excellent medical therapy. Patient is being followed by pulmonary services remains on IV steroids DuoNeb breathing treatments and IV antibiotics. Patient denies chest pain. Patient denies nausea vomiting or diarrhea. Patient denies any urinary burning or frequency On 01/30/2019 patient is alert oriented 3. Patient reports minimal improvement with shortness of breath. Clinically, mild improvement. Patient will remain on IV antibiotics and IV steroids, plus DuoNeb breathing treatments. Overnight patient had episode of atrial fibrillation with rapid ventricular response. Patient denies any notice to this episode. She denied feeling dizziness chest pain. Stat EKG obtained, patient was transferred to cardiology unit for increased monitoring. Cardizem drip ordered but was never started due to patient converting back into sinus rhythm. Subcu heparin was DC'd subcu Lovenox 1mg/kg BID started. Cardiology consulted, will wait for their recommendations. Patient denies fevers, nausea vomiting or diarrhea. Patient denies any urinary burning or frequency. On 01/31/2019 patient is still complaining of shortness of breath and wheezing and S no chest pain no nausea or vomiting no abdominal pain no diarrhea no burning was urination no frequency or urgency and no hematuria Objective - Vital Signs Vital signs: Vital Signs Temp 97.4 F L 01/31/19 11:47 Pulse 96 01/31/19 13:41 Resp 18 01/31/19 11:47 BP 130/80 01/31/19 11:47 Pulse Ox 92 L 01/31/19 11:47 Intake & Output 01/30/19 01/31/19 01/31/19 18:59 06:59 18:59 Intake Total 780 180 240 Output Total 500 Balance 280 180 240 Weight 75.8 kg Intake: Oral 780 180 240 Output: Urine 500 Other: Voiding Method Toilet Toilet # Voids 2 1 - Exam In general patient is alert and oriented 3 in no apparent distress Head normocephalic and atraumatic Neck supple no JVD no goiter Lungs diminished bilaterally and bilateral high pitched wheezes, inspiratory and expiratory. Heart regular rate and rhythm S1-S2, no rub or gallop Abdomen is soft nontender nondistended positive bowel sounds no hepatosplenomegaly Extremities no edema no cyanosis or clubbing Neuro no gross focal neurological deficit - Labs CBC & Chem 7: 01/31/19 05:49 01/31/19 05:49 Labs: Abnormal Lab Results - Last 24 Hours (Table) 01/30/19 01/30/19 01/31/19 Range/Units 16:49 20:10 05:49 WBC 13.1 H (3.8-10.6) k/uL MCV 102.0 H (80.0-100.0) fL Neutrophils # 11.9 H (1.3-7.7) k/uL Lymphocytes # 0.7 L (1.0-4.8) k/uL BUN (7-17) mg/dL Creatinine (0.52-1.04) mg/dL Glucose (74-99) mg/dL POC Glucose (mg/dL) 143 H 184 H (75-99) mg/dL Total Protein (6.3-8.2) g/dL TSH (0.465-4.680) mIU/L 01/31/19 01/31/19 01/31/19 Range/Units 05:49 05:49 06:19 WBC (3.8-10.6) k/uL MCV (80.0-100.0) fL Neutrophils # (1.3-7.7) k/uL Lymphocytes # (1.0-4.8) k/uL BUN 37 H (7-17) mg/dL Creatinine 0.51 L (0.52-1.04) mg/dL Glucose 137 H (74-99) mg/dL POC Glucose (mg/dL) 143 H (75-99) mg/dL Total Protein 6.2 L (6.3-8.2) g/dL TSH 0.405 L (0.465-4.680) mIU/L 01/31/19 Range/Units 11:49 WBC (3.8-10.6) k/uL MCV (80.0-100.0) fL Neutrophils # (1.3-7.7) k/uL Lymphocytes # (1.0-4.8) k/uL BUN (7-17) mg/dL Creatinine (0.52-1.04) mg/dL Glucose (74-99) mg/dL POC Glucose (mg/dL) 179 H (75-99) mg/dL Total Protein (6.3-8.2) g/dL TSH (0.465-4.680) mIU/L Microbiology - Last 24 Hours (Table) 01/26/19 13:07 Blood Culture - Preliminary Blood No Growth after 96 hours Assessment and Plan Plan: 1. Increased shortness of breath related to COPD exacerbation. Pulmonary services have been consulted. Patient started on Solu-Medrol, DuoNeb breathing treatments as well as Pulmicort and Perforomist nebulized treatments, azithr omycin and Rocephin. Sputum culture preliminary report reveals gram-positive cocci. Pulmonary services are following. Continue current IV antibiotics IV steroids and DuoNeb breathing treatments 2. Questionable nodule seen on chest x-ray. Per pulmonology malignancy is doubtful and 7 mm scar in right apical area of chest CT. Pulmonary services following 3. Acute episode of A. fib patient transferred to telemetry patient back to sinus rhythm cardiology services consult 4. History of atrial fibrillation. Discovered in August 2017 during hospital visit. At which time cardiology was consulted, an echocardiogram was completed and recommendations were to start patient on eliquis. Eliquis was discontinued during this admission due to a rectus sheath hematoma. 5. History of COPD 6. History of asthma 7. Nicotine dependence. Patient educated longer than 3 minutes on smoking sensation. Patient declines nicotine patch 8. History of Khan's palsy 9. History of GERD 10. osteoarthritis with total left hip replacement DVT prophylaxis heparin. GI prophylaxis Protonix Continue IV antibiotics and steroids and DuoNeb breathing treatment Pulmonary services following
[2019-01-31 16:37] LABS: Glucose,Whole Blood 209 mg/dL (75-99)
[2019-01-31 19:53] LABS: Glucose,Whole Blood 212 mg/dL (75-99)
[2019-01-31] MEDS: APIXABAN 5 MG TAB PO SCH (20:15)
[2019-01-31] MEDS: MONTELUKAST 10 MG TAB PO SCH (20:15)
[2019-02-01] MEDS: MORPHINE SULFATE 2 MG/ML SYRINGE IVP PRN ×6 (00:03→20:32)
[2019-02-01] MEDS: methylPREDNISolone SOD SUCCI 125 MG/2 ML VIAL IV SCH ×4 (00:03→17:00)
[2019-02-01] MEDS: ZOLPIDEM 5 MG TAB PO PRN ×2 (00:03→22:16)
[2019-02-01 06:01] LABS: Glucose,Whole Blood 166 mg/dL (75-99)
[2019-02-01] MEDS: INSULIN ASPART (NovoLOG) 100 UNIT/ML VIAL SQ SCH ×4 (06:43→22:16)
[2019-02-01] MEDS: PANTOPRAZOLE 40 MG TABLET PO SCH (06:43)
[2019-02-01] MEDS: IPRATROPIUM-ALBUTEROL 3 ML NEB INHALATION SCH ×4 (07:58→19:02)
[2019-02-01] MEDS: BUDESONIDE 0.5 MG/2 ML NEBU INHALATION SCH ×2 (07:58→19:02)
[2019-02-01] MEDS: FORMOTEROL FUMARATE 20 MCG/2 ML NEBU INHALATION SCH ×2 (08:05→19:03)
[2019-02-01] MEDS ORDERED: amLODIPine 5 MG TAB PO SCH (09:00)
[2019-02-01] MEDS: AZITHROMYCIN 500 MG TAB PO SCH (09:27)
[2019-02-01] MEDS: oxyCODONE-APAP 10-325MG 1 EACH TAB PO SCH ×4 (09:27→22:15)
[2019-02-01] MEDS: LORATADINE 10 MG TAB PO SCH (09:28)
[2019-02-01] MEDS: ALLOPURINOL 300 MG TAB PO SCH (09:28)
[2019-02-01] MEDS: METOPROLOL SUCCINATE (ER) 100 MG TAB.ER.24H PO SCH (09:28)
[2019-02-01] MEDS: APIXABAN 5 MG TAB PO SCH ×2 (09:28→20:32)
[2019-02-01 11:23] LABS: Basophils # (A) 0.3 k/uL (0-0.2); Basophils % (A) 2 %; Eosinophils % (A) 0 %; HCT 43.7 % (34.0-46.0); HGB 13.6 gm/dL (11.4-16.0); Lymphocytes # (A) 0.3 k/uL (1.0-4.8); Lymphocytes % (A) 2 %; MCH 31.6 pg (25.0-35.0); MCHC 31.1 g/dL (31.0-37.0); MCV 101.5 fL (80.0-100.0); Macrocytosis Slight; Mean Platelet Volume 7.8; Monocytes # (A) 0.5 k/uL (0-1.0); Monocytes % (A) 3 %; Neutrophils # (A) 13.2 k/uL (1.3-7.7); Neutrophils % (A) 91 %; Platelet Count 231 k/uL (150-450); RDW 14.1 % (11.5-15.5); WBC 14.4 k/uL (3.8-10.6)
[2019-02-01 11:30] LABS: Glucose,Whole Blood 196 mg/dL (75-99)
[2019-02-01 11:31] LABS: African American GFR (CKD) >90 (>60 ml/min/1.73 sqM); Albumin 3.6 g/dL (3.5-5.0); Anion Gap 7 mmol/L; Blood Urea Nitrogen 41 mg/dL (7-17); Calcium 9.5 mg/dL (8.4-10.2); Carbon Dioxide 31 mmol/L (22-30); Chloride 99 mmol/L (98-107); Glucose 202 mg/dL (74-99); Non-African American GFR(CKD) >90 (>60 ml/min/1.73 sqM); Sodium 137 mmol/L (137-145); Total Bilirubin 0.6 mg/dL (0.2-1.3); Total Protein 6.2 g/dL (6.3-8.2)
[2019-02-01 11:34] LABS: ALT 80 U/L (9-52); AST 43 U/L (14-36); Alkaline Phosphatase 30 U/L (38-126); Potassium 5.2 mmol/L (3.5-5.1)
[2019-02-01] MEDS: BENZOCAINE/MENTHOL LOZENG 1 EACH LOZENGE MUCOUS MEM PRN ×2 (11:42→18:19)
--- NOTE | 2019-02-01 12:52 | P.PN ---
Subjective Progress Note Date: 02/01/19 This is a 63-year-old female patient who presented with complaints of difficulty breathing and shortness of breath and cough for 1 week. Patient has a known past medical history of COPD and asthma. Patient is also a current every day smoker. Patient reports that she has had hot and cold flashes at home but does not specifically recall having a fever. Patient does state she has a sputum production. Patient states she has tried [id number] without much relief. Patient reports that she is also having aching pain throughout. Additional medical history includes GERD, osteoarthritis, Khan's palsy, history of EtOH, pancreatitis, gout, chronic back pain, appendectomy, , anxiety and current every day smoker. Chest x-ray completed showing a 7 mm density right apex may relate to the anterior margin of the right first rib no acute infiltrate. Correlate with computed tomography scan of the chest is obtained. Influenza negative. At this time pulmonary services will be consulted. He started on Solu-Medrol. Patient also started on Rocephin and azithromycin for antibiotics and culture ordered. Continue DuoNeb breathing treatments. Patient denies chest pain. Patient denies nausea vomiting or diarrhea. Patient denies urinary burning or frequency On 01/27/2019 patient's alert and oriented 3. Patient is still having significant wheezing with shortness of breath. Patient was evaluated by pulmonary services Pulmicort added. Patient remains on IV antibiotics and IV s teroids. At this time patient denies chest pain. Patient denies nausea vomiting or diarrhea. Patient denies any urinary burning frequency. On 01/28/2019 patient is alert and oriented 3. She patient states she is not feeling well. Patient denies shortness of breath. No audible wheezing heard from patient. Patient remains on IV antibiotics and IV steroids. At this time patient denies chest pain. Patient reports cough with no sputum production. Patient denies nausea vomiting or diarrhea. Patient denies any urinary burning or frequency. Patient states her appetite is well. Patient remains on DuoNeb, and Pulmicort. On 01/29/2019 patient's alert and oriented 3. Patient showing minimal improvement. Patient remains on excellent medical therapy. Patient is being followed by pulmonary services remains on IV steroids DuoNeb breathing treatments and IV antibiotics. Patient denies chest pain. Patient denies nausea vomiting or diarrhea. Patient denies any urinary burning or frequency On 01/30/2019 patient is alert oriented 3. Patient reports minimal improvement with shortness of breath. Clinically, mild improvement. Patient will remain on IV antibiotics and IV steroids, plus DuoNeb breathing treatments. Overnight patient had episode of atrial fibrillation with rapid ventricular response. Patient denies any notice to this episode. She denied feeling dizziness chest pain. Stat EKG obtained, patient was transferred to cardiology unit for increased monitoring. Cardizem drip ordered but was never started due to patient converting back into sinus rhythm. Subcu heparin was DC'd subcu Lovenox 1mg/kg BID started. Cardiology consulted, will wait for their recommendations. Patient denies fevers, nausea vomiting or diarrhea. Patient denies any urinary burning or frequency. On 01/31/2019 patient is still complaining of shortness of breath and wheezing and S no chest pain no nausea or vomiting no abdominal pain no diarrhea no burning was urination no frequency or urgency and no hematuria On 02/01/2019 patient's alert and oriented 3. Patient still complaining of shortness breath and wheezing. Patient has been started on eliquis for anticoagulative for atrial fibrillation. Patient eyes chest pain. Patient denies nausea vomiting or diarrhea. Patient denies any urinary burning or frequency Objective - Vital Signs Vital signs: Vital Signs Temp 98.1 F 02/01/19 11:38 Pulse 78 02/01/19 12:04 Resp 18 02/01/19 11:38 BP 158/84 02/01/19 11:38 Pulse Ox 93 L 02/01/19 11:38 Intake & Output 01/31/19 02/01/19 02/01/19 18:59 06:59 18:59 Intake Total 462 260 240 Balance 462 260 240 Weight 76 kg Intake: IV 20 0.9 20 Oral 462 240 240 Other: Voiding Method Toilet # Voids 3 2 1 - Exam Head normocephalic Neck supple Lungs diminished bilaterally and bilateral high pitched wheezes, inspiratory and expiratory. Heart regular rate and rhythm S1-S2, no rub or gallop Abdomen is soft nontender nondistended positive bowel sounds no hepatosplenomegaly Extremities no edema Neuro alert and orientated to 3 - Labs CBC & Chem 7: 02/01/19 10:55 02/01/19 10:55 Labs: Abnormal Lab Results - Last 24 Hours (Table) 01/31/19 01/31/19 01/31/19 Range/Units 05:49 16:35 19:50 WBC (3.8-10.6) k/uL MCV (80.0-100.0) fL Neutrophils # (1.3-7.7) k/uL Lymphocytes # (1.0-4.8) k/uL Basophils # (0-0.2) k/uL Potassium (3.5-5.1) mmol/L Carbon Dioxide (22-30) mmol/L BUN (7-17) mg/dL Creatinine (0.52-1.04) mg/dL Glucose (74-99) mg/dL POC Glucose (mg/dL) 209 H 212 H (75-99) mg/dL AST (14-36) U/L ALT (9-52) U/L Alkaline Phosphatase (38-126) U/L Total Protein (6.3-8.2) g/dL TSH 0.405 L (0.465-4.680) mIU/L 02/01/19 02/01/19 02/01/19 Range/Units 05:58 10:55 10:55 WBC 14.4 H (3.8-10.6) k/uL MCV 101.5 H (80.0-100.0) fL Neutrophils # 13.2 H (1.3-7.7) k/uL Lymphocytes # 0.3 L (1.0-4.8) k/uL Basophils # 0.3 H (0-0.2) k/uL Potassium 5.2 H (3.5-5.1) mmol/L Carbon Dioxide 31 H (22-30) mmol/L BUN 41 H (7-17) mg/dL Creatinine 0.47 L (0.52-1.04) mg/dL Glucose 202 H (74-99) mg/dL POC Glucose (mg/dL) 166 H (75-99) mg/dL AST 43 H (14-36) U/L ALT 80 H (9-52) U/L Alkaline Phosphatase 30 L (38-126) U/L Total Protein 6.2 L (6.3-8.2) g/dL TSH (0.465-4.680) mIU/L 02/01/19 Range/Units 11:29 WBC (3.8-10.6) k/uL MCV (80.0-100.0) fL Neutrophils # (1.3-7.7) k/uL Lymphocytes # (1.0-4.8) k/uL Basophils # (0-0.2) k/uL Potassium (3.5-5.1) mmol/L Carbon Dioxide (22-30) mmol/L BUN (7-17) mg/dL Creatinine (0.52-1.04) mg/dL Glucose (74-99) mg/dL POC Glucose (mg/dL) 196 H (75-99) mg/dL AST (14-36) U/L ALT (9-52) U/L Alkaline Phosphatase (38-126) U/L Total Protein (6.3-8.2) g/dL TSH (0.465-4.680) mIU/L Microbiology - Last 24 Hours (Table) 01/26/19 13:07 Blood Culture - Preliminary Blood No Growth after 120 hours Assessment and Plan Assessment: 1. Increased shortness of breath related to COPD exacerbation. Pulmonary services have been consulted. Patient started on Solu-Medrol, DuoNeb breathing treatments as well as Pulmicort and Perforomist nebulized treatments, azithromycin and Rocephin. Sputum culture preliminary report reveals gram- positive cocci. Pulmonary services are following. Continue current IV antibiotics IV steroids and DuoNeb breathing treatments 2. Questionable nodule seen on chest x-ray. Per pulmonology malignancy is doubtful and 7 mm scar in right apical area of chest CT. Pulmonary services following 3. Paroxysmal atrial fibrillation with rapid ventricular response. Patient has been started on eliquis frantic radiation per cardiology services. 4. History of atrial fibrillation. Discovered in August 2017 during hospital visit. At which time cardiology was consulted, an echocardiogram was completed and recommendations were to start patient on eliquis. Eliquis was discontinued during this admission due to a rectus sheath hematoma. 5. History of COPD 6. History of asthma 7. Nicotine dependence. Patient educated longer than 3 minutes on smoking sensation. Patient declines nicotine patch 8. History of Khan's palsy 9. History of GERD 10. osteoarthritis with total left hip replacement DVT prophylaxis eliquis. GI prophylaxis Protonix Continue IV antibiotics and steroids and DuoNeb breathing treatment Pulmonary services following I performed an examination of the patient and discussed their management with the Nurse Practitioner. I have reviewed the Nurse Practitioner's notes and agree with the documented findings and plan of care
--- NOTE | 2019-02-01 14:32 | P.PN ---
Subjective This is Amy Marc PA-C dictating a progress note on this patient The patient was interviewed and examined by me as well as by Dr. Nazario Case discussed with Dr. Nazario and he agrees with the plan of care IMPRESSION / ASSESSMENT: Shortness of breath secondary to acute COPD exacerbation, pulmonology following Paroxysmal Atrial fibrillation, currently in sinus rhythm, on eliquis Hypertension, blood pressure remains elevated Recent echo shows normal LV systolic function Current smoker PLAN: Continue metoprolol Increase amlodipine to 5 mg twice a day Discussed importance of smoking cessation with the patient HPI/interval history Patient is a 63-year-old female with a history of COPD and paroxysmal atrial fibrillation who presented with complaints of shortness of breath. She was admitted for treatment of COPD exacerbation. She went into A. fib with RVR and her rates have been going up to the 130s on telemetry. Yesterday we increased her metoprolol and she is currently in sinus rhythm, rates in the 70s. Yesterday I added amlodipine for blood pressure control and her blood pressure remains in the 150s to 160s systolic. Patient seen and examined sitting at the side of the bed. She continues to have shortness of breath, states her breathing is about the same. Denies any chest pain or dizziness when she gets up and walks. EXAMINATION Temperature 98.1F, pulse 75, respirations 18, blood pressure 158/84, oxygen s aturation 93% on 3 L nasal cannula Patient seen and examined sitting up at the side of the bed, talking on the phone, in no acute distress Lungs are diminished with wheezing bilaterally Heart is regular, no murmurs noted No elevated JVD or lower extremity edema REVIEW OF LABS, ECG Hemoglobin 13.6, potassium 5.2, BUN 41, creatinine 0.47 Echo shows EF 55-60% Objective - Vital Signs Vital signs: Vital Signs Temp 98.1 F 02/01/19 11:38 Pulse 78 02/01/19 12:04 Resp 18 02/01/19 11:38 BP 158/84 02/01/19 11:38 Pulse Ox 93 L 02/01/19 11:38 Intake & Output 01/31/19 02/01/19 02/01/19 18:59 06:59 18:59 Intake Total 462 260 600 Balance 462 260 600 Weight 76 kg Intake: IV 20 0.9 20 Oral 462 240 600 Other: Voiding Method Toilet # Voids 3 2 1 - Labs CBC & Chem 7: 02/01/19 10:55 02/01/19 10:55 Labs: Abnormal Lab Results - Last 24 Hours (Table) 01/31/19 01/31/19 02/01/19 Range/Units 16:35 19:50 05:58 WBC (3.8-10.6) k/uL MCV (80.0-100.0) fL Neutrophils # (1.3-7.7) k/uL Lymphocytes # (1.0-4.8) k/uL Basophils # (0-0.2) k/uL Potassium (3.5-5.1) mmol/L Carbon Dioxide (22-30) mmol/L BUN (7-17) mg/dL Creatinine (0.52-1.04) mg/dL Glucose (74-99) mg/dL POC Glucose (mg/dL) 209 H 212 H 166 H (75-99) mg/dL AST (14-36) U/L ALT (9-52) U/L Alkaline Phosphatase (38-126) U/L Total Protein (6.3-8.2) g/dL 02/01/19 02/01/19 02/01/19 Range/Units 10:55 10:55 11:29 WBC 14.4 H (3.8-10.6) k/uL MCV 101.5 H (80.0-100.0) fL Neutrophils # 13.2 H (1.3-7.7) k/uL Lymphocytes # 0.3 L (1.0-4.8) k/uL Basophils # 0.3 H (0-0.2) k/uL Potassium 5.2 H (3.5-5.1) mmol/L Carbon Dioxide 31 H (22-30) mmol/L BUN 41 H (7-17) mg/dL Creatinine 0.47 L (0.52-1.04) mg/dL Glucose 202 H (74-99) mg/dL POC Glucose (mg/dL) 196 H (75-99) mg/dL AST 43 H (14-36) U/L ALT 80 H (9-52) U/L Alkaline Phosphatase 30 L (38-126) U/L Total Protein 6.2 L (6.3-8.2) g/dL Microbiology - Last 24 Hours (Table) 01/26/19 13:07 Blood Culture - Preliminary Blood No Growth after 120 hours
--- NOTE | 2019-02-01 16:04 | P.PN ---
Subjective Progress Note Date: 02/01/19 On today's evaluation of 02/01/2019 the patient is still bronchospastic and wheezy and she is in atrial fibrillation. She is having rapid ventricular response and the heart rate is somewhat between 110 and 120. She is having still cough and chest tightness and wheezing. She was started on metoprolol. On and off she is switching back into sinus rhythm. She is also on amlodipine for blood pressure control. In terms of her breathing, she is on DuoNeb nebulized treatments around the clock and IV Solu-Medrol. She was started on long-term anticoagulation with Eliquis. Echo was within normal limits. Note that she is a chronic smoker. His recovery has been quite slow during this current hospitalization. She is afebrile. She is still requiring help with activity and mobility and feeding herself even here in the hospital. No significant leukocytosis. Blood work essentially within normal limits. She remains on high dose IV Solu-Medrol. Objective - Vital Signs Vital signs: Vital Signs Temp 98.1 F 02/01/19 11:38 Pulse 112 H 02/01/19 15:31 Resp 18 02/01/19 11:38 BP 158/84 02/01/19 11:38 Pulse Ox 93 L 02/01/19 11:38 Intake & Output 01/31/19 02/01/19 02/01/19 18:59 06:59 18:59 Intake Total 462 260 600 Balance 462 260 600 Weight 76 kg Intake: IV 20 0.9 20 Oral 462 240 600 Other: Voiding Method Toilet # Voids 3 2 1 - Exam Gen. appearance, slightly anxious. She seems to be mild degree of respiratory distress. Head exam was generally normal. There was no scleral icterus or corneal arcus. Mucous membranes were moist. Neck was supple and without jugular venous distension, thyromegaly, or carotid bruits. Carotids were easily palpable bilaterally. There was no adenopathy. Lungs sounds are diminished bilaterally along with diffuse expiratory wheezes throughout the lung hoffman. Air entry is markedly diminished in lung bases. She has a barrel chest. Heart sounds are distant.Cardiac exam revealed the PMI to be normally situated and sized. The rhythm was regular and no extrasystoles were noted during several minutes of auscultation. The first and second heart sounds were normal and physiologic splitting of the second heart sound was noted. There were no murmurs, rubs, clicks, or gallops. Abdominal exam revealed normal bowel sounds. The abdomen was soft, non-tender, and without masses, organomegaly, or appreciable enlargement of the abdominal aorta. Examination of the extremities revealed easily palpable radial, femoral and pedal pulses. There was no cyanosis, clubbing or edema. Examination of the skin revealed no evidence of significant rashes, suspicious appearing nevi or other concerning lesions. Neurologic patient is awake and alert. No focal neurological deficits. - Labs CBC & Chem 7: 02/01/19 10:55 02/01/19 10:55 Labs: Abnormal Lab Results - Last 24 Hours (Table) 01/31/19 01/31/19 02/01/19 Range/Units 16:35 19:50 05:58 WBC (3.8-10.6) k/uL MCV (80.0-100.0) fL Neutrophils # (1.3-7.7) k/uL Lymphocytes # (1.0-4.8) k/uL Basophils # (0-0.2) k/uL Potassium (3.5-5.1) mmol/L Carbon Dioxide (22-30) mmol/L BUN (7-17) mg/dL Creatinine (0.52-1.04) mg/dL Glucose (74-99) mg/dL POC Glucose (mg/dL) 209 H 212 H 166 H (75-99) mg/dL AST (14-36) U/L ALT (9-52) U/L Alkaline Phosphatase (38-126) U/L Total Protein (6.3-8.2) g/dL 02/01/19 02/01/19 02/01/19 Range/Units 10:55 10:55 11:29 WBC 14.4 H (3.8-10.6) k/uL MCV 101.5 H (80.0-100.0) fL Neutrophils # 13.2 H (1.3-7.7) k/uL Lymphocytes # 0.3 L (1.0-4.8) k/uL Basophils # 0.3 H (0-0.2) k/uL Potassium 5.2 H (3.5-5.1) mmol/L Carbon Dioxide 31 H (22-30) mmol/L BUN 41 H (7-17) mg/dL Creatinine 0.47 L (0.52-1.04) mg/dL Glucose 202 H (74-99) mg/dL POC Glucose (mg/dL) 196 H (75-99) mg/dL AST 43 H (14-36) U/L ALT 80 H (9-52) U/L Alkaline Phosphatase 30 L (38-126) U/L Total Protein 6.2 L (6.3-8.2) g/dL Microbiology - Last 24 Hours (Table) 01/26/19 13:07 Blood Culture - Final Blood No Growth after 144 hours Assessment and Plan Plan: 1 acute COPD exacerbation with secondary shortness of breath. Influenza screen is negative. No evidence of an acute pneumonia. The chest x-rays showing some chronic interstitial scarring. Nevertheless, the predominant pathology his acute COPD exacerbation. She has a moderately severe COPD based on the previous spirometry that was done in our office in FEV1 was in the order of 59% of predicted. She is a chronic smoker. The chest x-ray showing a 7 mm scar in the right apical area. Malignancy is doubtful. CAT scan of the chest on I did not for any lung masses. Some limited improvement in shortness of breath since y . The patient is still struggling. The patient is still having cough and congestion and wheeze. 2 chronic dyspnea related to COPD with interval exacerbation 3 chronic smoker 4 skeletal chest wall pain related to cough 5 smoker 6 history of atrial fibrillation back to sinus 7 gout 8 history of alcoholism with previous history of pancreatitis 9 chronic back pain 10 acid reflux 11 Paroxysmal atrial fibrillation with rapid ventricular response him a currently still back in normal sinus rhythm. The patient is on of going into nature fibrillation special with exertion. Plan Continue COPD treatment with a combination of doing otherwise units [id number], IV Solu-Medrol and she is also on Zithromax 500 mg by mouth in addition to IV Rocephin. She is receiving Robitussin-DM for cough and congestion. Management of atrial fibrillation per cardiology. We'll consider b ronchoscopy if no improvement within next 24-48 hours. Her recovery has been essentially slow. May need home oxygen at a time of discharge. We'll continue to follow. Smoking cessation counseling was again performed today.
[2019-02-01 16:29] LABS: Glucose,Whole Blood 203 mg/dL (75-99)
[2019-02-01] MEDS ORDERED: DILTIAZEM 125 MG in SODIUM CHLORIDE 0.9% 100 ML IV SCH (19:30)
[2019-02-01] MEDS: MONTELUKAST 10 MG TAB PO SCH (20:32)
[2019-02-01] MEDS: amLODIPine 5 MG TAB PO SCH (20:32)
[2019-02-01 20:59] LABS: Glucose,Whole Blood 192 mg/dL (75-99)
[2019-02-02] MEDS: MORPHINE SULFATE 2 MG/ML SYRINGE IVP PRN ×6 (00:03→20:10)
[2019-02-02] MEDS: methylPREDNISolone SOD SUCCI 125 MG/2 ML VIAL IV SCH ×5 (00:05→23:49)
[2019-02-02 06:28] LABS: Glucose,Whole Blood 192 mg/dL (75-99)
[2019-02-02 06:35] LABS: Basophils # (A) 0.1 k/uL (0-0.2); Basophils % (A) 1 %; Eosinophils % (A) 0 %; HCT 42.7 % (34.0-46.0); Lymphocytes # (A) 0.4 k/uL (1.0-4.8); Lymphocytes % (A) 3 %; MCH 33.1 pg (25.0-35.0); MCHC 32.7 g/dL (31.0-37.0); MCV 101.2 fL (80.0-100.0); Macrocytosis Slight; Mean Platelet Volume 7.1; Monocytes # (A) 0.4 k/uL (0-1.0); Monocytes % (A) 3 %; Neutrophils # (A) 13.2 k/uL (1.3-7.7); Neutrophils % (A) 93 %; Platelet Count 275 k/uL (150-450); RBC 4.23 m/uL (3.80-5.40); RDW 13.9 % (11.5-15.5); WBC 14.2 k/uL (3.8-10.6)
[2019-02-02] MEDS: PANTOPRAZOLE 40 MG TABLET PO SCH (06:38)
[2019-02-02] MEDS: INSULIN ASPART (NovoLOG) 100 UNIT/ML VIAL SQ SCH ×4 (06:38→20:59)
[2019-02-02 06:49] LABS: ALT 93 U/L (9-52); AST 33 U/L (14-36); African American GFR (CKD) >90 (>60 ml/min/1.73 sqM); Albumin 3.5 g/dL (3.5-5.0); Alkaline Phosphatase 50 U/L (38-126); Anion Gap 6 mmol/L; Blood Urea Nitrogen 44 mg/dL (7-17); Calcium 9.5 mg/dL (8.4-10.2); Carbon Dioxide 33 mmol/L (22-30); Chloride 100 mmol/L (98-107); Glucose 254 mg/dL (74-99); Non-African American GFR(CKD) >90 (>60 ml/min/1.73 sqM); Potassium 4.3 mmol/L (3.5-5.1); Sodium 139 mmol/L (137-145); Total Bilirubin 0.3 mg/dL (0.2-1.3); Total Protein 5.8 g/dL (6.3-8.2)
[2019-02-02] MEDS: IPRATROPIUM-ALBUTEROL 3 ML NEB INHALATION SCH ×4 (07:41→19:18)
[2019-02-02] MEDS: BUDESONIDE 0.5 MG/2 ML NEBU INHALATION SCH ×2 (07:41→19:18)
[2019-02-02] MEDS: FORMOTEROL FUMARATE 20 MCG/2 ML NEBU INHALATION SCH ×2 (07:41→19:18)
[2019-02-02] MEDS: METOPROLOL SUCCINATE (ER) 100 MG TAB.ER.24H PO SCH (08:06)
[2019-02-02] MEDS: LORATADINE 10 MG TAB PO SCH (08:06)
[2019-02-02] MEDS: guaiFENesin-Coden 100-10MG/5ML 10 ML CUP PO PRN (08:06)
[2019-02-02] MEDS: APIXABAN 5 MG TAB PO SCH (08:06)
[2019-02-02] MEDS: ALLOPURINOL 300 MG TAB PO SCH (08:06)
[2019-02-02] MEDS: AZITHROMYCIN 500 MG TAB PO SCH (08:06)
[2019-02-02] MEDS: amLODIPine 5 MG TAB PO SCH (08:06)
--- NOTE | 2019-02-02 10:14 | P.PN ---
Subjective Progress Note Date: 02/02/19 This is a 63-year-old female patient who presented with complaints of difficulty breathing and shortness of breath and cough for 1 week. Patient has a known past medical history of COPD and asthma. Patient is also a current every day smoker. Patient reports that she has had hot and cold flashes at home but does not specifically recall having a fever. Patient does state she has a sputum production. Patient states she has tried [id number] without much relief. Patient reports that she is also having aching pain throughout. Additional medical history includes GERD, osteoarthritis, Khan's palsy, history of EtOH, pancreatitis, gout, chronic back pain, appendectomy, , anxiety and current every day smoker. Chest x-ray completed showing a 7 mm density right apex may relate to the anterior margin of the right first rib no acute infiltrate. Correlate with computed tomography scan of the chest is obtained. Influenza negative. At this time pulmonary services will be consulted. He started on Solu-Medrol. Patient also started on Rocephin and azithromycin for antibiotics and culture ordered. Continue DuoNeb breathing treatments. Patient denies chest pain. Patient denies nausea vomiting or diarrhea. Patient denies urinary burning or frequency On 01/27/2019 patient's alert and oriented 3. Patient is still having significant wheezing with shortness of breath. Patient was evaluated by pulmonary services Pulmicort added. Patient remains on IV antibiotics and IV s teroids. At this time patient denies chest pain. Patient denies nausea vomiting or diarrhea. Patient denies any urinary burning frequency. On 01/28/2019 patient is alert and oriented 3. She patient states she is not feeling well. Patient denies shortness of breath. No audible wheezing heard from patient. Patient remains on IV antibiotics and IV steroids. At this time patient denies chest pain. Patient reports cough with no sputum production. Patient denies nausea vomiting or diarrhea. Patient denies any urinary burning or frequency. Patient states her appetite is well. Patient remains on DuoNeb, and Pulmicort. On 01/29/2019 patient's alert and oriented 3. Patient showing minimal improvement. Patient remains on excellent medical therapy. Patient is being followed by pulmonary services remains on IV steroids DuoNeb breathing treatments and IV antibiotics. Patient denies chest pain. Patient denies nausea vomiting or diarrhea. Patient denies any urinary burning or frequency On 01/30/2019 patient is alert oriented 3. Patient reports minimal improvement with shortness of breath. Clinically, mild improvement. Patient will remain on IV antibiotics and IV steroids, plus DuoNeb breathing treatments. Overnight patient had episode of atrial fibrillation with rapid ventricular response. Patient denies any notice to this episode. She denied feeling dizziness chest pain. Stat EKG obtained, patient was transferred to cardiology unit for increased monitoring. Cardizem drip ordered but was never started due to patient converting back into sinus rhythm. Subcu heparin was DC'd subcu Lovenox 1mg/kg BID started. Cardiology consulted, will wait for their recommendations. Patient denies fevers, nausea vomiting or diarrhea. Patient denies any urinary burning or frequency. On 01/31/2019 patient is still complaining of shortness of breath and wheezing and S no chest pain no nausea or vomiting no abdominal pain no diarrhea no burning was urination no frequency or urgency and no hematuria On 02/01/2019 patient's alert and oriented 3. Patient still complaining of shortness breath and wheezing. Patient has been started on eliquis for anticoagulative for atrial fibrillation. Patient eyes chest pain. Patient denies nausea vomiting or diarrhea. Patient denies any urinary burning or frequency On 02/02/2019 patient's alert and oriented 3. Patient showing minimal improvement with shortness of breath and wheezing. Possible bronchoscopy for pulmonary services. Patient denies chest pain. Patient denies nausea vomiting or diarrhea. Patient denies any urinary frequency Objective - Vital Signs Vital signs: Vital Signs Temp 98.4 F 02/02/19 04:00 Pulse 86 02/02/19 08:03 Resp 19 02/02/19 04:00 BP 149/73 02/02/19 04:00 Pulse Ox 96 02/02/19 07:41 Intake & Output 02/01/19 02/02/19 02/02/19 18:59 06:59 18:59 Intake Total 840 106.167 120 Output Total 1 Balance 840 106.167 119 Intake: IV 40 0.9 40 Intake, IV Titration 66.167 Amount Diltiazem 125 mg In 66.167 Sodium Chloride 0.9% 100 ml @ 5 MG/HR 5 mls/hr IV .Q24H [facility] Rx#:[id number] Oral 840 120 Output: Stool 1 Other: Voiding Method Toilet # Voids 1 4 1 - Exam Head normocephalic Neck supple Lungs diminished bilaterally and bilateral high pitched wheezes, inspiratory and expiratory. Heart regular rate and rhythm S1-S2, no rub or gallop Abdomen is soft nontender nondistended positive bowel sounds no hepatosplenomegaly Extremities no edema Neuro alert and orientated to 3 - Labs CBC & Chem 7: 02/02/19 05:43 02/02/19 05:43 Labs: Abnormal Lab Results - Last 24 Hours (Table) 02/01/19 02/01/19 02/01/19 Range/Units 10:55 10:55 11:29 WBC 14.4 H (3.8-10.6) k/uL MCV 101.5 H (80.0-100.0) fL Neutrophils # 13.2 H (1.3-7.7) k/uL Lymphocytes # 0.3 L (1.0-4.8) k/uL Basophils # 0.3 H (0-0.2) k/uL Potassium 5.2 H (3.5-5.1) mmol/L Carbon Dioxide 31 H (22-30) mmol/L BUN 41 H (7-17) mg/dL Creatinine 0.47 L (0.52-1.04) mg/dL Glucose 202 H (74-99) mg/dL POC Glucose (mg/dL) 196 H (75-99) mg/dL AST 43 H (14-36) U/L ALT 80 H (9-52) U/L Alkaline Phosphatase 30 L (38-126) U/L Total Protein 6.2 L (6.3-8.2) g/dL 02/01/19 02/01/19 02/02/19 Range/Units 16:28 20:58 05:43 WBC 14.2 H (3.8-10.6) k/uL MCV 101.2 H (80.0-100.0) fL Neutrophils # 13.2 H (1.3-7.7) k/uL Lymphocytes # 0.4 L (1.0-4.8) k/uL Basophils # (0-0.2) k/uL Potassium (3.5-5.1) mmol/L Carbon Dioxide (22-30) mmol/L BUN (7-17) mg/dL Creatinine (0.52-1.04) mg/dL Glucose (74-99) mg/dL POC Glucose (mg/dL) 203 H 192 H (75-99) mg/dL AST (14-36) U/L ALT (9-52) U/L Alkaline Phosphatase (38-126) U/L Total Protein (6.3-8.2) g/dL 02/02/19 02/02/19 Range/Units 05:43 06:27 WBC (3.8-10.6) k/uL MCV (80.0-100.0) fL Neutrophils # (1.3-7.7) k/uL Lymphocytes # (1.0-4.8) k/uL Basophils # (0-0.2) k/uL Potassium (3.5-5.1) mmol/L Carbon Dioxide 33 H (22-30) mmol/L BUN 44 H (7-17) mg/dL Creatinine (0.52-1.04) mg/dL Glucose 254 H (74-99) mg/dL POC Glucose (mg/dL) 192 H (75-99) mg/dL AST (14-36) U/L ALT 93 H (9-52) U/L Alkaline Phosphatase (38-126) U/L Total Protein 5.8 L (6.3-8.2) g/dL Microbiology - Last 24 Hours (Table) 01/26/19 13:07 Blood Culture - Final Blood No Growth after 144 hours Assessment and Plan Assessment: 1. Increased shortness of breath related to COPD exacerbation. Pulmonary services have been consulted. Patient started on Solu-Medrol, DuoNeb breathing treatments as well as Pulmicort and Perforomist nebulized treatments, azithromycin and Rocephin. Sputum culture preliminary report reveals gram- positive cocci. Pulmonary services are following. Continue current IV antibiotics IV steroids and DuoNeb breathing treatments. possible bronchoscopy per pulmonary services 2. Questionable nodule seen on chest x-ray. Per pulmonology malignancy is doubtful and 7 mm scar in right apical area of chest CT. Pulmonary services following 3. Paroxysmal atrial fibrillation with rapid ventricular response. Patient has been started on eliquis per cardiology services. 4. History of atrial fibrillation. Discovered in August 2017 during hospital visit. At which time cardiology was consulted, an echocardiogram was completed and recommendations were to start patient on eliquis. Eliquis was discontinued during this admission due to a rectus sheath hematoma. 5. History of COPD 6. History of asthma 7. Nicotine dependence. Patient educated longer than 3 minutes on smoking sensation. Patient declines nicotine patch 8. History of Khan's palsy 9. History of GERD 10. osteoarthritis with total left hip replacement DVT prophylaxis eliquis. GI prophylaxis Protonix Continue IV antibiotics and steroids and DuoNeb breathing treatment Pulmonary services following I performed an examination of the patient and discussed their management with the Nurse Practitioner. I have reviewed the Nurse Practitioner's notes and agree with the documented findings and plan of care
[2019-02-02] MEDS: oxyCODONE-APAP 10-325MG 1 EACH TAB PO SCH ×4 (10:15→22:25)
[2019-02-02 11:30] LABS: Glucose,Whole Blood 196 mg/dL (75-99)
[2019-02-02 16:20] LABS: Glucose,Whole Blood 210 mg/dL (75-99)
--- NOTE | 2019-02-02 17:25 | P.PN ---
Subjective Progress Note Date: 02/02/19 Principal diagnosis: Acute COPD exacerbation, 02/02/2019 patient seen in follow-up on selective care unit, she is awake and alert, in no acute distress, still has quite significant exertional dyspnea, but overall seems to be improving, less bronchospastic, still has scattered wh eezing, he remains on supplemental oxygen 3 L, her pulse ox is 92%, afebrile, no complaint of chest pain, she has converted to sinus rhythm, with a controlled rate. Occasional cough, no significant sputum production. She remains on a combination of Zithromax, Rocephin, nebulized bronchodilators, cough syrup, Singulair. She has been ambulating just within the room only, will try to increase her activity today, no acute events overnight. Today's labs have been reviewed, but cell count is stable, 14.2, hemoglobin is 14.0, electrolytes are within normal limits except for CO2 which is at 33, BUN is 44 creatinine 0.61. Objective - Vital Signs Vital signs: Vital Signs Temp 97.8 F 02/02/19 12:00 Pulse 75 02/02/19 12:00 Resp 18 02/02/19 12:00 BP 170/79 02/02/19 12:00 Pulse Ox 92 L 02/02/19 12:00 Intake & Output 02/01/19 02/02/19 02/02/19 18:59 06:59 18:59 Intake Total 840 106.167 320 Output Total 3 Balance 840 106.167 317 Weight 76 kg Intake: IV 40 0.9 40 Intake, IV Titration 66.167 Amount Diltiazem 125 mg In 66.167 Sodium Chloride 0.9% 100 ml @ 5 MG/HR 5 mls/hr IV .Q24H [facility] Rx#:[id number] Oral 840 320 Output: Stool 3 Other: Voiding Method Toilet Toilet # Voids 1 4 3 - Exam GENERAL EXAM: Alert, pleasant, 63-year-old white female, on 3 L of oxygen with a pulse ox of 92% comfortable in no apparent distress. HEAD: Normocephalic/atraumatic. EYES: Normal reaction of pupils, equal size. Conjunctiva pink, sclera white. NOSE: Clear with pink turbinates. THROAT: No erythema or exudates. NECK: No masses, no JVD, no thyroid enlargement, no adenopathy. CHEST: No chest wall deformity. Symmetrical expansion. LUNGS: Equal air entry with diffuse wheezes bilaterally CVS: Regular rate and rhythm, normal S1 and S2, no gallops, no murmurs, no rubs ABDOMEN: Soft, nontender. No hepatosplenomegaly, normal bowel sounds, no guarding or rigidity. EXTREMITIES: No clubbing, no edema, no cyanosis, 2+ pulses and upper and lower extremities. MUSCULOSKELETAL: Muscle strength and tone normal. SPINE: No scoliosis or deformity SKIN: No rashes CENTRAL NERVOUS SYSTEM: Alert and oriented -3. No focal deficits, tone is normal in all 4 extremities. PSYCHIATRIC: Alert and oriented -3. Appropriate affect. Intact judgment and insight. - Labs CBC & Chem 7: 02/02/19 05:43 02/02/19 05:43 Labs: Abnormal Lab Results - Last 24 Hours (Table) 02/01/19 02/01/19 02/02/19 Range/Units 16:28 20:58 05:43 WBC 14.2 H (3.8-10.6) k/uL MCV 101.2 H (80.0-100.0) fL Neutrophils # 13.2 H (1.3-7.7) k/uL Lymphocytes # 0.4 L (1.0-4.8) k/uL Carbon Dioxide (22-30) mmol/L BUN (7-17) mg/dL Glucose (74-99) mg/dL POC Glucose (mg/dL) 203 H 192 H (75-99) mg/dL ALT (9-52) U/L Total Protein (6.3-8.2) g/dL 02/02/19 02/02/19 02/02/19 Range/Units 05:43 06:27 11:29 WBC (3.8-10.6) k/uL MCV (80.0-100.0) fL Neutrophils # (1.3-7.7) k/uL Lymphocytes # (1.0-4.8) k/uL Carbon Dioxide 33 H (22-30) mmol/L BUN 44 H (7-17) mg/dL Glucose 254 H (74-99) mg/dL POC Glucose (mg/dL) 192 H 196 H (75-99) mg/dL ALT 93 H (9-52) U/L Total Protein 5.8 L (6.3-8.2) g/dL Microbiology - Last 24 Hours (Table) 01/26/19 13:07 Blood Culture - Final Blood No Growth after 144 hours Assessment and Plan Plan: 1 acute COPD exacerbation with secondary shortness of breath. Influenza screen is negative. No evidence of an acute pneumonia. The chest x-rays showing some chronic interstitial scarring. Nevertheless, the predominant pathology his acute COPD exacerbation. She has a moderately severe COPD based on the previous spirometry that was done in our office in FEV1 was in the order of 59% of predic melva. She is a chronic smoker. The chest x-ray showing a 7 mm scar in the right apical area. Malignancy is doubtful. CAT scan of the chest on I did not for any lung masses. Some limited improvement in shortness of breath since yesterday. The patient is still struggling. The patient is still having cough and congestion and wheeze. 2 chronic dyspnea related to COPD with interval exacerbation 3 chronic smoker 4 skeletal chest wall pain related to cough 5 smoker 6 history of atrial fibrillation back to sinus 7 gout 8 history of alcoholism with previous history of pancreatitis 9 chronic back pain 10 acid reflux 11 Paroxysmal atrial fibrillation with rapid ventricular response him a currently still back in normal sinus rhythm. The patient is on of going into nature fibrillation special with exertion. Plan: We will continue current medical treatment, patient is improving, although still bronchospastic. Continue with Zithromax and Rocephin, and IV Solu-Medrol, patient has been slow to improve, may need bronchoscopy in the next 24 hours if there is continued lack of improvement. I performed a history & physical examination of the patient and discussed their management with my nurse practitioner, Nasreen Oneil. I reviewed the nurse practitioner's note and agree with the documented findings and plan of care. Lung sounds are positive for diffuse wheezes throughout the lung hoffman. The findings and the impression was discussed with the patient. I attest to the documentation by the nurse practitioner. Time with Patient: Less than 30
--- NOTE | 2019-02-02 17:54 | P.PN ---
Subjective This is Amy Marc PA-C dictating a progress note on this patient The patient was interviewed and examined by me as well as by Dr. Nazario Case discussed with Dr. Nazario and he agrees with the plan of care IMPRESSION / ASSESSMENT: Shortness of breath secondary to acute COPD exacerbation, pulmonology following Paroxysmal Atrial fibrillation with RVR, currently in sinus rhythm in the 70s, anticoagulated with eliquis Hypertension, blood pressure remains elevated Recent echo shows normal LV systolic function Current smoker PLAN: Stop metoprolol and start verapamil 240 mg daily Stop amlodipine and start losartan 50 mg daily Continue eliquis HPI/interval history Patient is a 63-year-old female with a history of COPD and paroxysmal atrial fibrillation who presented with complaints of shortness of breath. She was admitted for treatment of COPD exacerbation. She went into atrial fibrillation with RVR last night to the 110s to 120s. She was started on Cardizem. Today she is in sinus rhythm the 70s. Patient seen and examined sitting at the side of the bed. Still short of breath. No chest pain, palpitations or dizziness. She states she didn't have any palpitations when she went into A. fib yesterday. EXAMINATION Temperature 98.1F, pulse 75, respirations 18, blood pressure 158/84, oxygen saturation 93% on 3 L nasal cannula Patient seen and examined sitting up at the side of the bed, talking on the phone, in no acute distress Lungs are diminished with wheezing bilaterally Heart is regular, no murmurs noted No elevated JVD or lower extremity edema REVIEW OF LABS, ECG Hemoglobin 13.6, potassium 5.2, BUN 41, creatinine 0.47 Echo shows EF 55-60% Objective - Vital Signs Vital signs: Vital Signs Temp 98.2 F 02/02/19 16:00 Pulse 80 02/02/19 16:00 Resp 18 02/02/19 16:00 BP 166/78 02/02/19 16:00 Pulse Ox 94 L 02/02/19 16:00 Intake & Output 02/01/19 02/02/19 02/02/19 18:59 06:59 18:59 Intake Total 840 106.167 320 Output Total 4 Balance 840 106.167 316 Weight 76 kg Intake: IV 40 0.9 40 Intake, IV Titration 66.167 Amount Diltiazem 125 mg In 66.167 Sodium Chloride 0.9% 100 ml @ 5 MG/HR 5 mls/hr IV .Q24H [facility] Rx#:[id number] Oral 840 320 Output: Stool 4 Other: Voiding Method Toilet Toilet # Voids 1 4 3 - Labs CBC & Chem 7: 02/02/19 05:43 02/02/19 05:43 Labs: Abnormal Lab Results - Last 24 Hours (Table) 02/01/19 02/02/19 02/02/19 Range/Units 20:58 05:43 05:43 WBC 14.2 H (3.8-10.6) k/uL MCV 101.2 H (80.0-100.0) fL Neutrophils # 13.2 H (1.3-7.7) k/uL Lymphocytes # 0.4 L (1.0-4.8) k/uL Carbon Dioxide 33 H (22-30) mmol/L BUN 44 H (7-17) mg/dL Glucose 254 H (74-99) mg/dL POC Glucose (mg/dL) 192 H (75-99) mg/dL ALT 93 H (9-52) U/L Total Protein 5.8 L (6.3-8.2) g/dL 02/02/19 02/02/19 02/02/19 Range/Units 06:27 11:29 16:19 WBC (3.8-10.6) k/uL MCV (80.0-100.0) fL Neutrophils # (1.3-7.7) k/uL Lymphocytes # (1.0-4.8) k/uL Carbon Dioxide (22-30) mmol/L BUN (7-17) mg/dL Glucose (74-99) mg/dL POC Glucose (mg/dL) 192 H 196 H 210 H (75-99) mg/dL ALT (9-52) U/L Total Protein (6.3-8.2) g/dL Microbiology - Last 24 Hours (Table) 01/26/19 13:07 Blood Culture - Final Blood No Growth after 144 hours
[2019-02-02 20:34] LABS: Glucose,Whole Blood 246 mg/dL (75-99)
[2019-02-02] MEDS: MONTELUKAST 10 MG TAB PO SCH (20:59)
[2019-02-02] MEDS: ZOLPIDEM 5 MG TAB PO PRN (22:29)
[2019-02-03] MEDS: MORPHINE SULFATE 2 MG/ML SYRINGE IVP PRN ×6 (00:05→20:37)
[2019-02-03 06:02] LABS: Glucose,Whole Blood 225 mg/dL (75-99)
[2019-02-03] MEDS: methylPREDNISolone SOD SUCCI 125 MG/2 ML VIAL IV SCH ×3 (06:35→18:19)
[2019-02-03] MEDS: INSULIN ASPART (NovoLOG) 100 UNIT/ML VIAL SQ SCH ×4 (06:35→21:11)
[2019-02-03] MEDS: PANTOPRAZOLE 40 MG TABLET PO SCH (06:35)
[2019-02-03] MEDS: oxyCODONE-APAP 10-325MG 1 EACH TAB PO SCH ×4 (06:37→18:19)
[2019-02-03] MEDS: VERAPAMIL SR 240 MG TABLET.ER PO SCH (06:39)
[2019-02-03 06:55] LABS: Basophils # (A) 0.1 k/uL (0-0.2); Basophils % (A) 0 %; Eosinophils % (A) 0 %; HCT 44.5 % (34.0-46.0); HGB 14.4 gm/dL (11.4-16.0); Lymphocytes # (A) 0.5 k/uL (1.0-4.8); Lymphocytes % (A) 3 %; MCH 32.7 pg (25.0-35.0); MCHC 32.3 g/dL (31.0-37.0); Macrocytosis Slight; Mean Platelet Volume 6.8; Monocytes # (A) 0.3 k/uL (0-1.0); Monocytes % (A) 2 %; Neutrophils # (A) 15.2 k/uL (1.3-7.7); Neutrophils % (A) 94 %; Platelet Count 254 k/uL (150-450); RDW 13.9 % (11.5-15.5); WBC 16.1 k/uL (3.8-10.6)
[2019-02-03 07:06] LABS: ALT 133 U/L (9-52); AST 44 U/L (14-36); African American GFR (CKD) >90 (>60 ml/min/1.73 sqM); Albumin 3.7 g/dL (3.5-5.0); Alkaline Phosphatase 53 U/L (38-126); Anion Gap 5 mmol/L; Blood Urea Nitrogen 47 mg/dL (7-17); Calcium 9.7 mg/dL (8.4-10.2); Carbon Dioxide 33 mmol/L (22-30); Chloride 101 mmol/L (98-107); Glucose 264 mg/dL (74-99); Non-African American GFR(CKD) >90 (>60 ml/min/1.73 sqM); Potassium 4.6 mmol/L (3.5-5.1); Sodium 139 mmol/L (137-145); Total Bilirubin 0.5 mg/dL (0.2-1.3); Total Protein 6.1 g/dL (6.3-8.2)
[2019-02-03] MEDS: BUDESONIDE 0.5 MG/2 ML NEBU INHALATION SCH ×2 (07:28→19:37)
[2019-02-03] MEDS: FORMOTEROL FUMARATE 20 MCG/2 ML NEBU INHALATION SCH ×2 (07:28→19:37)
[2019-02-03] MEDS: IPRATROPIUM-ALBUTEROL 3 ML NEB INHALATION SCH ×4 (07:28→19:38)
[2019-02-03] MEDS: LOSARTAN 50 MG TAB PO SCH (08:08)
[2019-02-03] MEDS: guaiFENesin-Coden 100-10MG/5ML 10 ML CUP PO PRN (08:08)
[2019-02-03] MEDS: ALLOPURINOL 300 MG TAB PO SCH (08:08)
[2019-02-03] MEDS: AZITHROMYCIN 500 MG TAB PO SCH (08:08)
[2019-02-03] MEDS: LORATADINE 10 MG TAB PO SCH (08:08)
--- NOTE | 2019-02-03 09:47 | P.PN ---
Subjective Progress Note Date: 02/03/19 This is a 63-year-old female patient who presented with complaints of difficulty breathing and shortness of breath and cough for 1 week. Patient has a known past medical history of COPD and asthma. Patient is also a current every day smoker. Patient reports that she has had hot and cold flashes at home but does not specifically recall having a fever. Patient does state she has a sputum production. Patient states she has tried [id number] without much relief. Patient reports that she is also having aching pain throughout. Additional medical history includes GERD, osteoarthritis, Khan's palsy, history of EtOH, pancreatitis, gout, chronic back pain, appendectomy, , anxiety and current every day smoker. Chest x-ray completed showing a 7 mm density right apex may relate to the anterior margin of the right first rib no acute infiltrate. Correlate with computed tomography scan of the chest is obtained. Influenza negative. At this time pulmonary services will be consulted. He started on Solu-Medrol. Patient also started on Rocephin and azithromycin for antibiotics and culture ordered. Continue DuoNeb breathing treatments. Patient denies chest pain. Patient denies nausea vomiting or diarrhea. Patient denies urinary burning or frequency On 01/27/2019 patient's alert and oriented 3. Patient is still having significant wheezing with shortness of breath. Patient was evaluated by pulmonary services Pulmicort added. Patient remains on IV antibiotics and IV s teroids. At this time patient denies chest pain. Patient denies nausea vomiting or diarrhea. Patient denies any urinary burning frequency. On 01/28/2019 patient is alert and oriented 3. She patient states she is not feeling well. Patient denies shortness of breath. No audible wheezing heard from patient. Patient remains on IV antibiotics and IV steroids. At this time patient denies chest pain. Patient reports cough with no sputum production. Patient denies nausea vomiting or diarrhea. Patient denies any urinary burning or frequency. Patient states her appetite is well. Patient remains on DuoNeb, and Pulmicort. On 01/29/2019 patient's alert and oriented 3. Patient showing minimal improvement. Patient remains on excellent medical therapy. Patient is being followed by pulmonary services remains on IV steroids DuoNeb breathing treatments and IV antibiotics. Patient denies chest pain. Patient denies nausea vomiting or diarrhea. Patient denies any urinary burning or frequency On 01/30/2019 patient is alert oriented 3. Patient reports minimal improvement with shortness of breath. Clinically, mild improvement. Patient will remain on IV antibiotics and IV steroids, plus DuoNeb breathing treatments. Overnight patient had episode of atrial fibrillation with rapid ventricular response. Patient denies any notice to this episode. She denied feeling dizziness chest pain. Stat EKG obtained, patient was transferred to cardiology unit for increased monitoring. Cardizem drip ordered but was never started due to patient converting back into sinus rhythm. Subcu heparin was DC'd subcu Lovenox 1mg/kg BID started. Cardiology consulted, will wait for their recommendations. Patient denies fevers, nausea vomiting or diarrhea. Patient denies any urinary burning or frequency. On 01/31/2019 patient is still complaining of shortness of breath and wheezing and S no chest pain no nausea or vomiting no abdominal pain no diarrhea no burning was urination no frequency or urgency and no hematuria On 02/01/2019 patient's alert and oriented 3. Patient still complaining of shortness breath and wheezing. Patient has been started on eliquis for anticoagulative for atrial fibrillation. Patient eyes chest pain. Patient denies nausea vomiting or diarrhea. Patient denies any urinary burning or frequency On 02/02/2019 patient's alert and oriented 3. Patient showing minimal improvement with shortness of breath and wheezing. Possible bronchoscopy for pulmonary services. Patient denies chest pain. Patient denies nausea vomiting or diarrhea. Patient denies any urinary frequency On 02/03/2019 patient is resting comfortably bed. Patient still having wheezing and shortness of breath with minimal improvement possible bronchoscopy today per pulmonary. Patient denies chest pain. Patient denies nausea vomiting or diarrhea. Patient denies any urinary burning Objective - Vital Signs Vital signs: Vital Signs Temp 97.8 F 02/03/19 08:00 Pulse 88 02/03/19 08:00 Resp 20 02/03/19 08:00 BP 121/71 02/03/19 08:00 Pulse Ox 94 L 02/03/19 08:00 Intake & Output 02/02/19 02/03/19 02/03/19 18:59 06:59 18:59 Intake Total 520 240 240 Output Total 4 1 Balance 516 240 239 Weight 76 kg 76.8 kg Intake: Oral 520 240 240 Output: Stool 4 1 Other: Voiding Method Toilet Toilet Toilet # Voids 3 2 - Exam Head normocephalic Neck supple Lungs diminished bilaterally and bilateral high pitched wheezes, inspiratory and expiratory. Heart regular rate and rhythm S1-S2, no rub or gallop Abdomen is soft nontender nondistended positive bowel sounds no hepatosplenomegaly Extremities no edema Neuro alert and orientated to 3 - Labs CBC & Chem 7: 02/03/19 06:23 02/03/19 06:23 Labs: Abnormal Lab Results - Last 24 Hours (Table) 02/02/19 02/02/19 02/02/19 Range/Units 11:29 16:19 20:33 WBC (3.8-10.6) k/uL MCV (80.0-100.0) fL Neutrophils # (1.3-7.7) k/uL Lymphocytes # (1.0-4.8) k/uL Carbon Dioxide (22-30) mmol/L BUN (7-17) mg/dL Glucose (74-99) mg/dL POC Glucose (mg/dL) 196 H 210 H 246 H (75-99) mg/dL AST (14-36) U/L ALT (9-52) U/L Total Protein (6.3-8.2) g/dL 02/03/19 02/03/19 02/03/19 Range/Units 06:01 06:23 06:23 WBC 16.1 H (3.8-10.6) k/uL MCV 101.0 H (80.0-100.0) fL Neutrophils # 15.2 H (1.3-7.7) k/uL Lymphocytes # 0.5 L (1.0-4.8) k/uL Carbon Dioxide 33 H (22-30) mmol/L BUN 47 H (7-17) mg/dL Glucose 264 H (74-99) mg/dL POC Glucose (mg/dL) 225 H (75-99) mg/dL AST 44 H (14-36) U/L ALT 133 H (9-52) U/L Total Protein 6.1 L (6.3-8.2) g/dL Assessment and Plan Assessment: 1. Increased shortness of breath related to COPD exacerbation. Pulmonary services have been consulted. Patient started on Solu-Medrol, DuoNeb breathing treatments as well as Pulmicort and Perforomist nebulized treatments, azithrom ycin and Rocephin. Sputum culture preliminary report reveals gram-positive cocci. Pulmonary services are following. Continue current IV antibiotics IV steroids and DuoNeb breathing treatments. possible bronchoscopy per pulmonary services 2. Questionable nodule seen on chest x-ray. Per pulmonology malignancy is doubtful and 7 mm scar in right apical area of chest CT. Pulmonary services fol lowing 3. Paroxysmal atrial fibrillation with rapid ventricular response. Patient has been started on eliquis per cardiology services. 4. History of atrial fibrillation. Discovered in August 2017 during hospital visit. At which time cardiology was consulted, an echocardiogram was completed and recommendations were to start patient on eliquis. Eliquis was discontinued during this admission due to a rectus sheath hematoma. 5. History of COPD 6. History of asthma 7. Nicotine dependence. Patient educated longer than 3 minutes on smoking sensation. Patient declines nicotine patch 8. History of Khan's palsy 9. History of GERD 10. osteoarthritis with total left hip replacement 11. Elevated liver enzymes will continue to monitor 12. Essential hypertension. Cozar and verapamil added per cardiology DVT prophylaxis eliquis. GI prophylaxis Protonix Continue IV antibiotics and steroids and DuoNeb breathing treatment Pulmonary services following I performed an examination of the patient and discussed their management with the Nurse Practitioner. I have reviewed the Nurse Practitioner's notes and agree with the documented findings and plan of care
[2019-02-03 11:25] LABS: Glucose,Whole Blood 228 mg/dL (75-99)
--- NOTE | 2019-02-03 13:47 | P.PN ---
Subjective This is Amy Marc PA-C dictating a progress note on this patient The patient was interviewed and examined by me as well as by Dr. Nazario Case discussed with Dr. Nazario and he agrees with the plan of care IMPRESSION / ASSESSMENT: Shortness of breath secondary to acute COPD exacerbation, pulmonology following Paroxysmal Atrial fibrillation with RVR, currently in sinus rhythm in the 70s, anticoagulated with eliquis Hypertension, blood pressure has improved with losartan Recent echo shows normal LV systolic function Current smoker PLAN: Continue verapamil 240 mg daily for rate control and we will continue to watch on telemetry Continue losartan Continue eliquis HPI/interval history Patient is a 63-year-old female with a history of COPD and paroxysmal atrial fibrillation who presented with complaints of shortness of breath. She was admitted for treatment of COPD exacerbation. Yesterday we switch her from metoprolol to verapamil and stop her amlodipine and started losartan 50 mg instead for blood pressure control. This morning she had another episode of atrial fibrillation with RVR in the 130s. She had not received her first dose of verapamil yet. She did convert to sinus rhythm and is currently in sinus rhythm. Pulmonology is considering bronchoscopy. Patient seen and examined sitting up at the side of her bed. Continues to cough and have shortness of breath. Has some rib pain with coughing. No chest pain dizziness or palpitations. EXAMINATION She is afebrile, pulse 88, respirations 16, blood pressure 121/71, oxygen saturation 94% on 3 L nasal cannula Patient seen and examined sitting up at the side of the bed, in no acute distress Lungs are diminished with wheezing bilaterally Heart is regular, no murmurs noted No elevated JVD or lower extremity edema REVIEW OF LABS, ECG WBC 16.1, hemoglobin 14.4, platelets 254, potassium 4.6, BUN 47, creatinine 0.64 Echo shows EF 55-60% Objective - Vital Signs Vital signs: Vital Signs Temp 97.8 F 02/03/19 08:00 Pulse 88 02/03/19 11:31 Resp 20 02/03/19 11:31 BP 121/71 02/03/19 08:00 Pulse Ox 94 L 02/03/19 08:00 Intake & Output 02/02/19 02/03/19 02/03/19 18:59 06:59 18:59 Intake Total 520 240 240 Output Total 4 2 Balance 516 240 238 Weight 76 kg 76.8 kg Intake: Oral 520 240 240 Output: Stool 4 2 Other: Voiding Method Toilet Toilet Toilet # Voids 3 2 - Labs CBC & Chem 7: 02/03/19 06:23 02/03/19 06:23 Labs: Abnormal Lab Results - Last 24 Hours (Table) 02/02/19 02/02/19 02/03/19 Range/Units 16:19 20:33 06:01 WBC (3.8-10.6) k/uL MCV (80.0-100.0) fL Neutrophils # (1.3-7.7) k/uL Lymphocytes # (1.0-4.8) k/uL Carbon Dioxide (22-30) mmol/L BUN (7-17) mg/dL Glucose (74-99) mg/dL POC Glucose (mg/dL) 210 H 246 H 225 H (75-99) mg/dL AST (14-36) U/L ALT (9-52) U/L Total Protein (6.3-8.2) g/dL 02/03/19 02/03/19 02/03/19 Range/Units 06:23 06:23 11:23 WBC 16.1 H (3.8-10.6) k/uL MCV 101.0 H (80.0-100.0) fL Neutrophils # 15.2 H (1.3-7.7) k/uL Lymphocytes # 0.5 L (1.0-4.8) k/uL Carbon Dioxide 33 H (22-30) mmol/L BUN 47 H (7-17) mg/dL Glucose 264 H (74-99) mg/dL POC Glucose (mg/dL) 228 H (75-99) mg/dL AST 44 H (14-36) U/L ALT 133 H (9-52) U/L Total Protein 6.1 L (6.3-8.2) g/dL
--- NOTE | 2019-02-03 14:09 | P.PN ---
Subjective Progress Note Date: 02/03/19 Principal diagnosis: Acute COPD exacerbation, 02/02/2019 patient seen in follow-up on selective care unit, she is awake and alert, in no acute distress, still has quite significant exertional dyspnea, but overall seems to be improving, less bronchospastic, still has scattered wh eezing, he remains on supplemental oxygen 3 L, her pulse ox is 92%, afebrile, no complaint of chest pain, she has converted to sinus rhythm, with a controlled rate. Occasional cough, no significant sputum production. She remains on a combination of Zithromax, Rocephin, nebulized bronchodilators, cough syrup, Singulair. She has been ambulating just within the room only, will try to increase her activity today, no acute events overnight. Today's labs have been reviewed, but cell count is stable, 14.2, hemoglobin is 14.0, electrolytes are within normal limits except for CO2 which is at 33, BUN is 44 creatinine 0.61. On 02/03/2019 patient is still quite tight and wheezy, and has not made si gnificant improvement clinically since yesterday, still has difficulty exertional dyspnea, lung sounds are tight and wheezy, and she is not able to bring up much secretions. Remains on 3 L with sats of 94%, she is afebrile, she is on maximum dose of IV steroids, she is on Zithromax and Rocephin, cough syrup, Alex, she has been maximized from medical treatment, we have discussed possibility of bronchoscopy with BAL tomorrow, and the patient is agreeable to proceed. Objective - Vital Signs Vital signs: Vital Signs Temp 97.8 F 02/03/19 08:00 Pulse 88 02/03/19 11:31 Resp 20 02/03/19 11:31 BP 121/71 02/03/19 08:00 Pulse Ox 94 L 02/03/19 08:00 Intake & Output 02/02/19 02/03/19 02/03/19 18:59 06:59 18:59 Intake Total 520 240 240 Output Total 4 2 Balance 516 240 238 Weight 76 kg 76.8 kg Intake: Oral 520 240 240 Output: Stool 4 2 Other: Voiding Method Toilet Toilet Toilet # Voids 3 2 - Exam GENERAL EXAM: Alert, pleasant, 63-year-old white female, on 3 L of oxygen with a pulse ox of 92% comfortable in no apparent distress. HEAD: Normocephalic/atraumatic. EYES: Normal reaction of pupils, equal size. Conjunctiva pink, sclera white. NOSE: Clear with pink turbinates. THROAT: No erythema or exudates. NECK: No masses, no JVD, no thyroid enlargement, no adenopathy. CHEST: No chest wall deformity. Symmetrical expansion. LUNGS: Equal air entry with diffuse wheezes bilaterally CVS: Regular rate and rhythm, normal S1 and S2, no gallops, no murmurs, no rubs ABDOMEN: Soft, nontender. No hepatosplenomegaly, normal bowel sounds, no guarding or rigidity. EXTREMITIES: No clubbing, no edema, no cyanosis, 2+ pulses and upper and lower extremities. MUSCULOSKELETAL: Muscle strength and tone normal. SPINE: No scoliosis or deformity SKIN: No rashes CENTRAL NERVOUS SYSTEM: Alert and oriented -3. No focal deficits, tone is normal in all 4 extremities. PSYCHIATRIC: Alert and oriented -3. Appropriate affect. Intact judgment and insight. - Labs CBC & Chem 7: 02/03/19 06:23 02/03/19 06:23 Labs: Abnormal Lab Results - Last 24 Hours (Table) 02/02/19 02/02/19 02/03/19 Range/Units 16:19 20:33 06:01 WBC (3.8-10.6) k/uL MCV (80.0-100.0) fL Neutrophils # (1.3-7.7) k/uL Lymphocytes # (1.0-4.8) k/uL Carbon Dioxide (22-30) mmol/L BUN (7-17) mg/dL Glucose (74-99) mg/dL POC Glucose (mg/dL) 210 H 246 H 225 H (75-99) mg/dL AST (14-36) U/L ALT (9-52) U/L Total Protein (6.3-8.2) g/dL 02/03/19 02/03/19 02/03/19 Range/Units 06:23 06:23 11:23 WBC 16.1 H (3.8-10.6) k/uL MCV 101.0 H (80.0-100.0) fL Neutrophils # 15.2 H (1.3-7.7) k/uL Lymphocytes # 0.5 L (1.0-4.8) k/uL Carbon Dioxide 33 H (22-30) mmol/L BUN 47 H (7-17) mg/dL Glucose 264 H (74-99) mg/dL POC Glucose (mg/dL) 228 H (75-99) mg/dL AST 44 H (14-36) U/L ALT 133 H (9-52) U/L Total Protein 6.1 L (6.3-8.2) g/dL Assessment and Plan Plan: 1 acute COPD exacerbation with secondary shortness of breath. Influenza screen is negative. No evidence of an acute pneumonia. The chest x-rays showing some chronic interstitial scarring. Nevertheless, the predominant pathology his acute COPD exacerbation. She has a moderately severe COPD based on the previous spirometry that was done in our office in FEV1 was in the order of 59% of predicted. She is a chronic smoker. The chest x-ray showing a 7 mm scar in the right apical area. Malignancy is doubtful. CAT scan of the chest on I did not for any lung masses. Some limited improvement in shortness of breath since yesterday. The patient is still struggling. The patient is still having cough and congestion and wheeze. 2 chronic dyspnea related to COPD with interval exacerbation 3 chronic smoker 4 skeletal chest wall pain related to cough 5 smoker 6 history of atrial fibrillation back to sinus 7 gout 8 history of alcoholism with previous history of pancreatitis 9 chronic back pain 10 acid reflux 11 Paroxysmal atrial fibrillation with rapid ventricular response him a currently still back in normal sinus rhythm. The patient is on of going into nature fibrillation special with exertion. Plan: Nothing by mouth after midnight, bronchoscopy with BAL tomorrow with Dr. Shin, this was discussed with the patient was agreeable to proceed, continue with medical treatment in the meanwhile, with IV steroids, Zithromax Rocephin, nebulized bronchodilators. We will put the Eliquis on hold. We'll follow. I performed a history & physical examination of the patient and discussed their management with my nurse practitioner, Nasreen Oneil. I reviewed the nurse practitioner's note and agree with the documented findings and plan of care. Lung sounds are positive for diffuse wheezes throughout the lung hoffman. The findings and the impression was discussed with the patient. I attest to the documentation by the nurse practitioner. Time with Patient: Less than 30
[2019-02-03 16:18] LABS: Glucose,Whole Blood 173 mg/dL (75-99)
[2019-02-03 20:14] LABS: Glucose,Whole Blood 183 mg/dL (75-99)
[2019-02-03] MEDS: MONTELUKAST 10 MG TAB PO SCH (21:11)
[2019-02-03] MEDS: ZOLPIDEM 5 MG TAB PO PRN (21:13)
[2019-02-03] MEDS ORDERED: oxyCODONE-APAP 10-325MG 1 EACH TAB PO ONE (21:37)
[2019-02-04] MEDS: methylPREDNISolone SOD SUCCI 125 MG/2 ML VIAL IV SCH ×5 (00:02→23:47)
[2019-02-04] MEDS: MORPHINE SULFATE 2 MG/ML SYRINGE IVP PRN ×6 (00:03→21:13)
[2019-02-04 06:20] LABS: Glucose,Whole Blood 240 mg/dL (75-99)
[2019-02-04] MEDS: PANTOPRAZOLE 40 MG TABLET PO SCH (06:51)
[2019-02-04] MEDS: INSULIN ASPART (NovoLOG) 100 UNIT/ML VIAL SQ SCH ×4 (06:53→21:12)
[2019-02-04 07:15] LABS: Basophils # (A) 0.2 k/uL (0-0.2); Basophils % (A) 1 %; Eosinophils % (A) 0 %; HCT 45.1 % (34.0-46.0); HGB 14.4 gm/dL (11.4-16.0); Lymphocytes # (A) 0.4 k/uL (1.0-4.8); Lymphocytes % (A) 3 %; MCH 32.2 pg (25.0-35.0); MCHC 31.9 g/dL (31.0-37.0); MCV 100.9 fL (80.0-100.0); Macrocytosis Slight; Mean Platelet Volume 6.9; Monocytes # (A) 0.3 k/uL (0-1.0); Monocytes % (A) 2 %; Neutrophils # (A) 13.8 k/uL (1.3-7.7); Neutrophils % (A) 94 %; Platelet Count 243 k/uL (150-450); RBC 4.47 m/uL (3.80-5.40); RDW 13.8 % (11.5-15.5); WBC 14.7 k/uL (3.8-10.6)
[2019-02-04 07:28] LABS: ALT 113 U/L (9-52); AST 27 U/L (14-36); African American GFR (CKD) >90 (>60 ml/min/1.73 sqM); Albumin 3.9 g/dL (3.5-5.0); Alkaline Phosphatase 49 U/L (38-126); Anion Gap 8 mmol/L; Blood Urea Nitrogen 41 mg/dL (7-17); Calcium 10.2 mg/dL (8.4-10.2); Carbon Dioxide 31 mmol/L (22-30); Chloride 98 mmol/L (98-107); Glucose 264 mg/dL (74-99); Non-African American GFR(CKD) >90 (>60 ml/min/1.73 sqM); Potassium 4.8 mmol/L (3.5-5.1); Sodium 137 mmol/L (137-145); Total Bilirubin 0.5 mg/dL (0.2-1.3); Total Protein 6.3 g/dL (6.3-8.2)
[2019-02-04] MEDS: LORATADINE 10 MG TAB PO SCH (08:08)
[2019-02-04] MEDS: LOSARTAN 50 MG TAB PO SCH (08:08)
[2019-02-04] MEDS: AZITHROMYCIN 500 MG TAB PO SCH (08:08)
[2019-02-04] MEDS: ALLOPURINOL 300 MG TAB PO SCH (08:08)
[2019-02-04] MEDS: VERAPAMIL SR 240 MG TABLET.ER PO SCH (08:08)
[2019-02-04] MEDS: oxyCODONE-APAP 10-325MG 1 EACH TAB PO SCH ×4 (08:09→22:24)
[2019-02-04] MEDS: IPRATROPIUM-ALBUTEROL 3 ML NEB INHALATION SCH ×4 (08:50→19:02)
[2019-02-04] MEDS: BUDESONIDE 0.5 MG/2 ML NEBU INHALATION SCH ×2 (08:50→19:02)
[2019-02-04] MEDS: FORMOTEROL FUMARATE 20 MCG/2 ML NEBU INHALATION SCH ×2 (08:50→19:02)
--- NOTE | 2019-02-04 09:49 | P.PN ---
Subjective Progress Note Date: 02/04/19 This is a 63-year-old female patient who presented with complaints of difficulty breathing and shortness of breath and cough for 1 week. Patient has a known past medical history of COPD and asthma. Patient is also a current every day smoker. Patient reports that she has had hot and cold flashes at home but does not specifically recall having a fever. Patient does state she has a sputum production. Patient states she has tried [id number] without much relief. Patient reports that she is also having aching pain throughout. Additional medical history includes GERD, osteoarthritis, Khan's palsy, history of EtOH, pancreatitis, gout, chronic back pain, appendectomy, , anxiety and current every day smoker. Chest x-ray completed showing a 7 mm density right apex may relate to the anterior margin of the right first rib no acute infiltrate. Correlate with computed tomography scan of the chest is obtained. Influenza negative. At this time pulmonary services will be consulted. He started on Solu-Medrol. Patient also started on Rocephin and azithromycin for antibiotics and culture ordered. Continue DuoNeb breathing treatments. Patient denies chest pain. Patient denies nausea vomiting or diarrhea. Patient denies urinary burning or frequency On 01/27/2019 patient's alert and oriented 3. Patient is still having significant wheezing with shortness of breath. Patient was evaluated by pulmonary services Pulmicort added. Patient remains on IV antibiotics and IV s teroids. At this time patient denies chest pain. Patient denies nausea vomiting or diarrhea. Patient denies any urinary burning frequency. On 01/28/2019 patient is alert and oriented 3. She patient states she is not feeling well. Patient denies shortness of breath. No audible wheezing heard from patient. Patient remains on IV antibiotics and IV steroids. At this time patient denies chest pain. Patient reports cough with no sputum production. Patient denies nausea vomiting or diarrhea. Patient denies any urinary burning or frequency. Patient states her appetite is well. Patient remains on DuoNeb, and Pulmicort. On 01/29/2019 patient's alert and oriented 3. Patient showing minimal improvement. Patient remains on excellent medical therapy. Patient is being followed by pulmonary services remains on IV steroids DuoNeb breathing treatments and IV antibiotics. Patient denies chest pain. Patient denies nausea vomiting or diarrhea. Patient denies any urinary burning or frequency On 01/30/2019 patient is alert oriented 3. Patient reports minimal improvement with shortness of breath. Clinically, mild improvement. Patient will remain on IV antibiotics and IV steroids, plus DuoNeb breathing treatments. Overnight patient had episode of atrial fibrillation with rapid ventricular response. Patient denies any notice to this episode. She denied feeling dizziness chest pain. Stat EKG obtained, patient was transferred to cardiology unit for increased monitoring. Cardizem drip ordered but was never started due to patient converting back into sinus rhythm. Subcu heparin was DC'd subcu Lovenox 1mg/kg BID started. Cardiology consulted, will wait for their recommendations. Patient denies fevers, nausea vomiting or diarrhea. Patient denies any urinary burning or frequency. On 01/31/2019 patient is still complaining of shortness of breath and wheezing and S no chest pain no nausea or vomiting no abdominal pain no diarrhea no burning was urination no frequency or urgency and no hematuria On 02/01/2019 patient's alert and oriented 3. Patient still complaining of shortness breath and wheezing. Patient has been started on eliquis for anticoagulative for atrial fibrillation. Patient eyes chest pain. Patient denies nausea vomiting or diarrhea. Patient denies any urinary burning or frequency On 02/02/2019 patient's alert and oriented 3. Patient showing minimal improvement with shortness of breath and wheezing. Possible bronchoscopy for pulmonary services. Patient denies chest pain. Patient denies nausea vomiting or diarrhea. Patient denies any urinary frequency On 02/03/2019 patient is resting comfortably bed. Patient still having wheezing and shortness of breath with minimal improvement possible bronchoscopy today per pulmonary. Patient denies chest pain. Patient denies nausea vomiting or diarrhea. Patient denies any urinary burning On 02/04/2019 patient is resting comfortably in bed. Planning bronchoscopy today per pulmonary service. Patient still has significant wheezing and shortness of breath. Patient denies chest pain. Patient denies nausea vomiting or diarrhea. Patient denies any urinary burning or frequency Objective - Vital Signs Vital signs: Vital Signs Temp 97.6 F 02/04/19 08:00 Pulse 88 02/04/19 09:14 Resp 22 02/04/19 08:00 BP 179/86 02/04/19 08:00 Pulse Ox 93 L 02/04/19 08:00 Intake & Output 02/03/19 02/04/19 02/04/19 18:59 06:59 18:59 Intake Total 684 1620 Output Total 1203 Balance -519 1620 Weight 76.7 kg Intake: Oral 684 1620 Output: Urine 1200 Stool 3 Other: Voiding Method Toilet Toilet Toilet # Voids 2 5 - Exam Head normocephalic Neck supple Lungs diminished bilaterally and bilateral high pitched wheezes, inspiratory and expiratory. Heart regular rate and rhythm S1-S2, no rub or gallop Abdomen is soft nontender nondistended positive bowel sounds no hepatosplenomegaly Extremities no edema Neuro alert and orientated to 3 - Labs CBC & Chem 7: 02/04/19 06:30 02/04/19 06:30 Labs: Abnormal Lab Results - Last 24 Hours (Table) 02/03/19 02/03/19 02/03/19 Range/Units 11:23 16:16 20:13 WBC (3.8-10.6) k/uL MCV (80.0-100.0) fL Neutrophils # (1.3-7.7) k/uL Lymphocytes # (1.0-4.8) k/uL Carbon Dioxide (22-30) mmol/L BUN (7-17) mg/dL Glucose (74-99) mg/dL POC Glucose (mg/dL) 228 H 173 H 183 H (75-99) mg/dL ALT (9-52) U/L 02/04/19 02/04/19 02/04/19 Range/Units 06:19 06:30 06:30 WBC 14.7 H (3.8-10.6) k/uL MCV 100.9 H (80.0-100.0) fL Neutrophils # 13.8 H (1.3-7.7) k/uL Lymphocytes # 0.4 L (1.0-4.8) k/uL Carbon Dioxide 31 H (22-30) mmol/L BUN 41 H (7-17) mg/dL Glucose 264 H (74-99) mg/dL POC Glucose (mg/dL) 240 H (75-99) mg/dL ALT 113 H (9-52) U/L Assessment and Plan Assessment: 1. Increased shortness of breath related to COPD exacerbation. Pulmonary services have been consulted. Patient started on Solu-Medrol, DuoNeb breathing treatments as well as Pulmicort and Perforomist nebulized treatments, azithromycin and Rocephin. Sputum culture preliminary report reveals gram- positive cocci. Pulmonary services are following. Continue current IV antibiotics IV steroids and DuoNeb breathing treatments. possible bronchoscopy per pulmonary services 2. Questionable nodule seen on chest x-ray. Per pulmonology malignancy is doubtful and 7 mm scar in right apical area of chest CT. Pulmonary services following 3. Paroxysmal atrial fibrillation with rapid ventricular response. Patient has been started on eliquis per cardiology services. 4. History of atrial fibrillation. Discovered in August 2017 during hospital visit. At which time cardiology was consulted, an echocardiogram was completed and recommendations were to start patient on eliquis. Eliquis was discontinued during this admission due to a rectus sheath hematoma. 5. History of COPD 6. History of asthma 7. Nicotine dependence. Patient educated longer than 3 minutes on smoking sensation. Patient declines nicotine patch 8. History of Khan's palsy 9. History of GERD 10. osteoarthritis with total left hip replacement 11. Elevated liver enzymes will continue to monitor 12. Essential hypertension. Cozar and verapamil added per cardiology DVT prophylaxis eliquis. GI prophylaxis Protonix Continue IV antibiotics and steroids and DuoNeb breathing treatment Pulmonary services following I performed an examination of the patient and discussed their management with the Nurse Practitioner. I have reviewed the Nurse Practitioner's notes and agree with the documented findings and plan of care
[2019-02-04 11:31] LABS: Glucose,Whole Blood 145 mg/dL (75-99)
--- NOTE | 2019-02-04 11:39 | P.PN ---
Subjective Progress Note Date: 02/04/19 Principal diagnosis: Acute COPD exacerbation, 02/02/2019 patient seen in follow-up on selective care unit, she is awake and alert, in no acute distress, still has quite significant exertional dyspnea, but overall seems to be improving, less bronchospastic, still has scattered wh eezing, he remains on supplemental oxygen 3 L, her pulse ox is 92%, afebrile, no complaint of chest pain, she has converted to sinus rhythm, with a controlled rate. Occasional cough, no significant sputum production. She remains on a combination of Zithromax, Rocephin, nebulized bronchodilators, cough syrup, Singulair. She has been ambulating just within the room only, will try to increase her activity today, no acute events overnight. Today's labs have been reviewed, but cell count is stable, 14.2, hemoglobin is 14.0, electrolytes are within normal limits except for CO2 which is at 33, BUN is 44 creatinine 0.61. On 02/03/2019 patient is still quite tight and wheezy, and has not made si gnificant improvement clinically since yesterday, still has difficulty exertional dyspnea, lung sounds are tight and wheezy, and she is not able to bring up much secretions. Remains on 3 L with sats of 94%, she is afebrile, she is on maximum dose of IV steroids, she is on Zithromax and Rocephin, cough syrup, Alex, she has been maximized from medical treatment, we have discussed possibility of bronchoscopy with BAL tomorrow, and the patient is agreeable to proceed. On 02/04/2019 patient seen in follow-up on selective care unit, still dyspneic, and bronchospastic, not able to bring up much sputum, remains on supplemental oxygen, currently on 2 L. Pulse ox 91-93%, afebrile, she does have exertional dyspnea, she has been slow to improve, and for that reason she is undergoing bronchoscopy with BAL today with Dr. Shin. Objective - Vital Signs Vital signs: Vital Signs Temp 97.6 F 02/04/19 08:00 Pulse 88 02/04/19 09:14 Resp 22 02/04/19 08:00 BP 179/86 02/04/19 08:00 Pulse Ox 93 L 02/04/19 08:00 Intake & Output 02/03/19 02/04/19 02/04/19 18:59 06:59 18:59 Intake Total 684 1620 Output Total 1203 Balance -519 1620 Weight 76.7 kg Intake: Oral 684 1620 Output: Urine 1200 Stool 3 Other: Voiding Method Toilet Toilet Toilet # Voids 2 5 1 - Exam GENERAL EXAM: Alert, pleasant, 63-year-old white female, on 2 L of oxygen with a pulse ox of 92% comfortable in no apparent distress. HEAD: Normocephalic/atraumatic. EYES: Normal reaction of pupils, equal size. Conjunctiva pink, sclera white. NOSE: Clear with pink turbinates. THROAT: No erythema or exudates. NECK: No masses, no JVD, no thyroid enlargement, no adenopathy. CHEST: No chest wall deformity. Symmetrical expansion. LUNGS: Equal air entry with diffuse wheezes bilaterally CVS: Regular rate and rhythm, normal S1 and S2, no gallops, no murmurs, no rubs ABDOMEN: Soft, nontender. No hepatosplenomegaly, normal bowel sounds, no guarding or rigidity. EXTREMITIES: No clubbing, no edema, no cyanosis, 2+ pulses and upper and lower extremities. MUSCULOSKELETAL: Muscle strength and tone normal. SPINE: No scoliosis or deformity SKIN: No rashes CENTRAL NERVOUS SYSTEM: Alert and oriented -3. No focal deficits, tone is normal in all 4 extremities. PSYCHIATRIC: Alert and oriented -3. Appropriate affect. Intact judgment and insight. - Labs CBC & Chem 7: 02/04/19 06:30 02/04/19 06:30 Labs: Abnormal Lab Results - Last 24 Hours (Table) 02/03/19 02/03/19 02/04/19 Range/Units 16:16 20:13 06:19 WBC (3.8-10.6) k/uL MCV (80.0-100.0) fL Neutrophils # (1.3-7.7) k/uL Lymphocytes # (1.0-4.8) k/uL Carbon Dioxide (22-30) mmol/L BUN (7-17) mg/dL Glucose (74-99) mg/dL POC Glucose (mg/dL) 173 H 183 H 240 H (75-99) mg/dL ALT (9-52) U/L 02/04/19 02/04/19 02/04/19 Range/Units 06:30 06:30 11:30 WBC 14.7 H (3.8-10.6) k/uL MCV 100.9 H (80.0-100.0) fL Neutrophils # 13.8 H (1.3-7.7) k/uL Lymphocytes # 0.4 L (1.0-4.8) k/uL Carbon Dioxide 31 H (22-30) mmol/L BUN 41 H (7-17) mg/dL Glucose 264 H (74-99) mg/dL POC Glucose (mg/dL) 145 H (75-99) mg/dL ALT 113 H (9-52) U/L Assessment and Plan Plan: 1 acute COPD exacerbation with secondary shortness of breath. Influenza screen is negative. No evidence of an acute pneumonia. The chest x-rays showing some chronic interstitial scarring. Nevertheless, the predominant pathology his acute COPD exacerbation. She has a moderately severe COPD based on the previous spirometry that was done in our office in FEV1 was in the order of 59% of predic melva. She is a chronic smoker. The chest x-ray showing a 7 mm scar in the right apical area. Malignancy is doubtful. CAT scan of the chest on I did not for any lung masses. Some limited improvement in shortness of breath since yesterday. The patient is still struggling. The patient is still having cough and congestion and wheeze. 2 chronic dyspnea related to COPD with interval exacerbation 3 chronic smoker 4 skeletal chest wall pain related to cough 5 smoker 6 history of atrial fibrillation back to sinus 7 gout 8 history of alcoholism with previous history of pancreatitis 9 chronic back pain 10 acid reflux 11 Paroxysmal atrial fibrillation with rapid ventricular response him a currently still back in normal sinus rhythm. The patient is on of going into nature fibrillation special with exertion. Plan: Continue current medical treatment, will proceed with bronchoscopy with BAL today at 12:[address] Shin. Continue current dose of steroids, nebulized bronchodilators. I performed a history & physical examination of the patient and discussed their management with my nurse practitioner, Nasreen Oneil. I reviewed the nurse practitioner's note and agree with the documented findings and plan of care. Lung sounds are positive for diffuse wheezes throughout the lung hoffman. The findings and the impression was discussed with the patient. I attest to the documentation by the nurse practitioner. Time with Patient: Less than 30
[2019-02-04] MEDS ORDERED: KETAMINE 10 MG/ML 20 ML VIAL ONE (11:57)
[2019-02-04] MEDS ORDERED: MIDAZOLAM 2 MG/2 ML VIAL ONE (11:57)
[2019-02-04] MEDS ORDERED: LIDOCAINE 1% INJ 10MG/ML (20 ML MDV) ONE (11:57)
[2019-02-04] MEDS ORDERED: fentaNYL (PF) 50 MCG/ML 2 ML AMP ONE (11:57)
[2019-02-04] MEDS ORDERED: GLYCOPYRROLATE 0.2 MG/ML 2 ML VIAL ONE (11:57)
[2019-02-04] MEDS ORDERED: PROPOFOL 10 MG/ML 20 ML VIAL IV ONE (11:57)
[2019-02-04] MEDS ORDERED: IV FLUID CONTINUATION 1,000 ML IV ONE (12:02)
[2019-02-04] MEDS ORDERED: LIDOCAINE 2% INJ 20 MG/ML INTRATRACH ONE (12:19)
--- NOTE | 2019-02-04 12:25 | P.PN ---
Subjective Progress Note Date: 02/04/19 Patient is a 63-year-old female with a history of COPD and paroxysmal atrial fibrillation who presented with complaints of shortness of breath. She was admitted for treatment of COPD exacerbation. We were seeing the patient because of paroxysmal atrial fibrillation, patient is remaining in normal sinus rhythm. She was seen and examined today, breathing is improving but she still quite dyspneic. Scheduled today to undergo bronchoscopy. Objective - Vital Signs Vital signs: Vital Signs Temp 97.6 F 02/04/19 08:00 Pulse 88 02/04/19 09:14 Resp 22 02/04/19 08:00 BP 179/86 02/04/19 08:00 Pulse Ox 93 L 02/04/19 08:00 Intake & Output 02/03/19 02/04/19 02/04/19 18:59 06:59 18:59 Intake Total 684 1620 Output Total 1203 Balance -519 1620 Weight 76.7 kg Intake: Oral 684 1620 Output: Urine 1200 Stool 3 Other: Voiding Method Toilet Toilet Toilet # Voids 2 5 1 - Exam HEAD: Normocephalic/atraumatic. EYES: Normal reaction of pupils, equal size. Conjunctiva pink, sclera white. NOSE: Clear with pink turbinates. THROAT: No erythema or exudates. NECK: No masses, no JVD, no thyroid enlargement, no adenopathy. CHEST: No chest wall deformity. Symmetrical expansion. LUNGS: Equal air entry with diffuse wheezes bilaterally CVS: Regular rate and rhythm, normal S1 and S2, no gallops, no murmurs, no rubs ABDOMEN: Soft, nontender. No hepatosplenomegaly, normal bowel sounds, no guarding or rigidity. EXTREMITIES: No clubbing, no edema, no cyanosis, 2+ pulses and upper and lower extremities. MUSCULOSKELETAL: Muscle strength and tone normal. SPINE: No scoliosis or deformity SKIN: No rashes CENTRAL NERVOUS SYSTEM: Alert and oriented -3. No focal deficits, tone is normal in all 4 extremities. PSYCHIATRIC: Alert and oriented -3. Appropriate affect. Intact judgment and insight. - Labs CBC & Chem 7: 02/04/19 06:30 02/04/19 06:30 Labs: Abnormal Lab Results - Last 24 Hours (Table) 02/03/19 02/03/19 02/04/19 Range/Units 16:16 20:13 06:19 WBC (3.8-10.6) k/uL MCV (80.0-100.0) fL Neutrophils # (1.3-7.7) k/uL Lymphocytes # (1.0-4.8) k/uL Carbon Dioxide (22-30) mmol/L BUN (7-17) mg/dL Glucose (74-99) mg/dL POC Glucose (mg/dL) 173 H 183 H 240 H (75-99) mg/dL ALT (9-52) U/L 02/04/19 02/04/19 02/04/19 Range/Units 06:30 06:30 11:30 WBC 14.7 H (3.8-10.6) k/uL MCV 100.9 H (80.0-100.0) fL Neutrophils # 13.8 H (1.3-7.7) k/uL Lymphocytes # 0.4 L (1.0-4.8) k/uL Carbon Dioxide 31 H (22-30) mmol/L BUN 41 H (7-17) mg/dL Glucose 264 H (74-99) mg/dL POC Glucose (mg/dL) 145 H (75-99) mg/dL ALT 113 H (9-52) U/L Assessment and Plan Plan: Plan: 1 acute COPD exacerbation with secondary shortness of breath. Influenza screen is negative. No evidence of an acute pneumonia. The chest x-rays showing some chronic interstitial scarring. Nevertheless, the predominant pathology his acute COPD exacerbation. She has a moderately severe COPD based on the previous spirometry that was done in our office in FEV1 was in the order of 59% of predi cted. She is a chronic smoker. The chest x-ray showing a 7 mm scar in the right apical area. Malignancy is doubtful. CAT scan of the chest on I did not for any lung masses. Some limited improvement in shortness of breath since yesterday. The patient is still struggling. The patient is still having cough and congestion and wheeze. 2 chronic dyspnea related to COPD with interval exacerbation 3 chronic smoker 4 skeletal chest wall pain related to cough 5 smoker 6 history of atrial fibrillation back to sinus 7 gout 8 history of alcoholism with previous history of pancreatitis 9 chronic back pain 10 acid reflux 11 Paroxysmal atrial fibrillation currently in normal sinus rhythm Plan From cardiology's perspective, we'll follow this patient along with you now on an as-needed basis only, please don't hesitate to call with any questions. DNP note has been reviewed, I agree with a documented findings and plan of care. Patient was seen and examined.
--- NOTE | 2019-02-04 12:57 | PCN ---
PROCEDURE NOTE Bronchoscopy, and bronchial washings as well as random bronchoalveolar lavage of most of the lobes. PREOPERATIVE DIAGNOSIS: Acute exacerbation of COPD with purulent tracheobronchitis and difficulty clearing secretions. POSTOPERATIVE DIAGNOSIS: Acute exacerbation of COPD with purulent tracheobronchitis and difficulty clearing secretions. ANESTHESIA USED: IV conscious sedation. PROCEDURE DESCRIPTION: Patient was placed in a supine position, she was prepared according to the bronchoscopy protocol. O2 was applied via nasal cannula, and we monitored her O2 saturation continuously, blood pressure was intermittently monitored, and cardiac rhythm was continuously monitored. After adequate IV conscious sedation, the bite block was applied, and the bronchoscope was advanced through the bite block down to the area of the vocal cords. Some whitish secretions noted around the area of the vocal cords, suggestive of oropharyngeal thrush. These were suctioned easily. Then lidocaine was applied over the vocal cords, and the bronchoscope was advanced further down through the vocal cords to the area of the trachea. Thorough examination was done of the trachea, haley, right upper lobe, right middle lobe, right lower lobe, left upper lobe lingula and left lower lobe. There was evidence of significant purulent thick tenacious secretions noted in all the airways and in all the different lobes. Using saline, the lobes were all lavaged, and suctioned, until all the secretions were cleared. This was done in the right upper lobe, right lower lobe, right lower lobe, also left upper lobe lingula and left lower lobe. Continued to wash and lavage the different lobes until all secretions which was thick, tenacious were all suctioned out of the airways. The procedure was well tolerated, there was no evidence of any immediate complications. The fluid obtained was sent for different diagnostic studies. MMODL / IJN: [id number] /
[2019-02-04] MEDS: NYSTATIN 100,000 UNIT/ML SUSP 500,000 UNIT/5 ML CUP PO SCH ×3 (15:28→22:24)
[2019-02-04 15:50] LABS: Appearance,BF Cloudy; Color,BF Colorless
[2019-02-04 16:48] LABS: Nucleated Cells, Body Fluid 200 /uL; RBC, Body Fluid 200 /uL
[2019-02-04 16:52] LABS: Mononuclear WBC,Body Fluid 5 %; Polynuclear WBC,Body Fluid 95 %; Total Cells Counted,Body Fluid 100
[2019-02-04 17:03] LABS: Glucose,Whole Blood 284 mg/dL (75-99)
[2019-02-04 21:06] LABS: Glucose,Whole Blood 314 mg/dL (75-99)
[2019-02-04] MEDS: MONTELUKAST 10 MG TAB PO SCH (21:12)
[2019-02-04] MEDS: ZOLPIDEM 5 MG TAB PO PRN (22:24)
[2019-02-05] MEDS: MORPHINE SULFATE 2 MG/ML SYRINGE IVP PRN ×5 (03:12→20:31)
[2019-02-05] MEDS: methylPREDNISolone SOD SUCCI 125 MG/2 ML VIAL IV SCH ×4 (06:07→23:16)
[2019-02-05 07:40] LABS: Glucose,Whole Blood 216 mg/dL (75-99)
[2019-02-05] MEDS: AZITHROMYCIN 500 MG TAB PO SCH (07:41)
[2019-02-05] MEDS: VERAPAMIL SR 240 MG TABLET.ER PO SCH (07:41)
[2019-02-05] MEDS: oxyCODONE-APAP 10-325MG 1 EACH TAB PO SCH ×4 (07:42→20:23)
[2019-02-05] MEDS: NYSTATIN 100,000 UNIT/ML SUSP 500,000 UNIT/5 ML CUP PO SCH ×4 (07:42→20:23)
[2019-02-05] MEDS: PANTOPRAZOLE 40 MG TABLET PO SCH (07:42)
[2019-02-05] MEDS: LOSARTAN 50 MG TAB PO SCH (07:42)
[2019-02-05] MEDS: ALLOPURINOL 300 MG TAB PO SCH (07:42)
[2019-02-05] MEDS: LORATADINE 10 MG TAB PO SCH (07:42)
[2019-02-05] MEDS: INSULIN ASPART (NovoLOG) 100 UNIT/ML VIAL SQ SCH ×4 (07:51→20:23)
[2019-02-05] MEDS: IPRATROPIUM-ALBUTEROL 3 ML NEB INHALATION SCH ×4 (08:05→21:10)
[2019-02-05] MEDS: BUDESONIDE 0.5 MG/2 ML NEBU INHALATION SCH ×2 (08:05→21:10)
[2019-02-05] MEDS: FORMOTEROL FUMARATE 20 MCG/2 ML NEBU INHALATION SCH ×2 (08:05→21:10)
[2019-02-05 08:52] LABS: Basophils # (A) 0.1 k/uL (0-0.2); Basophils % (A) 0 %; Eosinophils % (A) 0 %; HCT 46.3 % (34.0-46.0); HGB 14.6 gm/dL (11.4-16.0); Lymphocytes # (A) 0.4 k/uL (1.0-4.8); Lymphocytes % (A) 2 %; MCH 31.3 pg (25.0-35.0); MCHC 31.4 g/dL (31.0-37.0); MCV 99.6 fL (80.0-100.0); Mean Platelet Volume 7.4; Monocytes # (A) 0.3 k/uL (0-1.0); Monocytes % (A) 2 %; Neutrophils # (A) 16.4 k/uL (1.3-7.7); Neutrophils % (A) 95 %; Platelet Count 257 k/uL (150-450); RBC 4.65 m/uL (3.80-5.40); WBC 17.3 k/uL (3.8-10.6)
[2019-02-05 08:59] LABS: ALT 111 U/L (9-52); AST 29 U/L (14-36); African American GFR (CKD) >90 (>60 ml/min/1.73 sqM); Albumin 3.7 g/dL (3.5-5.0); Alkaline Phosphatase 50 U/L (38-126); Anion Gap 9 mmol/L; Blood Urea Nitrogen 39 mg/dL (7-17); Carbon Dioxide 33 mmol/L (22-30); Chloride 96 mmol/L (98-107); Glucose 225 mg/dL (74-99); Non-African American GFR(CKD) >90 (>60 ml/min/1.73 sqM); Potassium 4.6 mmol/L (3.5-5.1); Sodium 138 mmol/L (137-145); Total Bilirubin 0.6 mg/dL (0.2-1.3); Total Protein 6.1 g/dL (6.3-8.2)
[2019-02-05] MEDS: APIXABAN 5 MG TAB PO SCH ×2 (09:20→20:23)
--- NOTE | 2019-02-05 10:10 | P.PN ---
Subjective Progress Note Date: 02/05/19 Principal diagnosis: Acute exacerbation of chronic obstructive pulmonary disease 63-year-old female patient with known history of advanced emphysema with poor compliance, came in yesterday because of increased difficulty breathing, cough, chest tightness, wheezing, shortness of breath and extreme limitation of exercise capacity. The patient had difficulty breathing and she was having hard time completing full sentences. She was still smoking about 1 pack of cigarettes a day and she carries more than [id number] smoking history. She has seen us in the office in the past under the care of Dr. Barnes, and the patient has been given Airduo one inhalation twice a day. She also has a nebulizer which she doesn't use it on a regular basis. She is currently moved in with her sister and Ghulam Hernandez. No fever. No chills. No pleurisy. No hemoptysis. Influenza screen was done and it was negative. Pulmonary consultation was requested. Chest x-ray shows hyperinflation. There is a questionable 7 mm right apical scar. Her previous CAT scan of the chest from last year did not show any evidence of lung masses. There was some chronic interstitial areas of scarring. No altered mentation. She claims that she hasn't drank alcohol for the past 6 months. Her FEV1 is measured to be at 59% of predicted based on a spirometer this was done back in September 2017. The patient is seen again today 02/05/2019 in follow-up on the regular medical floor. She is awake and alert. Still somewhat bronchospastic and wheezy. She is maintaining good O2 saturations in the mid 90s on 2 L/m per nasal cannula. She's been afebrile. Hemodynamically stable. She did undergo bronchoscopy with BAL by Dr. Barnes yesterday. Cultures are pending. Initial sputum culture reports no growth. Blood cultures no growth. White count 17.3. Hemoglobin 14.6. Creatinine 0.59. She remains on DuoNeb inhalations, Pulmicort and Perforomist inhalations, Singulair, IV Solu-Medrol. Antibiotics in the form of ceftriaxone and azithromycin. Objective - Vital Signs Vital signs: Vital Signs Temp 98.4 F 02/05/19 05:00 Pulse 80 02/05/19 05:00 Resp 20 02/05/19 05:00 BP 143/83 02/05/19 05:00 Pulse Ox 95 02/05/19 05:00 Intake & Output 02/04/19 02/05/19 02/05/19 18:59 06:59 18:59 Intake Total 762 400 200 Balance 762 400 200 Intake: Oral 762 400 200 Other: Voiding Method Toilet Toilet # Voids 1 4 - Exam GENERAL EXAM: Alert, pleasant 63-year-old female patient, on 2 L nasal cannula, comfortable in no apparent distress. HEAD: Normocephalic. EYES: Normal reaction of pupils, equal size. NOSE: Clear with pink turbinates. THROAT: No erythema or exudates. NECK: No masses, no JVD. CHEST: No chest wall deformity. LUNGS: Equal air entry with bilateral end expiratory wheeze, diminished CVS: S1 and S2 normal with no audible murmur, regular rhythm. ABDOMEN: No hepatosplenomegaly, normal bowel sounds, no guarding or rigidity. SPINE: No scoliosis or deformity SKIN: No rashes CENTRAL NERVOUS SYSTEM: No focal deficits, tone is normal in all 4 extremities. EXTREMITIES: There is no peripheral edema. No clubbing, no cyanosis. Peripheral pulses are intact. - Labs CBC & Chem 7: 02/05/19 08:05 02/05/19 08:05 Labs: Abnormal Lab Results - Last 24 Hours (Table) 02/04/19 02/04/19 02/04/19 Range/Units 11:30 16:52 20:55 WBC (3.8-10.6) k/uL Hct (34.0-46.0) % Neutrophils # (1.3-7.7) k/uL Lymphocytes # (1.0-4.8) k/uL Chloride (98-107) mmol/L Carbon Dioxide (22-30) mmol/L BUN (7-17) mg/dL Glucose (74-99) mg/dL POC Glucose (mg/dL) 145 H 284 H 314 H (75-99) mg/dL ALT (9-52) U/L Total Protein (6.3-8.2) g/dL 02/05/19 02/05/19 02/05/19 Range/Units 07:19 08:05 08:05 WBC 17.3 H (3.8-10.6) k/uL Hct 46.3 H (34.0-46.0) % Neutrophils # 16.4 H (1.3-7.7) k/uL Lymphocytes # 0.4 L (1.0-4.8) k/uL Chloride 96 L (98-107) mmol/L Carbon Dioxide 33 H (22-30) mmol/L BUN 39 H (7-17) mg/dL Glucose 225 H (74-99) mg/dL POC Glucose (mg/dL) 216 H (75-99) mg/dL ALT 111 H (9-52) U/L Total Protein 6.1 L (6.3-8.2) g/dL Microbiology - Last 24 Hours (Table) 02/04/19 12:20 Gram Stain - Preliminary Bronchoalviolar Lavage - Right Bronchial Washings Culture - Preliminary 02/04/19 12:20 Acid Fast Bacilli Smear - Final Bronchoalviolar Lavage - Right Acid Fast Bacilli Culture - Preliminary 02/04/19 12:20 Fungal Culture - Preliminary Bronchoalviolar Lavage - Right Assessment and Plan Assessment: Impression: 1 acute COPD exacerbation with secondary shortness of breath. Influenza screen is negative. No evidence of an acute pneumonia. The chest x-rays showing some chronic interstitial scarring. Nevertheless, the predominant pathology his acute COPD exacerbation. She has a moderately severe COPD based on the previous spirometry that was done in our office in FEV1 was in the order of 59% of predicted. She is a chronic smoker. The chest x-ray showing a 7 mm scar in the right apical area. Malignancy is doubtful. She did undergo bronchoscopy with BAL on 02/04/2019. Cultures pending. 2 chronic dyspnea related to COPD with interval exacerbation 3 brief onset of atrial fibrillation on 01/29/2019, converted to sinus rhythm. 4 skeletal chest wall pain related to cough 5 smoker 6 history of atrial fibrillation back to sinus 7 gout 8 history of alcoholism with previous history of pancreatitis 9 chronic back pain 10 acid reflux 11 paroxysmal atrial fibrillation with rapid ventricular response, anticoagulat ed with Eliquis Plan: The patient was seen and evaluated by Dr. Barnes. She did undergo bronchoscopy with BAL yesterday. Cultures are pending. We'll continue with the current therapy. Increase her activity as tolerated. We will continue to follow and make further recommendations based on her clinical status. I, the cosigning physician, performed a history & physical examination of the patient. Lungs sounds with bilateral end expiratory wheeze, diminished. Maintaining good O2 saturations in the 90s on 2 L/m per nasal cannula I discussed the assessment and plan of care with my nurse practitioner, Libby Toledo. I attest to the above note as dictated by her.
[2019-02-05 12:22] LABS: Glucose,Whole Blood 198 mg/dL (75-99)
--- NOTE | 2019-02-05 13:01 | P.PN ---
Subjective Progress Note Date: 02/05/19 This is a 63-year-old female patient who presented with complaints of difficulty breathing and shortness of breath and cough for 1 week. Patient has a known past medical history of COPD and asthma. Patient is also a current every day smoker. Patient reports that she has had hot and cold flashes at home but does not specifically recall having a fever. Patient does state she has a sputum production. Patient states she has tried [id number]'s without much relief. Patient reports that she is also having aching pain throughout. Additional medical history includes GERD, osteoarthritis, Khan's palsy, history of EtOH, pancreatitis, gout, chronic back pain, appendectomy, , anxiety and current every day smoker. Chest x-ray completed showing a 7 mm density right apex may relate to the anterior margin of the right first rib no acute infiltrate. Correlate with computed tomography scan of the chest is obtained. Influenza negative. At this time pulmonary services will be consulted. He started on Solu-Medrol. Patient also started on Rocephin and azithromycin for antibiotics and culture ordered. Continue DuoNeb breathing treatments. Patient denies chest pain. Patient denies nausea vomiting or diarrhea. Patient denies urinary burning or frequency On 01/27/2019 patient's alert and oriented 3. Patient is still having significant wheezing with shortness of breath. Patient was evaluated by pulmonary services Pulmicort added. Patient remains on IV antibiotics and IV s teroids. At this time patient denies chest pain. Patient denies nausea vomiting or diarrhea. Patient denies any urinary burning frequency. On 01/28/2019 patient is alert and oriented 3. She patient states she is not feeling well. Patient denies shortness of breath. No audible wheezing heard from patient. Patient remains on IV antibiotics and IV steroids. At this time patient denies chest pain. Patient reports cough with no sputum production. Patient denies nausea vomiting or diarrhea. Patient denies any urinary burning or frequency. Patient states her appetite is well. Patient remains on DuoNeb, and Pulmicort. On 01/29/2019 patient's alert and oriented 3. Patient showing minimal improvement. Patient remains on excellent medical therapy. Patient is being followed by pulmonary services remains on IV steroids DuoNeb breathing treatments and IV antibiotics. Patient denies chest pain. Patient denies nausea vomiting or diarrhea. Patient denies any urinary burning or frequency On 01/30/2019 patient is alert oriented 3. Patient reports minimal improvement with shortness of breath. Clinically, mild improvement. Patient will remain on IV antibiotics and IV steroids, plus DuoNeb breathing treatments. Overnight patient had episode of atrial fibrillation with rapid ventricular response. Patient denies any notice to this episode. She denied feeling dizziness chest pain. Stat EKG obtained, patient was transferred to cardiology unit for increased monitoring. Cardizem drip ordered but was never started due to patient converting back into sinus rhythm. Subcu heparin was DC'd subcu Lovenox 1mg/kg BID started. Cardiology consulted, will wait for their recommendations. Patient denies fevers, nausea vomiting or diarrhea. Patient denies any urinary burning or frequency. On 01/31/2019 patient is still complaining of shortness of breath and wheezing and S no chest pain no nausea or vomiting no abdominal pain no diarrhea no burning was urination no frequency or urgency and no hematuria On 02/01/2019 patient's alert and oriented 3. Patient still complaining of shortness breath and wheezing. Patient has been started on eliquis for anticoagulative for atrial fibrillation. Patient eyes chest pain. Patient denies nausea vomiting or diarrhea. Patient denies any urinary burning or frequency On 02/02/2019 patient's alert and oriented 3. Patient showing minimal improvement with shortness of breath and wheezing. Possible bronchoscopy for pulmonary services. Patient denies chest pain. Patient denies nausea vomiting or diarrhea. Patient denies any urinary frequency On 02/03/2019 patient is resting comfortably bed. Patient still having wheezing and shortness of breath with minimal improvement possible bronchoscopy today per pulmonary. Patient denies chest pain. Patient denies nausea vomiting or diarrhea. Patient denies any urinary burning On 02/04/2019 patient is resting comfortably in bed. Planning bronchoscopy today per pulmonary service. Patient still has significant wheezing and shortness of breath. Patient denies chest pain. Patient denies nausea vomiting or diarrhea. Patient denies any urinary burning or frequency On 02/05/2019 patient is resting comfortably in bed. Patient states that she feels no breathing improvement after having bronchoscopy. Per bronchoscopy report, white secretions seen near vocal cord, suspected thrush. The back of her tongue has white patches she denies any pain. Nystatin ordered. She still has wheezing and shortness of breath. Patient denies chest pain. She denies nausea vomiting or diarrhea. Patient denies any urinary burning or frequency. Objective - Vital Signs Vital signs: Vital Signs Temp 98.4 F 02/05/19 05:00 Pulse 100 02/05/19 12:12 Resp 20 02/05/19 05:00 BP 143/83 02/05/19 05:00 Pulse Ox 95 02/05/19 05:00 Intake & Output 02/04/19 02/05/19 02/05/19 18:59 06:59 18:59 Intake Total 762 400 200 Balance 762 400 200 Intake: Oral 762 400 200 Other: Voiding Method Toilet Toilet # Voids 1 4 - Exam Head normocephalic Neck supple Lungs diminished bilaterally and bilateral high pitched wheezes, inspiratory and expiratory. Heart regular rate and rhythm S1-S2, no rub or gallop Abdomen is soft nontender nondistended positive bowel sounds no hepatosplenomegaly Extremities no edema Neuro alert and orientated to 3 - Labs CBC & Chem 7: 02/05/19 08:05 02/05/19 08:05 Labs: Abnormal Lab Results - Last 24 Hours (Table) 02/04/19 02/04/19 02/05/19 Range/Units 16:52 20:55 07:19 WBC (3.8-10.6) k/uL Hct (34.0-46.0) % Neutrophils # (1.3-7.7) k/uL Lymphocytes # (1.0-4.8) k/uL Chloride (98-107) mmol/L Carbon Dioxide (22-30) mmol/L BUN (7-17) mg/dL Glucose (74-99) mg/dL POC Glucose (mg/dL) 284 H 314 H 216 H (75-99) mg/dL ALT (9-52) U/L Total Protein (6.3-8.2) g/dL 02/05/19 02/05/19 02/05/19 Range/Units 08:05 08:05 11:45 WBC 17.3 H (3.8-10.6) k/uL Hct 46.3 H (34.0-46.0) % Neutrophils # 16.4 H (1.3-7.7) k/uL Lymphocytes # 0.4 L (1.0-4.8) k/uL Chloride 96 L (98-107) mmol/L Carbon Dioxide 33 H (22-30) mmol/L BUN 39 H (7-17) mg/dL Glucose 225 H (74-99) mg/dL POC Glucose (mg/dL) 198 H (75-99) mg/dL ALT 111 H (9-52) U/L Total Protein 6.1 L (6.3-8.2) g/dL Microbiology - Last 24 Hours (Table) 02/04/19 12:20 Gram Stain - Preliminary Bronchoalviolar Lavage - Right Bronchial Washings Culture - Preliminary 02/04/19 12:20 Acid Fast Bacilli Smear - Final Bronchoalviolar Lavage - Right Acid Fast Bacilli Culture - Preliminary 02/04/19 12:20 Fungal Culture - Preliminary Bronchoalviolar Lavage - Right Assessment and Plan Assessment: 1. Increased shortness of breath related to COPD exacerbation. Pulmonary services have been consulted. Patient continued on Solu-Medrol, DuoNeb br eathing treatments as well as Pulmicort and Perforomist nebulized treatments, azithromycin and Rocephin. Sputum culture preliminary report reveals gram- positive cocci. Pulmonary services are following. Continue current IV antibiotics IV steroids and DuoNeb breathing treatments. Bronchoscopy comp leted, cultures pending. 2. Questionable nodule seen on chest x-ray. Per pulmonology malignancy is doubtful and 7 mm scar in right apical area of chest CT. Pulmonary services following 3. Paroxysmal atrial fibrillation with rapid ventricular response. Patient has been started on eliquis per cardiology services. 4. History of atrial fibrillation. Discovered in August 2017 during hospital v [facility]. At which time cardiology was consulted, an echocardiogram was completed and recommendations were to start patient on eliquis. Eliquis was discontinued during this admission due to a rectus sheath hematoma. 5. History of COPD 6. History of asthma 7. Nicotine dependence. Patient educated longer than 3 minutes on smoking sensation. Patient declines nicotine patch 8. History of Khan's palsy 9. History of GERD 10. osteoarthritis with total left hip replacement 11. Elevated liver enzymes will continue to monitor 12. Essential hypertension. Cozar and verapamil added per cardiology 13. Thrush. Nystatin added DVT prophylaxis eliquis. GI prophylaxis Protonix Continue IV antibiotics and steroids and DuoNeb breathing treatment Pulmonary services following PT/OT consulted. I performed an examination of the patient and discussed their management with the Nurse Practitioner. I have reviewed the Nurse Practitioner's notes and agree with the documented findings and plan of care
[2019-02-05 16:59] LABS: Glucose,Whole Blood 351 mg/dL (75-99)
[2019-02-05 20:21] LABS: Glucose,Whole Blood 140 mg/dL (75-99)
[2019-02-05] MEDS: MONTELUKAST 10 MG TAB PO SCH (20:23)
[2019-02-06] MEDS: MORPHINE SULFATE 2 MG/ML SYRINGE IVP PRN ×6 (00:54→20:56)
[2019-02-06] MEDS: methylPREDNISolone SOD SUCCI 125 MG/2 ML VIAL IV SCH ×4 (05:21→23:32)
[2019-02-06 07:02] LABS: Glucose,Whole Blood 247 mg/dL (75-99)
[2019-02-06] MEDS: IPRATROPIUM-ALBUTEROL 3 ML NEB INHALATION SCH ×4 (07:27→19:03)
[2019-02-06] MEDS: FORMOTEROL FUMARATE 20 MCG/2 ML NEBU INHALATION SCH ×2 (07:27→19:03)
[2019-02-06] MEDS: BUDESONIDE 0.5 MG/2 ML NEBU INHALATION SCH ×2 (07:27→19:03)
[2019-02-06] MEDS: INSULIN ASPART (NovoLOG) 100 UNIT/ML VIAL SQ SCH ×4 (07:36→20:55)
[2019-02-06] MEDS: PANTOPRAZOLE 40 MG TABLET PO SCH (07:37)
[2019-02-06] MEDS: LORATADINE 10 MG TAB PO SCH (07:38)
[2019-02-06] MEDS: NYSTATIN 100,000 UNIT/ML SUSP 500,000 UNIT/5 ML CUP PO SCH ×4 (07:38→22:07)
[2019-02-06] MEDS: ERGOCALCIFEROL 50,000 UNIT CAP PO SCH (07:38)
[2019-02-06] MEDS: AZITHROMYCIN 500 MG TAB PO SCH (07:38)
[2019-02-06] MEDS: VERAPAMIL SR 240 MG TABLET.ER PO SCH (07:38)
[2019-02-06] MEDS: APIXABAN 5 MG TAB PO SCH ×2 (07:38→20:55)
[2019-02-06] MEDS: LOSARTAN 50 MG TAB PO SCH (07:38)
[2019-02-06] MEDS: oxyCODONE-APAP 10-325MG 1 EACH TAB PO SCH ×4 (07:46→22:03)
[2019-02-06] MEDS: ALLOPURINOL 300 MG TAB PO SCH (07:47)
[2019-02-06 07:54] LABS: Basophils # (A) 0.1 k/uL (0-0.2); Basophils % (A) 1 %; Eosinophils % (A) 0 %; HCT 44.5 % (34.0-46.0); HGB 14.5 gm/dL (11.4-16.0); Lymphocytes # (A) 0.3 k/uL (1.0-4.8); Lymphocytes % (A) 2 %; MCH 32.8 pg (25.0-35.0); MCHC 32.6 g/dL (31.0-37.0); MCV 100.5 fL (80.0-100.0); Macrocytosis Slight; Mean Platelet Volume 6.9; Monocytes # (A) 0.3 k/uL (0-1.0); Monocytes % (A) 2 %; Neutrophils # (A) 15.9 k/uL (1.3-7.7); Neutrophils % (A) 96 %; Platelet Count 219 k/uL (150-450); RBC 4.43 m/uL (3.80-5.40); WBC 16.6 k/uL (3.8-10.6)
[2019-02-06 08:17] LABS: ALT 126 U/L (9-52); AST 32 U/L (14-36); African American GFR (CKD) >90 (>60 ml/min/1.73 sqM); Albumin 3.5 g/dL (3.5-5.0); Alkaline Phosphatase 46 U/L (38-126); Anion Gap 8 mmol/L; Blood Urea Nitrogen 43 mg/dL (7-17); Calcium 9.5 mg/dL (8.4-10.2); Carbon Dioxide 29 mmol/L (22-30); Chloride 100 mmol/L (98-107); Glucose 262 mg/dL (74-99); Non-African American GFR(CKD) >90 (>60 ml/min/1.73 sqM); Potassium 4.3 mmol/L (3.5-5.1); Sodium 137 mmol/L (137-145); Total Bilirubin 0.6 mg/dL (0.2-1.3); Total Protein 5.8 g/dL (6.3-8.2)
--- NOTE | 2019-02-06 10:03 | P.PN ---
Subjective Progress Note Date: 02/06/19 This is a 63-year-old female patient who presented with complaints of difficulty breathing and shortness of breath and cough for 1 week. Patient has a known past medical history of COPD and asthma. Patient is also a current every day smoker. Patient reports that she has had hot and cold flashes at home but does not specifically recall having a fever. Patient does state she has a sputum production. Patient states she has tried [id number]'s without much relief. Patient reports that she is also having aching pain throughout. Additional medical history includes GERD, osteoarthritis, Khan's palsy, history of EtOH, pancreatitis, gout, chronic back pain, appendectomy, , anxiety and current every day smoker. Chest x-ray completed showing a 7 mm density right apex may relate to the anterior margin of the right first rib no acute infiltrate. Correlate with computed tomography scan of the chest is obtained. Influenza negative. At this time pulmonary services will be consulted. He started on Solu-Medrol. Patient also started on Rocephin and azithromycin for antibiotics and culture ordered. Continue DuoNeb breathing treatments. Patient denies chest pain. Patient denies nausea vomiting or diarrhea. Patient denies urinary burning or frequency On 01/27/2019 patient's alert and oriented 3. Patient is still having significant wheezing with shortness of breath. Patient was evaluated by pulmonary services Pulmicort added. Patient remains on IV antibiotics and IV s teroids. At this time patient denies chest pain. Patient denies nausea vomiting or diarrhea. Patient denies any urinary burning frequency. On 01/28/2019 patient is alert and oriented 3. She patient states she is not feeling well. Patient denies shortness of breath. No audible wheezing heard from patient. Patient remains on IV antibiotics and IV steroids. At this time patient denies chest pain. Patient reports cough with no sputum production. Patient denies nausea vomiting or diarrhea. Patient denies any urinary burning or frequency. Patient states her appetite is well. Patient remains on DuoNeb, and Pulmicort. On 01/29/2019 patient's alert and oriented 3. Patient showing minimal improvement. Patient remains on excellent medical therapy. Patient is being followed by pulmonary services remains on IV steroids DuoNeb breathing treatments and IV antibiotics. Patient denies chest pain. Patient denies nausea vomiting or diarrhea. Patient denies any urinary burning or frequency On 01/30/2019 patient is alert oriented 3. Patient reports minimal improvement with shortness of breath. Clinically, mild improvement. Patient will remain on IV antibiotics and IV steroids, plus DuoNeb breathing treatments. Overnight patient had episode of atrial fibrillation with rapid ventricular response. Patient denies any notice to this episode. She denied feeling dizziness chest pain. Stat EKG obtained, patient was transferred to cardiology unit for increased monitoring. Cardizem drip ordered but was never started due to patient converting back into sinus rhythm. Subcu heparin was DC'd subcu Lovenox 1mg/kg BID started. Cardiology consulted, will wait for their recommendations. Patient denies fevers, nausea vomiting or diarrhea. Patient denies any urinary burning or frequency. On 01/31/2019 patient is still complaining of shortness of breath and wheezing and S no chest pain no nausea or vomiting no abdominal pain no diarrhea no burning was urination no frequency or urgency and no hematuria On 02/01/2019 patient's alert and oriented 3. Patient still complaining of shortness breath and wheezing. Patient has been started on eliquis for anticoagulative for atrial fibrillation. Patient eyes chest pain. Patient denies nausea vomiting or diarrhea. Patient denies any urinary burning or frequency On 02/02/2019 patient's alert and oriented 3. Patient showing minimal improvement with shortness of breath and wheezing. Possible bronchoscopy for pulmonary services. Patient denies chest pain. Patient denies nausea vomiting or diarrhea. Patient denies any urinary frequency On 02/03/2019 patient is resting comfortably bed. Patient still having wheezing and shortness of breath with minimal improvement possible bronchoscopy today per pulmonary. Patient denies chest pain. Patient denies nausea vomiting or diarrhea. Patient denies any urinary burning On 02/04/2019 patient is resting comfortably in bed. Planning bronchoscopy today per pulmonary service. Patient still has significant wheezing and shortness of breath. Patient denies chest pain. Patient denies nausea vomiting or diarrhea. Patient denies any urinary burning or frequency On 02/05/2019 patient is resting comfortably in bed. Patient states that she feels no breathing improvement after having bronchoscopy. Per bronchoscopy report, white secretions seen near vocal cord, suspected thrush. The back of her tongue has white patches she denies any pain. Nystatin ordered. She still has wheezing and shortness of breath. Patient denies chest pain. She denies nausea vomiting or diarrhea. Patient denies any urinary burning or frequency. 02/06/2019 patient's alert and oriented 3. Patient encouraged to work with physical therapy. Patient still complaining of shortness of breath. Patient denies chest pain. Patient denies nausea vomiting or diarrhea. Denies any urinary burning Objective - Vital Signs Vital signs: Vital Signs Temp 97.4 F L 02/06/19 04:30 Pulse 114 H 02/06/19 09:11 Resp 20 02/06/19 04:30 BP 145/79 02/06/19 07:30 Pulse Ox 92 L 02/06/19 09:11 Intake & Output 02/05/19 02/06/19 02/06/19 18:59 06:59 18:59 Intake Total 200 440 Output Total 1 Balance 200 439 Weight 77.247 kg Intake: Oral 200 440 Output: Stool 1 Other: Voiding Method Toilet Toilet # Voids 3 3 - Exam Head normocephalic Neck supple Lungs diminished bilaterally and bilateral high pitched wheezes, inspiratory and expiratory. Heart regular rate and rhythm S1-S2, no rub or gallop Abdomen is soft nontender nondistended positive bowel sounds no hepatosplenomegaly Extremities no edema Neuro alert and orientated to 3 - Labs CBC & Chem 7: 02/06/19 07:12 02/06/19 07:12 Labs: Abnormal Lab Results - Last 24 Hours (Table) 02/04/19 02/05/19 02/05/19 Range/Units 12:20 11:45 16:53 WBC (3.8-10.6) k/uL MCV (80.0-100.0) fL Neutrophils # (1.3-7.7) k/uL Lymphocytes # (1.0-4.8) k/uL BUN (7-17) mg/dL Glucose (74-99) mg/dL POC Glucose (mg/dL) 198 H 351 H (75-99) mg/dL ALT (9-52) U/L Total Protein (6.3-8.2) g/dL Viral Test See Below H 02/05/19 02/06/19 02/06/19 Range/Units 19:57 06:57 07:12 WBC 16.6 H (3.8-10.6) k/uL MCV 100.5 H (80.0-100.0) fL Neutrophils # 15.9 H (1.3-7.7) k/uL Lymphocytes # 0.3 L (1.0-4.8) k/uL BUN (7-17) mg/dL Glucose (74-99) mg/dL POC Glucose (mg/dL) 140 H 247 H (75-99) mg/dL ALT (9-52) U/L Total Protein (6.3-8.2) g/dL Viral Test 02/06/19 Range/Units 07:12 WBC (3.8-10.6) k/uL MCV (80.0-100.0) fL Neutrophils # (1.3-7.7) k/uL Lymphocytes # (1.0-4.8) k/uL BUN 43 H (7-17) mg/dL Glucose 262 H (74-99) mg/dL POC Glucose (mg/dL) (75-99) mg/dL ALT 126 H (9-52) U/L Total Protein 5.8 L (6.3-8.2) g/dL Viral Test Assessment and Plan Assessment: 1. Increased shortness of breath related to COPD exacerbation. Pulmonary services have been consulted. Patient continued on Solu-Medrol, DuoNeb breathing treatments as well as Pulmicort and Perforomist nebulized treatments, azithromycin and Rocephin. Sputum culture preliminary report reveals gram-positive cocci. Pulmonary services are following. Continue current IV antibiotics IV steroids and DuoNeb breathing treatments. Bronchoscopy completed, cultures pending. 2. Questionable nodule seen on chest x-ray. Per pulmonology malignancy is doubtful and 7 mm scar in right apical area of chest CT. Pulmonary services following 3. Paroxysmal atrial fibrillation with rapid ventricular response. Patient has been started on eliquis per cardiology services. 4. History of atrial fibrillation. Discovered in August 2017 during hospital visit. At which time cardiology was consulted, an echocardiogram was completed and recommendations were to start patient on eliquis. Eliquis was discontinued during this admission due to a rectus sheath hematoma. 5. History of COPD 6. History of asthma 7. Nicotine dependence. Patient educated longer than 3 minutes on smoking sensation. Patient declines nicotine patch 8. History of Khan's palsy 9. History of GERD 10. osteoarthritis with total left hip replacement 11. Elevated liver enzymes will continue to monitor 12. Essential hypertension. Cozar and verapamil added per cardiology 13. Thrush. Nystatin added DVT prophylaxis eliquis. GI prophylaxis Protonix Continue IV antibiotics and steroids and DuoNeb breathing treatment Pulmonary services following PT/OT consulted. I performed an examination of the patient and discussed their management with the Nurse Practitioner. I have reviewed the Nurse Practitioner's notes and agree with the documented findings and plan of care
--- NOTE | 2019-02-06 11:07 | P.PN ---
Subjective Progress Note Date: 02/06/19 Principal diagnosis: Acute exacerbation of chronic obstructive pulmonary disease 63-year-old female patient with known history of advanced emphysema with poor compliance, came in yesterday because of increased difficulty breathing, cough, chest tightness, wheezing, shortness of breath and extreme limitation of exercise capacity. The patient had difficulty breathing and she was having hard time completing full sentences. She was still smoking about 1 pack of cigarettes a day and she carries more than [id number] smoking history. She has seen us in the office in the past under the care of Dr. Barnes, and the patient has been given Airduo one inhalation twice a day. She also has a nebulizer which she doesn't use it on a regular basis. She is currently moved in with her sister and Ghulam Hernandez. No fever. No chills. No pleurisy. No hemoptysis. Influenza screen was done and it was negative. Pulmonary consultation was requested. Chest x-ray shows hyperinflation. There is a questionable 7 mm right apical scar. Her previous CAT scan of the chest from last year did not show any evidence of lung masses. There was some chronic interstitial areas of scarring. No altered mentation. She claims that she hasn't drank alcohol for the past 6 months. Her FEV1 is measured to be at 59% of predicted based on a spirometer this was done back in September 2017. The patient is seen again today 02/05/2019 in follow-up on the regular medical floor. She is awake and alert. Still somewhat bronchospastic and wheezy. She is maintaining good O2 saturations in the mid 90s on 2 L/m per nasal cannula. She's been afebrile. Hemodynamically stable. She did undergo bronchoscopy with BAL by Dr. Barnes yesterday. Cultures are pending. Initial sputum culture reports no growth. Blood cultures no growth. White count 17.3. Hemoglobin 14.6. Creatinine 0.59. She remains on DuoNeb inhalations, Pulmicort and Perforomist inhalations, Singulair, IV Solu-Medrol. Antibiotics in the form of ceftriaxone and azithromycin. The patient is seen again today 02/06/2019 in follow-up on the regular medical floor. She is awake and alert in no acute distress. Breathing a bit easier today as compared to yesterday. Not quite back to her baseline. Maintaining good O2 saturations in the mid 90s on 2 L/m per nasal cannula. She's been afebrile. Pathology from bronchial wash is negative for malignancy. She remains on DuoNeb inhalations, Pulmicort and Perforomist inhalations, Singulair, IV Solu-Medrol. Antibiotics in the form of ceftriaxone and azithromycin. She has multiple complaints of generalized aches and pains and is receiving Percocet and morphine [id number]. Objective - Vital Signs Vital signs: Vital Signs Temp 97.4 F L 02/06/19 04:30 Pulse 114 H 02/06/19 09:11 Resp 20 02/06/19 04:30 BP 145/79 02/06/19 07:30 Pulse Ox 92 L 02/06/19 09:11 Intake & Output 02/05/19 02/06/19 02/06/19 18:59 06:59 18:59 Intake Total 200 440 Output Total 1 Balance 200 439 Weight 77.247 kg Intake: Oral 200 440 Output: Stool 1 Other: Voiding Method Toilet Toilet # Voids 3 3 - Exam GENERAL EXAM: Alert, pleasant 63-year-old female patient, on 2 L nasal cannula, comfortable in no apparent distress. HEAD: Normocephalic. EYES: Normal reaction of pupils, equal size. NOSE: Clear with pink turbinates. THROAT: No erythema or exudates. NECK: No masses, no JVD. CHEST: No chest wall deformity. LUNGS: Equal air entry with bilateral end expiratory wheeze, diminished CVS: S1 and S2 normal with no audible murmur, regular rhythm. ABDOMEN: No hepatosplenomegaly, normal bowel sounds, no guarding or rigidity. SPINE: No scoliosis or deformity SKIN: No rashes CENTRAL NERVOUS SYSTEM: No focal deficits, tone is normal in all 4 extremities. EXTREMITIES: There is no peripheral edema. No clubbing, no cyanosis. Peripheral pulses are intact. - Labs CBC & Chem 7: 02/06/19 07:12 02/06/19 07:12 Labs: Abnormal Lab Results - Last 24 Hours (Table) 02/04/19 02/05/19 02/05/19 Range/Units 12:20 11:45 16:53 WBC (3.8-10.6) k/uL MCV (80.0-100.0) fL Neutrophils # (1.3-7.7) k/uL Lymphocytes # (1.0-4.8) k/uL BUN (7-17) mg/dL Glucose (74-99) mg/dL POC Glucose (mg/dL) 198 H 351 H (75-99) mg/dL ALT (9-52) U/L Total Protein (6.3-8.2) g/dL Viral Test See Below H 02/05/19 02/06/19 02/06/19 Range/Units 19:57 06:57 07:12 WBC 16.6 H (3.8-10.6) k/uL MCV 100.5 H (80.0-100.0) fL Neutrophils # 15.9 H (1.3-7.7) k/uL Lymphocytes # 0.3 L (1.0-4.8) k/uL BUN (7-17) mg/dL Glucose (74-99) mg/dL POC Glucose (mg/dL) 140 H 247 H (75-99) mg/dL ALT (9-52) U/L Total Protein (6.3-8.2) g/dL Viral Test 02/06/19 Range/Units 07:12 WBC (3.8-10.6) k/uL MCV (80.0-100.0) fL Neutrophils # (1.3-7.7) k/uL Lymphocytes # (1.0-4.8) k/uL BUN 43 H (7-17) mg/dL Glucose 262 H (74-99) mg/dL POC Glucose (mg/dL) (75-99) mg/dL ALT 126 H (9-52) U/L Total Protein 5.8 L (6.3-8.2) g/dL Viral Test Assessment and Plan Assessment: Impression: 1 acute COPD exacerbation with secondary shortness of breath. Influenza screen is negative. No evidence of an acute pneumonia. The chest x-rays showing some chronic interstitial scarring. Nevertheless, the predominant pathology his acute COPD exacerbation. She has a moderately severe COPD based on the previous spirometry that was done in our office in FEV1 was in the order of 59% of predicted. She is a chronic smoker. The chest x-ray showing a 7 mm scar in the right apical area. Malignancy is doubtful. She did undergo bronchoscopy with BAL on 02/04/2019. Cytology negative for malignancy. Cultures pending. 2 chronic dyspnea related to COPD with interval exacerbation 3 brief onset of atrial fibrillation on 01/29/2019, converted to sinus rhythm. 4 skeletal chest wall pain related to cough 5 smoker 6 history of atrial fibrillation back to sinus 7 gout 8 history of alcoholism with previous history of pancreatitis 9 chronic back pain 10 acid reflux 11 paroxysmal atrial fibrillation with rapid ventricular response, anticoagulated with Eliquis Plan: The patient was seen and evaluated by Dr. Barnes. Cytology negative for malignancy on bronchial wash. Cultures pending. We'll continue with the current therapy. Increase her activity as tolerated. We will continue to follow and make further recommendations based on her clinical status. I, the cosigning physician, performed a history & physical examination of the patient. Lungs sounds with bilateral end expiratory wheeze, diminished. Maintaining good O2 saturations in the 90s on 2 L/m per nasal cannula I discussed the assessment and plan of care with my nurse practitioner, Libby Toledo. I attest to the above note as dictated by her.
[2019-02-06 11:46] LABS: Glucose,Whole Blood 289 mg/dL (75-99)
[2019-02-06] MEDS: LEVOFLOXACIN 750MG-D5W PMX 750 MG in DEXTROSE/WATER 1 150ML.BAG IVPB SCH (14:16)
[2019-02-06 16:51] LABS: Glucose,Whole Blood 489 mg/dL (75-99)
[2019-02-06] MEDS: PIPERACILLIN-TAZOBACTAM 3.375 GM in SODIUM CHLORIDE 0.9% 100 ML IVPB SCH ×2 (17:09→23:32)
[2019-02-06 20:36] LABS: Glucose,Whole Blood 230 mg/dL (75-99)
[2019-02-06] MEDS: MONTELUKAST 10 MG TAB PO SCH (20:55)
[2019-02-07] MEDS: MORPHINE SULFATE 2 MG/ML SYRINGE IVP PRN ×6 (00:57→21:16)
[2019-02-07] MEDS: methylPREDNISolone SOD SUCCI 125 MG/2 ML VIAL IV SCH ×3 (05:54→17:02)
[2019-02-07 07:03] LABS: Glucose,Whole Blood 274 mg/dL (75-99)
[2019-02-07] MEDS: IPRATROPIUM-ALBUTEROL 3 ML NEB INHALATION SCH ×4 (08:11→19:03)
[2019-02-07] MEDS: BUDESONIDE 0.5 MG/2 ML NEBU INHALATION SCH ×2 (08:11→19:03)
[2019-02-07] MEDS: FORMOTEROL FUMARATE 20 MCG/2 ML NEBU INHALATION SCH ×2 (08:11→19:03)
[2019-02-07 08:33] LABS: Basophils % (A) 0 %; Eosinophils % (A) 0 %; HCT 42.3 % (34.0-46.0); HGB 13.5 gm/dL (11.4-16.0); Lymphocytes # (A) 0.3 k/uL (1.0-4.8); Lymphocytes % (A) 2 %; MCH 32.3 pg (25.0-35.0); MCHC 31.9 g/dL (31.0-37.0); MCV 101.2 fL (80.0-100.0); Macrocytosis Slight; Mean Platelet Volume 6.8; Monocytes # (A) 0.2 k/uL (0-1.0); Monocytes % (A) 1 %; Neutrophils % (A) 97 %; Platelet Count 179 k/uL (150-450); RBC 4.18 m/uL (3.80-5.40); WBC 15.6 k/uL (3.8-10.6)
[2019-02-07 08:46] LABS: ALT 176 U/L (9-52); AST 52 U/L (14-36); African American GFR (CKD) >90 (>60 ml/min/1.73 sqM); Albumin 3.2 g/dL (3.5-5.0); Alkaline Phosphatase 52 U/L (38-126); Anion Gap 8 mmol/L; Blood Urea Nitrogen 40 mg/dL (7-17); Calcium 9.3 mg/dL (8.4-10.2); Carbon Dioxide 29 mmol/L (22-30); Chloride 102 mmol/L (98-107); Glucose 353 mg/dL (74-99); Non-African American GFR(CKD) >90 (>60 ml/min/1.73 sqM); Potassium 4.1 mmol/L (3.5-5.1); Sodium 139 mmol/L (137-145); Total Bilirubin 0.7 mg/dL (0.2-1.3); Total Protein 5.4 g/dL (6.3-8.2)
[2019-02-07] MEDS: LORATADINE 10 MG TAB PO SCH (09:01)
[2019-02-07] MEDS: APIXABAN 5 MG TAB PO SCH ×2 (09:01→21:19)
[2019-02-07] MEDS: PANTOPRAZOLE 40 MG TABLET PO SCH (09:01)
[2019-02-07] MEDS: LOSARTAN 50 MG TAB PO SCH (09:01)
[2019-02-07] MEDS: ALLOPURINOL 300 MG TAB PO SCH (09:01)
[2019-02-07] MEDS: INSULIN ASPART (NovoLOG) 100 UNIT/ML VIAL SQ SCH ×4 (09:02→21:18)
[2019-02-07] MEDS: PIPERACILLIN-TAZOBACTAM 3.375 GM in SODIUM CHLORIDE 0.9% 100 ML IVPB SCH (09:02)
[2019-02-07] MEDS: NYSTATIN 100,000 UNIT/ML SUSP 500,000 UNIT/5 ML CUP PO SCH ×4 (09:02→21:18)
[2019-02-07] MEDS: VERAPAMIL SR 240 MG TABLET.ER PO SCH (09:03)
--- NOTE | 2019-02-07 09:53 | P.CONS ---
History of Present Illness - Reason for Consult Consult date: 02/06/19 Respiratory culture positive for gram-negative Requesting physician: Mariama Mantilla - Chief Complaint Shortness of breath and cough x few days - History of Present Illness Patient is a 63-year-old female with a past medical history significant for COPD chronic active smoking presenting to the ER at [facility] on 01/26/2019 with a chief complaints of increasing shortness of breath or symptom has been going on for a few days before presenting to the hospital she did have some cough with occasional sputum no hemoptysis or chest pain initial chest x-ray did show some moderate but no acute infiltrate patient has been afebrile and did have a normal white count patient has been admitted to the hospital and has been treated for COPD exacerbation with steroids and bronchodilator and antibiotic initially the form of Rocephin and subsequently Zithromax was added to it on 01/30/2019 because of her persistent symptoms the patient did have bronchoscopy done by pulmonary on 02/04/2019 which is currently growing gram-negative bacilli antibiotic was switched over to Levaquin and infection it was consulted for further recommendation regarding antibiotic t herapy, the patient remains to be afebrile though her normal white count admission did have elevated white count however the patient has been on steroids as well today complaining of shortness of breath and coughing with minimal sputum production or hemoptysis or chest pain no nausea no vomiting no choking on the food and no abdominal pain and no diarrhea Review of Systems Positive point has been mentioned in the HPI rest of the systems are negative Past Medical History Past Medical History: Atrial Fibrillation, COPD, Eye Disorder, GERD/Reflux, Hearing Disorder / Deafness, Osteoarthritis (OA) Additional Past Medical History / Comment(s): Afib RVR, bronchitis with sepsis, acute hypoxic respiratory failure with bipap/ventimask, rectus sheath hematoma thought d/t coughing, previous pancreatitis x 2, denies ETOH abuse/withdrawals, recinos's palsy, gout bilateral feet/toes, R ear tinnitis, occasional R eye double vision, cataracts bilaterally History of Any Multi-Drug Resistant Organisms: None Reported Past Surgical History: Appendectomy, Section, Joint Replacement, Orthopedic Surgery Additional Past Surgical History / Comment(s): Total L hip arthroplasty, ORIF R arm with pin now removed, R side surgery d/t trauma, colonoscopy with benign polyps Past Anesthesia/Blood Transfusion Reactions: No Reported Reaction Smoking Status: Current every day smoker (40 [id number] smoking history) Past Alcohol Use History: Abuse (Used to abuse alcohol in the past heavily and she claims that she hasn't drank for the past 6 months.) - Past Family History Mother Family Medical History: COPD, Diabetes Mellitus Additional Family Medical History / Comment(s): Mother had heart problems. Father Family Medical History: No Reported History Additional Family Medical History / Comment(s): Father had gout and heart problems. Brother(s) Additional Family Medical History / Comment(s): gout Medications and Allergies Home Medications Medication Instructions Recorded Confirmed Type Allopurinol 300 mg PO DAILY 11/25/15 01/26/19 History Ergocalciferol [Vitamin D2 50,000 unit PO FR 11/25/15 01/26/19 History (DRISDOL)] Loratadine [Claritin] 10 mg PO DAILY 08/21/17 01/26/19 History Omeprazole [PriLOSEC] 40 mg PO DAILY 08/21/17 01/26/19 History Fluticasone/Salmeterol 1 puff INHALATION RT-BID 01/26/19 01/26/19 History [Fluticasone-Salmeterol 232-14] Metoprolol Succinate [Toprol XL] 50 mg PO DAILY 01/26/19 01/26/19 History Montelukast [Singulair] 10 mg PO HS 01/26/19 01/26/19 History oxyCODONE-APAP 10-325MG [Percocet 1 tab PO QID 01/26/19 01/26/19 History 10-325 mg] Allergies Allergy/AdvReac Type Severity Reaction Status Date / Time No Known Allergies Allergy Verified 01/26/19 13:30 Physical Exam Vitals: Vital Signs Temp Pulse Pulse Pulse Pulse Resp BP 02/06/19 11:31 100 02/06/19 11:18 100 02/06/19 09:11 114 H 128 H 02/06/19 07:49 108 H 02/06/19 07:39 108 H 02/06/19 07:30 101 H 145/79 02/06/19 07:27 104 H 02/06/19 04:30 97.4 F L 102 H 20 107/77 02/06/19 01:08 104 H 10/25/19 00:59 108 H 02/05/19 21:34 100 02/05/19 21:25 100 02/05/19 21:24 100 02/05/19 21:10 100 02/05/19 21:00 97.8 F 109 H 20 157/89 02/05/19 16:43 100 02/05/19 16:32 100 02/05/19 14:15 02/05/19 13:00 97.6 F 103 H 16 02/05/19 12:12 100 BP Pulse Ox Pulse Ox Pulse Ox Pulse Ox Pulse Ox 02/06/19 11:31 02/06/19 11:18 02/06/19 09:11 92 L 90 L 02/06/19 07:49 02/06/19 07:39 02/06/19 07:30 97 02/06/19 07:27 02/06/19 04:30 94 L 02/06/19 01:08 02/06/19 00:59 93 L 02/05/19 21:34 02/05/19 21:25 02/05/19 21:24 02/05/19 21:10 02/05/19 21:00 95 02/05/19 16:43 02/05/19 16:32 02/05/19 14:15 91 L 91 L 02/05/19 13:00 152/68 92 L 02/05/19 12:12 Intake and Output 02/05/19 02/06/19 02/06/19 22:59 06:59 14:59 Intake Total 200 240 Output Total 1 Balance 199 240 Intake: Oral 200 240 Output: Stool 1 Other: Voiding Method Toilet # Voids 1 3 Weight 77.247 kg GENERAL DESCRIPTION: An elderly female lying in bed, no distress. No tachypnea or accessory muscle of respiration use. HEENT: Shows Pallor , no scleral icterus. Oral mucous membrane is dry. No pharyngeal erythema or thrush NECK: Trachea central, no thyromegaly. LUNGS: Unlabored breathing. Decreased intensity of breath sounds. No wheeze or crackle. HEART: S1, S2, regular rate and rhythm. No loud murmur ABDOMEN: Soft, no tenderness , guarding or rigidity, no organomegaly EXTREMITIES: No edema of feet. SKIN: No rash, no masses palpable. NEUROLOGICAL: The patient is awake, alert, oriented x3, mood and affect normal. Results CBC & Chem 7: 02/07/19 08:08 02/07/19 08:08 Labs: Abnormal Lab Results - Last 24 Hours (Table) 02/04/19 02/05/19 02/05/19 Range/Units 12:20 11:45 16:53 WBC (3.8-10.6) k/uL MCV (80.0-100.0) fL Neutrophils # (1.3-7.7) k/uL Lymphocytes # (1.0-4.8) k/uL BUN (7-17) mg/dL Glucose (74-99) mg/dL POC Glucose (mg/dL) 198 H 351 H (75-99) mg/dL ALT (9-52) U/L Total Protein (6.3-8.2) g/dL Viral Test See Below H 02/05/19 02/06/19 02/06/19 Range/Units 19:57 06:57 07:12 WBC 16.6 H (3.8-10.6) k/uL MCV 100.5 H (80.0-100.0) fL Neutrophils # 15.9 H (1.3-7.7) k/uL Lymphocytes # 0.3 L (1.0-4.8) k/uL BUN (7-17) mg/dL Glucose (74-99) mg/dL POC Glucose (mg/dL) 140 H 247 H (75-99) mg/dL ALT (9-52) U/L Total Protein (6.3-8.2) g/dL Viral Test 02/06/19 02/06/19 Range/Units 07:12 11:42 WBC (3.8-10.6) k/uL MCV (80.0-100.0) fL Neutrophils # (1.3-7.7) k/uL Lymphocytes # (1.0-4.8) k/uL BUN 43 H (7-17) mg/dL Glucose 262 H (74-99) mg/dL POC Glucose (mg/dL) 289 H (75-99) mg/dL ALT 126 H (9-52) U/L Total Protein 5.8 L (6.3-8.2) g/dL Viral Test Microbiology - Last 24 Hours (Table) 02/04/19 12:20 Gram Stain - Preliminary Bronchoalviolar Lavage - Right Bronchial Washings Culture - Preliminary Gram Neg Bacilli Amarilis albicans Assessment and Plan Assessment: 1-patient with advanced COPD with current smoking in this patient at the hospital with increased shortness of breath and cough initial x-ray on January 26 did not show any pneumonia and no x-rays has been done since then the patient did have bronchoscopy and the cultures are now showing gram-negative bacilli with a concern for possible tracheal bronchitis versus underlying gram-negative pneumonia, in this patient who has been in and out of the hospital wouldn't cover for resistant gram-negative such as Pseudomonas (1) Gram-negative pneumonia Current Visit: Yes Status: Acute Code(s): J15.6 - PNEUMONIA DUE TO OTHER GRAM-NEGATIVE BACTERIA SNOMED Code(s): 417374584 Plan: 1-we will obtain a chest x-ray PA and lateral 2-check a CRP and procalcitonin level 3-we will empirically add Zosyn 3.375 g every 8 hour while waiting for the final ID and sensitivity of this pathogen We will follow on clinical condition and cultures to further adjust medication if needed Thank you for this consultation will follow this patient with you Time with Patient: Greater than 30
[2019-02-07 10:08] VITALS: BMI 31.7
[2019-02-07] MEDS: oxyCODONE-APAP 10-325MG 1 EACH TAB PO SCH ×4 (10:41→22:12)
--- NOTE | 2019-02-07 11:40 | P.PN ---
Subjective Progress Note Date: 02/07/19 This is a 63-year-old female patient who presented with complaints of difficulty breathing and shortness of breath and cough for 1 week. Patient has a known past medical history of COPD and asthma. Patient is also a current every day smoker. Patient reports that she has had hot and cold flashes at home but does not specifically recall having a fever. Patient does state she has a sputum production. Patient states she has tried [id number] without much relief. Patient reports that she is also having aching pain throughout. Additional medical history includes GERD, osteoarthritis, Khan's palsy, history of EtOH, pancreatitis, gout, chronic back pain, appendectomy, , anxiety and current every day smoker. Chest x-ray completed showing a 7 mm density right apex may relate to the anterior margin of the right first rib no acute infiltrate. Correlate with computed tomography scan of the chest is obtained. Influenza negative. At this time pulmonary services will be consulted. He started on Solu-Medrol. Patient also started on Rocephin and azithromycin for antibiotics and culture ordered. Continue DuoNeb breathing treatments. Patient denies chest pain. Patient denies nausea vomiting or diarrhea. Patient denies urinary burning or frequency On 01/27/2019 patient's alert and oriented 3. Patient is still having significant wheezing with shortness of breath. Patient was evaluated by pulmonary services Pulmicort added. Patient remains on IV antibiotics and IV s teroids. At this time patient denies chest pain. Patient denies nausea vomiting or diarrhea. Patient denies any urinary burning frequency. On 01/28/2019 patient is alert and oriented 3. She patient states she is not feeling well. Patient denies shortness of breath. No audible wheezing heard from patient. Patient remains on IV antibiotics and IV steroids. At this time patient denies chest pain. Patient reports cough with no sputum production. Patient denies nausea vomiting or diarrhea. Patient denies any urinary burning or frequency. Patient states her appetite is well. Patient remains on DuoNeb, and Pulmicort. On 01/29/2019 patient's alert and oriented 3. Patient showing minimal improvement. Patient remains on excellent medical therapy. Patient is being followed by pulmonary services remains on IV steroids DuoNeb breathing treatments and IV antibiotics. Patient denies chest pain. Patient denies nausea vomiting or diarrhea. Patient denies any urinary burning or frequency On 01/30/2019 patient is alert oriented 3. Patient reports minimal improvement with shortness of breath. Clinically, mild improvement. Patient will remain on IV antibiotics and IV steroids, plus DuoNeb breathing treatments. Overnight patient had episode of atrial fibrillation with rapid ventricular response. Patient denies any notice to this episode. She denied feeling dizziness chest pain. Stat EKG obtained, patient was transferred to cardiology unit for increased monitoring. Cardizem drip ordered but was never started due to patient converting back into sinus rhythm. Subcu heparin was DC'd subcu Lovenox 1mg/kg BID started. Cardiology consulted, will wait for their recommendations. Patient denies fevers, nausea vomiting or diarrhea. Patient denies any urinary burning or frequency. On 01/31/2019 patient is still complaining of shortness of breath and wheezing and S no chest pain no nausea or vomiting no abdominal pain no diarrhea no burning was urination no frequency or urgency and no hematuria. On 02/01/2019 patient's alert and oriented 3. Patient still complaining of shortness breath and wheezing. Patient has been started on eliquis for anticoagulative for atrial fibrillation. Patient eyes chest pain. Patient denies nausea vomiting or diarrhea. Patient denies any urinary burning or frequency On 02/02/2019 patient's alert and oriented 3. Patient showing minimal improvement with shortness of breath and wheezing. Possible bronchoscopy for pulmonary services. Patient denies chest pain. Patient denies nausea vomiting or diarrhea. Patient denies any urinary frequency On 02/03/2019 patient is resting comfortably bed. Patient still having wheezing and shortness of breath with minimal improvement possible bronchoscopy today per pulmonary. Patient denies chest pain. Patient denies nausea vomiting or diarrhea. Patient denies any urinary burning On 02/04/2019 patient is resting comfortably in bed. Planning bronchoscopy today per pulmonary service. Patient still has significant wheezing and shortness of breath. Patient denies chest pain. Patient denies nausea vomiting or diarrhea. Patient denies any urinary burning or frequency On 02/05/2019 patient is resting comfortably in bed. Patient states that she feels no breathing improvement after having bronchoscopy. Per bronchoscopy report, white secretions seen near vocal cord, suspected thrush. The back of her tongue has white patches she denies any pain. Nystatin ordered. She still has wheezing and shortness of breath. Patient denies chest pain. She denies nausea vomiting or diarrhea. Patient denies any urinary burning or frequency. 02/06/2019 patient's alert and oriented 3. Patient encouraged to work with physical therapy. Patient still complaining of shortness of breath. Patient denies chest pain. Patient denies nausea vomiting or diarrhea. Denies any urinary burning. On 02/07/2019 patient was seen and examined on the medical floor she is alert an d oriented 3 in no apparent distress she is still complaining of cough shortness of breath and wheezing, otherwise she denies any complaints there is no fever or chills no headache or dizziness no chest pain no nausea or vomiting no abdominal pain no diarrhea and no burning was urination no frequency or urgency no hematuria no weakness or numbness in any of her extremities. Objective - Vital Signs Vital signs: Vital Signs Temp 97.6 F 02/07/19 04:10 Pulse 102 H 02/07/19 08:28 Resp 16 02/07/19 04:10 BP 146/82 02/07/19 04:10 Pulse Ox 96 02/07/19 10:57 Intake & Output 02/06/19 02/07/19 02/07/19 18:59 06:59 18:59 Intake Total 1380 Balance 1380 Weight 78.7 kg 78.7 kg Intake: Oral 1380 Other: Voiding Method Toilet Toilet # Voids 1 4 1 - Exam In general patient is alert and oriented 3 in no apparent distress Head normocephalic and atraumatic Neck supple no JVD no goiter Lungs diminished bilaterally and bilateral high pitched wheezes, inspiratory and expiratory. Heart regular rate and rhythm S1-S2, no rub or gallop Abdomen is soft nontender nondistended positive bowel sounds no hepatosplenomegaly Extremities no edema no cyanosis or clubbing Neuro no gross focal neurological deficit - Labs CBC & Chem 7: 02/07/19 08:08 02/07/19 08:08 Labs: Abnormal Lab Results - Last 24 Hours (Table) 02/06/19 02/06/19 02/06/19 Range/Units 11:42 16:34 20:35 WBC (3.8-10.6) k/uL MCV (80.0-100.0) fL Neutrophils # (1.3-7.7) k/uL Lymphocytes # (1.0-4.8) k/uL BUN (7-17) mg/dL Creatinine (0.52-1.04) mg/dL Glucose (74-99) mg/dL POC Glucose (mg/dL) 289 H 489 H 230 H (75-99) mg/dL AST (14-36) U/L ALT (9-52) U/L Total Protein (6.3-8.2) g/dL Albumin (3.5-5.0) g/dL 02/07/19 02/07/19 02/07/19 Range/Units 07:01 08:08 08:08 WBC 15.6 H (3.8-10.6) k/uL MCV 101.2 H (80.0-100.0) fL Neutrophils # 15.0 H (1.3-7.7) k/uL Lymphocytes # 0.3 L (1.0-4.8) k/uL BUN 40 H (7-17) mg/dL Creatinine 0.50 L (0.52-1.04) mg/dL Glucose 353 H (74-99) mg/dL POC Glucose (mg/dL) 274 H (75-99) mg/dL AST 52 H (14-36) U/L ALT 176 H (9-52) U/L Total Protein 5.4 L (6.3-8.2) g/dL Albumin 3.2 L (3.5-5.0) g/dL Microbiology - Last 24 Hours (Table) 02/04/19 12:20 Gram Stain - Final Bronchoalviolar Lavage - Right Bronchial Washings Culture - Final Stenotrophomonas maltophilia Amarilis albicans 02/04/19 12:20 Fungal Culture - Preliminary Bronchoalviolar Lavage - Right Amarilis albicans Assessment and Plan Plan: 1. Increased shortness of breath related to COPD exacerbation. Pulmonary services have been consulted. Patient continued on Solu-Medrol, DuoNeb breathing treatments as well as Pulmicort and Perforomist nebulized treatments, azithromycin and Rocephin. Sputum culture preliminary report reveals gram-po sitive cocci. Pulmonary services are following. Continue current IV antibiotics IV steroids and DuoNeb breathing treatments. Bronchoscopy completed, cultures pending. 2. Questionable nodule seen on chest x-ray. Per pulmonology malignancy is doubtful and 7 mm scar in right apical area of chest CT. Pulmonary services following 3. Paroxysmal atrial fibrillation with rapid ventricular response. Patient has been started on eliquis per cardiology services. 4. History of atrial fibrillation. Discovered in August 2017 during hospital visit. At which time cardiology was consulted, an echocardiogram was completed and recommendations were to start patient on eliquis. Eliquis was discontinued during this admission due to a rectus sheath hematoma. 5. History of COPD 6. History of asthma 7. Nicotine dependence. Patient educated longer than 3 minutes on smoking sensation. Patient declines nicotine patch 8. History of Khan's palsy 9. History of GERD 10. osteoarthritis with total left hip replacement 11. Elevated liver enzymes will continue to monitor 12. Essential hypertension. Cozar and verapamil added per cardiology 13. Thrush. Nystatin added DVT prophylaxis eliquis. GI prophylaxis Protonix Continue IV antibiotics and steroids and DuoNeb breathing treatment Pulmonary services following PT/OT consulted.
[2019-02-07 11:57] LABS: Glucose,Whole Blood 367 mg/dL (75-99)
[2019-02-07] MEDS: LEVOFLOXACIN 750MG-D5W PMX 750 MG in DEXTROSE/WATER 1 150ML.BAG IVPB SCH (13:42)
--- NOTE | 2019-02-07 13:43 | P.PN ---
Subjective Progress Note Date: 02/07/19 Principal diagnosis: Acute exacerbation of chronic obstructive pulmonary disease 63-year-old female patient with known history of advanced emphysema with poor compliance, came in yesterday because of increased difficulty breathing, cough, chest tightness, wheezing, shortness of breath and extreme limitation of exercise capacity. The patient had difficulty breathing and she was having hard time completing full sentences. She was still smoking about 1 pack of cigarettes a day and she carries more than [id number] smoking history. She has seen us in the office in the past under the care of Dr. Barnes, and the patient has been given Airduo one inhalation twice a day. She also has a nebulizer which she doesn't use it on a regular basis. She is currently moved in with her sister and Ghulam Hernandez. No fever. No chills. No pleurisy. No hemoptysis. Influenza screen was done and it was negative. Pulmonary consultation was requested. Chest x-ray shows hyperinflation. There is a questionable 7 mm right apical scar. Her previous CAT scan of the chest from last year did not show any evidence of lung masses. There was some chronic interstitial areas of scarring. No altered mentation. She claims that she hasn't drank alcohol for the past 6 months. Her FEV1 is measured to be at 59% of predicted based on a spirometer this was done back in September 2017. The patient is seen again today 02/05/2019 in follow-up on the regular medical floor. She is awake and alert. Still somewhat bronchospastic and wheezy. She is maintaining good O2 saturations in the mid 90s on 2 L/m per nasal cannula. She's been afebrile. Hemodynamically stable. She did undergo bronchoscopy with BAL by Dr. Barnes yesterday. Cultures are pending. Initial sputum culture reports no growth. Blood cultures no growth. White count 17.3. Hemoglobin 14.6. Creatinine 0.59. She remains on DuoNeb inhalations, Pulmicort and Perforomist inhalations, Singulair, IV Solu-Medrol. Antibiotics in the form of ceftriaxone and azithromycin. The patient is seen again today 02/06/2019 in follow-up on the regular medical floor. She is awake and alert in no acute distress. Breathing a bit easier today as compared to yesterday. Not quite back to her baseline. Maintaining good O2 saturations in the mid 90s on 2 L/m per nasal cannula. She's been afebrile. Pathology from bronchial wash is negative for malignancy. She remains on DuoNeb inhalations, Pulmicort and Perforomist inhalations, Singulair, IV Solu-Medrol. Antibiotics in the form of ceftriaxone and azithromycin. She has multiple complaints of generalized aches and pains and is receiving Percocet and morphine [id number]. The patient is seen again today 02/07/2019 in follow-up on the regular medical floor. Awake and alert in no acute distress. Still with some loose productive cough. Does desaturate into the 80s on room air. Maintaining O2 saturation low 90s on 2 L/m per nasal cannula and she is afebrile. Hemodynamically stable. Bronchial wash cultures were positive for Stenotrophomonas maltophilia. She was started on Levaquin yesterday and along with Zosyn. She remains on bronchodilators and IV Solu-Medrol. Objective - Vital Signs Vital signs: Vital Signs Temp 97.6 F 02/07/19 04:10 Pulse 93 02/07/19 12:06 Resp 16 02/07/19 04:10 BP 146/82 02/07/19 04:10 Pulse Ox 96 02/07/19 10:57 Intake & Output 02/06/19 02/07/19 02/07/19 18:59 06:59 18:59 Intake Total 1380 Balance 1380 Weight 78.7 kg 78.7 kg Intake: Oral 1380 Other: Voiding Method Toilet Toilet # Voids 1 4 1 - Exam GENERAL EXAM: Alert, pleasant 63-year-old female patient, on 2 L nasal cannula, comfortable in no apparent distress. HEAD: Normocephalic. EYES: Normal reaction of pupils, equal size. NOSE: Clear with pink turbinates. THROAT: No erythema or exudates. NECK: No masses, no JVD. CHEST: No chest wall deformity. LUNGS: Equal air entry with bilateral end expiratory wheeze, few scattered rhonchi, diminished CVS: S1 and S2 normal with no audible murmur, regular rhythm. ABDOMEN: No hepatosplenomegaly, normal bowel sounds, no guarding or rigidity. SPINE: No scoliosis or deformity SKIN: No rashes CENTRAL NERVOUS SYSTEM: No focal deficits, tone is normal in all 4 extremities. EXTREMITIES: There is no peripheral edema. No clubbing, no cyanosis. Peripheral pulses are intact. - Labs CBC & Chem 7: 02/07/19 08:08 02/07/19 08:08 Labs: Abnormal Lab Results - Last 24 Hours (Table) 02/06/19 02/06/19 02/07/19 Range/Units 16:34 20:35 07:01 WBC (3.8-10.6) k/uL MCV (80.0-100.0) fL Neutrophils # (1.3-7.7) k/uL Lymphocytes # (1.0-4.8) k/uL BUN (7-17) mg/dL Creatinine (0.52-1.04) mg/dL Glucose (74-99) mg/dL POC Glucose (mg/dL) 489 H 230 H 274 H (75-99) mg/dL AST (14-36) U/L ALT (9-52) U/L Total Protein (6.3-8.2) g/dL Albumin (3.5-5.0) g/dL 02/07/19 02/07/19 02/07/19 Range/Units 08:08 08:08 11:54 WBC 15.6 H (3.8-10.6) k/uL MCV 101.2 H (80.0-100.0) fL Neutrophils # 15.0 H (1.3-7.7) k/uL Lymphocytes # 0.3 L (1.0-4.8) k/uL BUN 40 H (7-17) mg/dL Creatinine 0.50 L (0.52-1.04) mg/dL Glucose 353 H (74-99) mg/dL POC Glucose (mg/dL) 367 H (75-99) mg/dL AST 52 H (14-36) U/L ALT 176 H (9-52) U/L Total Protein 5.4 L (6.3-8.2) g/dL Albumin 3.2 L (3.5-5.0) g/dL Microbiology - Last 24 Hours (Table) 02/04/19 12:20 Gram Stain - Final Bronchoalviolar Lavage - Right Bronchial Washings Culture - Final Stenotrophomonas maltophilia Amarilis albicans 02/04/19 12:20 Fungal Culture - Preliminary Bronchoalviolar Lavage - Right Amarilis albicans Assessment and Plan Assessment: Impression: 1 acute COPD exacerbation with secondary shortness of breath. She has a moderately severe COPD based on the previous spirometry that was done in our office in FEV1 was in the order of 59% of predicted. She is a chronic smoker. The chest x-ray showing a 7 mm scar in the right apical area. Malignancy is doubtful. She did undergo bronchoscopy with BAL on 02/04/2019. Cytology negative for malignancy. Cultures positive for Stenotrophomonas maltophilia. Currently on Zosyn and Levaquin. 2 chronic dyspnea related to COPD with interval exacerbation 3 brief onset of atrial fibrillation on 01/29/2019, converted to sinus rhythm. 4 skeletal chest wall pain related to cough 5 smoker 6 history of atrial fibrillation back to sinus 7 gout 8 history of alcoholism with previous history of pancreatitis 9 chronic back pain 10 acid reflux 11 paroxysmal atrial fibrillation with rapid ventricular response, anticoagulated with Eliquis Plan: The patient was seen and evaluated by Dr. Barnes. Culture positive for Stenotrophomonas maltophilia. Currently on Zosyn and Levaquin. Infectious diseases on the case. Continue with bronchodilators and IV Solu-Medrol. Increase her activity as tolerated. We will continue to follow and make further recommendations based on her clinical status. I, the cosigning physician, performed a history & physical examination of the patient. Lungs sounds with bilateral end expiratory wheeze, few scattered rhonchi, diminished. Maintaining good O2 saturations in the 90s on 2 L/m per nasal cannula I discussed the assessment and plan of care with my nurse practitioner, Libby Toledo. I attest to the above note as dictated by her.
--- NOTE | 2019-02-07 16:11 | XR ---
EXAMINATION TYPE: XR chest 2V DATE OF EXAM: 02/07/2019 COMPARISON: 01/26/2019 INDICATION: Short of breath, pneumonia TECHNIQUE: Frontal and lateral views of the chest are obtained. FINDINGS: The heart size is normal. The pulmonary vasculature is normal. Minimal subsegmental atelectasis in the left base is not excluded.. IMPRESSION: 1. Some minimal subtle segmental atelectasis may be at the left base. 2. Two-view chest is otherwise unremarkable.
[2019-02-07 16:33] LABS: Glucose,Whole Blood 213 mg/dL (75-99)
--- NOTE | 2019-02-07 17:22 | PN ---
PROGRESS NOTE DATE OF SERVICE: 02/07/2019 REASON FOR FOLLOWUP: Stenotrophomonas pneumonia. INTERVAL HISTORY: The patient is currently afebrile. The patient has been breathing comfortably. Denies having any chest pain. Continues to have some cough but less sputum production. No nausea, vomiting. No abdominal pain. No diarrhea. PHYSICAL EXAMINATION: Blood pressure is 151/60 with a pulse of 81, temperature 97.7, she is 97% on 2 L nasal cannula. General description is an elderly female up in the bed in no distress. Respiratory system: Unlabored breathing with decreased breath sounds. Occasional wheeze. Heart S1, S2. Regular rate and rhythm. Abdomen is soft, no tenderness. LABS: Hemoglobin 13.5, white count 15.8. BUN of 40, creatinine 0.50. DIAGNOSTIC IMPRESSION AND PLAN: Patient admitted to the hospital with difficulty breathing, likely chronic obstructive pulmonary disease exacerbation plus-minus tracheobronchitis less likely pneumonia. Repeat x- ray did not show any consolidation either. The patient's bronch culture did show Stenotrophomonas and the patient is currently covered with Levaquin, to continue. Monitor clinical course closely. MMODL / IJN: [id number] / KIMBER
[2019-02-07 20:48] LABS: Glucose,Whole Blood 371 mg/dL (75-99)
[2019-02-07] MEDS: MONTELUKAST 10 MG TAB PO SCH (21:19)
[2019-02-07] MEDS: ZOLPIDEM 5 MG TAB PO PRN (21:19)
[2019-02-08] MEDS: methylPREDNISolone SOD SUCCI 125 MG/2 ML VIAL IV SCH ×5 (00:40→22:48)
[2019-02-08] MEDS: MORPHINE SULFATE 2 MG/ML SYRINGE IVP PRN ×6 (01:19→21:09)
[2019-02-08 07:10] LABS: Glucose,Whole Blood 277 mg/dL (75-99)
[2019-02-08] MEDS: IPRATROPIUM-ALBUTEROL 3 ML NEB INHALATION SCH ×4 (07:32→19:17)
[2019-02-08] MEDS: BUDESONIDE 0.5 MG/2 ML NEBU INHALATION SCH ×2 (07:33→19:17)
[2019-02-08] MEDS: FORMOTEROL FUMARATE 20 MCG/2 ML NEBU INHALATION SCH ×2 (07:33→19:17)
[2019-02-08] MEDS: ALLOPURINOL 300 MG TAB PO SCH (09:09)
[2019-02-08] MEDS: LOSARTAN 50 MG TAB PO SCH (09:09)
[2019-02-08] MEDS: APIXABAN 5 MG TAB PO SCH ×2 (09:10→21:09)
[2019-02-08] MEDS: INSULIN ASPART (NovoLOG) 100 UNIT/ML VIAL SQ SCH ×4 (09:10→21:11)
[2019-02-08] MEDS: LORATADINE 10 MG TAB PO SCH (09:10)
[2019-02-08] MEDS: PANTOPRAZOLE 40 MG TABLET PO SCH (09:10)
[2019-02-08] MEDS: NYSTATIN 100,000 UNIT/ML SUSP 500,000 UNIT/5 ML CUP PO SCH ×4 (09:10→21:09)
[2019-02-08] MEDS: VERAPAMIL SR 240 MG TABLET.ER PO SCH (09:11)
[2019-02-08] MEDS: oxyCODONE-APAP 10-325MG 1 EACH TAB PO SCH ×4 (09:24→22:41)
--- NOTE | 2019-02-08 11:12 | P.PN ---
Subjective Progress Note Date: 02/08/19 This is a 63-year-old female patient who presented with complaints of difficulty breathing and shortness of breath and cough for 1 week. Patient has a known past medical history of COPD and asthma. Patient is also a current every day smoker. Patient reports that she has had hot and cold flashes at home but does not specifically recall having a fever. Patient does state she has a sputum production. Patient states she has tried [id number] without much relief. Patient reports that she is also having aching pain throughout. Additional medical history includes GERD, osteoarthritis, Khan's palsy, history of EtOH, pancreatitis, gout, chronic back pain, appendectomy, , anxiety and current every day smoker. Chest x-ray completed showing a 7 mm density right apex may relate to the anterior margin of the right first rib no acute infiltrate. Correlate with computed tomography scan of the chest is obtained. Influenza negative. At this time pulmonary services will be consulted. He started on Solu-Medrol. Patient also started on Rocephin and azithromycin for antibiotics and culture ordered. Continue DuoNeb breathing treatments. Patient denies chest pain. Patient denies nausea vomiting or diarrhea. Patient denies urinary burning or frequency On 01/27/2019 patient's alert and oriented 3. Patient is still having significant wheezing with shortness of breath. Patient was evaluated by pulmonary services Pulmicort added. Patient remains on IV antibiotics and IV s teroids. At this time patient denies chest pain. Patient denies nausea vomiting or diarrhea. Patient denies any urinary burning frequency. On 01/28/2019 patient is alert and oriented 3. She patient states she is not feeling well. Patient denies shortness of breath. No audible wheezing heard from patient. Patient remains on IV antibiotics and IV steroids. At this time patient denies chest pain. Patient reports cough with no sputum production. Patient denies nausea vomiting or diarrhea. Patient denies any urinary burning or frequency. Patient states her appetite is well. Patient remains on DuoNeb, and Pulmicort. On 01/29/2019 patient's alert and oriented 3. Patient showing minimal improvement. Patient remains on excellent medical therapy. Patient is being followed by pulmonary services remains on IV steroids DuoNeb breathing treatments and IV antibiotics. Patient denies chest pain. Patient denies nausea vomiting or diarrhea. Patient denies any urinary burning or frequency On 01/30/2019 patient is alert oriented 3. Patient reports minimal improvement with shortness of breath. Clinically, mild improvement. Patient will remain on IV antibiotics and IV steroids, plus DuoNeb breathing treatments. Overnight patient had episode of atrial fibrillation with rapid ventricular response. Patient denies any notice to this episode. She denied feeling dizziness chest pain. Stat EKG obtained, patient was transferred to cardiology unit for increased monitoring. Cardizem drip ordered but was never started due to patient converting back into sinus rhythm. Subcu heparin was DC'd subcu Lovenox 1mg/kg BID started. Cardiology consulted, will wait for their recommendations. Patient denies fevers, nausea vomiting or diarrhea. Patient denies any urinary burning or frequency. On 01/31/2019 patient is still complaining of shortness of breath and wheezing and S no chest pain no nausea or vomiting no abdominal pain no diarrhea no burning was urination no frequency or urgency and no hematuria. On 02/01/2019 patient's alert and oriented 3. Patient still complaining of shortness breath and wheezing. Patient has been started on eliquis for anticoagulative for atrial fibrillation. Patient eyes chest pain. Patient denies nausea vomiting or diarrhea. Patient denies any urinary burning or frequency On 02/02/2019 patient's alert and oriented 3. Patient showing minimal improvement with shortness of breath and wheezing. Possible bronchoscopy for pulmonary services. Patient denies chest pain. Patient denies nausea vomiting or diarrhea. Patient denies any urinary frequency On 02/03/2019 patient is resting comfortably bed. Patient still having wheezing and shortness of breath with minimal improvement possible bronchoscopy today per pulmonary. Patient denies chest pain. Patient denies nausea vomiting or diarrhea. Patient denies any urinary burning On 02/04/2019 patient is resting comfortably in bed. Planning bronchoscopy today per pulmonary service. Patient still has significant wheezing and shortness of breath. Patient denies chest pain. Patient denies nausea vomiting or diarrhea. Patient denies any urinary burning or frequency On 02/05/2019 patient is resting comfortably in bed. Patient states that she feels no breathing improvement after having bronchoscopy. Per bronchoscopy report, white secretions seen near vocal cord, suspected thrush. The back of her tongue has white patches she denies any pain. Nystatin ordered. She still has wheezing and shortness of breath. Patient denies chest pain. She denies nausea vomiting or diarrhea. Patient denies any urinary burning or frequency. 02/06/2019 patient's alert and oriented 3. Patient encouraged to work with physical therapy. Patient still complaining of shortness of breath. Patient denies chest pain. Patient denies nausea vomiting or diarrhea. Denies any urinary burning. On 02/07/2019 patient was seen and examined on the medical floor she is alert an d oriented 3 in no apparent distress she is still complaining of cough shortness of breath and wheezing, otherwise she denies any complaints there is no fever or chills no headache or dizziness no chest pain no nausea or vomiting no abdominal pain no diarrhea and no burning was urination no frequency or urgency no hematuria no weakness or numbness in any of her extremities. On 02/08/2019 patient was seen and examined on the medical floor she is alert and oriented 3 she is still complaining of cough without any significant sputum production, she is complaining of shortness of breath and wheezing, there is no fever or chills no headache or dizziness no chest pain no shortness of breath no nausea or vomiting no abdominal pain no diarrhea no burning was urination no frequency or urgency no hematuria. Liver enzymes are more elevated today, at this time will check liver ultrasound and consult gastroenterology, sputum culture is positive for Amarilis, will defer to infectious disease to adjust antibiotics Objective - Vital Signs Vital signs: Vital Signs Temp 98.3 F 02/08/19 04:20 Pulse 94 02/08/19 07:54 Resp 20 02/08/19 04:20 BP 152/75 02/08/19 04:20 Pulse Ox 92 L 02/08/19 04:20 Intake & Output 02/07/19 02/08/19 02/08/19 18:59 06:59 18:59 Output Total 1 Balance -1 Weight 78.7 kg 78.9 kg Output: Stool 1 Other: Voiding Method Toilet Toilet Toilet # Voids 3 2 1 - Exam In general patient is alert and oriented 3 in no apparent distress Head normocephalic and atraumatic Neck supple no JVD no goiter Lungs diminished bilaterally and bilateral high pitched wheezes, inspiratory and expiratory. Heart regular rate and rhythm S1-S2, no rub or gallop Abdomen is soft nontender nondistended positive bowel sounds no hepat osplenomegaly Extremities no edema no cyanosis or clubbing Neuro no gross focal neurological deficit - Labs CBC & Chem 7: 02/07/19 08:08 02/07/19 08:08 Labs: Abnormal Lab Results - Last 24 Hours (Table) 02/07/19 02/07/19 02/07/19 Range/Units 11:54 16:31 20:47 POC Glucose (mg/dL) 367 H 213 H 371 H (75-99) mg/dL 02/08/19 Range/Units 07:07 POC Glucose (mg/dL) 277 H (75-99) mg/dL Microbiology - Last 24 Hours (Table) 02/04/19 12:20 Gram Stain - Final Bronchoalviolar Lavage - Right Bronchial Washings Culture - Final Stenotrophomonas maltophilia Amarilis albicans Assessment and Plan Plan: 1. Increased shortness of breath related to COPD exacerbation. Pulmonary services have been consulted. Patient continued on Solu-Medrol, DuoNeb breathing treatments as well as Pulmicort and Perforomist nebulized treatments, azithromycin and Rocephin. Sputum culture preliminary report reveals gram- positive cocci. Pulmonary services are following. Continue current IV antibiotics IV steroids and DuoNeb breathing treatments. Bronchoscopy completed, cultures pending. 2. Questionable nodule seen on chest x-ray. Per pulmonology malignancy is doubtful and 7 mm scar in right apical area of chest CT. Pulmonary services following 3. Paroxysmal atrial fibrillation with rapid ventricular response. Patient has been started on eliquis per cardiology services. 4. History of atrial fibrillation. Discovered in August 2017 during hospital visit. At which time cardiology was consulted, an echocardiogram was completed and recommendations were to start patient on eliquis. Eliquis was discontinued during this admission due to a rectus sheath hematoma. 5. History of COPD 6. History of asthma 7. Nicotine dependence. Patient educated longer than 3 minutes on smoking sensation. Patient declines nicotine patch 8. History of Khan's palsy 9. History of GERD 10. osteoarthritis with total left hip replacement 11. Elevated liver enzymes will continue to monitor, today liver enzymes are much worse, will check liver ultrasound and consult gastroenterology 12. Essential hypertension. Cozar and verapamil added per cardiology 13. Thrush. Nystatin added DVT prophylaxis eliquis. GI prophylaxis Protonix Continue IV antibiotics and steroids and DuoNeb breathing treatment Pulmonary services following PT/OT consulted.
[2019-02-08 12:00] LABS: Glucose,Whole Blood 335 mg/dL (75-99)
--- NOTE | 2019-02-08 12:35 | P.PN ---
Subjective Progress Note Date: 02/08/19 Principal diagnosis: Acute exacerbation of COPD 63-year-old female patient with known history of advanced emphysema with poor compliance, came in yesterday because of increased difficulty breathing, cough, chest tightness, wheezing, shortness of breath and extreme limitation of exercise capacity. The patient had difficulty breathing and she was having hard time completing full sentences. She was still smoking about 1 pack of cigarettes a day and she carries more than [id number] smoking history. She has seen us in the office in the past under the care of Dr. Barnes, and the patient has been given Airduo one inhalation twice a day. She also has a nebulizer which she doesn't use it on a regular basis. She is currently moved in with her sister and Ghulam Hernandez. No fever. No chills. No pleurisy. No hemoptysis. Influenza screen was done and it was negative. Pulmonary consultation was requested. Chest x-ray shows hyperinflation. There is a questionable 7 mm right apical scar. Her previous CAT scan of the chest from last year did not show any evidence of lung masses. There was some chronic interstitial areas of scarring. No altered mentation. She claims that she hasn't drank alcohol for the past 6 months. Her FEV1 is measured to be at 59% of predicted based on a spirometer this was done back in September 2017. The patient is seen again today 02/05/2019 in follow-up on the regular medical floor. She is awake and alert. Still somewhat bronchospastic and wheezy. She is maintaining good O2 saturations in the mid 90s on 2 L/m per nasal cannula. She's been afebrile. Hemodynamically stable. She did undergo bronchoscopy with BAL by Dr. Barnes yesterday. Cultures are pending. Initial sputum culture reports no growth. Blood cultures no growth. White count 17.3. Hemoglobin 14.6. Creatinine 0.59. She remains on DuoNeb inhalations, Pulmicort and Perforomist inhalations, Singulair, IV Solu-Medrol. Antibiotics in the form of ceftriaxone and azithromycin. The patient is seen again today 02/06/2019 in follow-up on the regular medical floor. She is awake and alert in no acute distress. Breathing a bit easier today as compared to yesterday. Not quite back to her baseline. Maintaining good O2 saturations in the mid 90s on 2 L/m per nasal cannula. She's been afebrile. Pathology from bronchial wash is negative for malignancy. She remains on DuoNeb inhalations, Pulmicort and Perforomist inhalations, Singulair, IV Solu-Medrol. Antibiotics in the form of ceftriaxone and azithromycin. She has multiple complaints of generalized aches and pains and is receiving Percocet and morphine [id number]. The patient is seen again today 02/07/2019 in follow-up on the regular medical floor. Awake and alert in no acute distress. Still with some loose productive cough. Does desaturate into the 80s on room air. Maintaining O2 saturation low 90s on 2 L/m per nasal cannula and she is afebrile. Hemodynamically stable. Bronchial wash cultures were positive for Stenotrophomonas maltophilia. She was started on Levaquin yesterday and along with Zosyn. She remains on bronchodilators and IV Solu-Medrol. Reevaluated today on 02/08/2019, patient remains on the medical floor, continues to cough and wheeze, remains short of breath, desaturates easily to the 80s on room air, maintained on 2 L nasal cannula, maximized on bronchodilators steroids antibiotics in the form of Levaquin for her positive bronchial wash which came back positive for Stenotrophomonas maltophilia. Obviously the patient is not quite ready for any discharge planning. And she may even require another bronchoscopy. CBC is showing leukocytosis with WBC count of 15.6, basic metabolic profile is normal renal profile is normal. Objective - Vital Signs Vital signs: Vital Signs Temp 98.3 F 02/08/19 04:20 Pulse 97 02/08/19 11:20 Resp 20 02/08/19 04:20 BP 152/75 02/08/19 04:20 Pulse Ox 92 L 02/08/19 04:20 Intake & Output 02/07/19 02/08/19 02/08/19 18:59 06:59 18:59 Output Total 1 Balance -1 Weight 78.7 kg 78.9 kg Output: Stool 1 Other: Voiding Method Toilet Toilet Toilet # Voids 3 2 1 - Exam Physical Exam: Revealed a 63-year-old female in no distress. Head: Atraumatic normocephalic. HEENT:[Neck is supple.] [No neck masses.] [No thyromegaly.] [No JVD.] Chest: [Diffuse rhonchi and wheezes noted bilaterally. Symmetrical chest expansion.] Cardiac Exam: [Normal S1 and S2, no S3 gallop, no murmur.] Abdomen: [Soft, nontender, no megaly, no rebound, no guarding, normal bowel sounds.] Extremities: [No clubbing, no edema, no cyanosis.] Neurological Exam: [No focal neurologic deficit.] Alert oriented 3. Psychiatric: Normal mood affect and normal mental status examination. Skin: No rashes. Lymphatics: No lymphadenopathy. - Labs CBC & Chem 7: 02/07/19 08:08 02/07/19 08:08 Labs: Abnormal Lab Results - Last 24 Hours (Table) 02/07/19 02/07/19 02/08/19 Range/Units 16:31 20:47 07:07 POC Glucose (mg/dL) 213 H 371 H 277 H (75-99) mg/dL 02/08/19 Range/Units 11:51 POC Glucose (mg/dL) 335 H (75-99) mg/dL Microbiology - Last 24 Hours (Table) 02/04/19 12:20 Gram Stain - Final Bronchoalviolar Lavage - Right Bronchial Washings Culture - Final Stenotrophomonas maltophilia Amarilis albicans Assessment and Plan Assessment: 1 acute COPD exacerbation with secondary shortness of breath. She has a mode rately severe COPD based on the previous spirometry that was done in our office in FEV1 was in the order of 59% of predicted. She is a chronic smoker. The chest x-ray showing a 7 mm scar in the right apical area. Malignancy is doubtful. She did undergo bronchoscopy with BAL on 02/04/2019. Cytology negative for malignancy. Cultures positive for Stenotrophomonas maltophilia. Currently on Zosyn and Levaquin. 2 chronic dyspnea related to COPD with interval exacerbation 3 brief onset of atrial fibrillation on 01/29/2019, converted to sinus rhythm. 4 skeletal chest wall pain related to cough 5 smoker 6 history of atrial fibrillation back to sinus 7 gout 8 history of alcoholism with previous history of pancreatitis 9 chronic back pain 10 acid reflux 11 paroxysmal atrial fibrillation with rapid ventricular response, anticoagulated with Eliquis Recommendation: Continue present supportive care measures. Continue present antibiotics. Patient is not showing much improvement in spite of of maximal therapy, appropriate antibiotics, appropriate bronchodilators, she may have to be considered for another bronchoscopy and lavage to clear her secretions again. Her last bronchoscopy was quite abnormal, however I was able to suction all her in the bronchial secretions until cleared. We'll continue to follow, not ready for discharge planning. Time with Patient: Less than 30
[2019-02-08] MEDS: LEVOFLOXACIN 750 MG TAB PO SCH (13:05)
--- NOTE | 2019-02-08 13:55 | US ---
EXAMINATION TYPE: US liver DATE OF EXAM: 02/08/2019 COMPARISON: Previous study dated 07/30/2012. CLINICAL HISTORY: elevated liver enzymes. Elevated liver enzymes, abdomen pain, exam done portable. EXAM MEASUREMENTS: Liver Length: 18.8 cm Gallbladder Wall: 0.3 cm CBD: 0.5 cm Right Kidney: 11.1 x 4.3 x 5.1 cm Pancreas: visualized portions wnl, duct seen measuring 0.3cm, limited by overlying midline bowel gas Liver: enlarged Gallbladder: multiple hyperechoic foci along posterior wall, possible polyps Evidence for sonographic Amaya's sign: yes CBD: visualized portions wnl, limited by overlying bowel gas Right Kidney: wnl Limited views of the pancreas are unremarkable. The liver is slightly prominent measuring 19 cm. There are 2 small questionable polyps within the gallbladder. Gallbladder wall measures 3 mm. This co mmon hepatic duct measures 5 mm. There is a positive sonographic Amaya's sign. The right kidney is unremarkable. IMPRESSION: QUESTIONABLE GALLBLADDER POLYPS.
--- NOTE | 2019-02-08 16:47 | PN ---
PROGRESS NOTE DATE OF SERVICE: 02/08/2019. REASON FOR FOLLOWUP: Stenotrophomonas tracheobronchitis. INTERVAL HISTORY: The patient is currently afebrile. The patient still complaining of shortness of breath. The patient did have a mild cough but less productive sputum. No chest pain. No nausea, no vomiting. No abdominal pain. No diarrhea. PHYSICAL EXAMINATION: Blood pressure 150/79 with a pulse of 106, temperature 97.9. She is 94% on 2 L nasal cannula. General description is an elderly female, lying in bed in no distress. Respiratory system: Unlabored breathing. Decreased breath sounds. No wheeze. Heart S1, S2. Regular rate and rhythm. Abdomen soft, no tenderness. LABS: No new labs have been obtained today. DIAGNOSTIC IMPRESSION AND PLAN: Patient with a bronchoscopy and BAL culture positive for Stenotrophomonas. Chest x-ray repeat did show some subsegmental atelectasis with no evidence of any consolidation. The patient is covered with Levaquin to continue for now and monitor clinical course closely. Continue supportive care. MMODL / IJN: [id number] /
[2019-02-08 16:52] LABS: Glucose,Whole Blood 251 mg/dL (75-99)
[2019-02-08 20:23] LABS: Glucose,Whole Blood 236 mg/dL (75-99)
[2019-02-08] MEDS: MONTELUKAST 10 MG TAB PO SCH (21:09)
[2019-02-08] MEDS: ZOLPIDEM 5 MG TAB PO PRN (21:09)
[2019-02-09] MEDS: MORPHINE SULFATE 2 MG/ML SYRINGE IVP PRN ×5 (01:22→20:14)
[2019-02-09] MEDS: methylPREDNISolone SOD SUCCI 125 MG/2 ML VIAL IV SCH ×4 (05:19→23:22)
[2019-02-09 07:19] LABS: Glucose,Whole Blood 239 mg/dL (75-99)
[2019-02-09] MEDS: APIXABAN 5 MG TAB PO SCH ×2 (07:46→21:16)
[2019-02-09] MEDS: LEVOFLOXACIN 750 MG TAB PO SCH (07:46)
[2019-02-09] MEDS: LOSARTAN 50 MG TAB PO SCH (07:46)
[2019-02-09] MEDS: ALLOPURINOL 300 MG TAB PO SCH (07:46)
[2019-02-09] MEDS: INSULIN ASPART (NovoLOG) 100 UNIT/ML VIAL SQ SCH ×4 (07:46→21:16)
[2019-02-09] MEDS: PANTOPRAZOLE 40 MG TABLET PO SCH (07:46)
[2019-02-09] MEDS: LORATADINE 10 MG TAB PO SCH (07:46)
[2019-02-09] MEDS: BUDESONIDE 0.5 MG/2 ML NEBU INHALATION SCH (07:50)
[2019-02-09] MEDS: FORMOTEROL FUMARATE 20 MCG/2 ML NEBU INHALATION SCH ×2 (07:50→19:16)
[2019-02-09] MEDS: IPRATROPIUM-ALBUTEROL 3 ML NEB INHALATION SCH ×4 (07:50→19:16)
[2019-02-09 08:51] LABS: Basophils % (A) 0 %; Eosinophils % (A) 0 %; HCT 42.6 % (34.0-46.0); HGB 14.3 gm/dL (11.4-16.0); Lymphocytes # (A) 0.4 k/uL (1.0-4.8); Lymphocytes % (A) 3 %; MCH 33.5 pg (25.0-35.0); MCHC 33.6 g/dL (31.0-37.0); MCV 99.7 fL (80.0-100.0); Monocytes # (A) 0.2 k/uL (0-1.0); Monocytes % (A) 2 %; Neutrophils # (A) 13.4 k/uL (1.3-7.7); Neutrophils % (A) 95 %; Platelet Count 171 k/uL (150-450); RBC 4.27 m/uL (3.80-5.40); WBC 14.1 k/uL (3.8-10.6)
[2019-02-09 09:09] LABS: ALT 278 U/L (9-52); AST 64 U/L (14-36); African American GFR (CKD) >90 (>60 ml/min/1.73 sqM); Albumin 3.6 g/dL (3.5-5.0); Alkaline Phosphatase 42 U/L (38-126); Anion Gap 9 mmol/L; Blood Urea Nitrogen 37 mg/dL (7-17); Calcium 9.4 mg/dL (8.4-10.2); Carbon Dioxide 28 mmol/L (22-30); Chloride 96 mmol/L (98-107); Glucose 283 mg/dL (74-99); Non-African American GFR(CKD) >90 (>60 ml/min/1.73 sqM); Sodium 133 mmol/L (137-145); Total Bilirubin 1.2 mg/dL (0.2-1.3)
[2019-02-09 09:11] LABS: Potassium 5.5 mmol/L (3.5-5.1)
[2019-02-09] MEDS: NYSTATIN 100,000 UNIT/ML SUSP 500,000 UNIT/5 ML CUP PO SCH ×4 (09:11→21:16)
[2019-02-09] MEDS: oxyCODONE-APAP 10-325MG 1 EACH TAB PO SCH ×4 (09:11→21:58)
[2019-02-09] MEDS: VERAPAMIL SR 240 MG TABLET.ER PO SCH (09:11)
[2019-02-09] MEDS ORDERED: SODIUM POLYSTYRENE SULFONATE 15 GM/60 ML BOTTLE PO STA (10:19)
--- NOTE | 2019-02-09 10:33 | P.PN ---
Subjective Progress Note Date: 02/09/19 This is a 63-year-old female patient who presented with complaints of difficulty breathing and shortness of breath and cough for 1 week. Patient has a known past medical history of COPD and asthma. Patient is also a current every day smoker. Patient reports that she has had hot and cold flashes at home but does not specifically recall having a fever. Patient does state she has a sputum production. Patient states she has tried [id number] without much relief. Patient reports that she is also having aching pain throughout. Additional medical history includes GERD, osteoarthritis, Khan's palsy, history of EtOH, pancreatitis, gout, chronic back pain, appendectomy, , anxiety and current every day smoker. Chest x-ray completed showing a 7 mm density right apex may relate to the anterior margin of the right first rib no acute infiltrate. Correlate with computed tomography scan of the chest is obtained. Influenza negative. At this time pulmonary services will be consulted. He started on Solu-Medrol. Patient also started on Rocephin and azithromycin for antibiotics and culture ordered. Continue DuoNeb breathing treatments. Patient denies chest pain. Patient denies nausea vomiting or diarrhea. Patient denies urinary burning or frequency On 01/27/2019 patient's alert and oriented 3. Patient is still having significant wheezing with shortness of breath. Patient was evaluated by pulmonary services Pulmicort added. Patient remains on IV antibiotics and IV s teroids. At this time patient denies chest pain. Patient denies nausea vomiting or diarrhea. Patient denies any urinary burning frequency. On 01/28/2019 patient is alert and oriented 3. She patient states she is not feeling well. Patient denies shortness of breath. No audible wheezing heard from patient. Patient remains on IV antibiotics and IV steroids. At this time patient denies chest pain. Patient reports cough with no sputum production. Patient denies nausea vomiting or diarrhea. Patient denies any urinary burning or frequency. Patient states her appetite is well. Patient remains on DuoNeb, and Pulmicort. On 01/29/2019 patient's alert and oriented 3. Patient showing minimal improvement. Patient remains on excellent medical therapy. Patient is being followed by pulmonary services remains on IV steroids DuoNeb breathing treatments and IV antibiotics. Patient denies chest pain. Patient denies nausea vomiting or diarrhea. Patient denies any urinary burning or frequency On 01/30/2019 patient is alert oriented 3. Patient reports minimal improvement with shortness of breath. Clinically, mild improvement. Patient will remain on IV antibiotics and IV steroids, plus DuoNeb breathing treatments. Overnight patient had episode of atrial fibrillation with rapid ventricular response. Patient denies any notice to this episode. She denied feeling dizziness chest pain. Stat EKG obtained, patient was transferred to cardiology unit for increased monitoring. Cardizem drip ordered but was never started due to patient converting back into sinus rhythm. Subcu heparin was DC'd subcu Lovenox 1mg/kg BID started. Cardiology consulted, will wait for their recommendations. Patient denies fevers, nausea vomiting or diarrhea. Patient denies any urinary burning or frequency. On 01/31/2019 patient is still complaining of shortness of breath and wheezing and S no chest pain no nausea or vomiting no abdominal pain no diarrhea no burning was urination no frequency or urgency and no hematuria On 02/01/2019 patient's alert and oriented 3. Patient still complaining of shortness breath and wheezing. Patient has been started on eliquis for anticoagulative for atrial fibrillation. Patient eyes chest pain. Patient denies nausea vomiting or diarrhea. Patient denies any urinary burning or frequency On 02/02/2019 patient's alert and oriented 3. Patient showing minimal improvement with shortness of breath and wheezing. Possible bronchoscopy for pulmonary services. Patient denies chest pain. Patient denies nausea vomiting or diarrhea. Patient denies any urinary frequency On 02/03/2019 patient is resting comfortably bed. Patient still having wheezing and shortness of breath with minimal improvement possible bronchoscopy today per pulmonary. Patient denies chest pain. Patient denies nausea vomiting or diarrhea. Patient denies any urinary burning On 02/04/2019 patient is resting comfortably in bed. Planning bronchoscopy today per pulmonary service. Patient still has significant wheezing and shortness of breath. Patient denies chest pain. Patient denies nausea vomiting or diarrhea. Patient denies any urinary burning or frequency On 02/05/2019 patient is resting comfortably in bed. Patient states that she feels no breathing improvement after having bronchoscopy. Per bronchoscopy report, white secretions seen near vocal cord, suspected thrush. The back of her tongue has white patches she denies any pain. Nystatin ordered. She still has wheezing and shortness of breath. Patient denies chest pain. She denies nausea vomiting or diarrhea. Patient denies any urinary burning or frequency. 02/06/2019 patient's alert and oriented 3. Patient encouraged to work with physical therapy. Patient still complaining of shortness of breath. Patient denies chest pain. Patient denies nausea vomiting or diarrhea. Denies any urinary burning On 02/07/2019 patient was seen and examined on the medical floor she is alert and oriented 3 in no apparent distress she is still complaining of cough shortness of breath and wheezing, otherwise she denies any complaints there is no fever or chills no headache or dizziness no chest pain no nausea or vomiting no abdominal pain no diarrhea and no burning was urination no frequency or urgency no hematuria no weakness or numbness in any of her extremities. On 02/08/2019 patient was seen and examined on the medical floor she is alert and oriented 3 she is still complaining of cough without any significant sputum production, she is complaining of shortness of breath and wheezing, there is no fever or chills no headache or dizziness no chest pain no shortness of breath no nausea or vomiting no abdominal pain no diarrhea no burning was urination no frequency or urgency no hematuria. Liver enzymes are more elevated today, at this time will check liver ultrasound and consult gastroenterology, sputum culture is positive for Amarilis, will defer to infectious disease to adjust antibiotics On 02/09/2019 patient's alert and oriented 3. Patient ran short of breath and increased wheezing. ID services following pulmonary service is following. Patient remains on Levaquin. Services have been consulted for that his liver enzymes. This time patient denies chest pain. Patient denies nausea vomiting or diarrhea. Patient denies any urinary burning or frequency. Objective - Vital Signs Vital signs: Vital Signs Temp 97.3 F L 02/09/19 04:45 Pulse 112 H 02/09/19 08:15 Resp 22 02/09/19 04:45 BP 143/84 02/09/19 04:45 Pulse Ox 94 L 02/09/19 04:45 Intake & Output 02/08/19 02/09/19 02/09/19 18:59 06:59 18:59 Intake Total 820 1400 Output Total 6 Balance 814 1400 Intake: Oral 820 1400 Output: Urine 4 Stool 2 Other: Voiding Method Toilet Toilet # Voids 1 1 - Exam Head normocephalic Neck supple Lungs diminished bilaterally and bilateral high pitched wheezes, inspiratory and expiratory. Heart regular rate and rhythm S1-S2, no rub or gallop Abdomen is soft nontender nondistended positive bowel sounds no hepatosplenomegaly Extremities no edema Neuro alert and orientated to 3 - Labs CBC & Chem 7: 02/09/19 08:14 02/09/19 08:14 Labs: Abnormal Lab Results - Last 24 Hours (Table) 02/08/19 02/08/19 02/08/19 Range/Units 11:51 16:45 20:14 WBC (3.8-10.6) k/uL Neutrophils # (1.3-7.7) k/uL Lymphocytes # (1.0-4.8) k/uL Sodium (137-145) mmol/L Potassium (3.5-5.1) mmol/L Chloride (98-107) mmol/L BUN (7-17) mg/dL Creatinine (0.52-1.04) mg/dL Glucose (74-99) mg/dL POC Glucose (mg/dL) 335 H 251 H 236 H (75-99) mg/dL AST (14-36) U/L ALT (9-52) U/L Total Protein (6.3-8.2) g/dL 02/09/19 02/09/19 02/09/19 Range/Units 07:04 08:14 08:14 WBC 14.1 H (3.8-10.6) k/uL Neutrophils # 13.4 H (1.3-7.7) k/uL Lymphocytes # 0.4 L (1.0-4.8) k/uL Sodium 133 L (137-145) mmol/L Potassium 5.5 H (3.5-5.1) mmol/L Chloride 96 L (98-107) mmol/L BUN 37 H (7-17) mg/dL Creatinine 0.48 L (0.52-1.04) mg/dL Glucose 283 H (74-99) mg/dL POC Glucose (mg/dL) 239 H (75-99) mg/dL AST 64 H (14-36) U/L ALT 278 H (9-52) U/L Total Protein 6.0 L (6.3-8.2) g/dL Assessment and Plan Assessment: 1. Increased shortness of breath related to COPD exacerbation. Pulmonary services have been consulted. Patient continued on Solu-Medrol, DuoNeb breathing treatments as well as Pulmicort and Perforomist nebulized treatments, azithromycin and Rocephin. Sputum culture preliminary report reveals gram- positive cocci. Pulmonary services are following. Continue current IV antibiotics IV steroids and DuoNeb breathing treatments. Bronchoscopy completed. Bronchial washings completed showing stenotrophomonas maltophilia and cadida albicans. Infectious disease is following. Patient remains on Levaquin and nystatin. 2. Questionable nodule seen on chest x-ray. Per pulmonology malignancy is doubtful and 7 mm scar in right apical area of chest CT. Pulmonary services following 3. Paroxysmal atrial fibrillation with rapid ventricular response. Patient has been started on eliquis per cardiology services. 4. History of atrial fibrillation. Discovered in August 2017 during hospital visit. At which time cardiology was consulted, an echocardiogram was completed and recommendations were to start patient on eliquis. Eliquis was discontinued during this admission due to a rectus sheath hematoma. 5. History of COPD 6. History of asthma 7. Nicotine dependence. Patient educated longer than 3 minutes on smoking sensation. Patient declines nicotine patch 8. History of Khan's palsy 9. History of GERD 10. osteoarthritis with total left hip replacement 11. Elevated liver enzymes will continue to monitor 12. Essential hypertension. Cozar and verapamil added per cardiology 13. Thrush. Nystatin added 14. Elevated liver enzymes. GI service is consulted. Ultrasound completed showing questionable gallbladder polyps. DVT prophylaxis eliquis. GI prophylaxis Protonix Continue IV antibiotics and steroids and DuoNeb breathing treatment Pulmonary services following PT/OT consulted. I performed an examination of the patient and discussed their management with the Nurse Practitioner. I have reviewed the Nurse Practitioner's notes and agree with the documented findings and plan of care
[2019-02-09] MEDS: THEOPHYLLINE 24 HOUR 400 MG CAP.ER.24H PO SCH (11:42)
--- NOTE | 2019-02-09 12:22 | P.PN ---
Subjective Progress Note Date: 02/09/19 Principal diagnosis: Acute COPD exacerbation, 02/02/2019 patient seen in follow-up on selective care unit, she is awake and alert, in no acute distress, still has quite significant exertional dyspnea, but overall seems to be improving, less bronchospastic, still has scattered wh eezing, he remains on supplemental oxygen 3 L, her pulse ox is 92%, afebrile, no complaint of chest pain, she has converted to sinus rhythm, with a controlled rate. Occasional cough, no significant sputum production. She remains on a combination of Zithromax, Rocephin, nebulized bronchodilators, cough syrup, Singulair. She has been ambulating just within the room only, will try to increase her activity today, no acute events overnight. Today's labs have been reviewed, but cell count is stable, 14.2, hemoglobin is 14.0, electrolytes are within normal limits except for CO2 which is at 33, BUN is 44 creatinine 0.61. On 02/03/2019 patient is still quite tight and wheezy, and has not made si gnificant improvement clinically since yesterday, still has difficulty exertional dyspnea, lung sounds are tight and wheezy, and she is not able to bring up much secretions. Remains on 3 L with sats of 94%, she is afebrile, she is on maximum dose of IV steroids, she is on Zithromax and Rocephin, cough syrup, Alex, she has been maximized from medical treatment, we have discussed possibility of bronchoscopy with BAL tomorrow, and the patient is agreeable to proceed. On 02/04/2019 patient seen in follow-up on selective care unit, still dyspneic, and bronchospastic, not able to bring up much sputum, remains on supplemental oxygen, currently on 2 L. Pulse ox 91-93%, afebrile, she does have exertional dyspnea, she has been slow to improve, and for that reason she is undergoing bronchoscopy with BAL today with Dr. Shin. On 02/01/2017 patient seen in follow-up on medical surgical floor. She is up ambulating with a walker and with physical therapy, tolerating it fairly well. Still has some exertional dyspnea, and wheezing, but overall improving. Occasional cough, no sputum production, bronchoscopy lavage was positive for Stenotrophomonas maltophilia, with sensitivity to Levaquin on which the patient is on, patient remains on high-dose steroids, nebulized bronchodilators, we will add theophylline preparation. No fever or chills, today's labs have been reviewed, white blood cell count of 14.1, hemoglobin of 14.3, sodium was 133, potassium is 5.5, BUN of 37 and creatinine 0.48, patient had 3 L of oxygen his pulse ox is 94%. Afebrile. Objective - Vital Signs Vital signs: Vital Signs Temp 97.3 F L 02/09/19 04:45 Pulse 112 H 02/09/19 08:15 Resp 22 02/09/19 04:45 BP 143/84 02/09/19 04:45 Pulse Ox 94 L 02/09/19 04:45 Intake & Output 02/08/19 02/09/19 02/09/19 18:59 06:59 18:59 Intake Total 820 1400 Output Total 6 Balance 814 1400 Intake: Oral 820 1400 Output: Urine 4 Stool 2 Other: Voiding Method Toilet Toilet # Voids 1 1 - Exam GENERAL EXAM: Alert, pleasant, 63-year-old white female, on 3 L of oxygen with a pulse ox of 93% ambulating with a walker and physical therapy, mildly short of breath with exertion, but no acute distress, is tolerating ambulation with frequent periods of rest HEAD: Normocephalic/atraumatic. EYES: Normal reaction of pupils, equal size. Conjunctiva pink, sclera white. NOSE: Clear with pink turbinates. THROAT: No erythema or exudates. NECK: No masses, no JVD, no thyroid enlargement, no adenopathy. CHEST: No chest wall deformity. Symmetrical expansion. LUNGS: Equal air entry with diffuse wheezes bilaterally CVS: Regular rate and rhythm, normal S1 and S2, no gallops, no murmurs, no rubs ABDOMEN: Soft, nontender. No hepatosplenomegaly, normal bowel sounds, no guarding or rigidity. EXTREMITIES: No clubbing, no edema, no cyanosis, 2+ pulses and upper and lower extremities. MUSCULOSKELETAL: Muscle strength and tone normal. SPINE: No scoliosis or deformity SKIN: No rashes CENTRAL NERVOUS SYSTEM: Alert and oriented -3. No focal deficits, tone is normal in all 4 extremities. PSYCHIATRIC: Alert and oriented -3. Appropriate affect. Intact judgment and insight. - Labs CBC & Chem 7: 02/09/19 08:14 02/09/19 08:14 Labs: Abnormal Lab Results - Last 24 Hours (Table) 02/08/19 02/08/19 02/09/19 Range/Units 16:45 20:14 07:04 WBC (3.8-10.6) k/uL Neutrophils # (1.3-7.7) k/uL Lymphocytes # (1.0-4.8) k/uL Sodium (137-145) mmol/L Potassium (3.5-5.1) mmol/L Chloride (98-107) mmol/L BUN (7-17) mg/dL Creatinine (0.52-1.04) mg/dL Glucose (74-99) mg/dL POC Glucose (mg/dL) 251 H 236 H 239 H (75-99) mg/dL AST (14-36) U/L ALT (9-52) U/L Total Protein (6.3-8.2) g/dL 02/09/19 02/09/19 Range/Units 08:14 08:14 WBC 14.1 H (3.8-10.6) k/uL Neutrophils # 13.4 H (1.3-7.7) k/uL Lymphocytes # 0.4 L (1.0-4.8) k/uL Sodium 133 L (137-145) mmol/L Potassium 5.5 H (3.5-5.1) mmol/L Chloride 96 L (98-107) mmol/L BUN 37 H (7-17) mg/dL Creatinine 0.48 L (0.52-1.04) mg/dL Glucose 283 H (74-99) mg/dL POC Glucose (mg/dL) (75-99) mg/dL AST 64 H (14-36) U/L ALT 278 H (9-52) U/L Total Protein 6.0 L (6.3-8.2) g/dL Assessment and Plan Plan: 1acute COPD exacerbation with secondary shortness of breath. She has a moderately severe COPD based on the previous spirometry that was done in our office in FEV1 was in the order of 59% of predicted. She is a chronic smoker. The chest x-ray showing a 7 mm scar in the right apical area. Malignancy is doubtful. She did undergo bronchoscopy with BAL on 02/04/2019. Cytology negative for malignancy. Cultures positive for Stenotrophomonas maltophilia. Currently on Levaquin. 2 chronic dyspnea related to COPD with interval exacerbation 3 chronic smoker 4 skeletal chest wall pain related to cough 5 smoker 6 history of atrial fibrillation back to sinus 7 gout 8 history of alcoholism with previous history of pancreatitis 9 chronic back pain 10 acid reflux 11 Paroxysmal atrial fibrillation with rapid ventricular response him a currently still back in normal sinus rhythm. The patient is on of going into nature fibrillation special with exertion. Plan: Continue with oral Levaquin, continue nebulized bronchodilators, patient is improving, tolerating ambulation, increase activity, patient has participated with physical therapy however during her hospitalization she did become deconditioned, she may require a subacute rehab placement. No fever or chills, she is on appropriate antibiotics, we will add theophylline preparation at bedtime, from pulmonary perspective she stable on discharge, she will need follow-up in the office I performed a history & physical examination of the patient and discussed their management with my nurse practitioner, Nasreen Oneil. I reviewed the nurse practitioner's note and agree with the documented findings and plan of care. Lung sounds are positive for diffuse wheezes throughout the lung hoffman. The findings and the impression was discussed with the patient. I attest to the documentation by the nurse practitioner. Time with Patient: Less than 30
[2019-02-09 12:34] LABS: Glucose,Whole Blood 226 mg/dL (75-99)
--- NOTE | 2019-02-09 14:25 | PN ---
PROGRESS NOTE DATE OF SERVICE: 02/09/2019 REASON FOR FOLLOWUP: Stenotrophomonas tracheobronchitis. INTERVAL HISTORY: The patient is currently afebrile. Patient complaining of shortness of breath and chest tightness. He did have a cough with occasional sputum. No hemoptysis. No nausea, no vomiting. No abdominal pain, no diarrhea. PHYSICAL EXAMINATION: Blood pressure 143/84 with a pulse of 112, temperature 97.3. She is 94% on 3 L nasal cannula. General description is an elderly female up in the bed in no distress respiratory system unlabored, unlabored breathing with decreased intensity of breath occasional wheeze heart S1, S2. Regular rate and rhythm pulmonary. LABS: Hemoglobin is 1, white count 14.8. BUN of 37, creatinine 0.48. DIAGNOSTIC IMPRESSION AND PLAN: Patient admitted to the hospital with COPD the patient with concern for possible pseudomonas tracheobronchitis. Clinical suspicion is low for pneumonia. The patient is covered with oral Levaquin to continue to finish a course of therapy. Continue supportive care. MMODL / IJN: [id number] /
[2019-02-09 17:15] LABS: Glucose,Whole Blood 253 mg/dL (75-99)
[2019-02-09] MEDS: BUDESONIDE 1 MG/2 ML NEBU INHALATION SCH (19:16)
[2019-02-09 20:47] LABS: Glucose,Whole Blood 330 mg/dL (75-99)
[2019-02-09] MEDS: MONTELUKAST 10 MG TAB PO SCH (21:16)
--- NOTE | 2019-02-09 22:22 | CONS ---
CONSULTATION DATE OF DISCHARGE: 02/09/2019 REASON FOR CONSULTATION: Elevated LFTs. HISTORY OF PRESENT ILLNESS: The patient is a 63-year-old pleasant white female with history of COPD who has been in the hospital for the last one week's duration. The patient initially came to the emergency room at [facility] on January 26 with shortness of breath and was admitted to the hospital with possible pneumonia and exacerbation of COPD. She was treated with antibiotics with Rocephin and Zithromax and was discharged home. She was readmitted to the hospital with the same symptoms. She was seen by Dr. Barnes. She underwent a bronchoscopy for persistent upper respiratory symptoms and shortness of breath on February 04, 2019, which showed gram-negative bacilli, and antibiotics were switched to Levaquin. While in the hospital she was noted to have elevated serum transaminases and hence we were consulted. On review of her records and her labs, serum transaminases were completely within normal limits the first few days of hospitalization. The patient denies any history of chronic liver disease. No history of jaundice or hepatitis in the past. No history of alcohol liver disease. Other than antibiotics, she denies any new medications in the last one month. PAST MEDICAL HISTORY: Her past medical history is significant for: 1. Atrial fibrillation. 2. COPD, on home oxygen. 3. Gastroesophageal reflux disease. 4. Hypertension. 5. Degenerative joint disease. PAST SURGICAL HISTORY: 1. Appendectomy. 2. . 3. Total hip arthroplasty. 4. ORIF of the right arm. MEDICATIONS: Medications at home include: 1. Allopurinol. 2. Vitamin D2. 3. Claritin. 4. Prilosec. 5. Fluticasone. 6. Metoprolol. 7. Singulair. 8. Oxycodone/Percocet. ALLERGIES: NONE. SOCIAL HISTORY: Chronic smoker. No alcohol use. FAMILY HISTORY: Mother with COPD and diabetes mellitus. Father with heart problems. Brother with gout. REVIEW OF SYSTEMS: CARDIOPULMONARY: She denies any chest pain. She does complain of some shortness of breath. GENITOURINARY: No dysuria or hematuria. MUSCULOSKELETAL: Unremarkable. SKIN: Unremarkable. ENDOCRINE: Unremarkable. PSYCHIATRIC: Unremarkable. NEUROLOGY: Unremarkable. ENT/VISION: Unremarkable. CONSTITUTIONAL: No recent weight loss. No fever, chills, night sweats. HEMATOLOGY: Unremarkable. PHYSICAL EXAMINATION: She appears comfortable. No apparent distress. VITAL SIGNS: Stable. Blood pressure is 112/86, pulse rate 116, temperature 98. HEENT examination unremarkable. Conjunctivae pink. Sclerae anicteric. Oral cavity no lesions. NECK: No JVD or lymph node enlargement. CHEST: Clear to auscultation. HEART: Regular rate and rhythm. ABDOMEN: Soft. Slightly obese. was palpable. Liver and spleen were not palpable. Bowel sounds are positive. No organomegaly. EXTREMITIES: No pedal edema. SKIN: No rashes. NEUROLOGIC: Alert and oriented x3. No focal deficits. LABS/IMAGING: Labs done today show WBC 14.1, hemoglobin 14.3. Platelets are normal. Basic metabolic panel is within normal limits. AST 64, ALT 278. T-bilirubin and alkaline phosphatase are normal. On review of her records on January 26, her serum transaminases were within normal limits. On February 01, AST was slightly elevated at 43 and today it is 64. ALT was normal on January 26 at 22. On February 01 it was elevated at 80. Today it is 278. Ultrasound of the liver showed gallbladder polyps and normal-appearing liver. IMPRESSION: 1. Elevated serum transaminases for the last one week's duration. At the time of admission to the hospital, serum transaminases were within normal limits. No history of chronic liver disease or jaundice in the past. Liver ultrasound showed normal-appearing liver. Most likely, the elevated serum transaminases for the last one week's duration is likely related to side effects from medications. On review of her medications, it appears that she was initially started on Rocephin and Zithromax, and the medications were switched to Levaquin on January 31. Serum transaminases were initially noted to be elevated on February 01, which makes it likely that it could be antibiotic-related other than the Levaquin, which have been discontinued a week ago. 2. Tracheobronchitis, presently on IV Levaquin for the last [address] Martinez is following the patient closely. 3. Exacerbation of chronic obstructive pulmonary disease, on steroids. RECOMMENDATION: 1. Will obtain hepatitis serologies for A, B and C. 2. Monitor serum transaminases closely. 3. Avoid hepatotoxic medications. 4. If they continue to increase, will consider changing the antibiotic therapy again. For now we will follow her closely during her hospital stay. Thank you for this consultation. HENRY / DESMOND: [id number] /
[2019-02-09 22:25] VITALS: RESP 20
[2019-02-10] MEDS: MORPHINE SULFATE 2 MG/ML SYRINGE IVP PRN ×3 (02:24→13:04)
[2019-02-10 05:05] VITALS: BP 132/75; TEMP 97.4
[2019-02-10] MEDS: guaiFENesin-Coden 100-10MG/5ML 10 ML CUP PO PRN (05:22)
[2019-02-10] MEDS: methylPREDNISolone SOD SUCCI 125 MG/2 ML VIAL IV SCH (06:02)
[2019-02-10 07:03] LABS: Glucose,Whole Blood 242 mg/dL (75-99)
[2019-02-10] MEDS: FORMOTEROL FUMARATE 20 MCG/2 ML NEBU INHALATION SCH (07:03)
[2019-02-10] MEDS: BUDESONIDE 1 MG/2 ML NEBU INHALATION SCH (07:03)
[2019-02-10] MEDS: IPRATROPIUM-ALBUTEROL 3 ML NEB INHALATION SCH (07:03)
[2019-02-10 07:24] VITALS: PULSE 84
[2019-02-10] MEDS: LEVOFLOXACIN 750 MG TAB PO SCH (07:39)
[2019-02-10] MEDS: PANTOPRAZOLE 40 MG TABLET PO SCH (07:39)
[2019-02-10] MEDS: ALLOPURINOL 300 MG TAB PO SCH (07:39)
[2019-02-10] MEDS: LOSARTAN 50 MG TAB PO SCH (07:39)
[2019-02-10] MEDS: THEOPHYLLINE 24 HOUR 400 MG CAP.ER.24H PO SCH (07:39)
[2019-02-10] MEDS: oxyCODONE-APAP 10-325MG 1 EACH TAB PO SCH (07:39)
[2019-02-10] MEDS: APIXABAN 5 MG TAB PO SCH (07:39)
[2019-02-10] MEDS: LORATADINE 10 MG TAB PO SCH (07:39)
[2019-02-10] MEDS: VERAPAMIL SR 240 MG TABLET.ER PO SCH (07:40)
[2019-02-10] MEDS: NYSTATIN 100,000 UNIT/ML SUSP 500,000 UNIT/5 ML CUP PO SCH (07:40)
[2019-02-10] MEDS: INSULIN ASPART (NovoLOG) 100 UNIT/ML VIAL SQ SCH ×2 (08:34→13:11)
[2019-02-10 08:46] LABS: Basophils % (A) 0 %; Eosinophils % (A) 0 %; HCT 44.4 % (34.0-46.0); HGB 14.6 gm/dL (11.4-16.0); Lymphocytes # (A) 0.3 k/uL (1.0-4.8); Lymphocytes % (A) 2 %; MCH 32.6 pg (25.0-35.0); MCHC 32.9 g/dL (31.0-37.0); MCV 99.2 fL (80.0-100.0); Mean Platelet Volume 6.8; Monocytes # (A) 0.2 k/uL (0-1.0); Monocytes % (A) 2 %; Neutrophils # (A) 13.9 k/uL (1.3-7.7); Neutrophils % (A) 96 %; Platelet Count 175 k/uL (150-450); RBC 4.48 m/uL (3.80-5.40); RDW 14.1 % (11.5-15.5); WBC 14.5 k/uL (3.8-10.6)
[2019-02-10 08:59] LABS: ALT 246 U/L (9-52); AST 41 U/L (14-36); African American GFR (CKD) >90 (>60 ml/min/1.73 sqM); Albumin 3.6 g/dL (3.5-5.0); Alkaline Phosphatase 64 U/L (38-126); Anion Gap 11 mmol/L; Blood Urea Nitrogen 42 mg/dL (7-17); Calcium 9.2 mg/dL (8.4-10.2); Carbon Dioxide 26 mmol/L (22-30); Chloride 100 mmol/L (98-107); Glucose 307 mg/dL (74-99); Non-African American GFR(CKD) >90 (>60 ml/min/1.73 sqM); Potassium 3.9 mmol/L (3.5-5.1); Sodium 137 mmol/L (137-145); Total Bilirubin 0.9 mg/dL (0.2-1.3); Total Protein 5.8 g/dL (6.3-8.2)
[2019-02-10 11:45] LABS: Glucose,Whole Blood 288 mg/dL (75-99)
--- NOTE | 2019-02-10 12:13 | P.DS ---
Providers Date of admission: 01/26/19 13:09 Expected date of discharge: 02/10/19 Attending physician: Mariama Mantilla Consults: 01/26/19 13:02 Consult Physician Routine Consulting Provider: Celina Barnes Consult Reason/Comments: COPD, nodule Do you want consulting provider notified?: Yes 01/29/19 18:17 Consult Physician Routine Consulting Provider: Mike Altamirano Consult Reason/Comments: A-fib RVR (Has since resolved) Do you want consulting provider notified?: Yes 02/06/19 11:29 Consult Physician Routine Consulting Provider: Charli Martinez Consult Reason/Comments: Gram-negative bacilli in bronchial washings Do you want consulting provider notified?: Yes 02/08/19 11:08 Consult Physician Routine Consulting Provider: Tatianna Heath Consult Reason/Comments: elevated liver enzymes Do you want consulting provider notified?: Yes Primary care physician: Mariama Annalee [facility] Course: Discharge diagnosis 1. Increased shortness of breath related to COPD exacerbation. Pulmonary services have been consulted. Patient continued on Solu-Medrol, DuoNeb breathing treatments as well as Pulmicort and Perforomist nebulized treatments, azithromycin and Rocephin. Sputum culture preliminary report reveals gram- positive cocci. Pulmonary services are following. Continue current IV antibiotics IV steroids and DuoNeb breathing treatments. Bronchoscopy completed. Bronchial washings completed showing stenotrophomonas maltophilia and cadida albicans. Infectious disease is following. Patient remains on Levaquin and nystatin. Patient has been cleared by pulmonary services for discharge recommending prednisone taper along with continued breathing treatments. Patient has also been cleared by ID, will be DC'd on Levaquin and nystatin. 2. Questionable nodule seen on chest x-ray. Per pulmonology malignancy is doubtful and 7 mm scar in right apical area of chest CT. Pulmonary services following 3. Paroxysmal atrial fibrillation with rapid ventricular response. Patient has been started on eliquis per cardiology services. She could cleared by cardiology. Per cardiology continue verapamil, Cozaar. 4. History of atrial fibrillation. Discovered in August 2017 during hospital visit. At which time cardiology was consulted, an echocardiogram was completed and recommendations were to start patient on eliquis. Eliquis was discontinued during this admission due to a rectus sheath hematoma. 5. History of COPD 6. History of asthma 7. Nicotine dependence. Patient educated longer than 3 minutes on smoking sensation. Patient declines nicotine patch 8. History of Khan's palsy 9. History of GERD 10. osteoarthritis with total left hip replacement 11. Elevated liver enzymes will continue to monitor 12. Essential hypertension. Cozar and verapamil added per cardiology 13. Thrush. Nystatin added 14. Elevated liver enzymes. GI service is consulted. Ultrasound completed showing questionable gallbladder polyps. She was evaluated by GI services. Liver enzymes trending down. Monitor labs outpatient. Hospital Course This is a 63-year-old female patient who presented with complaints of difficulty breathing and shortness of breath and cough for 1 week. Patient has a known past medical history of COPD and asthma. Patient is also a current every day smoker. Patient reports that she has had hot and cold flashes at home but does not specifically recall having a fever. Patient does state she has a sputum production. Patient states she has tried [id number] without much relief. Patient reports that she is also having aching pain throughout. Additional medical history includes GERD, osteoarthritis, Khan's palsy, history of EtOH, pancreatitis, gout, chronic back pain, appendectomy, , anxiety and current every day smoker. Chest x-ray completed showing a 7 mm density right apex may relate to the anterior margin of the right first rib no acute infiltrate. Correlate with computed tomography scan of the chest is obtained. Influenza negative. At this time pulmonary services will be consulted. He started on Solu-Medrol. Patient also started on Rocephin and azithromycin for a ntibiotics and culture ordered. Continue DuoNeb breathing treatments. Patient denies chest pain. Patient denies nausea vomiting or diarrhea. Patient denies urinary burning or frequency On 01/27/2019 patient's alert and oriented 3. Patient is still having significant wheezing with shortness of breath. Patient was evaluated by pulmonary services Pulmicort added. Patient remains on IV antibiotics and IV steroids. At this time patient denies chest pain. Patient denies nausea vomiting or diarrhea. Patient denies any urinary burning frequency. On 01/28/2019 patient is alert and oriented 3. She patient states she is not feeling well. Patient denies shortness of breath. No audible wheezing heard from patient. Patient remains on IV antibiotics and IV steroids. At this time patient denies chest pain. Patient reports cough with no sputum production. Patient denies nausea vomiting or diarrhea. Patient denies any urinary burning or frequency. Patient states her appetite is well. Patient remains on DuoNeb, and Pulmicort. On 01/29/2019 patient's alert and oriented 3. Patient showing minimal improvement. Patient remains on excellent medical therapy. Patient is being f ollowed by pulmonary services remains on IV steroids DuoNeb breathing treatments and IV antibiotics. Patient denies chest pain. Patient denies nausea vomiting or diarrhea. Patient denies any urinary burning or frequency On 01/30/2019 patient is alert oriented 3. Patient reports minimal improvement with shortness of breath. Clinically, mild improvement. Patient will remain on IV antibiotics and IV steroids, plus DuoNeb breathing treatments. Overnight patient had episode of atrial fibrillation with rapid ventricular response. Patient denies any notice to this episode. She denied feeling dizziness chest pain. Stat EKG obtained, patient was transferred to cardiology unit for increased monitoring. Cardizem drip ordered but was never started due to patient converting back into sinus rhythm. Subcu heparin was DC'd subcu Lovenox 1mg/kg BID started. Cardiology consulted, will wait for their recommendations. Patient denies fevers, nausea vomiting or diarrhea. Patient denies any urinary burning or frequency. On 01/31/2019 patient is still complaining of shortness of breath and wheezing and S no chest pain no nausea or vomiting no abdominal pain no diarrhea no burning was urination no frequency or urgency and no hematuria On 02/01/2019 patient's alert and oriented 3. Patient still complaining of shortness breath and wheezing. Patient has been started on eliquis for antic oagulative for atrial fibrillation. Patient eyes chest pain. Patient denies nausea vomiting or diarrhea. Patient denies any urinary burning or frequency On 02/02/2019 patient's alert and oriented 3. Patient showing minimal improvement with shortness of breath and wheezing. Possible bronchoscopy for pulmonary services. Patient denies chest pain. Patient denies nausea vomiting or diarrhea. Patient denies any urinary frequency On 02/03/2019 patient is resting comfortably bed. Patient still having wheezing and shortness of breath with minimal improvement possible bronchoscopy today per pulmonary. Patient denies chest pain. Patient denies nausea vomiting or diarrhea. Patient denies any urinary burning On 02/04/2019 patient is resting comfortably in bed. Planning bronchoscopy to day per pulmonary service. Patient still has significant wheezing and shortness of breath. Patient denies chest pain. Patient denies nausea vomiting or diarrhea. Patient denies any urinary burning or frequency On 02/05/2019 patient is resting comfortably in bed. Patient states that she feels no breathing improvement after having bronchoscopy. Per bronchoscopy report, white secretions seen near vocal cord, suspected thrush. The back of her tongue has white patches she denies any pain. Nystatin ordered. She still has wheezing and shortness of breath. Patient denies chest pain. She denies nausea vomiting or diarrhea. Patient denies any urinary burning or frequency. 02/06/2019 patient's alert and oriented 3. Patient encouraged to work with physical therapy. Patient still complaining of shortness of breath. Patient denies chest pain. Patient denies nausea vomiting or diarrhea. Denies any urinary burning On 02/07/2019 patient was seen and examined on the medical floor she is alert and oriented 3 in no apparent distress she is still complaining of cough shortness of breath and wheezing, otherwise she denies any complaints there is no fever or chills no headache or dizziness no chest pain no nausea or vomiting no abdominal pain no diarrhea and no burning was urination no frequency or urgency no hematuria no weakness or numbness in any of her extremities. On 02/08/2019 patient was seen and examined on the medical floor she is alert and oriented 3 she is still complaining of cough without any significant sputum production, she is complaining of shortness of breath and wheezing, there is no fever or chills no headache or dizziness no chest pain no shortness of breath no nausea or vomiting no abdominal pain no diarrhea no burning was urination no frequency or urgency no hematuria. Liver enzymes are more elevated today, at this time will check liver ultrasound and consult gastroenterology, sputum culture is positive for Amarilis, will defer to infectious disease to adjust antibiotics On 02/09/2019 patient's alert and oriented 3. Patient ran short of breath and increased wheezing. ID services following pulmonary service is following. Patient remains on Levaquin. Services have been consulted for that his liver enzymes. This time patient denies chest pain. Patient denies nausea vomiting or diarrhea. Patient denies any urinary burning or frequency. On 02/10/2018 patient is alert and oriented 3. Patient showing moderate improvement with breathing, wheezing still present however improved. Pulmonary cleared patient for discharge. Recommending prednisone taper. Spoke to Dr. Martinez with infectious disease recommending by mouth Levaquin and nystatin. Patient being discharged to [facility] rehab. The plan was discussed with the patient and she verbally understands that she is being discharged to rehab at this time due to increasing weakness. I performed an examination of the patient and discussed their management with the Nurse Practitioner. I have reviewed the Nurse Practitioner's notes and agree with the documented findings and plan of care Patient Condition at Discharge: Stable Plan - Discharge Summary Discharge Rx Participant: No New Discharge Prescriptions: New Benzocaine/Menthol Lozeng [Cepacol lozenge] 1 each MUCOUS MEM Q4HR PRN lozenge PRN Reason: Sore Throat Losartan [Cozaar] 50 mg PO DAILY tab Ipratropium-Albuterol Nebulize [Duoneb 0.5 mg-3 mg/3 ml Soln] 3 ml INHALATION RT-QID ampul.neb Ipratropium-Albuterol Nebulize [Duoneb 0.5 mg-3 mg/3 ml Soln] 3 ml INHALATION RT-Q2H PRN ampul.neb PRN Reason: Shortness Of Breath Or Wheezing Apixaban [Eliquis] 5 mg PO BID tab Verapamil Sr [Isoptin Sr] 240 mg PO DAILY tablet.er Levofloxacin [Levaquin] 750 mg PO Q24H 10 Days #10 tab Nystatin 100,000 Unit/ml Susp [Mycostatin Oral Susp] 500,000 unit PO QID 10 Days #40 cup INSULIN ASPART (NovoLOG) [NovoLOG (formulary)] 0 unit SQ ACHS vial predniSONE 10 mg PO DIRECTED 16 Days #30 tab guaiFENesin-Coden 100-10MG/5ML [Robitussin AC] 5 ml PO Q6H PRN 14 Days #1 bottle PRN Reason: Cough Theophylline 24 Hour [Jayy-24] 400 mg PO DAILY cap.er.24h Continue Ergocalciferol [Vitamin D2 (DRISDOL)] 50,000 unit PO FR Allopurinol 300 mg PO DAILY Omeprazole [PriLOSEC] 40 mg PO DAILY Loratadine [Claritin] 10 mg PO DAILY Montelukast [Singulair] 10 mg PO HS Fluticasone/Salmeterol [Fluticasone-Salmeterol 232-14] 1 puff INHALATION RT- BID oxyCODONE-APAP 10-325MG [Percocet 10-325 mg] 1 tab PO QID 14 Days #56 tab Discontinued Metoprolol Succinate [Toprol XL] 50 mg PO DAILY Discharge Medication List Allopurinol 300 mg PO DAILY 11/25/15 [History] Ergocalciferol [Vitamin D2 (DRISDOL)] 50,000 unit PO FR 11/25/15 [History] Loratadine [Claritin] 10 mg PO DAILY 08/21/17 [History] Omeprazole [PriLOSEC] 40 mg PO DAILY 08/21/17 [History] Fluticasone/Salmeterol [Fluticasone-Salmeterol 232-14] 1 puff INHALATION RT-BID 01/26/19 [History] Montelukast [Singulair] 10 mg PO HS 01/26/19 [History] Apixaban [Eliquis] 5 mg PO BID tab 02/10/19 [Rx] Benzocaine/Menthol Lozeng [Cepacol lozenge] 1 each MUCOUS MEM Q4HR PRN lozenge 02/10/19 [Rx] INSULIN ASPART (NovoLOG) [NovoLOG (formulary)] 0 unit SQ ACHS vial 02/10/19 [Rx] Ipratropium-Albuterol Nebulize [Duoneb 0.5 mg-3 mg/3 ml Soln] 3 ml INHALATION RT-Q2H PRN ampul.neb 02/10/19 [Rx] Ipratropium-Albuterol Nebulize [Duoneb 0.5 mg-3 mg/3 ml Soln] 3 ml INHALATION RT-QID ampul.neb 02/10/19 [Rx] Levofloxacin [Levaquin] 750 mg PO Q24H 10 Days #10 tab 02/10/19 [Rx] Losartan [Cozaar] 50 mg PO DAILY tab 02/10/19 [Rx] Nystatin 100,000 Unit/ml Susp [Mycostatin Oral Susp] 500,000 unit PO QID 10 Days #40 cup 02/10/19 [Rx] Theophylline 24 Hour [Jayy-24] 400 mg PO DAILY cap.er.24h 02/10/19 [Rx] Verapamil Sr [Isoptin Sr] 240 mg PO DAILY tablet.er 02/10/19 [Rx] guaiFENesin-Coden 100-10MG/5ML [Robitussin AC] 5 ml PO Q6H PRN 14 Days #1 bottle 02/10/19 [Rx] oxyCODONE-APAP 10-325MG [Percocet 10-325 mg] 1 tab PO QID 14 Days #56 tab 02/10/19 [Rx] predniSONE 10 mg PO DIRECTED 16 Days #30 tab 02/10/19 [Rx] Follow up Appointment(s)/Referral(s): Luke Nazario MD [STAFF PHYSICIAN] - 2 Weeks Mariama Mantilla MD [Primary Care Provider] - 1-2 days Simone Pulliam MD [STAFF PHYSICIAN] - 1 Week Patient Instructions/Handouts: A-fib (Atrial Fibrillation) (DC), COPD (Chronic Obstructive Pulmonary Disease) (DC), Safe Use of Anticoagulants (DC) Activity/Diet/Wound Care/Special Instructions: pt will be sent home with a hospital bed s/t COPD and the need for her head to be elevated up 30 degrees most of the time. Patient will be DC'd to [facility] for rehab Discharge Disposition: TRANSFER TO SNF/ECF
--- NOTE | 2019-02-10 14:25 | PN ---
PROGRESS NOTE DATE OF SERVICE: 02/10/2019 REASON FOR FOLLOWUP: 1. Stenotrophomonas tracheobronchitis. 2. Oral thrush. INTERVAL HISTORY: The patient is currently afebrile. Still complaining of shortness of breath, though has slightly improved. Denies having any chest pain, cough has been mostly dry in nature. No nausea, no vomiting, no abdominal pain, no diarrhea. PHYSICAL EXAMINATION: Blood pressure 132/75 with a pulse of 85, temperature is 97.4, she is 95% on 3 L nasal cannula. General description is an elderly female, up in the room in no distress. RESPIRATORY SYSTEM: Unlabored breathing with decreased intensity of breath sounds, no wheeze. HEART: S1, S2. Regular rate and rhythm. ABDOMEN: Soft, no tenderness. LABS: Hemoglobin is 14, white count 14.5. BUN of 42, creatinine 0.54. DIAGNOSTIC IMPRESSION AND PLAN: 1. Patient with a positive blood culture with Stenotrophomonas, possible tracheobronchitis with possibility for underlying pneumonia. Continue with oral Levaquin to finish a course of therapy. 2. Possible oral thrush. Nystatin swish and swallow for about 7 days. MMODL / IJN: [id number] /
--- NOTE | 2019-02-10 14:32 | P.PN ---
Subjective Progress Note Date: 02/10/19 Principal diagnosis: Acute exacerbation of chronic obstructive pulmonary disease 63-year-old female patient with known history of advanced emphysema with poor compliance, came in yesterday because of increased difficulty breathing, cough, chest tightness, wheezing, shortness of breath and extreme limitation of exercise capacity. The patient had difficulty breathing and she was having hard time completing full sentences. She was still smoking about 1 pack of cigarettes a day and she carries more than [id number] smoking history. She has seen us in the office in the past under the care of Dr. Branes, and the patient has been given Airduo one inhalation twice a day. She also has a nebulizer which she doesn't use it on a regular basis. She is currently moved in with her sister and Ghulam Hernandez. No fever. No chills. No pleurisy. No hemoptysis. Influenza screen was done and it was negative. Pulmonary consultation was requested. Chest x-ray shows hyperinflation. There is a questionable 7 mm right apical scar. Her previous CAT scan of the chest from last year did not show any evidence of lung masses. There was some chronic interstitial areas of scarring. No altered mentation. She claims that she hasn't drank alcohol for the past 6 months. Her FEV1 is measured to be at 59% of predicted based on a spirometer this was done back in September 2017. The patient is seen again today 02/05/2019 in follow-up on the regular medical floor. She is awake and alert. Still somewhat bronchospastic and wheezy. She is maintaining good O2 saturations in the mid 90s on 2 L/m per nasal cannula. She's been afebrile. Hemodynamically stable. She did undergo bronchoscopy with BAL by Dr. Barnes yesterday. Cultures are pending. Initial sputum culture reports no growth. Blood cultures no growth. White count 17.3. Hemoglobin 14.6. Creatinine 0.59. She remains on DuoNeb inhalations, Pulmicort and Perforomist inhalations, Singulair, IV Solu-Medrol. Antibiotics in the form of ceftriaxone and azithromycin. The patient is seen again today 02/06/2019 in follow-up on the regular medical floor. She is awake and alert in no acute distress. Breathing a bit easier today as compared to yesterday. Not quite back to her baseline. Maintaining good O2 saturations in the mid 90s on 2 L/m per nasal cannula. She's been afebrile. Pathology from bronchial wash is negative for malignancy. She remains on DuoNeb inhalations, Pulmicort and Perforomist inhalations, Singulair, IV Solu-Medrol. Antibiotics in the form of ceftriaxone and azithromycin. She has multiple complaints of generalized aches and pains and is receiving Percocet and morphine [id number]. The patient is seen again today 02/07/2019 in follow-up on the regular medical floor. Awake and alert in no acute distress. Still with some loose productive cough. Does desaturate into the 80s on room air. Maintaining O2 saturation low 90s on 2 L/m per nasal cannula and she is afebrile. Hemodynamically stable. Bronchial wash cultures were positive for Stenotrophomonas maltophilia. She was started on Levaquin yesterday and along with Zosyn. She remains on bronchodilators and IV Solu-Medrol. The patient is seen today 02/10/2019 in follow-up on the regular medical floor. She is sitting up in bed. Awake and alert in no acute distress. She is maintaining good O2 saturations in the 90s on 2 L/m per nasal cannula. Bronchial wash cultures were positive for Stenotrophomonas maltophilia. She remains on Levaquin. Objective - Vital Signs Vital signs: Vital Signs Temp 97.4 F L 02/10/19 05:00 Pulse 84 02/10/19 07:36 Resp 20 02/10/19 05:00 BP 132/75 02/10/19 05:00 Pulse Ox 95 02/10/19 05:00 Intake & Output 02/09/19 02/10/19 02/10/19 18:59 06:59 18:59 Intake Total 202 Balance 202 Intake: Oral 202 Other: Voiding Method Toilet Toilet # Voids 3 1 - Exam GENERAL EXAM: Alert, pleasant 63-year-old female patient, on 2 L nasal cannula, comfortable in no apparent distress. HEAD: Normocephalic. EYES: Normal reaction of pupils, equal size. NOSE: Clear with pink turbinates. THROAT: No erythema or exudates. NECK: No masses, no JVD. CHEST: No chest wall deformity. LUNGS: Equal air entry with bilateral end expiratory wheeze, few scattered rhonchi, diminished CVS: S1 and S2 normal with no audible murmur, regular rhythm. ABDOMEN: No hepatosplenomegaly, normal bowel sounds, no guarding or rigidity. SPINE: No scoliosis or deformity SKIN: No rashes CENTRAL NERVOUS SYSTEM: No focal deficits, tone is normal in all 4 extremities. EXTREMITIES: There is no peripheral edema. No clubbing, no cyanosis. Peripheral pulses are intact. - Labs CBC & Chem 7: 02/10/19 08:00 02/10/19 08:00 Labs: Abnormal Lab Results - Last 24 Hours (Table) 02/09/19 02/09/19 02/10/19 Range/Units 17:13 20:43 07:02 WBC (3.8-10.6) k/uL Neutrophils # (1.3-7.7) k/uL Lymphocytes # (1.0-4.8) k/uL BUN (7-17) mg/dL Glucose (74-99) mg/dL POC Glucose (mg/dL) 253 H 330 H 242 H (75-99) mg/dL AST (14-36) U/L ALT (9-52) U/L Total Protein (6.3-8.2) g/dL 02/10/19 02/10/19 02/10/19 Range/Units 08:00 08:00 11:43 WBC 14.5 H (3.8-10.6) k/uL Neutrophils # 13.9 H (1.3-7.7) k/uL Lymphocytes # 0.3 L (1.0-4.8) k/uL BUN 42 H (7-17) mg/dL Glucose 307 H (74-99) mg/dL POC Glucose (mg/dL) 288 H (75-99) mg/dL AST 41 H (14-36) U/L ALT 246 H (9-52) U/L Total Protein 5.8 L (6.3-8.2) g/dL Assessment and Plan Assessment: Impression: 1 acute COPD exacerbation with secondary shortness of breath. She has a mode rately severe COPD based on the previous spirometry that was done in our office in FEV1 was in the order of 59% of predicted. She is a chronic smoker. The chest x-ray showing a 7 mm scar in the right apical area. Malignancy is doubtful. She did undergo bronchoscopy with BAL on 02/04/2019. Cytology negative for malignancy. Cultures positive for Stenotrophomonas maltophilia. Currently on Levaquin. 2 chronic dyspnea related to COPD with interval exacerbation 3 brief onset of atrial fibrillation on 01/29/2019, converted to sinus rhythm. 4 skeletal chest wall pain related to cough 5 smoker 6 history of atrial fibrillation back to sinus 7 gout 8 history of alcoholism with previous history of pancreatitis 9 chronic back pain 10 acid reflux 11 paroxysmal atrial fibrillation with rapid ventricular response, anticoagulated with Eliquis Plan: The patient was seen and evaluated by Dr. Mckeon. She is cleared for transfer to a subacute rehabilitation center. Continue with the prednisone burst and taper starting at 40 mg daily for 4 days. Complete a course of Levaquin. I, the cosigning physician, performed a history & physical examination of the patient. Lungs sounds with bilateral end expiratory wheeze, few scattered rhonchi, diminished. Maintaining good O2 saturations in the 90s on 2 L/m per nasal cannula I discussed the assessment and plan of care with my nurse practitioner, Libby Toledo. I attest to the above note as dictated by her.
[2019-02-10] MEDS ORDERED: SYMBICORT 160-4.5 MCG INHALER INHALATION SCH (20:00)
[2019-02-11] MEDS ORDERED: predniSONE 20 MG TAB PO SCH (09:00)
[2019-02-11] MEDS ORDERED: ACETAMINOPHEN TAB 325 MG TAB PO PRN (15:03)
== END 2019-02-10 13:23 | DRG 190 ==
LOC: EC 10:12 → 3NMEDONC 13:09 → 3SCARD 01-29 20:06 → 4MS4W 02-04 15:47
PROVIDERS: ADMIT Internal Medicine; ATTEND Internal Medicine
PROC: 0B9G8ZX Drainage of Left Upper Lung Lobe, Via Natural or Artificial Opening Endoscopic, Diagnostic (ICD-10-PCS; 2019-02-04)
PROC: 0B9H8ZX Drainage of Lung Lingula, Via Natural or Artificial Opening Endoscopic, Diagnostic (ICD-10-PCS; 2019-02-04)
PROC: 0B9F8ZX Drainage of Right Lower Lung Lobe, Via Natural or Artificial Opening Endoscopic, Diagnostic (ICD-10-PCS; 2019-02-04)
PROC: 0B9J8ZX Drainage of Left Lower Lung Lobe, Via Natural or Artificial Opening Endoscopic, Diagnostic (ICD-10-PCS; principal; 2019-02-04 12:00)
PROC: 0B9C8ZX Drainage of Right Upper Lung Lobe, Via Natural or Artificial Opening Endoscopic, Diagnostic (ICD-10-PCS; 2019-02-04 12:00)
DX: J43.9 Emphysema, unspecified (principal); J15.6 Pneumonia due to other Gram-negative bacteria; B37.0 Candidal stomatitis; J98.11 Atelectasis; I48.0 Paroxysmal atrial fibrillation; F17.210 Nicotine dependence, cigarettes, uncomplicated; F41.9 Anxiety disorder, unspecified; G89.29 Other chronic pain; H91.90 Unspecified hearing loss, unspecified ear; I10 Essential (primary) hypertension; K21.9 Gastro-esophageal reflux disease without esophagitis; M10.9 Gout, unspecified; M19.90 Unspecified osteoarthritis, unspecified site; M54.9 Dorsalgia, unspecified; R74.8 Abnormal levels of other serum enzymes; R91.1 Solitary pulmonary nodule; R07.89 Other chest pain; H93.11 Tinnitus, right ear; H26.9 Unspecified cataract; Z79.01 Long term (current) use of anticoagulants; Z79.51 Long term (current) use of inhaled steroids; Z79.52 Long term (current) use of systemic steroids; Z79.899 Other long term (current) drug therapy; Z96.642 Presence of left artificial hip joint; Z90.49 Acquired absence of other specified parts of digestive tract; F10.21 Alcohol dependence, in remission; Z71.6 Tobacco abuse counseling; Z82.5 Family history of asthma and other chronic lower respiratory diseases; Z83.3 Family history of diabetes mellitus; Z82.49 Family history of ischemic heart disease and other diseases of the circulatory system; Z84.89 Family history of other specified conditions
CPT/HCPCS: 31624; 31645; 36415; 71046; 76705; 80048; 80053; 81001; 83036; 83735; 83880; 84132; 84145; 84439; 84443; 84484; 85025; 85027; 85610; 85730; 86140; 87040; 87070; 87077; 87102; 87116; 87186; 87205; 87206; 87252; 87496; 87498; 87502; 87529; 87634; 87798; 88108; 88305; 89050; 93005; 93306; 94640; 94760; 96365; 96375; 99284; 99285

== ENCOUNTER 2019-02-10 18:16 | Inpatient (IN) | payer MEDICARE, OTHER ==
[2019-02-10] MEDS ORDERED: IPRATROPIUM-ALBUTEROL 3 ML NEB INHALATION STA (19:04)
[2019-02-10] MEDS ORDERED: oxyCODONE-APAP 10-325MG 1 EACH TAB PO STA (19:13)
--- NOTE | 2019-02-10 19:16 | ED ---
General Adult HPI - General Chief complaint: Recheck/Abnormal Lab/Rx Stated complaint: pain all over Time Seen by Provider: 02/10/19 18:32 Source: patient, RN notes reviewed Mode of arrival: wheelchair Limitations: no limitations - History of Present Illness Initial comments: Patient is a pleasant 63-year-old female presenting to the emergency department requesting her pain medication. Patient was discharged today to nursing facility. Patient states they have difficulty getting her pain meds in the computer and requests pain medication. Patient states she does feel somewhat short of breath and has not had a nebulizer treatment since she left around noon today. Patient does take them frequency. Patient does have some leg swelling which is fairly chronic for her. Patient and daughter states she just needs some pain medication and can be discharged. Patient is receptive to nebulizer treatment - Related Data Home Medications Medication Instructions Recorded Confirmed Allopurinol 300 mg PO DAILY 11/25/15 02/10/19 Ergocalciferol [Vitamin D2 50,000 unit PO FR 11/25/15 02/10/19 (DRISDOL)] Loratadine [Claritin] 10 mg PO DAILY 08/21/17 02/10/19 Omeprazole [PriLOSEC] 40 mg PO DAILY 08/21/17 02/10/19 Fluticasone/Salmeterol 1 puff INHALATION RT-BID 01/26/19 02/10/19 [Fluticasone-Salmeterol 232-14] Montelukast [Singulair] 10 mg PO HS 01/26/19 02/10/19 Benzocaine/Menthol Lozeng [Cepacol 1 lozenge MUCOUS MEM Q4HR PRN 02/10/19 02/10/19 lozenge] INSULIN ASPART (NovoLOG) [NovoLOG See Protocol SQ ACHS 02/10/19 02/10/19 (formulary)] predniSONE See Taper PO DIRECTED 02/10/19 02/10/19 Previous Rx's Medication Instructions Recorded Apixaban [Eliquis] 5 mg PO BID tab 02/10/19 Ipratropium-Albuterol Nebulize 3 ml INHALATION RT-Q2H PRN 02/10/19 [Duoneb 0.5 mg-3 mg/3 ml Soln] ampul.neb Ipratropium-Albuterol Nebulize 3 ml INHALATION RT-QID ampul.neb 02/10/19 [Duoneb 0.5 mg-3 mg/3 ml Soln] Levofloxacin [Levaquin] 750 mg PO Q24H 10 Days #10 tab 02/10/19 Losartan [Cozaar] 50 mg PO DAILY tab 02/10/19 Nystatin 100,000 Unit/ml Susp 500,000 unit PO QID 10 Days #40 cup 02/10/19 [Mycostatin Oral Susp] Theophylline 24 Hour [Jayy-24] 400 mg PO DAILY cap.er.24h 02/10/19 Verapamil Sr [Isoptin Sr] 240 mg PO DAILY tablet.er 02/10/19 guaiFENesin-Coden 100-10MG/5ML 5 ml PO Q6H PRN 14 Days #1 bottle 02/10/19 [Robitussin AC] oxyCODONE-APAP 10-325MG [Percocet 1 tab PO QID 14 Days #56 tab 02/10/19 10-325 mg] Allergies Allergy/AdvReac Type Severity Reaction Status Date / Time No Known Allergies Allergy Verified 02/10/19 19:31 Review of Systems ROS Statement: Those systems with pertinent positive or pertinent negative responses have been documented in the HPI. ROS Other: All systems not noted in ROS Statement are negative. Constitutional: Denies: fever Eyes: Denies: eye pain ENT: Denies: ear pain Respiratory: Reports: dyspnea. Denies: cough Cardiovascular: Denies: chest pain Endocrine: Denies: fatigue Gastrointestinal: Denies: abdominal pain Genitourinary: Denies: dysuria Musculoskeletal: Denies: back pain Neurological: Denies: weakness Past Medical History Past Medical History: Atrial Fibrillation, COPD, Eye Disorder, GERD/Reflux, Hearing Disorder / Deafness, Osteoarthritis (OA) Additional Past Medical History / Comment(s): Afib RVR, bronchitis with sepsis, acute hypoxic respiratory failure with bipap/ventimask, rectus sheath hematoma thought d/t coughing, previous pancreatitis x 2, denies ETOH abuse/withdrawals, recinos's palsy, gout bilateral feet/toes, R ear tinnitis, occasional R eye double vision, cataracts bilaterally History of Any Multi-Drug Resistant Organisms: None Reported Past Surgical History: Appendectomy, Section, Joint Replacement, Orthopedic Surgery Additional Past Surgical History / Comment(s): Total L hip arthroplasty, ORIF R arm with pin now removed, R side surgery d/t trauma, colonoscopy with benign polyps, bronchoscopy Past Anesthesia/Blood Transfusion Reactions: No Reported Reaction Past Psychological History: Anxiety Smoking Status: Former smoker Past Alcohol Use History: None Reported, Abuse Past Drug Use History: None Reported - Past Family History Mother Family Medical History: COPD, Diabetes Mellitus Additional Family Medical History / Comment(s): Mother had heart problems. Father Family Medical History: No Reported History Additional Family Medical History / Comment(s): Father had gout and heart problems. Brother(s) Additional Family Medical History / Comment(s): gout General Exam Limitations: no limitations General appearance: alert, in no apparent distress Head exam: Present: normocephalic Eye exam: Present: normal appearance, PERRL ENT exam: Present: normal oropharynx Neck exam: Present: normal inspection Respiratory exam: Present: wheezes Cardiovascular Exam: Present: tachycardia GI/Abdominal exam: Present: soft. Absent: tenderness Extremities exam: Present: pedal edema (+1 bilateral). Absent: calf tenderness Neurological exam: Present: alert Psychiatric exam: Present: normal affect, normal mood Skin exam: Present: normal color Course Vital Signs 02/10/19 02/10/19 02/10/19 18:23 19:03 19:13 Temperature 97.9 F Pulse Rate 135 H 120 H 126 H Respiratory 22 20 20 Rate Blood Pressure 124/70 O2 Sat by Pulse 89 L 94 L Oximetry 02/10/19 19:25 Temperature Pulse Rate 132 H Respiratory 20 Rate Blood Pressure O2 Sat by Pulse Oximetry Medical Decision Making - Medical Decision Making Patient reevaluated with continued complaints of dyspnea. Patient has continued significant wheezing. Heart rate remains around 120. Case was discussed with Dr. Mantilla who is familiar with this patient and does recommend readmission. Patient and family updated. Repeat blood work and chest x-ray will be ordered. Disposition Clinical Impression: Acute exacerbation of chronic obstructive airways disease, Atrial fibrillation with RVR Disposition: ADMITTED IP TO THIS HOSP Is patient prescribed a controlled substance at d/c from ED?: No Referrals: Mariama Mantilla MD [Primary Care Provider] - 1-2 days Decision Time: 20:17
[2019-02-10] MEDS ORDERED: IPRATROPIUM-ALBUTEROL 3 ML NEB INHALATION PRN (20:18)
[2019-02-10] MEDS ORDERED: LEVOFLOXACIN 750 MG TAB PO SCH (21:00)
[2019-02-10] MEDS ORDERED: VERAPAMIL SR 240 MG TABLET.ER PO SCH (21:00)
[2019-02-10 21:03] LABS: Appearance,Urine Clear (Clear); Bilirubin,Urine Negative (Negative); Blood,Urine Trace (Negative); Color,Urine Light Yellow; Glucose,Urine (UA) 4+ (Negative); Ketones,Urine Negative (Negative); Leukocyte Esterase,Urine Negative (Negative); Nitrite,Urine Negative (Negative); PH, Urine 6.5 (5.0-8.0); Protein,Urine 1+ (Negative); Specific Gravity,Urine 1.026 (1.001-1.035); Urobilinogen,Urine <2.0 mg/dL (<2.0)
[2019-02-10 21:04] LABS: RBC,Urine 2 /hpf (0-5); Squamous Epithelial Cell,Urine 1 /hpf (0-4); WBC,Urine 1 /hpf (0-5)
[2019-02-10 21:12] LABS: Basophils # (A) 0.1 k/uL (0-0.2); Basophils % (A) 1 %; Eosinophils % (A) 0 %; HGB 14.4 gm/dL (11.4-16.0); Lymphocytes # (A) 0.5 k/uL (1.0-4.8); Lymphocytes % (A) 3 %; MCHC 32.8 g/dL (31.0-37.0); MCV 97.7 fL (80.0-100.0); Mean Platelet Volume 7.6; Monocytes # (A) 0.6 k/uL (0-1.0); Monocytes % (A) 3 %; Neutrophils % (A) 93 %; Platelet Count 184 k/uL (150-450); RDW 14.3 % (11.5-15.5); WBC 19.3 k/uL (3.8-10.6)
[2019-02-10] MEDS ORDERED: DILTIAZEM DRIP BOLUS FROM BAG 1 MG SOLN IV ONE (21:14)
[2019-02-10 21:21] LABS: ALT 223 U/L (9-52); AST 33 U/L (14-36); African American GFR (CKD) >90 (>60 ml/min/1.73 sqM); Albumin 3.7 g/dL (3.5-5.0); Alkaline Phosphatase 61 U/L (38-126); Anion Gap 9 mmol/L; Blood Urea Nitrogen 45 mg/dL (7-17); Calcium 9.5 mg/dL (8.4-10.2); Carbon Dioxide 26 mmol/L (22-30); Chloride 101 mmol/L (98-107); Glucose 296 mg/dL (74-99); Magnesium 2.1 mg/dL (1.6-2.3); Potassium 3.9 mmol/L (3.5-5.1); Sodium 136 mmol/L (137-145); Total Bilirubin 0.7 mg/dL (0.2-1.3); Total Protein 5.9 g/dL (6.3-8.2)
[2019-02-10 21:26] LABS: INR 0.9 (<1.2); Prothrombin Time 9.9 sec (9.0-12.0)
[2019-02-10 21:27] LABS: Partial Thromboplastin Time 20.3 sec (22.0-30.0)
--- NOTE | 2019-02-10 21:35 | XR ---
EXAMINATION: XR chest 2V DATE AND TIME: 02/10/2019 8:26 PM CLINICAL INDICATION: PHH; difficulty breathing TECHNIQUE: AP and lateral COMPARISON: 02/07/2019 FINDINGS: The lungs are clear. The pleural spaces are negative. The cardiac silhouette is not enlarged. The remainder of the mediastinal silhouette is unremarkable. The skeletal structures and soft tissues are negative for acute findings. IMPRESSION: NO ACUTE PROCESS.
[2019-02-10] MEDS ORDERED: oxyCODONE-APAP 10-325MG 1 EACH TAB PO SCH (22:00)
[2019-02-10] MEDS: methylPREDNISolone SOD SUCCI 125 MG/2 ML VIAL IV SCH (22:05)
[2019-02-10] MEDS: APIXABAN 5 MG TAB PO SCH (22:06)
[2019-02-10] MEDS: DILTIAZEM 125 MG in SODIUM CHLORIDE 0.9% 100 ML IV SCH (22:06)
[2019-02-10] MEDS: INSULIN ASPART (NovoLOG) 100 UNIT/ML VIAL SQ SCH (22:26)
[2019-02-10 22:29] LABS: Glucose,Whole Blood 286 mg/dL (75-99)
[2019-02-11 02:00] VITALS: BMI 31.2
[2019-02-11] MEDS: oxyCODONE-APAP 10-325MG 1 EACH TAB PO PRN ×5 (02:33→18:58)
[2019-02-11] MEDS: methylPREDNISolone SOD SUCCI 125 MG/2 ML VIAL IV SCH ×2 (02:34→09:57)
[2019-02-11 06:05] LABS: Glucose,Whole Blood 267 mg/dL (75-99)
[2019-02-11] MEDS: INSULIN ASPART (NovoLOG) 100 UNIT/ML VIAL SQ SCH ×4 (06:08→20:03)
[2019-02-11] MEDS: IPRATROPIUM-ALBUTEROL 3 ML NEB INHALATION SCH ×5 (07:26→20:33)
[2019-02-11] MEDS ORDERED: INSULIN ASPART (NovoLOG) 100 UNIT/ML VIAL SQ SCH (07:30)
[2019-02-11 07:48] LABS: Glucose,Whole Blood 286 mg/dL (75-99)
[2019-02-11] MEDS: VERAPAMIL SR 240 MG TABLET.ER PO SCH (09:54)
[2019-02-11] MEDS: LOSARTAN 50 MG TAB PO SCH (09:55)
[2019-02-11] MEDS: LEVOFLOXACIN 750 MG TAB PO SCH (09:55)
[2019-02-11] MEDS: LORATADINE 10 MG TAB PO SCH (09:55)
[2019-02-11] MEDS: APIXABAN 5 MG TAB PO SCH ×2 (09:58→20:02)
[2019-02-11] MEDS ORDERED: guaiFENesin-Coden 100-10MG/5ML 10 ML CUP PO PRN (10:04)
[2019-02-11] MEDS ORDERED: BENZOCAINE/MENTHOL LOZENG 1 EACH LOZENGE MUCOUS MEM PRN (10:04)
--- NOTE | 2019-02-11 10:22 | P.HPIM ---
History of Present Illness H&P Date: 02/11/19 This is a 63-year-old female patient who presented back to the ER after being discharged to [facility] with complaints of increased shortness of breath and inability to get pain meds at rehab facility. Patient was found to have elevated heart rate 120s in A. fib RVR. Patient does have known past history of atrial fibrillation in which she is maintained on eliquis. Patient has a known past medical history of nicotine dependence, fibrillation, COPD, eye disorder, GERD, hearing disorder, osteoarthritis and recent treatment for bronchitis and tracheobronchitis. Patient started on Solu-Medrol on Cardizem. Pulmonary and cardiology has been consulted. Chest x-ray completed showing no acute process. This time patient is resting comfortably in bed. Patient remains on Cardizem drip. Patient denies chest pain. Patient still has cough with some shortness of breath. Patient denies nausea vomiting or diarrhea. Patient denies any urinary burning or frequency. Review of Systems plesae refer to HPI otherwise normal Past Medical History Past Medical History: Atrial Fibrillation, COPD, Eye Disorder, GERD/Reflux, Hearing Disorder / Deafness, Osteoarthritis (OA) Additional Past Medical History / Comment(s): Afib RVR, bronchitis with sepsis, acute hypoxic respiratory failure with bipap/ventimask, rectus sheath hematoma thought d/t coughing, previous pancreatitis x 2, denies ETOH abuse/withdrawals, khan's palsy, gout bilateral feet/toes, R ear tinnitis, occasional R eye double vision, cataracts bilaterally History of Any Multi-Drug Resistant Organisms: None Reported Past Surgical History: Appendectomy, Section, Joint Replacement, Orth opedic Surgery Additional Past Surgical History / Comment(s): Total L hip arthroplasty, ORIF R arm with pin now removed, R side surgery d/t trauma, colonoscopy with benign chantale yps, bronchoscopy Past Anesthesia/Blood Transfusion Reactions: No Reported Reaction Past Psychological History: Anxiety Additional Psychological History / Comment(s): Pt resides with her sister. She uses a walker prn. She no longer drives, she gets to appts by friends/family. Smoking Status: Former smoker Past Alcohol Use History: None Reported, Abuse Additional Past Alcohol Use History / Comment(s): Pt started smoking in 1963 and is a ppd smoker. Pt denies ever being a heavy drinker or having ETOH abuse. She states she drank on occasion and none for past 6 months. Past Drug Use History: None Reported - Past Family History Mother Family Medical History: COPD, Diabetes Mellitus Additional Family Medical History / Comment(s): Mother had heart problems. Father Family Medical History: No Reported History Additional Family Medical History / Comment(s): Father had gout and heart problems. Brother(s) Additional Family Medical History / Comment(s): gout Medications and Allergies Home Medications Medication Instructions Recorded Confirmed Type Allopurinol 300 mg PO DAILY 11/25/15 02/10/19 History Ergocalciferol [Vitamin D2 50,000 unit PO FR 11/25/15 02/10/19 History (DRISDOL)] Loratadine [Claritin] 10 mg PO DAILY 08/21/17 02/10/19 History Omeprazole [PriLOSEC] 40 mg PO DAILY 08/21/17 02/10/19 History Fluticasone/Salmeterol 1 puff INHALATION RT-BID 01/26/19 02/10/19 History [Fluticasone-Salmeterol 232-14] Montelukast [Singulair] 10 mg PO HS 01/26/19 02/10/19 History Apixaban [Eliquis] 5 mg PO BID tab 02/10/19 02/10/19 Rx Benzocaine/Menthol Lozeng [Cepacol 1 lozenge MUCOUS MEM Q4HR PRN 02/10/19 02/10/19 History lozenge] INSULIN ASPART (NovoLOG) [NovoLOG See Protocol SQ ACHS 02/10/19 02/10/19 History (formulary)] Ipratropium-Albuterol Nebulize 3 ml INHALATION RT-Q2H PRN 02/10/19 02/10/19 Rx [Duoneb 0.5 mg-3 mg/3 ml Soln] ampul.neb Ipratropium-Albuterol Nebulize 3 ml INHALATION RT-QID ampul.neb 02/10/19 02/10/19 Rx [Duoneb 0.5 mg-3 mg/3 ml Soln] Levofloxacin [Levaquin] 750 mg PO Q24H 10 Days #10 tab 02/10/19 02/10/19 Rx Losartan [Cozaar] 50 mg PO DAILY tab 02/10/19 02/10/19 Rx Nystatin 100,000 Unit/ml Susp 500,000 unit PO QID 10 Days #40 cup 02/10/19 02/10/19 Rx [Mycostatin Oral Susp] Theophylline 24 Hour [Jayy-24] 400 mg PO DAILY cap.er.24h 02/10/19 02/10/19 Rx Verapamil Sr [Isoptin Sr] 240 mg PO DAILY tablet.er 02/10/19 02/10/19 Rx guaiFENesin-Coden 100-10MG/5ML 5 ml PO Q6H PRN 14 Days #1 bottle 02/10/19 02/10/19 Rx [Robitussin AC] oxyCODONE-APAP 10-325MG [Percocet 1 tab PO QID 14 Days #56 tab 02/10/19 02/10/19 Rx 10-325 mg] predniSONE See Taper PO DIRECTED 02/10/19 02/10/19 History Allergies Allergy/AdvReac Type Severity Reaction Status Date / Time No Known Allergies Allergy Verified 02/10/19 19:31 Physical Exam Vitals: Vital Signs Temp Pulse Pulse Resp BP BP Pulse Ox 02/11/19 09:57 122 H 02/11/19 03:30 98.1 F 93 18 131/76 95 02/11/19 00:00 93 18 131/80 95 02/10/19 22:29 124 H 20 145/76 95 02/10/19 21:50 98.4 F 117 H 21 125/91 93 L 02/10/19 21:08 98.4 F 02/10/19 20:50 117 H 20 154/98 95 02/10/19 20:41 110 H 20 97 02/10/19 19:25 132 H 20 02/10/19 19:13 126 H 20 02/10/19 19:03 120 H 20 94 L 02/10/19 18:23 97.9 F 135 H 22 124/70 89 L Intake and Output 02/10/19 02/11/19 02/11/19 22:59 06:59 14:59 Intake Total 222 240 Output Total 150 100 Balance 72 -100 240 Intake: Oral 222 240 Output: Urine 150 100 Other: Voiding Method Bedside Commode # Voids 1 0 # Bowel Movements 1 Weight 74.843 kg 77.4 kg Head normocephalic Neck supple Lung last with expiratory wheezing Heart irregular rate Abdomen is soft nontender nondistended positive bowel sounds no hepatosplenomegaly Extremities no edema Neuro alert and orientated to 3 Results CBC & Chem 7: 02/10/19 20:55 02/10/19 20:55 Labs: Abnormal Lab Results - Last 24 Hours (Table) 02/10/19 02/10/19 02/10/19 Range/Units 20:40 20:55 20:55 WBC 19.3 H (3.8-10.6) k/uL Neutrophils # 18.0 H (1.3-7.7) k/uL Lymphocytes # 0.5 L (1.0-4.8) k/uL APTT 20.3 L (22.0-30.0) sec Sodium (137-145) mmol/L BUN (7-17) mg/dL Glucose (74-99) mg/dL POC Glucose (mg/dL) (75-99) mg/dL ALT (9-52) U/L Total Protein (6.3-8.2) g/dL Urine Protein 1+ H (Negative) Urine Glucose (UA) 4+ H (Negative) Urine Blood Trace H (Negative) 02/10/19 02/10/19 02/10/19 Range/Units 20:55 22:04 22:28 WBC (3.8-10.6) k/uL Neutrophils # (1.3-7.7) k/uL Lymphocytes # (1.0-4.8) k/uL APTT (22.0-30.0) sec Sodium 136 L (137-145) mmol/L BUN 45 H (7-17) mg/dL Glucose 296 H (74-99) mg/dL POC Glucose (mg/dL) 286 H 286 H (75-99) mg/dL ALT 223 H (9-52) U/L Total Protein 5.9 L (6.3-8.2) g/dL Urine Protein (Negative) Urine Glucose (UA) (Negative) Urine Blood (Negative) 02/11/19 Range/Units 06:04 WBC (3.8-10.6) k/uL Neutrophils # (1.3-7.7) k/uL Lymphocytes # (1.0-4.8) k/uL APTT (22.0-30.0) sec Sodium (137-145) mmol/L BUN (7-17) mg/dL Glucose (74-99) mg/dL POC Glucose (mg/dL) 267 H (75-99) mg/dL ALT (9-52) U/L Total Protein (6.3-8.2) g/dL Urine Protein (Negative) Urine Glucose (UA) (Negative) Urine Blood (Negative) Thrombosis Risk Factor Assmnt - Choose All That Apply Any of the Below Risk Factors Present?: Yes Each Factor Represents 1 point: Abnormal pulmonary function (COPD), Obesity (BMI >25) Other Risk Factors: Yes Each Risk Factor Represents 2 Points: Age 61-74 years Thrombosis Risk Factor Assessment Total Risk Factor Score: 4 Thrombosis Risk Factor Assessment Level: Moderate Risk Assessment and Plan Assessment: 1. Shortness of breath related to acute exacerbation of COPD. Patient started on Solu-Medrol pulmonary service is consulted. Levaquin resumed 2. Atrial fibrillation with rapid ventricular response. Cardizem started. Cardiology services consulted. Patient maintained on eliquis 3. History of atrial fibrillation 4. Nicotine dependence. Patient educated longer than 3 minutes on smoking cessation. Patient denies nicotine patch 5. History of asthma 6. History of COPD 7. History of Khan's palsy 8. History of GERD 9. Possible nodule seen during previous admission on chest x-ray. Patient was evaluated by pulmonary services will follow up outpatient for further workup 10. History of osteoporosis with total left hip replacement 11. Essential hypertension 12. Oral thrush. Patient maintained on bed 13. Elevated liver enzymes. These do appear to be trending down. GI did evaluate patient during previous day likely due to medication DVT prophylaxis eliquis. GI prophylaxis protonix Time with Patient: Greater than 30 (Greater than 60% of the total time spent in counseling and coordination of care. I performed an examination of the patient and discussed their management with the Nurse Practitioner. I have reviewed the Nurse Practitioner's notes and agree with the documented findings and plan of care)
--- NOTE | 2019-02-11 11:41 | P.CNPUL ---
History of Present Illness Consult date: 02/11/19 Requesting physician: Mariama Mantilla Reason for consult: dyspnea, other Chief complaint: Bilateral knee pain, mild dyspnea History of present illness: This is a 63-year-old white female patient of Dr. Mantilla, who was discharged from the hospital yesterday on 02/10/2019 after being hospitalized for over 2 weeks for acute exacerbation of COPD. During her stay patient did require bronchoscopy with BAL, and BAL cultures revealed stenotrophomonas maltophilia, and patient was treated with antibiotics, and discharged to [facility] on the [facility] rehab facility in stable condition on Levaquin, prednisone taper, and breathing treatments. Patient returned to the emergency department yesterday in the evening at 6:30 PM, requesting her pain medication, apparently patient was discharged to the nursing facility and they had difficulty obtaining her pain medications, and patient felt mildly short of breath and did not have nebulized treatments at the skilled nursing since her discharge from the hospital. She denied any fever or chills, denied any worsening cough or congestion, no chest pain, does some mild lower extremity edema which is chronic for her. Chest x- ray showed no acute pulmonary process. Labs reviewed, showing white blood cell count 19.3, hemoglobin of 14.4, sodium was 136, the rest of the electrolytes were within normal limits, BUN is 45, creatinine was 0.56. Urinalysis was negative for any sign of infection. Apparently patient was found to be in A. fib RVR, and was placed on Cardizem drip. Patient does have history of chronic A. fib, she is usually on oral verapamil and Eliquis. Her heart rate was 135 BPM on admission, O2 sat was 89% on 2 L, and oxygen flow has been creased to 3 L. patient was readmitted to the hospital, and her antibiotics, breathing treatments, theophylline, pain medications have been resumed. Review of Systems All systems: negative Constitutional: Denies chills, Denies fever Eyes: denies blurred vision, denies pain Ears, nose, mouth and throat: Denies headache, Denies sore throat Cardiovascular: Denies chest pain, Denies shortness of breath Respiratory: Reports dyspnea, Reports home oxygen, Reports respiratory infections, Reports wheezing, Denies cough Gastrointestinal: Denies abdominal pain, Denies diarrhea, Denies nausea, Denies vomiting Genitourinary: Denies dysuria, Denies hematuria Musculoskeletal: Denies myalgias Integumentary: Denies pruritus, Denies rash Neurological: Denies numbness, Denies weakness Psychiatric: Denies anxiety, Denies depression Endocrine: Denies fatigue, Denies weight change Past Medical History Past Medical History: Atrial Fibrillation, COPD, Eye Disorder, GERD/Reflux, Hearing Disorder / Deafness, Osteoarthritis (OA) Additional Past Medical History / Comment(s): Afib RVR, bronchitis with sepsis, acute hypoxic respiratory failure with bipap/ventimask, rectus sheath hematoma thought d/t coughing, previous pancreatitis x 2, denies ETOH abuse/withdrawals, recinos's palsy, gout bilateral feet/toes, R ear tinnitis, occasional R eye double vision, cataracts bilaterally History of Any Multi-Drug Resistant Organisms: None Reported Past Surgical History: Appendectomy, Section, Joint Replacement, Orthopedic Surgery Additional Past Surgical History / Comment(s): Total L hip arthroplasty, ORIF R arm with pin now removed, R side surgery d/t trauma, colonoscopy with benign polyps, bronchoscopy Past Anesthesia/Blood Transfusion Reactions: No Reported Reaction Past Psychological History: Anxiety Additional Psychological History / Comment(s): Pt resides with her sister. She uses a walker prn. She no longer drives, she gets to appts by friends/family. Smoking Status: Former smoker Past Alcohol Use History: None Reported, Abuse Additional Past Alcohol Use History / Comment(s): Pt started smoking in 1963 and is a ppd smoker. Pt denies ever being a heavy drinker or having ETOH abuse. She states she drank on occasion and none for past 6 months. Past Drug Use History: None Reported - Past Family History Mother Family Medical History: COPD, Diabetes Mellitus Additional Family Medical History / Comment(s): Mother had heart problems. Father Family Medical History: No Reported History Additional Family Medical History / Comment(s): Father had gout and heart problems. Brother(s) Additional Family Medical History / Comment(s): gout Medications and Allergies Home Medications Medication Instructions Recorded Confirmed Type Allopurinol 300 mg PO DAILY 11/25/15 02/10/19 History Ergocalciferol [Vitamin D2 50,000 unit PO FR 11/25/15 02/10/19 History (DRISDOL)] Loratadine [Claritin] 10 mg PO DAILY 08/21/17 02/10/19 History Omeprazole [PriLOSEC] 40 mg PO DAILY 08/21/17 02/10/19 History Fluticasone/Salmeterol 1 puff INHALATION RT-BID 01/26/19 02/10/19 History [Fluticasone-Salmeterol 232-14] Montelukast [Singulair] 10 mg PO HS 01/26/19 02/10/19 History Apixaban [Eliquis] 5 mg PO BID tab 02/10/19 02/10/19 Rx Benzocaine/Menthol Lozeng [Cepacol 1 lozenge MUCOUS MEM Q4HR PRN 02/10/19 History lozenge] INSULIN ASPART (NovoLOG) [NovoLOG See Protocol SQ ACHS 02/10/19 02/10/19 History (formulary)] Ipratropium-Albuterol Nebulize 3 ml INHALATION RT-Q2H PRN 02/10/19 02/10/19 Rx [Duoneb 0.5 mg-3 mg/3 ml Soln] ampul.neb Ipratropium-Albuterol Nebulize 3 ml INHALATION RT-QID ampul.neb 02/10/19 02/10/19 Rx [Duoneb 0.5 mg-3 mg/3 ml Soln] Levofloxacin [Levaquin] 750 mg PO Q24H 10 Days #10 tab 02/10/19 02/10/19 Rx Losartan [Cozaar] 50 mg PO DAILY tab 02/10/19 02/10/19 Rx Nystatin 100,000 Unit/ml Susp 500,000 unit PO QID 10 Days #40 cup 02/10/1901/14 Rx [Mycostatin Oral Susp] Theophylline 24 Hour [Jayy-24] 400 mg PO DAILY cap.er.24h 02/10/19 02/10/19 Rx Verapamil Sr [Isoptin Sr] 240 mg PO DAILY tablet.er 02/10/19 02/10/19 Rx guaiFENesin-Coden 100-10MG/5ML 5 ml PO Q6H PRN 14 Days #1 bottle 02/10/19 02/10/19 Rx [Robitussin AC] oxyCODONE-APAP 10-325MG [Percocet 1 tab PO QID 14 Days #56 tab 02/10/19 02/10/19 Rx 10-325 mg] predniSONE See Taper PO DIRECTED 02/10/19 02/10/19 History Allergies Allergy/AdvReac Type Severity Reaction Status Date / Time No Known Allergies Allergy Verified 02/10/19 19:31 Physical Exam Vitals: Vital Signs Temp Pulse Pulse Resp BP BP Pulse Ox 02/11/19 09:57 122 H 02/11/19 08:00 121 H 18 130/70 96 02/11/19 03:30 98.1 F 93 18 131/76 95 02/11/19 00:00 93 18 131/80 95 02/10/19 22:29 124 H 20 145/76 95 02/10/19 21:50 98.4 F 117 H 21 125/91 93 L 02/10/19 21:08 98.4 F 02/10/19 20:50 117 H 20 154/98 95 02/10/19 20:41 110 H 20 97 02/10/19 19:25 132 H 20 02/10/19 19:13 126 H 20 02/10/19 19:03 120 H 20 94 L 02/10/19 18:23 97.9 F 135 H 22 124/70 89 L Intake and Output 02/10/19 02/11/19 02/11/19 22:59 06:59 14:59 Intake Total 222 240 Output Total 150 100 Balance 72 -100 240 Intake: Oral 222 240 Output: Urine 150 100 Other: Voiding Method Bedside Commode # Voids 1 0 # Bowel Movements 1 Weight 74.843 kg 77.4 kg GENERAL EXAM: Alert, pleasant, 63-year-old white female, on 2 L of oxygen with a pulse ox of 93% in no acute distress HEAD: Normocephalic/atraumatic. EYES: Normal reaction of pupils, equal size. Conjunctiva pink, sclera white. NOSE: Clear with pink turbinates. THROAT: No erythema or exudates. NECK: No masses, no JVD, no thyroid enlargement, no adenopathy. CHEST: No chest wall deformity. Symmetrical expansion. LUNGS: Equal air entry with a few scattered rhonchi CVS: Regular rate and rhythm, normal S1 and S2, no gallops, no murmurs, no rubs ABDOMEN: Soft, nontender. No hepatosplenomegaly, normal bowel sounds, no guarding or rigidity. EXTREMITIES: No clubbing, no edema, no cyanosis, 2+ pulses and upper and lower extremities. MUSCULOSKELETAL: Muscle strength and tone normal. SPINE: No scoliosis or deformity SKIN: No rashes CENTRAL NERVOUS SYSTEM: Alert and oriented -3. No focal deficits, tone is normal in all 4 extremities. PSYCHIATRIC: Alert and oriented -3. Appropriate affect. Intact judgment and insight. Results - Laboratory Findings CBC and BMP: 02/10/19 20:55 02/10/19 20:55 PT/INR, D-dimer PT 9.9 sec (9.0-12.0) 02/10/19 20:55 INR 0.9 (<1.2) 02/10/19 20:55 Abnormal lab findings: Abnormal Labs 02/10/19 02/10/19 02/10/19 20:40 20:55 20:55 WBC 19.3 H Neutrophils # 18.0 H Lymphocytes # 0.5 L APTT 20.3 L Sodium BUN Glucose POC Glucose (mg/dL) ALT Total Protein Urine Protein 1+ H Urine Glucose (UA) 4+ H Urine Blood Trace H 02/10/19 02/10/19 02/10/19 20:55 22:04 22:28 WBC Neutrophils # Lymphocytes # APTT Sodium 136 L BUN 45 H Glucose 296 H POC Glucose (mg/dL) 286 H 286 H ALT 223 H Total Protein 5.9 L Urine Protein Urine Glucose (UA) Urine Blood 02/11/19 06:04 WBC Neutrophils # Lymphocytes # APTT Sodium BUN Glucose POC Glucose (mg/dL) 267 H ALT Total Protein Urine Protein Urine Glucose (UA) Urine Blood - Diagnostic Findings Chest x-ray: report reviewed, image reviewed Assessment and Plan Plan: Assessment: #1. Chronic pain syndrome, patient returned to the hospital due to inability to obtain pain medications at the subacute rehab facility #2. A. fib with RVR #3. Chronic hypoxemic respiratory failure related to COPD #4. Recent hospitalization for acute COPD exacerbation related to stenotrophomo maurice maltophilia, and currently her pulmonary status continues to improve and remains stable. Patient was discharged to subacute rehab yesterday on 02/10/2019 and return to the hospital for the reason of inability to obtain her pain medications #5. Chronic dyspnea related to COPD with interval exacerbation #6. Chronic smoker, currently in remission #7. Skeletal chest wall pain related to cough #8. History of chronic atrial fibrillation on Eliquis #9. Gout #10. History of alcoholism with previous history of pancreatitis #11. Chronic back pain #12. GERD/reflux Plan: Continue with the Levaquin, nebulized bronchodilators, Symbicort, patient's COPD is stable, she is improving, will switch her IV Solu-Medrol to oral prednisone. Chest x-ray has been reviewed showing no acute process. From pulmonary perspective patient is stable for discharge back to the subacute rehab. I performed a history & physical examination of the patient and discussed their management with my nurse practitioner, Nasreen Oneil. I reviewed the nurse practitioner's note and agree with the documented findings and plan of care. Lung sounds are positive for scattered rhonchi. The findings and the impression was discussed with the patient. I attest to the documentation by the nurse practitioner. Time with Patient: Greater than 30
[2019-02-11 11:49] LABS: Glucose,Whole Blood 192 mg/dL (75-99)
[2019-02-11] MEDS: NYSTATIN 100,000 UNIT/ML SUSP 500,000 UNIT/5 ML CUP PO SCH ×3 (13:20→20:02)
[2019-02-11 16:47] LABS: Glucose,Whole Blood 333 mg/dL (75-99)
--- NOTE | 2019-02-11 19:10 | CONS ---
CONSULTATION CHIEF COMPLAINT: Atrial fibrillation with rapid ventricular rate. Shilpa is a 63-year-old lady with history of persistent atrial fibrillation, COPD, hypertension, who presented to hospital, who was readmitted to the hospital with shortness of breath and atrial fibrillation. [facility] was [facility] and they thought that the cannot take care of her and they sent her back. On her initial presentation, she was in atrial fibrillation with rapid ventricular rate. She had been treated with intravenous Cardizem with which the heart rate is better controlled. The patient is on Calan SR at home. I asked her to take a dose of it this morning and stop the Cardizem. The patient had an echocardiogram on her recent admission that showed normal LV systolic function with mild mitral regurgitation and aortic sclerosis without any stenosis. PAST MEDICAL HISTORY: Significant for atrial fibrillation, hypertension, COPD, insulin-requiring diabetes. MEDICATIONS: Medications at home include verapamil 240 daily, Prilosec, Claritin, Cozaar 50 daily, Levaquin, DuoNeb, aspirin, Eliquis, and allopurinol. ALLERGIES: There are no known drug allergies. FAMILY HISTORY: Negative for premature coronary artery disease. SOCIAL HISTORY: Negative for current smoking, EtOH abuse or drug abuse. REVIEW OF SYSTEMS: HEENT is unremarkable. Cardiac as described above. Respiratory as described above. GI negative. Genitourinary: Negative. Allergy/Immunology: None. Skin negative. Musculoskeletal for arthritis. Psychosocial negative. ENDOCRINE: Negative. Derm: Negative. Constitutional negative. Oncological negative. Rest of the system review is not relevant. EXAM: Heart rate is 100 beats per minute. Blood pressure is 159/70. Respiratory is 18. Chest exam reveals bilateral diffuse rhonchi. Heart exam reveals first and second heart sounds. No gallop. Abdomen is soft. Exam of the extremities did not reveal any edema. LAB: Show a hemoglobin of 14.4, platelet count is 184, creatinine is 0.56, potassium is 3.9. ASSESSMENT: 1. Persistent atrial fibrillation. 2. Chronic obstructive pulmonary disease exacerbation. 3. Hypertension. PLAN: I will stop the IV Cardizem, start her back on Isoptin. Continue the Eliquis. MMODL / IJN: [id number] /
[2019-02-11 19:50] LABS: Glucose,Whole Blood 329 mg/dL (75-99)
[2019-02-11] MEDS: SYMBICORT 160-4.5 MCG INHALER INHALATION SCH (20:33)
[2019-02-11] MEDS ORDERED: MONTELUKAST 10 MG TAB PO SCH (21:00)
[2019-02-11] MEDS ORDERED: INSULIN DETEMIR (LEVEMIR) 100 UNIT/ML SYR SQ SCH (21:00)
[2019-02-11] MEDS: DILTIAZEM 125 MG in SODIUM CHLORIDE 0.9% 100 ML IV SCH (22:10)
[2019-02-12] MEDS: oxyCODONE-APAP 10-325MG 1 EACH TAB PO PRN ×3 (00:05→12:18)
[2019-02-12] MEDS: INSULIN ASPART (NovoLOG) 100 UNIT/ML VIAL SQ SCH ×2 (05:57→11:55)
[2019-02-12 05:58] LABS: Glucose,Whole Blood 99 mg/dL (75-99)
[2019-02-12 07:01] LABS: HCT 40.4 % (34.0-46.0); HGB 13.2 gm/dL (11.4-16.0); MCH 32.3 pg (25.0-35.0); MCHC 32.6 g/dL (31.0-37.0); MCV 99.1 fL (80.0-100.0); Mean Platelet Volume 7.4; Platelet Count 141 k/uL (150-450); RBC 4.08 m/uL (3.80-5.40); RDW 14.3 % (11.5-15.5); WBC 16.1 k/uL (3.8-10.6)
[2019-02-12] MEDS: SYMBICORT 160-4.5 MCG INHALER INHALATION SCH (07:20)
[2019-02-12] MEDS: IPRATROPIUM-ALBUTEROL 3 ML NEB INHALATION SCH ×3 (07:20→15:20)
[2019-02-12 07:22] LABS: African American GFR (CKD) >90 (>60 ml/min/1.73 sqM); Anion Gap 5 mmol/L; Blood Urea Nitrogen 46 mg/dL (7-17); Calcium 9.3 mg/dL (8.4-10.2); Carbon Dioxide 28 mmol/L (22-30); Chloride 102 mmol/L (98-107); Glucose 90 mg/dL (74-99); Potassium 4.3 mmol/L (3.5-5.1); Sodium 135 mmol/L (137-145)
[2019-02-12] MEDS ORDERED: predniSONE 20 MG TAB PO SCH (09:00)
[2019-02-12] MEDS ORDERED: PANTOPRAZOLE 40 MG TABLET PO SCH (09:00)
[2019-02-12] MEDS ORDERED: ALLOPURINOL 300 MG TAB PO SCH (09:00)
[2019-02-12] MEDS ORDERED: THEOPHYLLINE 24 HOUR 400 MG CAP.ER.24H PO SCH (09:00)
[2019-02-12] MEDS: LEVOFLOXACIN 750 MG TAB PO SCH (09:03)
[2019-02-12] MEDS: LOSARTAN 50 MG TAB PO SCH (09:03)
[2019-02-12] MEDS: NYSTATIN 100,000 UNIT/ML SUSP 500,000 UNIT/5 ML CUP PO SCH ×2 (09:03→12:18)
[2019-02-12] MEDS: VERAPAMIL SR 240 MG TABLET.ER PO SCH (09:04)
[2019-02-12] MEDS: LORATADINE 10 MG TAB PO SCH (09:04)
[2019-02-12] MEDS: APIXABAN 5 MG TAB PO SCH (09:04)
[2019-02-12 09:09] VITALS: RESP 18; TEMP 98.8
[2019-02-12 11:32] LABS: Glucose,Whole Blood 119 mg/dL (75-99)
[2019-02-12] MEDS ORDERED: METOPROLOL SUCCINATE (ER) 25 MG TAB.ER.24H PO SCH (12:15)
[2019-02-12 12:21] VITALS: BP 142/100
--- NOTE | 2019-02-12 12:40 | P.PN ---
Subjective Progress Note Date: 02/12/19 Principal diagnosis: Bilateral knee pain, mild dyspnea This is a 63-year-old white female patient of Dr. Mantilla, who was discharged from the hospital yesterday on 02/10/2019 after being hospitalized for over 2 weeks for acute exacerbation of COPD. During her stay patient did require bronchoscopy with BAL, and BAL cultures revealed stenotrophomonas maltophilia, and patient was treated with antibiotics, and discharged to [facility] on the [facility] rehab facility in stable condition on Levaquin, prednisone taper, and breathing treatments. Patient returned to the emergency department yesterday in the evening at 6:30 PM, requesting her pain medication, apparently patient was discharged to the nursing facility and they had difficulty obtaining her pain medications, and patient felt mildly short of breath and did not have nebulized treatments at the halfway since her discharge from the hospital. She denied any fever or chills, denied any worsening cough or congestion, no chest pain, does some mild lower extremity edema which is chronic for her. Chest x- ray showed no acute pulmonary process. Labs reviewed, showing white blood cell count 19.3, hemoglobin of 14.4, sodium was 136, the rest of the electrolytes were within normal limits, BUN is 45, creatinine was 0.56. Urinalysis was negative for any sign of infection. Apparently patient was found to be in A. fib RVR, and was placed on Cardizem drip. Patient does have history of chronic A. fib, she is usually on oral verapamil and Eliquis. Her heart rate was 135 BPM on admission, O2 sat was 89% on 2 L, and oxygen flow has been creased to 3 L. patient was readmitted to the hospital, and her antibiotics, breathing treatments, theophylline, pain medications have been resumed. On 02/12/2019 patient seen in follow-up on selective care unit, she is awake and alert, in no acute distress, still has some mild congestion, and a few scattered wheezes, but good air entry noted bilateral, she is in no acute distress, no fever or chills, no acute events overnight, she is recovering from acute exacerbation of COPD, she is on oral prednisone, antibiotics, and breathing treatments, remains in A. fib, and she is still tachycardic, cardiology is following. She is on oral anticoagulation, yesterday she was on Cardizem drip, which was discontinued today, and beta blockers have been started. No other ac baltazar events overnight, her regular pain medications have been restarted, and patient is more comfortable on today's exam. Objective - Vital Signs Vital signs: Vital Signs Temp 98.8 F 02/12/19 09:00 Pulse 126 H 02/12/19 12:15 Resp 18 02/12/19 12:15 BP 142/100 02/12/19 12:15 Pulse Ox 95 02/12/19 12:15 Intake & Output 02/11/19 02/12/19 02/12/19 18:59 06:59 18:59 Intake Total 1182 360 Balance 1182 360 Weight 80.2 kg Intake: Oral 1182 360 Other: Voiding Method Bedside Commode # Voids 2 3 1 - Exam GENERAL EXAM: Alert, pleasant, 63-year-old white female, on 2 L of oxygen with a pulse ox of 93% in no acute distress HEAD: Normocephalic/atraumatic. EYES: Normal reaction of pupils, equal size. Conjunctiva pink, sclera white. NOSE: Clear with pink turbinates. THROAT: No erythema or exudates. NECK: No masses, no JVD, no thyroid enlargement, no adenopathy. CHEST: No chest wall deformity. Symmetrical expansion. LUNGS: Equal air entry with a few scattered rhonchi CVS: Regular rate and rhythm, normal S1 and S2, no gallops, no murmurs, no rubs ABDOMEN: Soft, nontender. No hepatosplenomegaly, normal bowel sounds, no guarding or rigidity. EXTREMITIES: No clubbing, no edema, no cyanosis, 2+ pulses and upper and lower extremities. MUSCULOSKELETAL: Muscle strength and tone normal. SPINE: No scoliosis or deformity SKIN: No rashes CENTRAL NERVOUS SYSTEM: Alert and oriented -3. No focal deficits, tone is normal in all 4 extremities. PSYCHIATRIC: Alert and oriented -3. Appropriate affect. Intact judgment and insight. - Labs CBC & Chem 7: 02/12/19 06:11 02/12/19 06:11 Labs: Abnormal Lab Results - Last 24 Hours (Table) 02/11/19 02/11/19 02/12/19 Range/Units 16:45 19:48 06:11 WBC 16.1 H (3.8-10.6) k/uL Plt Count 141 L (150-450) k/uL Sodium (137-145) mmol/L BUN (7-17) mg/dL Creatinine (0.52-1.04) mg/dL POC Glucose (mg/dL) 333 H 329 H (75-99) mg/dL 02/12/19 02/12/19 Range/Units 06:11 11:28 WBC (3.8-10.6) k/uL Plt Count (150-450) k/uL Sodium 135 L (137-145) mmol/L BUN 46 H (7-17) mg/dL Creatinine 0.51 L (0.52-1.04) mg/dL POC Glucose (mg/dL) 119 H (75-99) mg/dL Assessment and Plan Plan: Assessment: #1. Chronic pain syndrome, patient returned to the hospital due to inability to obtain pain medications at the subacute rehab facility #2. A. fib with RVR #3. Chronic hypoxemic respiratory failure related to COPD #4. Recent hospitalization for acute COPD exacerbation related to stenotrophomonas maltophilia, and currently her pulmonary status continues to improve and remains stable. Patient was discharged to subacute rehab yesterday on 02/10/2019 and return to the hospital for the reason of inability to obtain her pain medications #5. Chronic dyspnea related to COPD with interval exacerbation #6. Chronic smoker, currently in remission #7. Skeletal chest wall pain related to cough #8. History of chronic atrial fibrillation on Eliquis #9. Gout #10. History of alcoholism with previous history of pancreatitis #11. Chronic back pain #12. GERD/reflux Plan: Continue Levaquin, continue oral steroids, nebulized treatments, patient is recovering from recent to COPD exacerbation complicated by stenotrophomonas maltophilia tracheobronchitis. Clinically she is stable, still somewhat tachycardic, heart ALLERGIES following, and patient has been started on beta blockers, overall she is doing well, no acute distress, and she is being discharged back to the [facility] on the [place] today. I performed a history & physical examination of the patient and discussed their management with my nurse practitioner, Nasreen Oneil. I reviewed the nurse practitioner's note and agree with the documented findings and plan of care. Lung sounds are positive for scattered rhonchi. The findings and the impression was discussed with the patient. I attest to the documentation by the nurse practitioner. Time with Patient: Less than 30
--- NOTE | 2019-02-12 13:01 | P.PN ---
Subjective Progress Note Date: 02/12/19 This is a 63-year-old white female patient of Dr. Mantilla, who was discharged from the hospital yesterday on 02/10/2019 after being hospitalized for over 2 weeks for acute exacerbation of COPD. During her stay patient did require bronchoscopy with BAL, and BAL cultures revealed stenotrophomonas maltophilia, and patient was treated with antibiotics, and discharged to [facility] on the [facility] rehab facility in stable condition on Levaquin, prednisone taper, and breathing treatments. Patient returned to the emergency department yesterday in the evening at 6:30 PM, requesting her pain medication, apparently patient was discharged to the nursing facility and they had difficulty obtaining her pain medications, and patient felt mildly short of breath and did not have nebulized treatments at the correction since her discharge from the hospital. She denied any fever or chills, denied any worsening cough or congestion, no chest pain, does some mild lower extremity edema which is chronic for her. Chest x- ray showed no acute pulmonary process. Labs reviewed, showing white blood cell count 19.3, hemoglobin of 14.4, sodium was 136, the rest of the electrolytes were within normal limits, BUN is 45, creatinine was 0.56. Urinalysis was negative for any sign of infection. Apparently patient was found to be in A. fib RVR, and was placed on Cardizem drip. Patient does have history of chronic A. fib, she is usually on oral verapamil and Eliquis. Her heart rate was 135 BPM on admission, O2 sat was 89% on 2 L, and oxygen flow has been creased to 3 L. patient was readmitted to the hospital, and her antibiotics, breathing treatments, theophylline, pain medications have been resumed. 02/12/2019 Patient was seen and examined this morning, continues to have some wheezing however less than yesterday. She is in atrial fibrillation and her heart rate is around 90 today. Blood pressure 138/80, echo is pending at this time. White blood cell count 16.1, hemoglobin 13.2, platelet count 141. Sodium 135, potassium 4.3, BUN 46 and creatinine 0.5. Objective - Vital Signs Vital signs: Vital Signs Temp 98.8 F 02/12/19 09:00 Pulse 126 H 02/12/19 12:15 Resp 18 02/12/19 12:15 BP 142/100 02/12/19 12:15 Pulse Ox 95 02/12/19 12:15 Intake & Output 02/11/19 02/12/19 02/12/19 18:59 06:59 18:59 Intake Total 1182 360 Balance 1182 360 Weight 80.2 kg Intake: Oral 1182 360 Other: Voiding Method Bedside Commode # Voids 2 3 2 - Exam HEAD: Normocephalic/atraumatic. EYES: Normal reaction of pupils, equal size. Conjunctiva pink, sclera white. NOSE: Clear with pink turbinates. THROAT: No erythema or exudates. NECK: No masses, no JVD, no thyroid enlargement, no adenopathy. CHEST: No chest wall deformity. Symmetrical expansion. LUNGS: Equal air entry with a few scattered rhonchi CVS: Regular rate and rhythm, normal S1 and S2, no gallops, no murmurs, no rubs ABDOMEN: Soft, nontender. No hepatosplenomegaly, normal bowel sounds, no guarding or rigidity. EXTREMITIES: No clubbing, no edema, no cyanosis, 2+ pulses and upper and lower extremities. MUSCULOSKELETAL: Muscle strength and tone normal. SPINE: No scoliosis or deformity SKIN: No rashes CENTRAL NERVOUS SYSTEM: Alert and oriented -3. No focal deficits, tone is norm al in all 4 extremities. PSYCHIATRIC: Alert and oriented -3. Appropriate affect. Intact judgment and insigh - Labs CBC & Chem 7: 02/12/19 06:11 02/12/19 06:11 Labs: Abnormal Lab Results - Last 24 Hours (Table) 02/11/19 02/11/19 02/12/19 Range/Units 16:45 19:48 06:11 WBC 16.1 H (3.8-10.6) k/uL Plt Count 141 L (150-450) k/uL Sodium (137-145) mmol/L BUN (7-17) mg/dL Creatinine (0.52-1.04) mg/dL POC Glucose (mg/dL) 333 H 329 H (75-99) mg/dL 02/12/19 02/12/19 Range/Units 06:11 11:28 WBC (3.8-10.6) k/uL Plt Count (150-450) k/uL Sodium 135 L (137-145) mmol/L BUN 46 H (7-17) mg/dL Creatinine 0.51 L (0.52-1.04) mg/dL POC Glucose (mg/dL) 119 H (75-99) mg/dL Assessment and Plan Plan: Assessment and plan: #1. Chronic pain syndrome, patient returned to the hospital due to inability to obtain pain medications at the subacute rehab facility #2. A. fib with RVR, paroxysmal #3. Chronic hypoxemic respiratory failure related to COPD #4. Recent hospitalization for acute COPD exacerbation related to stenotrophomonas maltophilia, and currently her pulmonary status continues to improve and remains stable. Patient was discharged to subacute rehab yesterday on 02/10/2019 and return to the hospital for the reason of inability to obtain her pain medications #5. Chronic dyspnea related to COPD with interval exacerbation #6. Chronic smoker, currently in remission #7. Skeletal chest wall pain related to cough #8. History of chronic atrial fibrillation on Eliquis #9. Gout #10. History of alcoholism with previous history of pancreatitis Plan From cardiology's perspective we will continue current medications. Review echocardiogram with Doppler study. DNP note has been reviewed, I agree with a documented findings and plan of care. Patient was seen and examined.
--- NOTE | 2019-02-12 13:17 | P.DS ---
Providers Date of admission: 02/10/19 20:18 Expected date of discharge: 02/12/19 Attending physician: Mariama Mantilla Consults: 02/10/19 20:18 Consult Physician Routine Consulting Provider: Celina Barnes Consult Reason/Comments: dyspnea Do you want consulting provider notified?: Yes 02/11/19 09:58 Consult Physician Routine Consulting Provider: Ricardo Ramirez Consult Reason/Comments: AFib rvr Do you want consulting provider notified?: Yes Primary care physician: Mariama Mantilla [facility] Course: Discharge diagnosis 1. Shortness of breath related to acute exacerbation of COPD. Patient started on Solu-Medrol pulmonary service is consulted. Levaquin resumed. Per pulmonary continue Levaquin and oral steroids patient has been cleared for discharge from pulmonary standpoint 2. Atrial fibrillation with rapid ventricular response. Cardizem started. Cardiology services consulted. Patient maintained on eliquis. Patient's home dose of verapamil resumed. Metroprolol added 3. History of atrial fibrillation 4. Nicotine dependence. Patient educated longer than 3 minutes on smoking cessation. Patient declines nicotine patch 5. History of asthma 6. History of COPD 7. History of Khan's palsy 8. History of GERD 9. Possible nodule seen during previous admission on chest x-ray. Patient was evaluated by pulmonary services will follow up outpatient for further workup 10. History of osteoporosis with total left hip replacement 11. Essential hypertension 12. Oral thrush. Patient maintained on bed 13. Elevated liver enzymes. These do appear to be trending down. GI did evaluate patient during previous day likely due to medication Hospital course This is a 63-year-old female patient who presented back to the ER after being discharged to [facility] with complaints of increased shortness of breath and inability to get pain meds at rehab facility. Patient was found to have elevated heart rate 120s in A. fib RVR. Patient does have known past history of atrial fibrillation in which she is maintained on eliquis. Patient has a known past medical history of nicotine dependence, fibrillation, COPD, eye disorder, GERD, hearing disorder, osteoarthritis and recent treatment for bronchitis and tracheobronchitis. Patient started on Solu-Medrol on Cardizem. Pulmonary and cardiology has been consulted. Chest x-ray completed showing no acute process. This time patient is resting comfortably in bed. Patient remains on Cardizem drip. Patient denies chest pain. Patient still has cough with some shortness of breath. Patient denies nausea vomiting or diarrhea. Patient denies any urinary burning or frequency. On 02/12/2019 patient is alert and oriented 3. Patient has been cleared for discharge from cardiology and pulmonary standpoint. Patient's heart rate still is elevated patient received 1 dose of beta magdalena instructed nursing staff to monitor heart rate after dose to see if heart rate has improved prior to discharge. Patient will be resumed on Levaquin, prednisone and DuoNeb breathing treatments upon discharge. Patient's home dose of verapamil resumed and Metroprolol added per cardiology. At this time patient denies chest pain. Patient denies nausea vomiting or diarrhea. Patient denies any urinary burning or frequency I performed an examination of the patient and discussed their management with the Nurse Practitioner. I have reviewed the Nurse Practitioner's notes and agree with the documented findings and plan of care Patient Condition at Discharge: Stable Plan - Discharge Summary New Discharge Prescriptions: New Insulin Detemir (Levemir) [Levemir] 10 unit SQ HS syr Metoprolol Succinate (ER) [Toprol XL] 25 mg PO DAILY tab.er.24h Continue Ergocalciferol [Vitamin D2 (DRISDOL)] 50,000 unit PO FR Allopurinol 300 mg PO DAILY Omeprazole [PriLOSEC] 40 mg PO DAILY Loratadine [Claritin] 10 mg PO DAILY Montelukast [Singulair] 10 mg PO HS Fluticasone/Salmeterol [Fluticasone-Salmeterol 232-14] 1 puff INHALATION RT- BID Losartan [Cozaar] 50 mg PO DAILY tab Ipratropium-Albuterol Nebulize [Duoneb 0.5 mg-3 mg/3 ml Soln] 3 ml INHALATION RT-QID ampul.neb Ipratropium-Albuterol Nebulize [Duoneb 0.5 mg-3 mg/3 ml Soln] 3 ml INHALATION RT-Q2H PRN ampul.neb PRN Reason: Shortness Of Breath Or Wheezing Apixaban [Eliquis] 5 mg PO BID tab Verapamil Sr [Isoptin Sr] 240 mg PO DAILY tablet.er Levofloxacin [Levaquin] 750 mg PO Q24H 10 Days #10 tab Nystatin 100,000 Unit/ml Susp [Mycostatin Oral Susp] 500,000 unit PO QID 10 Days #40 cup guaiFENesin-Coden 100-10MG/5ML [Robitussin AC] 5 ml PO Q6H PRN 14 Days #1 bottle PRN Reason: Cough Theophylline 24 Hour [Jayy-24] 400 mg PO DAILY cap.er.24h oxyCODONE-APAP 10-325MG [Percocet 10-325 mg] 1 tab PO QID 14 Days #56 tab Benzocaine/Menthol Lozeng [Cepacol lozenge] 1 lozenge MUCOUS MEM Q4HR PRN PRN Reason: Sore Throat INSULIN ASPART (NovoLOG) [NovoLOG (formulary)] See Protocol SQ ACHS predniSONE See Taper PO DIRECTED Discharge Medication List Allopurinol 300 mg PO DAILY 11/25/15 [History] Ergocalciferol [Vitamin D2 (DRISDOL)] 50,000 unit PO FR 11/25/15 [History] Loratadine [Claritin] 10 mg PO DAILY 08/21/17 [History] Omeprazole [PriLOSEC] 40 mg PO DAILY 08/21/17 [History] Fluticasone/Salmeterol [Fluticasone-Salmeterol 232-14] 1 puff INHALATION RT-BID 01/26/19 [History] Montelukast [Singulair] 10 mg PO HS 01/26/19 [History] Apixaban [Eliquis] 5 mg PO BID tab 02/10/19 [Rx] Benzocaine/Menthol Lozeng [Cepacol lozenge] 1 lozenge MUCOUS MEM Q4HR PRN 02/10/19 [History] INSULIN ASPART (NovoLOG) [NovoLOG (formulary)] See Protocol SQ ACHS 02/10/19 [History] Ipratropium-Albuterol Nebulize [Duoneb 0.5 mg-3 mg/3 ml Soln] 3 ml INHALATION RT-Q2H PRN ampul.neb 02/10/19 [Rx] Ipratropium-Albuterol Nebulize [Duoneb 0.5 mg-3 mg/3 ml Soln] 3 ml INHALATION RT-QID ampul.neb 02/10/19 [Rx] Levofloxacin [Levaquin] 750 mg PO Q24H 10 Days #10 tab 02/10/19 [Rx] Losartan [Cozaar] 50 mg PO DAILY tab 02/10/19 [Rx] Nystatin 100,000 Unit/ml Susp [Mycostatin Oral Susp] 500,000 unit PO QID 10 Days #40 cup 02/10/19 [Rx] Theophylline 24 Hour [Jayy-24] 400 mg PO DAILY cap.er.24h 02/10/19 [Rx] Verapamil Sr [Isoptin Sr] 240 mg PO DAILY tablet.er 02/10/19 [Rx] guaiFENesin-Coden 100-10MG/5ML [Robitussin AC] 5 ml PO Q6H PRN 14 Days #1 bottle 02/10/19 [Rx] oxyCODONE-APAP 10-325MG [Percocet 10-325 mg] 1 tab PO QID 14 Days #56 tab 02/10/19 [Rx] predniSONE See Taper PO DIRECTED 02/10/19 [History] Insulin Detemir (Levemir) [Levemir] 10 unit SQ HS syr 02/12/19 [Rx] Metoprolol Succinate (ER) [Toprol XL] 25 mg PO DAILY tab.er.24h 02/12/19 [Rx] Follow up Appointment(s)/Referral(s): Mariama Mantilla MD [Primary Care Provider] - 1-2 days Activity/Diet/Wound Care/Special Instructions: [facility] CBC and CMP within 7 days of arrival Discharge Disposition: TRANSFER TO SNF/ECF
[2019-02-12 14:31] LABS: Hemoglobin A1C 7.1 % (4.0-6.0)
[2019-02-12 15:39] VITALS: PULSE 100
[2019-02-13] MEDS ORDERED: ERGOCALCIFEROL 50,000 UNIT CAP PO SCH (09:00)
== END 2019-02-12 15:48 | DRG 191 ==
LOC: EC 18:16 → 3SCARD 20:18
PROVIDERS: ADMIT Internal Medicine; ATTEND Internal Medicine
DX: J44.1 Chronic obstructive pulmonary disease with (acute) exacerbation (principal); B37.0 Candidal stomatitis; I48.19 Other persistent atrial fibrillation; J96.11 Chronic respiratory failure with hypoxia; E11.9 Type 2 diabetes mellitus without complications; Z71.6 Tobacco abuse counseling; F17.210 Nicotine dependence, cigarettes, uncomplicated; F41.9 Anxiety disorder, unspecified; G89.4 Chronic pain syndrome; H91.90 Unspecified hearing loss, unspecified ear; I10 Essential (primary) hypertension; I70.0 Atherosclerosis of aorta; K21.9 Gastro-esophageal reflux disease without esophagitis; M10.9 Gout, unspecified; M81.0 Age-related osteoporosis without current pathological fracture; Z79.01 Long term (current) use of anticoagulants; Z79.4 Long term (current) use of insulin; Z79.899 Other long term (current) drug therapy; Z82.5 Family history of asthma and other chronic lower respiratory diseases; Z83.3 Family history of diabetes mellitus; Z96.642 Presence of left artificial hip joint; Z81.1 Family history of alcohol abuse and dependence; Z82.49 Family history of ischemic heart disease and other diseases of the circulatory system; R94.5 Abnormal results of liver function studies; T50.905A Adverse effect of unspecified drugs, medicaments and biological substances, initial encounter; F10.21 Alcohol dependence, in remission; H26.9 Unspecified cataract; M19.90 Unspecified osteoarthritis, unspecified site; Z86.010 Personal history of colon polyps; R91.1 Solitary pulmonary nodule; I34.0 Nonrheumatic mitral (valve) insufficiency
CPT/HCPCS: 71046; 80048; 80053; 81001; 83036; 83735; 85025; 85027; 85610; 85730; 93005; 94640; 99284